=== PATIENT | female | born 1950 | race Caucasian/White ===

== ENCOUNTER → 2016-09-25 | Outpatient (CLI) | payer BC ==
--- NOTE | 2016-09-26 10:18 | MM ---
Reason for exam: screening (asymptomatic). Last mammogram was performed 1 year and 1 month ago. History: Patient is postmenopausal, has history of other cancer at age 36, and had first child at age 36. Benign MG stereo VAD BX LT of the left breast, October 11, 2013. Benign MG stereo VAD BX RT of the right breast, October 11, 2013. Cancelled Left Mammotome of the left breast, May 12, 2013. Benign left mammotome panel of the left breast, October 02, 2012. Physical Findings: A clinical breast exam by your physician is recommended on an annual basis and results should be correlated with mammographic findings. MG 3D Screening Mammo W/Cad Bilateral CC and MLO view(s) were taken. Prior study comparison: August 30, 2015, bilateral MG 3d screening mammo w/cad. July 28, 2014, bilateral MG diagnostic mammo w CAD RIANNA. The breast tissue is extremely dense which could obscure a lesion on mammography. Previous mammotome biopsy within the right breast. There is chronic nodularity bilaterally. There is no dominant lesion. No significant changes when compared with prior studies. ASSESSMENT: Benign, BI-RAD 2 RECOMMENDATION: Routine screening mammogram of both breasts in 1 year.
== END | disposition home or self-care (01) ==
LOC: RADMAMWWP 09:45
PROVIDERS: ATTEND Family Medicine
DX: Z12.31 Encounter for screening mammogram for malignant neoplasm of breast (principal)
CPT/HCPCS: 77063; G0202

== ENCOUNTER 2016-11-30 10:34 | Inpatient (IN) | payer BC, MEDICARE ==
--- NOTE | 2016-11-30 10:46 | ED ---
General Adult HPI - General Chief complaint: Overdose Stated complaint: Altered LOC Time Seen by Provider: 11/30/16 10:40 Source: patient, EMS, RN notes reviewed Mode of arrival: EMS Limitations: altered mental status - History of Present Illness Initial comments: Patient is a 66-year-old female presenting to the emergency department following reported overdose. Patient does admit to being depressed. Patient does admit to taking a handful of Klonopin. Patient is unclear how many. Patient states she is not trying to harm herself however is unclear why she took medication. Patient is drowsy and is a poor historian. EMS did provide Narcan with some improvement of symptoms. - Related Data Home Medications Medication Instructions Recorded Confirmed ALPRAZolam [Xanax] 0.25 mg PO DAILY PRN 02/04/14 12/31/14 Aspirin 81 mg PO DAILY 02/04/14 12/31/14 Cyclobenzaprine [Flexeril] 10 mg PO HS 02/04/14 12/31/14 Folic Acid/Mv,Fe,Min [Centrum 1 cap PO DAILY 02/04/14 12/31/14 Multivitamin Tab Chew] SUMAtriptan SUCCINATE [Imitrex] 100 mg PO DIRECTED 02/04/14 12/31/14 Venlafaxine HCl [Effexor] 1 mg .ROUTE BID 02/04/14 12/31/14 clonazePAM [KlonoPIN] 2 mg PO HS 02/04/14 12/31/14 Citalopram Hydrobromide [CeleXA] 20 mg PO DAILY 12/31/14 12/31/14 Previous Rx's Medication Instructions Recorded Hydrocodone/Acetaminophen [[place] 1 each PO Q6HR PRN #20 tab 12/31/14 5-325] Allergies Allergy/AdvReac Type Severity Reaction Status Date / Time No Known Allergies Allergy Verified 02/04/14 07:47 Review of Systems ROS Statement: Those systems with pertinent positive or pertinent negative responses have been documented in the HPI. ROS Other: All systems not noted in ROS Statement are negative. Constitutional: Denies: fever Eyes: Denies: eye pain ENT: Denies: ear pain Respiratory: Denies: cough Cardiovascular: Denies: chest pain Endocrine: Denies: fatigue Gastrointestinal: Denies: abdominal pain Genitourinary: Denies: dysuria Musculoskeletal: Denies: back pain Skin: Denies: rash Neurological: Denies: headache Psychiatric: Reports: depression Past Medical History Past Medical History: No Reported History History of Any Multi-Drug Resistant Organisms: None Reported Past Surgical History: Heart Catheterization Past Psychological History: Depression Smoking Status: Never smoker Past Alcohol Use History: None Reported Past Drug Use History: None Reported General Exam General appearance: other (Patient is drowsy but easily arousable) Head exam: Present: atraumatic Eye exam: Present: normal appearance, PERRL ENT exam: Present: normal oropharynx Neck exam: Present: normal inspection. Absent: tenderness, meningismus Respiratory exam: Present: normal lung sounds bilaterally Cardiovascular Exam: Present: regular rate, normal rhythm GI/Abdominal exam: Present: soft. Absent: tenderness Extremities exam: Present: normal inspection Neurological exam: Absent: motor sensory deficit Expanded Neurological exam: Present: protecting the airway Patient oriented to: Present: person, place. Absent: time Psychiatric exam: Present: flat affect Skin exam: Present: normal color Course Vital Signs 11/30/16 11/30/16 11/30/16 10:38 11:12 12:21 Temperature 98.2 F Pulse Rate 91 88 86 Respiratory 16 16 16 Rate Blood Pressure 116/60 111/60 109/55 O2 Sat by Pulse 91 L 97 95 Oximetry EKG Findings - EKG Comments: EKG Findings:: Normal sinus rhythm 88. LA 154. QRS 72. QT 338. QTC 408. Normal axis. Normal QRS. No acute ST change. Medical Decision Making - Medical Decision Making Patient reexamined and resting comfortably in bed. Patient unchanged. Family is present. Family updated on results and plan. Dr. Langston has been paged for admission. - Lab Data Result diagrams: 11/30/16 10:46 11/30/16 10:46 Lab Results 11/30/16 11/30/16 11/30/16 Range/Units 10:46 10:46 11:06 WBC 8.1 (3.8-10.6) k/uL RBC 4.08 (3.80-5.40) m/uL Hgb 13.0 (11.4-16.0) gm/dL Hct 37.2 (34.0-46.0) % MCV 91.1 (80.0-100.0) fL MCH 31.8 (25.0-35.0) pg MCHC 34.8 (31.0-37.0) g/dL RDW 13.1 (11.5-15.5) % Plt Count 130 L (150-450) k/uL Neutrophils % 89 % Lymphocytes % 4 % Monocytes % 6 % Eosinophils % 1 % Basophils % 0 % Neutrophils # 7.2 (1.3-7.7) k/uL Lymphocytes # 0.3 L (1.0-4.8) k/uL Monocytes # 0.5 (0-1.0) k/uL Eosinophils # 0.1 (0-0.7) k/uL Basophils # 0.0 (0-0.2) k/uL Sodium 143 (137-145) mmol/L Potassium 3.8 (3.5-5.1) mmol/L Chloride 107 (98-107) mmol/L Carbon Dioxide 29 (22-30) mmol/L Anion Gap 7 mmol/L BUN 22 H (7-17) mg/dL Creatinine 0.66 (0.52-1.04) mg/dL Est GFR (MDRD) Af Amer >60 (>60 ml/min/1.73 sqM) Est GFR (MDRD) Non-Af >60 (>60 ml/min/1.73 sqM) Glucose 123 H (74-99) mg/dL Calcium 8.7 (8.4-10.2) mg/dL Total Bilirubin 0.9 (0.2-1.3) mg/dL AST 39 H (14-36) U/L ALT 37 (9-52) U/L Alkaline Phosphatase 55 (38-126) U/L Total Protein 5.3 L (6.3-8.2) g/dL Albumin 3.5 (3.5-5.0) g/dL Urine Color Yellow Urine Appearance Turbid H (Clear) Urine pH 6.5 (5.0-8.0) Ur Specific [place] 1.011 (1.001-1.035) Urine Protein Trace H (Negative) Urine Glucose (UA) Negative (Negative) Urine Ketones 1+ H (Negative) Urine Blood Trace H (Negative) Urine Nitrite Negative (Negative) Urine Bilirubin Negative (Negative) Urine Urobilinogen <2.0 (<2.0) mg/dL Ur Leukocyte Esterase Negative (Negative) Urine RBC 2 (0-5) /hpf Urine Bacteria Rare H (None) /hpf Urine Mucus Few H (None) /hpf Urine Yeast (Budding) Many H (None) /hpf Salicylates <1.0 mg/dL Urine Opiates Screen Not Detected (NotDetected) Ur Oxycodone Screen Not Detected (NotDetected) Urine Methadone Screen Not Detected (NotDetected) Ur Propoxyphene Screen Not Detected (NotDetected) Acetaminophen <10.0 ug/mL Ur Barbiturates Screen Not Detected (NotDetected) U Tricyclic Antidepress Detected H (NotDetected) Ur Phencyclidine Scrn Not Detected (NotDetected) Ur Amphetamines Screen Not Detected (NotDetected) U Methamphetamines Scrn Not Detected (NotDetected) U Benzodiazepines Scrn Detected H (NotDetected) Urine Cocaine Screen Not Detected (NotDetected) U Marijuana (THC) Screen Not Detected (NotDetected) Serum Alcohol <10 mg/dL - Radiology Data Radiology results: image reviewed (Chest x-ray shows right lower lobe infiltrate ) Disposition Clinical Impression: Benzodiazepine overdose Disposition: ADMITTED IP TO THIS HOSP Referrals: Luiza Langston MD [Primary Care Provider] - 1-2 days Decision Time: 12:33
[2016-11-30 11:07] LABS: Basophils % (A) 0 %; CH 30.7; CHCM 33.8; Eosinophils # (A) 0.1 k/uL (0-0.7); Eosinophils % (A) 1 %; HCT 37.2 % (34.0-46.0); HDW 2.54; Immature Gran Flag Slight; Luc # (Auto) 0.05; Luc % (Auto) 1; Lymphocytes # (A) 0.3 k/uL (1.0-4.8); Lymphocytes % (A) 4 %; MCH 31.8 pg (25.0-35.0); MCHC 34.8 g/dL (31.0-37.0); MCV 91.1 fL (80.0-100.0); Mean Platelet Volume 7.7; Monocytes # (A) 0.5 k/uL (0-1.0); Monocytes % (A) 6 %; Neutrophils # (A) 7.2 k/uL (1.3-7.7); Neutrophils % (A) 89 %; RBC 4.08 m/uL (3.80-5.40); RDW 13.1 % (11.5-15.5); WBC 8.1 k/uL (3.8-10.6)
[2016-11-30 11:11] LABS: ALT 37 U/L (9-52); AST 39 U/L (14-36); Acetaminophen <10.0 ug/mL; Alcohol <10 mg/dL; Alkaline Phosphatase 55 U/L (38-126); Anion Gap 7 mmol/L; Blood Urea Nitrogen 22 mg/dL (7-17); Calcium 8.7 mg/dL (8.4-10.2); Carbon Dioxide 29 mmol/L (22-30); Chloride 107 mmol/L (98-107); Glucose 123 mg/dL (74-99); Non-African American GFR(MDRD) >60 (>60 ml/min/1.73 sqM); Potassium 3.8 mmol/L (3.5-5.1); Salicylate <1.0 mg/dL; Sodium 143 mmol/L (137-145); Total Bilirubin 0.9 mg/dL (0.2-1.3); Total Protein 5.3 g/dL (6.3-8.2)
[2016-11-30 11:17] LABS: Appearance,Urine Turbid (Clear); Bacteria,Urine Rare /hpf; Bilirubin,Urine Negative (Negative); Glucose,Urine (UA) Negative (Negative); Ketones,Urine 1+ (Negative); Leukocyte Esterase,Urine Negative (Negative); Mucus,Urine Few /hpf; Nitrite,Urine Negative (Negative); PH, Urine 6.5 (5.0-8.0); Particle Count 20709; Protein,Urine Trace (Negative); RBC,Urine 2 /hpf (0-5); Specific Gravity,Urine 1.011 (1.001-1.035); UA Billing (MACRO vs. MICRO) MICRO; Urobilinogen,Urine <2.0 mg/dL (<2.0)
--- NOTE | 2016-11-30 12:22 | XR ---
EXAMINATION TYPE: XR chest 2V DATE OF EXAM: 11/30/2016 COMPARISON: Prior chest x-ray 12/31/2014 HISTORY: Overdose TECHNIQUE: Frontal and lateral views of the chest are obtained. FINDINGS: Abnormal increased density present within the right lower lobe, right middle lobe. No pneu mothorax or pleural effusion. Nodular density persists over the right lung apex between the first and second anterior ribs measuring 11 mm. Heart size is stable. IMPRESSION: Right lower lobe, possible right middle lobe pneumonia. Follow-up recommended., Correlat e for aspiration
[2016-11-30] MEDS ORDERED: IPRATROPIUM-ALBUTEROL 3 ML NEB INHALATION PRN (12:33)
[2016-11-30] MEDS ORDERED: LEVOFLOXACIN 750MG-D5W PMX 750 MG in DEXTROSE/WATER 1 150ML.BAG IVPB STA (12:33)
[2016-11-30] MEDS ORDERED: PIPERACILLIN-TAZOBACTAM 3.375 GM in DEXTROSE/WATER 1 50ML.BAG IVPB STA (12:33)
[2016-11-30] MEDS ORDERED: PNEUMONIA PROTOCOL UTILIZED 1 EACH MISC PO PRN (12:33)
--- NOTE | 2016-11-30 13:29 | CT ---
EXAMINATION TYPE: CT brain wo con DATE OF EXAM: 11/30/2016 COMPARISON: Prior head CT 12/31/2014 HISTORY: Klonopin overdose CT DLP: 1086.9 mGycm Automated exposure control for dose reduction was used. FINDINGS: No interval change. There is no hemorrhage or hydrocephalus. Brain shows a stable appearance. Orbits show symmetric appearance. IMPRESSION: STABLE EXAM, NO ACUTE ABNORMALITY.
[2016-11-30] MEDS: SODIUM CHLORIDE 0.9% 1,000 ML IV SCH (13:30)
[2016-11-30 15:59] VITALS: BMI 17.2
[2016-12-01] MEDS: PIPERACILLIN-TAZOBACTAM 3.375 GM in DEXTROSE/WATER 1 50ML.BAG IVPB SCH ×2 (00:05→07:37)
[2016-12-01] MEDS: SODIUM CHLORIDE 0.9% 1,000 ML IV SCH ×2 (07:37→12:36)
--- NOTE | 2016-12-01 08:56 | XR ---
EXAMINATION TYPE: XR chest 1V portable DATE OF EXAM: 12/01/2016 COMPARISON: Prior chest x-ray 11/30/2016 HISTORY: Pneumonia TECHNIQUE: Single frontal view of the chest is obtained. FINDINGS: Bibasilar increased density is present, there is increased density in the right middle lob e as on prior exam. No evident pneumothorax. Patient is rotated. There are overlying cardiac leads. IMPRESSION: Findings compatible with patient's history of pneumonia. There may be basilar atelectasi s. Follow-up to resolution.
[2016-12-01] MEDS ORDERED: LEVOFLOXACIN 750MG-D5W PMX 750 MG in DEXTROSE/WATER 1 150ML.BAG IVPB SCH (13:00)
--- NOTE | 2016-12-01 13:17 | HP ---
CHIEF COMPLAINT: Suicidal attempt and acute depression. HISTORY OF PRESENT ILLNESS: This 66-year-old female with past medical history significant for depression, anxiety who presents to the hospital after taking the rest of her Klonopin pills in the prescription bottle. According to the who is at the beside the patient was taking the medication regularly and noticed that refill time is December 12 which is 12 days from now when she took the rest of her pills, but he is not sure exactly how many pills. The patient said that it is 30. Patients said that it may be less. Patient on Friday kept sleeping in bed, which is normal according to the who came from work and did not bother her and on Friday morning the patient was still in the same position and did not move out of bed. The tried to wake her up but she was difficult to arouse, called EMS who gave her Narcan and the patient responded well. Brought to the Emergency Department where her blood work showed normal findings. Chest x-ray showed right lower lobe infiltrate and was started on IV antibiotics, placed on the medical floor. REVIEW OF SYSTEMS: The patient denying chest pain, shortness of breath, nausea, vomiting, abdominal pain, dizziness, lightheadedness or blurry vision. PAST MEDICAL AND SURGICAL HISTORY: 1. Anxiety. 2. Depression. 3. Migraine headaches. 4. History of cardiac catheterization. HOME MEDICATIONS: 1. Xanax 0.25 daily p.r.n. 2. Aspirin 81 daily. 3. Flexeril 10 mg nightly. 4. Folic acid daily. 5. Sumatriptan 100 mg as direct. 6. Effexor 1 mg b.i.d. 7. Klonopin 2 mg q.h.s. 8. Celexa 20 mg daily. 9. Hydrocodone 5 mg every 6 hours as needed. ALLERGIES: No known drug allergies. SOCIAL HISTORY: Patient denied tobacco, alcohol or drug abuse. Patient is independent and lives with her at home, who reported that the patient has been depressed for a long time and the patient admitted this suicidal attempt where she said that she would like to end her life given the uncontrolled anxiety and uncontrolled depression. PHYSICAL EXAMINATION: VITAL SIGNS: Stable in the emergency and continue to be stable on the floor. GENERAL: In her stated age and no acute distress. HEENT: Atraumatic, normocephalic. PERRLA. LUNGS: Clear to auscultation bilaterally. HEART: Normal S1, S2. ABDOMEN: Soft, no tenderness. Positive bowel sounds in all four quadrants. LOWER EXTREMITIES: No edema. Positive for muscle wasting. SKIN: No rash. NEURO: No focal deficits. PSYCH: Alert and oriented x3 in relaxed mood and affect. Seems to be depressed. IMAGING AND LABS: EKG showed normal sinus rhythm at rate of 88. CBC showed normal findings except for low platelets at 130. Chemistry showed normal findings except for slight elevation of glucose at 123. Liver function test within acceptable range. Urine drug screen showed positive for tricyclic and benzos, negative otherwise. UA was positive for rare bacteria. A few yeast and 1 + ketones. Chest x-ray showed right lower lobe infiltrate. ASSESSMENT AND PLAN: 1. Acute depression with suicidal attempt. The patient admitted attempting to end her life by taking extra pills and said that she is very depressed and anxious. I would like to get psychiatric evaluation. I asked the to petition the patient he believes that she is in imminent danger and he agreed and signed the paper. I filled the certification and waiting on psych evaluation for inpatient psych admission. is agreeable. Patient would like to be treated outpatient, but we will have the final decision once psych evaluates the patient. Will keep her currently on her psych medications. Avoid Klonopin at this point and monitor her vital signs closely. 2. Drug overdose. Management as above. 3. Patient seems to be medically stable for discharge to the psych floor if psych is agreeable. 4. Thrombocytopenia, mild. Patient will follow up outpatient with her primary care physician. 5. Severe protein calorie malnutrition with evidence of muscle wasting. Patient is agreeable for Ensure. We will follow up closely. 6. Migraine headache. We will continue with Imitrex. 7. Fibromyalgia type of pain. We will continue her home regimen. 8. Discharge planning based on psych evaluation. 9. Right lower lobe infiltrate. Could be related to aspiration. I would like to discontinue IV antibiotics and start the patient on Augmentin 875 mg for total of 7 days. MTDD
[2016-12-01 14:14] VITALS: BP 109/59; PULSE 85; RESP 18; TEMP 98.1
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
[2016-12-01] MEDS ORDERED: AMOXIC-POT CLAV 875-125MG 1 EACH TAB PO SCH (21:00)
== END 2016-12-01 19:18 | DRG 917 ==
LOC: EC 10:34 → 6SEL 12:33
PROVIDERS: ADMIT Family Medicine; ATTEND Family Medicine
DX: T42.4X2A Poisoning by benzodiazepines, intentional self-harm, initial encounter (principal); E43 Unspecified severe protein-calorie malnutrition; J69.0 Pneumonitis due to inhalation of food and vomit; D69.6 Thrombocytopenia, unspecified; F32.9 Major depressive disorder, single episode, unspecified; F41.9 Anxiety disorder, unspecified; G43.909 Migraine, unspecified, not intractable, without status migrainosus; M79.7 Fibromyalgia; Z79.82 Long term (current) use of aspirin; Z79.899 Other long term (current) drug therapy; Y92.003 Bedroom of unspecified non-institutional (private) residence as the place of occurrence of the external cause
CPT/HCPCS: 36415; 70450; 71010; 71020; 80053; 80306; 80320; 81001; 83520; 85025; 87040; 93005; 94640; 96365; 99285

== ENCOUNTER 2016-12-01 18:36 | Inpatient (IN) | payer BC, MEDICARE ==
[2016-12-01] MEDS ORDERED: MAGNESIUM HYDROXIDE 2,400 MG/10 ML CUP PO PRN (18:40)
[2016-12-01] MEDS ORDERED: MAG HYDROX/AL HYDROX/SIMETH 30 ML CUP PO PRN (18:40)
[2016-12-01] MEDS ORDERED: LORazepam 0.5 MG TAB PO PRN (18:40)
[2016-12-01] MEDS ORDERED: ACETAMINOPHEN TAB 325 MG TAB PO PRN (18:40)
[2016-12-01] MEDS ORDERED: SUMAtriptan SUCCINATE 50 MG TAB PO PRN (18:41)
[2016-12-01] MEDS ORDERED: OLANZapine ODT 5 MG TAB PO PRN (18:44)
[2016-12-01] MEDS: lamoTRIgine 25 MG TAB PO SCH (20:51)
[2016-12-01] MEDS: AMOXIC-POT CLAV 875-125MG 1 EACH TAB PO SCH (20:51)
[2016-12-01] MEDS: CYCLOBENZAPRINE 5 MG TAB PO SCH (20:51)
[2016-12-02 08:52] LABS: Basophils % (A) 0 %; CH 30.3; CHCM 32.9; Eosinophils # (A) 0.1 k/uL (0-0.7); Eosinophils % (A) 2 %; HCT 33.5 % (34.0-46.0); HGB 11.1 gm/dL (11.4-16.0); Luc # (Auto) 0.06; Luc % (Auto) 1; Lymphocytes # (A) 1.2 k/uL (1.0-4.8); Lymphocytes % (A) 20 %; MCH 30.6 pg (25.0-35.0); MCHC 33.1 g/dL (31.0-37.0); MCV 92.6 fL (80.0-100.0); Mean Platelet Volume 7.9; Monocytes # (A) 0.3 k/uL (0-1.0); Monocytes % (A) 4 %; Neutrophils # (A) 4.2 k/uL (1.3-7.7); Neutrophils % (A) 73 %; RBC 3.62 m/uL (3.80-5.40); WBC 5.8 k/uL (3.8-10.6); WBC (Perox) 5.84
[2016-12-02 08:55] LABS: ALT 40 U/L (9-52); AST 33 U/L (14-36); Alkaline Phosphatase 51 U/L (38-126); Anion Gap 7 mmol/L; Blood Urea Nitrogen 12 mg/dL (7-17); Calcium 8.4 mg/dL (8.4-10.2); Carbon Dioxide 29 mmol/L (22-30); Chloride 106 mmol/L (98-107); Glucose 87 mg/dL (74-99); Non-African American GFR(MDRD) >60 (>60 ml/min/1.73 sqM); Potassium 3.7 mmol/L (3.5-5.1); Sodium 142 mmol/L (137-145); Total Bilirubin 0.7 mg/dL (0.2-1.3)
[2016-12-02] MEDS: lamoTRIgine 25 MG TAB PO SCH (09:17)
[2016-12-02] MEDS: AMOXIC-POT CLAV 875-125MG 1 EACH TAB PO SCH ×2 (09:17→20:21)
[2016-12-02] MEDS: ASPIRIN 81 MG CHEW PO SCH (09:17)
[2016-12-02] MEDS: CYCLOBENZAPRINE 5 MG TAB PO SCH (20:21)
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
[2016-12-03] MEDS: ASPIRIN 81 MG CHEW PO SCH (08:07)
[2016-12-03] MEDS: AMOXIC-POT CLAV 875-125MG 1 EACH TAB PO SCH ×2 (08:07→21:02)
--- NOTE | 2016-12-03 10:29 | P.PN ---
Progress Note - Text Interval history: The patient is found in the [facility] she follows me to an interview room. She reports that she slept last night and that her appetite has improved. She reports eating her whole breakfast. We again discussed the symptoms precipitating this admission. Again she states she made the conscious decision to write a suicide note gather 20 Klonopin pills. She states even after she put them in her mouth and they were beginning to dissolve she paused and then decided to go ahead and swallowed them. At this point she states she felt overwhelmed with the isolation at home and having nothing to do. We spent several minutes discussing work/volunteer opportunities. I suspect there may be some communication barrier with her and her may have also contributed to the despair she felt at the time of the overdose. Mental status exam: The patient is a female she is dressed in hospital gowns. She's thin. She is pleasant and cooperative eye contact is good. She is soft-spoken speech is fluent and spontaneous nonpressured. She endorses a mood that is improved but does agree that at the time of overdose she was hopeless. She is endorsing no suicidal thoughts in the hospital. She is trying to facilitate a discharge as she reports feeling uncomfortable in this environment. We discussed the importance of evaluating her safety risks and treating her depression. She endorses no auditory or visual hallucinations or any specific delusions. Insight and judgment limited. She demonstrates no verbal or physical aggressiveness. She is alert and oriented. Plan: We did get a list of medications from her pharmacy dating back to 2000. She has been on Paxil, Paxil CR, Lexapro, Geodon, Wellbutrin XL, Abilify, Lamictal, Cymbalta, Pristiq, Elavil, Effexor XR, Celexa. She is not able to provide specific information regarding his medications. We decided to try Remeron which we will initiate at 15 mg at bedtime. She is encouraged to use this time to consider what changes she will make at home in order to feel more productive and less stagnant. Vital signs reviewed we will continue to monitor her for safety. We will involve family in treatment and discharge planning as she will allow.
[2016-12-03] MEDS: MIRTAZAPINE 15 MG TAB PO SCH (21:01)
[2016-12-03] MEDS: CYCLOBENZAPRINE 5 MG TAB PO SCH (21:02)
[2016-12-04] MEDS: AMOXIC-POT CLAV 875-125MG 1 EACH TAB PO SCH ×2 (08:43→20:15)
[2016-12-04] MEDS: ASPIRIN 81 MG CHEW PO SCH (08:43)
--- NOTE | 2016-12-04 10:26 | P.PN ---
Progress Note - Text Interval history: The patient is found in the [facility] participating in group she follows me to an interview room. She reports having an interaction with her yesterday he brought her close. We again discussed the overdose and precipitating factors. She discusses the loss of a close friend. She states that she suspects her is jealous that she has retired. It appears that they are trying to acclimate to a new living style now that she is home as they have worked on separate shifts for numerous years. In terms of describing her own personality she states "stupid" she describes a variety of traits that appear to be dependent in nature. She is fearful that her who is younger than her leave her. She reports sleep has improved she states appetite is stable. She has no questions or concerns regarding the Remeron today. Mental status exam: The patient is an alert pleasant female appearing her stated age. She is quite thin. She is dressed in her own clothing today. Eye contact is good speech is fluent spontaneous nonpressured. She demonstrates an appropriate range of affect. She feels safe here in the hospital she is endorsing no acute suicidal ideation intent or plan. There is no evidence of psychosis. She does not appear hypomanic or manic. Insight and judgment limited as she continues to minimize the suicide attempt and feels that she could be discharged already. She demonstrates no verbal or physical aggressiveness. Plan: The patient will continue on the Remeron we have just initiated this medication. We will monitor her for safety and encourage her participation in the milieu. We discussed the seriousness of her overdose and the need for continued assessment/treatment. She has been participating in groups today she is encouraged to continue doing so. Vital signs reviewed. She continues on Augmentin for treatment of pneumonia.
[2016-12-04] MEDS: MIRTAZAPINE 15 MG TAB PO SCH (20:15)
[2016-12-04] MEDS: CYCLOBENZAPRINE 5 MG TAB PO SCH (20:15)
[2016-12-05] MEDS: ASPIRIN 81 MG CHEW PO SCH (09:10)
[2016-12-05] MEDS: AMOXIC-POT CLAV 875-125MG 1 EACH TAB PO SCH ×2 (09:10→20:00)
--- NOTE | 2016-12-05 09:41 | P.PN ---
Progress Note - Text Interval history: The patient is found in the hallway she follows me to an interview room. She reports that her mood is improving she is becoming more comfortable in engaging with the therapeutic milieu. She finds the group supportive. It is documented she slept 6 hours last evening she states her appetite has been stable. She continues to comply with the Remeron she has no questions regarding the medication today. She reports a pleasant visit from her and daughter last evening. Vital signs reviewed. Mental status exam: The patient is a thin female appearing her stated age. Hygiene grooming adequate she is dressed in her own clothing. She is pleasant and cooperative. She reports feeling safe here in the hospital she is endorsing no acute suicidal ideation here in the hospital. Affect is appropriately expressive. She endorses no thoughts of harming others she endorses no auditory or visual hallucinations is no evidence of specific delusions. She demonstrates no verbal or physical aggressiveness. In terms of cognitive status she is oriented to person place and date. She is able to name our current location in terms of city and county. When asked to name 5 major cities in the [facility] she name 5 cities in [place] with [place] being the largest. She was able to name the months of the year backwards although with some delay. When asked to abstract proverbs she struggled with the grass is always greener on the other side of the fence but could offer an acceptable interpretation of 2 other proverbs that were more obvious. With similarity questions she struggled. She provided concrete answers to one question and was unable to provide abstractions for the others. She was able to register 3 words successfully she was able to recall all 3 spontaneously after 5 minutes. With intersecting pentagons the overlapping figure was a triangle rather than a quadrilateral. This was done without her glasses however. With clock drawing she was able to successfully number the clock using a strategy and was able to correctly place the hands indicating the requested time. She was able to name 3 objects she was able to follow a two-step command and was able to repeat a statement. Plan: The patient will continue on the Remeron is written. We will continue to monitor her for safety. Vital signs reviewed. She is engaging in the therapeutic milieu she is beginning to stabilize. I anticipate she will likely be appropriate for discharge Friday.
[2016-12-05] MEDS: CYCLOBENZAPRINE 5 MG TAB PO SCH (20:00)
[2016-12-05] MEDS: MIRTAZAPINE 15 MG TAB PO SCH (20:00)
[2016-12-06] MEDS: AMOXIC-POT CLAV 875-125MG 1 EACH TAB PO SCH ×2 (08:46→20:05)
[2016-12-06] MEDS: ASPIRIN 81 MG CHEW PO SCH (08:47)
[2016-12-06 09:17] VITALS: BMI 16.5
[2016-12-06 13:36] LABS: Vitamin B12 >1000 pg/mL (239-931)
--- NOTE | 2016-12-06 13:49 | P.PN ---
Progress Note - Text Interval History: Patient is being seen in coverage for Dr. Tom, patient was admitted after taking an overdose of Klonopin. Patient has been placed on Remeron and reports that she is doing well, she stated that she was actually feeling happy. She states that she's been attending groups and activities and that it is going well. She reports that she is eating and sleeping well. When questioned about her overdose attempt she stated that she "can't believe I did it". 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 She states that she was bored at home. Patient had no other complaints at this time and no complaints of side effects from the medication. Mental Status: Appearance/Attitude: Patient is thin, neatly groomed and dressed , made good eye contact and was cooperative. Behavior: Patient displayed no psychomotor agitation or retardation. Speech/Language: Patient's speech was spontaneous, normal volume and rhythm and she was coherent. Thought Process: Patient was goal-directed and there is no evidence of circumstantial or tangential thought and no loose associations or flight of ideas. Thought Content: Patient denied any auditory or visual hallucinations, no delusions or paranoid ideation were elicited. Patient reports that she is feeling "happy" and states that she is finding the groups helpful. She reports she is not feeling depressed and states she is sleeping and states she has been eating well as her appetite is improved. She did discuss that after her [place] [facility] in August of this year she felt bored at home and missed the social contact at work. Suicidal/Homicidal Ideation: Patient denied any current suicidal or homicidal ideation. Sensorium/Cognition: Patient was alert and oriented to person, place and time. Patient had difficulty recalling the name of the month that she retired initially stated December and after some thinking stated August, I reviewed her cognitive testing yesterday. Mood/Affect: Patient's mood is bright and pleasant and her affect is appropriate. Insight/Judgement: Patient's insight and judgment are fair. Assessment: Patient appears to be responding to the Remeron she is reporting feeling happy and no longer having any suicidal ideation. She states she is no longer feeling depressed and reports that she was feeling bored and missing social interaction with coworkers since her [place] [facility] at the end of August of this year. She sees her suicide attempt as something she can't believe she did. Patient was discussed in treatment team meeting and there were concerns as her weight had decreased by 3 pounds since her admission, even though the patient is stating she is eating. Plan: I spoke with the patient regarding her weight and she states that her weight has typically been around 100 pounds for her adult life. She denies ever restricting or purging to maintain her weight. She states that she has been eating here and that her appetite has improved. A B12 and folate level were ordered and were within normal limits. Patient reports that she has had mammograms on a yearly basis and has had a colonoscopy. Patient reports that she has not used any alcohol for a number of years and never used it to any excess in the past. 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 Patient will continue on Remeron 15 mg at bedtime and she is having a positive response to this. Patient will continue in the hospital to ensure return to baseline functioning.
[2016-12-06] MEDS: CYCLOBENZAPRINE 5 MG TAB PO SCH (20:05)
[2016-12-06] MEDS: MIRTAZAPINE 15 MG TAB PO SCH (20:06)
[2016-12-07] MEDS: ASPIRIN 81 MG CHEW PO SCH (08:48)
[2016-12-07] MEDS: AMOXIC-POT CLAV 875-125MG 1 EACH TAB PO SCH ×2 (08:48→20:52)
--- NOTE | 2016-12-07 11:14 | P.PN ---
Progress Note - Text Interval History: Patient is a 66-year-old female who was admitted to the psychiatric unit after taking an overdose of Klonopin and is being seen today in coverage for Dr. Tom. Patient reports that she continues to feel well and is continuing to eat well and states her appetite has improved and that she notices she is feeling better from a physical standpoint as her appetite has improved. Patient reports that she slept well last night, watch to [employer] game and went to bed a little later but is feeling rested. She reports her mood remains positive and upbeat and reported no thoughts of suicide. Patient had no reports of complaints of any side effects from medication. Mental Status: Appearance/Attitude: Patient is thin, neatly and appropriately dressed who was cooperative and made good eye contact. Behavior: Patient exhibited no psychomotor agitation or retardation Speech/Language: Patient's speech was spontaneous, normal volume and rhythm and she was coherent. Thought Process: Patient's thought process was goal-directed and there is no evidence of any circumstantial or tangential thought and no flight of ideas or loose associations were elicited. Thought Content: Patient denied any auditory or visual hallucinations and no delusions or paranoid ideation were elicited. Patient states she is more positive in her thinking and states that she notices she is feeling better physically as her appetite is improved and she is eating better. She reports she is sleeping well and feels rested in the morning. Suicidal/Homicidal Ideation: Patient denies any current suicidal or homicidal ideation. Sensorium/Cognition: Patient is alert and oriented to person, place, and time and her memory is grossly intact. Mood/Affect: Patient's mood is upbeat and positive and her affect is appropriate. Insight/Judgement: Patient's insight and judgment are intact. Assessment: Patient continues to show improvement and reports her mood is more positive and upbeat and she is no longer having any suicidal ideation. Patient has been eating better and states that she notices she is feeling better from a physical standpoint. Patient has been attending groups and activities and has been social on the unit and states that this has been beneficial. Patient reported no side effects from her medication. Plan: Patient will continue on Remeron 15 mg at bedtime to target her depression, she was encouraged to continue attending groups and activities and participating in them. Patient continues on her Augmentin in this course will be completed tomorrow. Patient is improving and should be ready for discharge on Friday.
[2016-12-07] MEDS: MIRTAZAPINE 15 MG TAB PO SCH (20:52)
[2016-12-07] MEDS: CYCLOBENZAPRINE 5 MG TAB PO SCH (20:52)
[2016-12-08 06:56] VITALS: TEMP 98.3
[2016-12-08] MEDS: ASPIRIN 81 MG CHEW PO SCH (08:00)
[2016-12-08] MEDS: AMOXIC-POT CLAV 875-125MG 1 EACH TAB PO SCH ×2 (08:00→20:45)
--- NOTE | 2016-12-08 11:24 | P.PN ---
Progress Note - Text Interval History: Patient is a 66-year-old female who is being seen in coverage for Dr. Tom. Patient reports that she has been sleeping well and is not feeling depressed. She discussed that in the past she would stop her medication or decrease the dose because she was either feeling well or she thought the medication wasn't working. Patient states that she is aware now that she needs to continue on the medication and not adjust the doses on her own. Patient states that she is eating and looking forward to returning home to eat her own food. She states that she is to have a family meeting tomorrow. Patient had no other complaints. Mental Status: Appearance/Attitude: Patient is a thin female who is neatly and appropriately dressed and makes good eye contact and is cooperative. Behavior: She displays no psychomotor agitation or retardation. Speech/Language: She is spontaneous and of normal volume and rhythm and she is coherent. Thought Process: Patient is goal-directed there is no evidence of any circumstantial or tangential thought and no loose associations or flight of ideas Thought Content: Patient denies any auditory or visual hallucinations and no paranoid or delusional ideation was elicited. Patient states that she is sleeping and eating well and reports that she is feeling much better. Suicidal/Homicidal Ideation: Patient any suicidal or homicidal ideation currently Sensorium/Cognition: Patient is alert and oriented to person, place, and time and her memory is grossly intact. Mood/Affect: Patient's mood is bright and and her affect is appropriate. Insight/Judgement: Patient's insight and judgment are fair. Assessment: Patient has been attending groups and participating and states that they have been helpful to her. Patient discussed her prior noncompliance with medication and is aware that she needs to be compliant with her medication. Patient reports that she is no longer feeling depressed and is sleeping well at night. She reported no thoughts of self-harm. Patient reports that she is to have a family meeting tomorrow afternoon. Plan: Patient will continue on Remeron 15 mg at bedtime to target her depression. Patient has continued to show improvement and most likely will be discharged at the beginning of the week.
[2016-12-08] MEDS ORDERED: SUMAtriptan SUCCINATE 50 MG TAB PO PRN (14:34)
[2016-12-08] MEDS: MIRTAZAPINE 15 MG TAB PO SCH (20:45)
[2016-12-08] MEDS: CYCLOBENZAPRINE 5 MG TAB PO SCH (20:45)
[2016-12-09 04:01] VITALS: RESP 18
[2016-12-09 05:23] VITALS: BP 143/89; PULSE 141
--- NOTE | 2016-12-09 09:13 | P.DS ---
Providers Date of admission: 12/01/16 18:57 Expected date of discharge: 12/09/16 Attending physician: Randy Tom Consults: 12/01/16 18:40 Consult Physician Routine Consulting Provider: Luiza Langston Consult Reason/Comments: follow up H & P Do you want consulting provider notified?: Yes Primary care physician: Luiza Langston - Discharge Diagnosis(es) (1) Major depressive disorder, recurrent severe without psychotic features Current Visit: Yes Status: Acute Priority: High (2) Anxiety Current Visit: Yes Status: Acute Priority: Medium Hospital Course: Brief summary of admission note: This patient is a 66-year-old female who was admitted to the mental health unit after being medically cleared from the medical floor. She was admitted to the hospital originally after an intentional suicide attempt via Klonopin overdose. The patient reported she took approximately 20 Klonopin tablets. She states that she wrote a suicide note prior. She felt overwhelmed and hopeless at the time. She describes a recent history of excessive sleep decreased appetite weight loss. She felt that the predominant stressor her life was her retiring in August and feeling stagnant subsequently. She described very little activity during the day. For full details please refer to my psychiatric evaluation dated 12/02/2016. Summary of hospital course: The patient was admitted to the mental health unit she signed in voluntarily. We reviewed her medication options in the context of her presenting symptoms. We did have a list from her pharmacy reviewing the various antidepressants she's been on since 2000. These include Paxil, Lexapro , Geodon, Wellbutrin, Abilify, Lamictal, Cymbalta, Pristiq, Elavil, Effexor XR, Celexa, Lamictal. We discussed utilizing Remeron and she was agreeable we started at 15 mg at bedtime. We did not utilize the Klonopin. She did intermittently used Ativan during the hospital course. The patient did attend groups she demonstrated no agitated behavior. She seems initially confused and this was likely due to the sequela of the Klonopin overdose. In a few days she did cognitively clear and was able to more properly participate in the session. We did do some brief cognitive testing please refer to prior notes. She is reporting a resolution of suicidal ideation. The patient was diagnosed with a right-sided pneumonia and was treated with the prescribed course of Augmentin. She will follow-up with her primary care physician Dr. Langston. Mental status exam: The patient is a thin female she is dressed in hospital gowns today eye contact is appropriate hygiene is adequate grooming spare. Eye contact is appropriate speech is fluent spontaneous nonpressured. She reports having some difficulty sleeping last night and feels her memory isn' t as good this morning. She is endorsing no hopelessness thinking she is endorsing no suicidal ideation intent or plan. She has not verbalized any homicidal ideation intent or plan. There is no report or evidence of hallucinations or specific delusions. She demonstrates no verbal or physical aggressiveness. She is able to demonstrate a range of affect. Insight and judgment improving. Impressions 1. Major depressive disorder recurrent severe without psychosis, anxiety and specified 2. Recent's Klonopin overdose, recent diagnosis of right-sided pneumonia 3. Continue struggles adapting to recent fdc. Plan: The patient will be discharged from mental health unit to return home residing with her . She will continue on Remeron 15 mg at bedtime. She is capable participating in her own activities of daily living. She is reporting no suicidal ideation intent or plan. Social work will arrange for outpatient mental health follow-up. The patient is encouraged to comply with medication and her outpatient follow-up. She will follow up with her primary care physician as needed. There is no imminent safety risk she is appropriate for transition to outpatient care. Patient Condition at Discharge: Stable Plan - Discharge Summary New Discharge Prescriptions: New Mirtazapine [Remeron] 15 mg PO HS #30 tab Continue Cyclobenzaprine [Flexeril] 10 mg PO HS SUMAtriptan SUCCINATE [Imitrex] 100 mg PO BID PRN PRN Reason: Migraine Headache Aspirin 81 mg PO DAILY #30 chewable Discontinued clonazePAM [KlonoPIN] 2 mg PO HS Citalopram Hydrobromide [CeleXA] 20 mg PO DAILY lamoTRIgine [LaMICtal] 25 mg PO BID Amoxic-Pot Clav 875-125Mg [Augmentin 875-125] 1 tab PO Q12HR #14 tablet Discharge Medication List Cyclobenzaprine [Flexeril] 10 mg PO HS 02/04/14 [History] SUMAtriptan SUCCINATE [Imitrex] 100 mg PO BID PRN 02/04/14 [History] Aspirin 81 mg PO DAILY #30 chewable 12/01/16 [Rx] Mirtazapine [Remeron] 15 mg PO HS #30 tab 12/09/16 [Rx]
[2016-12-09] MEDS: ASPIRIN 81 MG CHEW PO SCH (09:39)
== END 2016-12-09 14:36 | disposition home or self-care (01) | DRG 885 ==
LOC: 3MHU 18:56 → UNDOADMIN 18:56 → 3MHU 18:57
PROVIDERS: ADMIT Psychiatry & Neurology Psychiatry; ATTEND Psychiatry & Neurology Psychiatry
DX: F33.2 Major depressive disorder, recurrent severe without psychotic features (principal); Z91.14 Patient's other noncompliance with medication regimen; F41.9 Anxiety disorder, unspecified; Z79.899 Other long term (current) drug therapy; Z91.5 Personal history of self-harm; Z87.01 Personal history of pneumonia (recurrent)
CPT/HCPCS: 80053; 82607; 82746; 84443; 85025

== ENCOUNTER 2016-12-11 20:17 | Emergency (ER) | payer BC, MEDICARE ==
--- NOTE | 2016-12-11 22:48 | ED ---
General Adult HPI - General Chief complaint: Anxiety Stated complaint: Anxiety, high blood pressure Time Seen by Provider: 12/11/16 22:13 Source: patient Mode of arrival: ambulatory Limitations: no limitations - History of Present Illness Initial comments: Is a 66-year-old female to history of depression and anxiety with a recent hospital admission for overdose on Klonopin and was discharged 2 days ago presents emergency department for episodes of palpitations, left sided chest discomfort, flushing. She states that the symptoms been going on since she left the hospital. They seem to be having in the afternoon. Nothing seems to bring them on the seem to be random. She has no associated lightheadedness or no nausea or vomiting. She states that the chest pain is sharp in nature and feels a pounding. She was recently taken off of the Klonopin while hospitalized and started on Remeron which she has been compliant with. The was concerned about her symptoms and brought her here. By the time she got back to the emergency department her symptoms had resolved. She took her Remeron at 9 PM. She feels that this does help her symptoms. was concerned that she was not on anything for anxiety and was inquiring about starting back on Klonopin. - Related Data Home Medications Medication Instructions Recorded Confirmed Cyclobenzaprine [Flexeril] 10 mg PO HS 02/04/14 12/11/16 SUMAtriptan SUCCINATE [Imitrex] 100 mg PO BID PRN 02/04/14 12/11/16 Previous Rx's Medication Instructions Recorded Aspirin 81 mg PO DAILY #30 chewable 12/01/16 Mirtazapine [Remeron] 15 mg PO HS #30 tab 12/09/16 Allergies Allergy/AdvReac Type Severity Reaction Status Date / Time No Known Allergies Allergy Verified 12/11/16 22:17 Review of Systems ROS Statement: Those systems with pertinent positive or pertinent negative responses have been documented in the HPI. ROS Other: All systems not noted in ROS Statement are negative. Past Medical History Past Medical History: No Reported History Additional Past Medical History / Comment(s): Occasional migraines, wears contact and readers, heart murmur as child, achilles tendon repair, 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 History of Any Multi-Drug Resistant Organisms: None Reported Past Surgical History: Appendectomy, Hernia Repair Past Psychological History: Anxiety, Depression Smoking Status: Never smoker - Past Family History Father Family Medical History: No Reported History Mother Family Medical History: No Reported History General Exam - General Exam Comments Initial Comments: Constitutional: Awake alert Appears comfortable Head: Normocephalic atraumatic Eyes: no conjunctival injection No scleral icterus EOMI Neck: No JVD Supple Heart: Regular rate rhythm normal S1-S2 no murmurs Lungs: Clear to auscultation bilaterally No wheezing No rales Abdomen: Soft nondistended nontender Extremities: Non edematous DP pulses intact Radial pulses intact Neuro: A&Ox3 No focal neurologic deficits Psych: Appropriate mood and affect Limitations: no limitations Course Vital Signs 12/11/16 12/11/16 12/11/16 20:26 22:33 22:41 Temperature 98.1 F Pulse Rate 93 Respiratory 18 20 20 Rate Blood Pressure 133/62 O2 Sat by Pulse 100 Oximetry 12/11/16 23:05 Temperature 98.9 F Pulse Rate 89 Respiratory 18 Rate Blood Pressure 118/66 O2 Sat by Pulse 100 Oximetry EKG Findings - EKG Comments: EKG Findings:: EKG showing normal sinus rhythm with a rate of 95. No abnormal ST segment changes or T-wave inversions. QTC is 462. Other intervals are normal. No ectopy. Medical Decision Making - Medical Decision Making This is a 66-year-old female presented for episodes of flushing, palpitations, chest pain, shaking. She has no symptoms currently. EKG is unremarkable. I do not recommend restarting and Klonopin because the patient recently tried to overdose on area she is on Remeron which seems to be helping her however I believe that it's wearing off in the afternoon. She may require an increased dose or twice a day dosing. She has an appointment with her therapist tomorrow and I advised them to discuss this with them tomorrow. No emergent pathology at this point patient can be discharged home. Can return if she has any worsening or changing symptoms. All questions were answered. Disposition Clinical Impression: Acute anxiety Disposition: HOME SELF-CARE Condition: Stable Instructions: Generalized Anxiety Disorder (ED) Additional Instructions: follow up with therapist tomorrow. Ask about increasing Remeron. Referrals: Luiza Langston MD [Primary Care Provider] - 1-2 days
[2016-12-11 23:06] VITALS: BP 118/66; PULSE 89; RESP 18; TEMP 98.9
== END 2016-12-11 23:10 | disposition home or self-care (01) ==
LOC: EC 20:17
DX: F41.9 Anxiety disorder, unspecified (principal); Z79.899 Other long term (current) drug therapy
CPT/HCPCS: 93005; 99283

== ENCOUNTER 2016-12-14 05:11 | Inpatient (IN) | payer BC, MEDICARE ==
--- NOTE | 2016-12-14 05:33 | ED ---
Anxiety HPI - General Chief Complaint: Anxiety Stated Complaint: Anxiety Time Seen by Provider: 12/14/16 05:23 Source: EMS Mode of arrival: EMS - History of Present Illness Initial Comments: This patient is a 66-year-old woman brought in to have psychiatric evaluation for extreme anxiety. The patient describes not being able to sleep and not being able to focus her thoughts on anything other than feeling very anxious. She denies any suicidal or homicidal ideation. Patient denies hallucinations. Patient has long history of anxiety. Symptoms worsening over past day. Her psychiatric medications were recently changed and are not controlling her symptoms. MD Complaint: anxiety -: hour(s) Place: home Previous History of Same: Yes Severity: severe Quality: similar to prior episodes Provoking factors: emotional stress Improves With: nothing Worsens With: thinking about event - Related Data Home Medications: Home Medications Medication Instructions Recorded Confirmed Cyclobenzaprine [Flexeril] 10 mg PO HS 02/04/14 12/11/16 SUMAtriptan SUCCINATE [Imitrex] 100 mg PO BID PRN 02/04/14 12/11/16 busPIRone HCl [Buspar] 5 mg PO BID 12/14/16 12/14/16 Previous Rx's Medication Instructions Recorded Aspirin 81 mg PO DAILY #30 chewable 12/01/16 Mirtazapine [Remeron] 15 mg PO HS #30 tab 12/09/16 Allergies/Adverse Reactions: Allergies Allergy/AdvReac Type Severity Reaction Status Date / Time peanut AdvReac Nausea Verified 12/14/16 05:21 Review of Systems ROS Statement: Those systems with pertinent positive or pertinent negative responses have been documented in the HPI. ROS Other: All systems not noted in ROS Statement are negative. Constitutional: Denies: fever Respiratory: Reports: dyspnea. Denies: cough, wheezes Cardiovascular: Denies: chest pain, palpitations, syncope Gastrointestinal: Denies: abdominal pain, vomiting, diarrhea Genitourinary: Denies: dysuria, hematuria Skin: Denies: rash Neurological: Denies: headache, weakness, numbness Psychiatric: Reports: anxiety. Denies: depression, auditory hallucinations, visual hallucinations, homicidal thoughts, suicidal thoughts Past Medical History Past Medical History: No Reported History Additional Past Medical History / Comment(s): Occasional migraines, wears contact and readers, heart murmur as child, achilles tendon repair, 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 History of Any Multi-Drug Resistant Organisms: None Reported Past Surgical History: Appendectomy, Hernia Repair Past Psychological History: Anxiety, Depression Smoking Status: Never smoker Past Alcohol Use History: Rare Past Drug Use History: None Reported - Past Family History Father Family Medical History: No Reported History Mother Family Medical History: No Reported History General Exam Limitations: no limitations General appearance: alert, in no apparent distress, anxious Head exam: Present: atraumatic, normocephalic Eye exam: Present: normal appearance. Absent: scleral icterus, conjunctival injection Neck exam: Present: normal inspection, full ROM Respiratory exam: Present: normal lung sounds bilaterally. Absent: respiratory distress, wheezes, rales, rhonchi, stridor Cardiovascular Exam: Present: regular rate, normal rhythm, normal heart sounds. Absent: systolic murmur, diastolic murmur, rubs, gallop GI/Abdominal exam: Present: soft. Absent: distended, tenderness, guarding, rebound Extremities exam: Present: normal inspection, normal capillary refill. Absent: pedal edema, calf tenderness Back exam: Present: normal inspection. Absent: CVA tenderness (R), CVA tenderness (L) Neurological exam: Present: alert Skin exam: Present: warm, dry, intact, normal color. Absent: rash Course Vital Signs 12/14/16 05:12 Temperature 100.0 F H Pulse Rate 100 Respiratory 20 Rate Blood Pressure 136/63 O2 Sat by Pulse 100 Oximetry Medical Decision Making - Lab Data Lab Results 12/14/16 12/14/16 Range/Units 05:43 06:20 TSH 0.975 (0.465-4.680) mIU/L Urine Opiates Screen Not Detected (NotDetected) Ur Oxycodone Screen Not Detected (NotDetected) Urine Methadone Screen Not Detected (NotDetected) Ur Propoxyphene Screen Not Detected (NotDetected) Ur Barbiturates Screen Not Detected (NotDetected) U Tricyclic Antidepress Not Detected (NotDetected) Ur Phencyclidine Scrn Not Detected (NotDetected) Ur Amphetamines Screen Not Detected (NotDetected) U Methamphetamines Scrn Not Detected (NotDetected) U Benzodiazepines Scrn Not Detected (NotDetected) Urine Cocaine Screen Not Detected (NotDetected) U Marijuana (THC) Screen Not Detected (NotDetected) Serum Alcohol <10 mg/dL Disposition Clinical Impression: Acute anxiety Disposition: ADMITTED IP TO THIS HOSP Condition: Poor Instructions: Generalized Anxiety Disorder (ED) Referrals: Luiza Langston MD [Primary Care Provider] - 1-2 days
[2016-12-14 06:05] LABS: Alcohol <10 mg/dL
[2016-12-14] MEDS ORDERED: diphenhydrAMINE 50 MG CAP PO STA (08:35)
[2016-12-14] MEDS ORDERED: LORazepam 1 MG TAB PO STA (08:35)
[2016-12-14] MEDS ORDERED: MAG HYDROX/AL HYDROX/SIMETH 30 ML CUP PO PRN (10:01)
[2016-12-14] MEDS ORDERED: MAGNESIUM HYDROXIDE 2,400 MG/10 ML CUP PO PRN (10:01)
[2016-12-14] MEDS ORDERED: ACETAMINOPHEN TAB 325 MG TAB PO PRN (10:01)
[2016-12-14] MEDS ORDERED: ZIPRASIDONE 20 MG VIAL IM PRN (10:01)
[2016-12-14] MEDS ORDERED: SUMAtriptan SUCCINATE 50 MG TAB PO PRN (10:04)
[2016-12-14] MEDS ORDERED: LORazepam 2 MG/ML SYRINGE IM PRN ×2 (10:05→10:07)
[2016-12-14] MEDS ORDERED: diphenhydrAMINE 50 MG/ML 1 ML VIAL IM STA (10:39)
[2016-12-14] MEDS ORDERED: LORazepam 2 MG/ML SYRINGE IM STA (10:39)
[2016-12-14] MEDS: ASPIRIN 81 MG CHEW PO SCH (11:28)
--- NOTE | 2016-12-14 17:09 | P.CONS ---
History of Present Illness - Reason for Consult Consult date: 12/14/16 Medical evaluation Requesting physician: Randy Tom - Chief Complaint Anxiety insomnia - History of Present Illness This is a 66-year-old pleasant lady well known to my practice, has underlying history of chronic anxiety and depression, along with chronic insomnia, was recently admitted secondary to what was suspected to be intentional overdose of her Klonopin. She was admitted to the mental health at that time and medications were readjusted upon her discharge to home with discontinuation off her clonazepam and initiation of Remeron. 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 her however she managed to maintain her employment until she retired a few months ago, which she does not voice any concerns regarding tidal ideation, no homicidal tendencies, no hallucinations or psychosis by gushes of was subsequently seen in the emergency room secondary to insomnia and anxiety and was admitted to the mental health for further management Review of Systems Constitutional: Reports as per HPI, Denies anorexia, Denies chills, Denies chronic headaches, Denies chronic pain, Denies daytime sleepiness, Denies fatigue, Denies fever, Denies lethargy, Denies malaise, Denies night sweats, Denies poor appetite, Denies sweats, Denies weakness, Denies weight gain, Denies weight loss Ears, nose, mouth and throat: Reports as per HPI, Denies ant. neck pain, Denies bleeding gums, Denies dental pain, Denies dysphagia, Denies epistaxis, Denies headache, Denies hoarseness, Denies mouth pain, Denies nasal congestion, Denies nasal discharge, Denies neck fullness/pressure, Denies neck lump, Denies nose pain, Denies odynophagia, Denies post-nasal drip, Denies sinus pain, Denies sinus pressure, Denies swelling in mouth, Denies swelling in throat, Denies sore throat, Denies vertigo, Denies voice changes Cardiovascular: Reports as per HPI, Denies chest pain, Denies claudication, Denies decreased exercise tolerance, Denies dyspnea on exertion, Denies edema, Denies high blood pressure, Denies irregular heart beat, Denies leg edema, Denies lightheadedness, Denies orthopnea, Denies palpitations, Denies paroxysmal nocturnal dyspnea, Denies phlebitis, Denies rapid heart beat, Denies shortness of breath, Denies syncope Respiratory: Reports as per HPI, Denies congestion, Denies cough, Denies cough with sputum, Denies dyspnea, Denies excessive sputum, Denies hemoptysis, Denies home oxygen, Denies pain, Denies pain on inspiration, Denies pleurisy, Denies respiratory infections, Denies sleep apnea, Denies snoring, Denies wheezing Gastrointestinal: Reports as per HPI, Denies abdominal pain, Denies belching, Denies bloating, Denies BRBPR, Denies change in bowel habits, Denies coffee ground emesis, Denies constipation, Denies diarrhea, Denies dyspepsia, Denies early satiety, Denies excessive gas, Denies heartburn, Denies hematemesis, Denies hematochezia, Denies indigestion, Denies jaundice, Denies lactose intolerance, Denies loss of appetite, Denies melena, Denies nausea, Denies vomiting Genitourinary: Reports as per HPI, Denies abnormal vaginal bleeding, Denies decreased libido, Denies difficulty conceiving, Denies difficulty voiding, Denies dysmenorrhea, Denies dyspareunia, Denies dysuria, Denies flank pain, Denies genital sores, Denies hematuria, Denies hot flashes, Denies incomplete emptying, Denies kidney stones, Denies menorrhagia, Denies mixed incontinence, Denies nocturia, Denies pelvic pain, Denies post void dribbling, Denies , Denies prolapse symptoms, Denies stress incontinence, Denies urge incontinence , Denies urgency, Denies urinary frequency, Denies vaginal discharge, Denies vaginal dryness, Denies vaginal itching, Denies vaginal odor Menstruation: Reports as per HPI, Denies amenorrhea, Denies amenorrhea on BC, Denies currently menstrual, Denies cycle < 21 days, Denies cycle > 35 days, Denies cycle variable, Denies menses 1-7 days, Denies menses 8 or > days, Denies menses variable, Denies period heavy, Denies period light, Denies period normal, Denies period spotting, Denies post hysterectomy, Denies postmenopausal , Denies premenarcheal Musculoskeletal: Reports as per HPI, Denies arm numbness/tingling, Denies atrophy, Denies fractures, Denies frequent falls, Denies gait dysfunction, Denies hot joints, Denies leg numbness/tingling, Denies limitation of motion, Denies loss of height, Denies low back pain, Denies morning stiffness, Denies muscle cramps, Denies muscle weakness, Denies myalgias, Denies neck pain, Denies neck stiffness, Denies prior amputations, Denies redness of joints, Denies shooting arm pain, Denies shooting leg pain Integumentary: Reports as per HPI Neurological: Reports as per HPI Psychiatric: Reports as per HPI, Reports anxiety, Reports sleep disturbances Endocrine: Reports as per HPI, Denies cold intolerance, Denies deepening of the voice, Denies excessive sweating, Denies excessive thirst, Denies fatigue, Denies flushing, Denies heat intolerance, Denies high blood sugars, Denies increase in ring/shoe/hat size, Denies low blood sugars, Denies nocturia, Denies palpitations, Denies polydipsia, Denies polyphagia, Denies polyuria, Denies proptosis, Denies recent glucocorticoid use, Denies thyroid mass, Denies weight change Hematologic/Lymphatic: Reports as per HPI, Denies easy bleeding, Denies easy bruising, Denies lymphadenopathy, Denies lymphedema, Denies thrombophilia Allergic/Immunologic: Reports as per HPI, Denies allergic rhinitis, Denies anaphylaxis, Denies angioedema, Denies gluten intolerance, Denies persistent infections, Denies seasonal allergies, Denies urticaria, Denies wheezing Past Medical History Past Medical History: No Reported History Additional Past Medical History / Comment(s): Occasional migraines, wears contact and readers, heart murmur as child, achilles tendon repair, 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 History of Any Multi-Drug Resistant Organisms: None Reported Past Surgical History: Appendectomy, Hernia Repair Past Psychological History: Anxiety, Depression Smoking Status: Never smoker Past Alcohol Use History: Rare Past Drug Use History: None Reported - Past Family History Father History Unknown: Yes (Deseased with dementia) Family Medical History: No Reported History Mother History Unknown: Yes (Pass away one month ago old age) Family Medical History: No Reported History Brother(s) Family Medical History: No Reported History Sister(s) History Unknown: Yes (3 sisters 2 brothers) Family Medical History: No Reported History Daughter(s) History Unknown: Yes (One daughter healthy) Medications and Allergies Home Medications Medication Instructions Recorded Confirmed Type Cyclobenzaprine [Flexeril] 10 mg PO HS 02/04/14 12/14/16 History SUMAtriptan SUCCINATE [Imitrex] 100 mg PO BID PRN 02/04/14 12/14/16 History Allergies Allergy/AdvReac Type Severity Reaction Status Date / Time peanut AdvReac Nausea Verified 12/14/16 05:21 Physical Exam Vitals: Vital Signs Temp Pulse Pulse Resp BP BP Pulse Ox 12/14/16 11:03 111 H 18 151/72 100 12/14/16 10:18 98.5 F 100 20 175/72 100 12/14/16 05:12 100.0 F H 100 20 136/63 100 Intake and Output 12/14/16 12/14/16 12/14/16 06:59 14:59 22:59 Other: Weight 45.359 kg - Constitutional General appearance: cooperative, no acute distress, thin - EENT Eyes: anicteric sclerae, edentulous, PERRLA, dentition normal, normal appearance ENT: NA/AT, normal oropharynx - Neck Neck: no lymphadenopathy, normal ROM, no other, no rigidity, no stridor, no thyromegaly - Respiratory Respiratory: bilateral: CTA, negative: diminished, dullness - Cardiovascular Rhythm: regular Heart sounds: normal: S1, S2 Abnormal Heart Sounds: no systolic murmur, no diastolic murmur, no rub, no S3 Gallop, no S4 Gallop, no click, no other - Gastrointestinal General gastrointestinal: normal bowel sounds, soft - Integumentary Integumentary: normal, normal turgor - Neurologic Neurologic: CNII-XII intact - Musculoskeletal Musculoskeletal: gait normal, strength equal bilaterally - Psychiatric Psychiatric: A&O x's 3, appropriate affect, intact judgment & insight Results Labs: Laboratory Results TSH 0.975 mIU/L (0.465-4.680) 12/14/16 05:43 Urine Opiates Screen Not Detected (NotDetected) 12/14/16 06:20 Ur Oxycodone Screen Not Detected (NotDetected) 12/14/16 06:20 Urine Methadone Screen Not Detected (NotDetected) 12/14/16 06:20 Ur Propoxyphene Screen Not Detected (NotDetected) 12/14/16 06:20 Ur Barbiturates Screen Not Detected (NotDetected) 12/14/16 06:20 U Tricyclic Antidepress Not Detected (NotDetected) 12/14/16 06:20 Ur Phencyclidine Scrn Not Detected (NotDetected) 12/14/16 06:20 Ur Amphetamines Screen Not Detected (NotDetected) 12/14/16 06:20 U Methamphetamines Scrn Not Detected (NotDetected) 12/14/16 06:20 U Benzodiazepines Scrn Not Detected (NotDetected) 12/14/16 06:20 Urine Cocaine Screen Not Detected (NotDetected) 12/14/16 06:20 U Marijuana (THC) Screen Not Detected (NotDetected) 12/14/16 06:20 Serum Alcohol <10 mg/dL 12/14/16 05:43 Assessment and Plan Plan: 1. Major depression with anxiety, recent clonazepam overdose, has refractory insomnia, patient currently is followed closely by the mental health team, and no plans off any suicidal ideation or homicidal tendencies at this time, patient 's continue on Remeron 15 mg at bedtime, started on Seroquel 50 mg scheduled at bedtime, 2. Refractory insomnia, patient has been off clonazepam secondary to her recent suicidal overdose, patient is on Seroquel and Remeron for this one, as well as Flexeril 10 mg at bedtime 3. History of migraines, stable on when necessary Imitrex 4. BMI 16, hopefully the Remeron would assist with appetite, we would monitor weight as an outpatient, there is no anorexia identify doing this admission, thyroid function test is normal recently 5. EKG reviewed without any QT prolongation, no contraindication at this time for the psychotropic medications including atypical and they psychotics
[2016-12-14] MEDS: CYCLOBENZAPRINE 10 MG TAB PO SCH (20:44)
[2016-12-14] MEDS: QUEtiapine 50 MG TAB PO SCH (20:44)
[2016-12-14] MEDS: MIRTAZAPINE 15 MG TAB PO SCH (20:44)
[2016-12-15 09:31] LABS: Basophils % (A) 1 %; CH 30.6; CHCM 33.2; Eosinophils # (A) 0.1 k/uL (0-0.7); Eosinophils % (A) 2 %; HCT 39.5 % (34.0-46.0); HDW 2.66; HGB 13.3 gm/dL (11.4-16.0); Luc # (Auto) 0.15; Luc % (Auto) 3; Lymphocytes # (A) 2.2 k/uL (1.0-4.8); Lymphocytes % (A) 37 %; MCH 31.1 pg (25.0-35.0); MCHC 33.5 g/dL (31.0-37.0); MCV 92.8 fL (80.0-100.0); Mean Platelet Volume 7.3; Monocytes # (A) 0.4 k/uL (0-1.0); Monocytes % (A) 7 %; Neutrophils % (A) 51 %; RBC 4.26 m/uL (3.80-5.40); RDW 12.9 % (11.5-15.5); WBC 5.9 k/uL (3.8-10.6); WBC (Perox) 5.62
[2016-12-15 09:59] LABS: ALT 39 U/L (9-52); AST 30 U/L (14-36); Alkaline Phosphatase 93 U/L (38-126); Anion Gap 11 mmol/L; Blood Urea Nitrogen 15 mg/dL (7-17); Calcium 9.9 mg/dL (8.4-10.2); Carbon Dioxide 29 mmol/L (22-30); Chloride 102 mmol/L (98-107); Glucose 127 mg/dL (74-99); Non-African American GFR(MDRD) >60 (>60 ml/min/1.73 sqM); Sodium 142 mmol/L (137-145); Total Bilirubin 0.7 mg/dL (0.2-1.3); Total Protein 6.5 g/dL (6.3-8.2)
[2016-12-15] MEDS: ASPIRIN 81 MG CHEW PO SCH (10:49)
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
--- NOTE | 2016-12-15 12:13 | P.PN ---
Progress Note - Text Interval history: The patient is found in the hallway she follows me to an interview room. She reports that she slept better it's documented she slept 6 hours. She feels that she is doing better tolerating the food this time. She has been trying to attend group. We discussed her medications including the Remeron and Seroquel. Her questions were answered. Mental status exam: The patient is alert, she is a thin female appearing her stated age she is dressed in her own clothing. Affect is bright she attends to the conversation better than yesterday. She reports her moods improved but is distraught that she is back here on the mental health unit. She states "I don't know why I relapsed". She indicates feeling better that she slept better last night. She is reporting no homicidal ideation or suicidal ideation intent or plan. Thought process is more organized however she still endorses some feelings of confusion. She endorses no auditory or visual hallucinations no specific delusions. Insight and judgment limited. He demonstrates no verbal or physical aggressiveness. No abnormal involuntary movements. Plan: The patient's will continue on the Remeron and Seroquel as written. We will monitor her for safety. Vital signs reviewed. She is encouraged to continue participating in the milieu.
[2016-12-15] MEDS: CYCLOBENZAPRINE 10 MG TAB PO SCH (20:04)
[2016-12-15] MEDS: QUEtiapine 50 MG TAB PO SCH (20:04)
[2016-12-15] MEDS: MIRTAZAPINE 15 MG TAB PO SCH (20:04)
[2016-12-16] MEDS: ASPIRIN 81 MG CHEW PO SCH (09:25)
--- NOTE | 2016-12-16 10:54 | P.PN ---
Progress Note - Text Interval history: The patient is found in the hallway she follows me to an interview room. The patient's feels that she is not doing as well this time compared to her last admission. She describes sleeping less than it's reported that she slept 4 hours. She has constant speech and has to be interrupted several times to direct the interview. She jumps from topic to topic. Staff report that the patient has been demonstrating the same behavior today during group and in fact noted that she appeared to be talking to someone that wasn't there indicating hallucinations. The patient asked several questions regarding her medications we discussed the purpose. Mental status exam: The patient is a thin female she is dressed in her own clothing she is alert speech is fluent pressured she demonstrates tangential thinking. Insight and judgment is impaired. She reports no suicidal or homicidal thoughts. Staff report directly observing her experiencing hallucinations. She demonstrated no verbal or physical aggressiveness. Concentration is impaired it took several attempts for her to be able to repeat her medications and dosages. She demonstrates no abnormal involuntary movements. Plan: The patient will continue on her current medication we will titrate the Seroquel to 75 mg at bedtime. It appears we are seen a manic presentation today with psychosis. Vital signs reviewed blood pressure stable heart rate mildly low we will continue to monitor. It appears she consumed 50% of her breakfast we will continue to monitor her food intake.
[2016-12-16 13:14] LABS: Appearance,Urine Clear (Clear); Bilirubin,Urine Negative (Negative); Glucose,Urine (UA) Negative (Negative); Ketones,Urine Negative (Negative); Leukocyte Esterase,Urine Negative (Negative); Nitrite,Urine Negative (Negative); PH, Urine 7.5 (5.0-8.0); Protein,Urine Negative (Negative); Specific Gravity,Urine 1.005 (1.001-1.035); UA Billing (MACRO vs. MICRO) CHEM; Urobilinogen,Urine <2.0 mg/dL (<2.0)
[2016-12-16 14:50] VITALS: BMI 15.0
[2016-12-16] MEDS: LORazepam 1 MG TAB PO PRN (15:17)
[2016-12-16] MEDS: QUEtiapine 25 MG TAB PO SCH (20:59)
[2016-12-16] MEDS: MIRTAZAPINE 15 MG TAB PO SCH (20:59)
[2016-12-17] MEDS: LORazepam 1 MG TAB PO PRN (07:58)
[2016-12-17] MEDS: ASPIRIN 81 MG CHEW PO SCH (08:00)
[2016-12-17] MEDS ORDERED: LORazepam 0.5 MG TAB PO PRN (08:00)
--- NOTE | 2016-12-17 09:23 | P.PN ---
Progress Note - Text Interval history: The patient is found in the hallway she follows me to an interview room. She reports that she slept better last evening it is recorded she slept 6 hours. She states that she is looking forward to being discharged lacking insight into her current symptoms. Conversely later in the conversation she states "I wasn't here long enough last time". She reports having fears of using the shower as there will only be [place] she has not yet showered. She states her appetite is been stable. She has complied with her medications she is able to list her current psychotropic medications. Mental status exam: The patient is a thin female appearing her stated age she is dressed in her own clothing. Eye contact is appropriate speech is fluent spontaneous mildly pressured. She is overly verbose. She is directable during the session but she needs to be interrupted to direct her. She continues to demonstrate tangential thinking circumstantial thinking. Insight and judgment are impaired. She reports no suicidal or homicidal thoughts. She is endorsing no auditory or visual hallucinations although she was demonstrating evidence of hallucinations yesterday. She reports no specific delusions but previously has reported concern that her was doing things to her. He demonstrates no verbal or physical aggressiveness. No abnormal involuntary movements. Plan: The patient will continue on her current medications we will consider titrating the Seroquel further. We will monitor her for safety and encourage her continued participation in the milieu. She is encouraged to shower we'll monitor food intake. Vital signs reviewed
[2016-12-17] MEDS: MIRTAZAPINE 15 MG TAB PO SCH (20:34)
[2016-12-17] MEDS: QUEtiapine 25 MG TAB PO SCH (20:34)
[2016-12-18] MEDS: ASPIRIN 81 MG CHEW PO SCH (09:41)
[2016-12-18] MEDS: MIRTAZAPINE 15 MG TAB PO SCH (20:42)
[2016-12-18] MEDS: QUEtiapine 25 MG TAB PO SCH (20:43)
--- NOTE | 2016-12-19 08:54 | PN ---
DATE OF SERVICE: 12/18/2016. CHIEF COMPLAINT: The patient was admitted due to confusion and agitation. She had made a suicide attempt by overdose. She had panic attacks, racing thoughts and disorientation. INTERVAL HISTORY: The patient has been doing fairly well. She had a quiet evening last night. She says she has been sleeping better the last 2 nights. She has been out and about. She seems to have a reserved manner and does not interact too much with others. She has been attending groups. She tends to be fairly reserved. In group sessions, she says that overall she feels she is doing better. It is noteworthy that she presents in a somewhat bewildered manner. When I asked questions about her situation, progress and what she anticipates as far as discharge issues, she is rather vague. She made some comments about her 's role in things though she is not able to clarify much about that. When talking about discharge planning, she defers to Dr. Tom to make decisions though does not seem to have a clear notion of what she needs to accomplish as part of her hospitalization. She has not had change in her general health. She tolerates her psychotropic medications. MENTAL STATUS: The patient gave fairly good eye contact. She said with a somewhat rigid posture. She answered questions with brief responses. Her thoughts were clear though some of her answers were vague. Her affect was blunted. She did smile a little. Her mood was reserved. She did not appear to be distressed. ASSESSMENT: I will continue the current diagnosis and treatment plan. We will continue to make efforts to engage the patient in individual and group therapeutic activities. I will continue psychotropic medications the same including Remeron 15 mg at bedtime and Seroquel 75 mg at bedtime. We will continue to focus on stabilization and discharge planning. [facility]
[2016-12-19] MEDS: ASPIRIN 81 MG CHEW PO SCH (09:00)
--- NOTE | 2016-12-19 10:03 | P.PN ---
Progress Note - Text Interval history: The patient is found in group she follows me to an interview room. She reports that she slept all night staff recorded 6 hours of sleep. She reports she is eating well. She has been compliant with medication. Her and other family members visited last evening. The patient's states that she would like to go home. She continues to lack insight into her current symptoms of lachelle. She is endorsing no auditory hallucinations but describes being bothered by what other people are saying here on the mental health unit. She is describing no current visual hallucinations although previously she spoke of seeing a light. She had does express a concern that her or other family members could lie about the recent interaction as she feels at times "people will do things to me". Mental status exam: The patient is a thin female she is dressed in her own clothing eye contact is appropriate. Speech is fluent she is verbose she is mildly pressured at times she has to be interrupted in order to speak. She will have a constant flow of speech until interrupted. Thought process is circumstantial today. She seems to harbor some paranoid thoughts even involving her family. She is endorsing no current hallucinations. She does continue to demonstrate symptoms of lachelle. Insight and judgment are impaired. She demonstrates no verbal or physical aggressiveness. She demonstrates no abnormal involuntary movements. Overall she is cooperative she demonstrates some appropriate smiling. Plan: The patient will continue on the Seroquel I will titrate this to 100 mg at bedtime. She will continue on the Remeron. Vital signs reviewed they're within normal limits we will continue to monitor her by mouth intake. The patient is not yet sufficiently stabilized to facilitate a discharge. She will likely regress if discharged at this time.
[2016-12-19] MEDS: MIRTAZAPINE 15 MG TAB PO SCH (20:53)
[2016-12-19] MEDS ORDERED: QUEtiapine 100 MG TAB PO SCH (21:00)
[2016-12-20] MEDS: ASPIRIN 81 MG CHEW PO SCH (09:43)
--- NOTE | 2016-12-20 11:01 | P.PN ---
Progress Note - Text Interval history: The patient is found in the dining room she follows me to an interview room. She reports thoughts of fearfulness. She discusses concerns about talking to me and expresses relief that we are done talking at the end of our session. She continues to have some paranoid thinking. She does describe racing thoughts but feels they are mainly motivated by anxiety. Staff continued to report bizarre behavior during group activity. Social work has been receiving updates from the patient's and he has been informing her that the patient does not appear to be at baseline and he has continued concerns regarding symptoms we are all observing. Mental status exam: The patient is a thin underweight female she is dressed in her own clothing eye contact is appropriate speech remains fluent she is verbose we still need to interrupt her in order to speak. Thought process is circumstantial she can be tangential at times. She demonstrates no verbal or physical aggressiveness. She reports no suicidal or homicidal ideation intent or plan. During the course of the conversation she spontaneously alludes to paranoid thoughts. Insight and judgment impaired. She is oriented to person place and date. Plan: The patient will continue on the Remeron we will titrate the Seroquel to 150 mg at bedtime. We continued to have a goal of having her sleep throughout the night. We are monitoring her food intake. She is not yet appropriate for discharge from the hospital and requires continued inpatient care.
[2016-12-20] MEDS: QUEtiapine 50 MG TAB PO SCH (20:48)
[2016-12-20] MEDS: MIRTAZAPINE 15 MG TAB PO SCH (20:48)
[2016-12-21] MEDS: ASPIRIN 81 MG CHEW PO SCH (08:50)
--- NOTE | 2016-12-21 12:22 | P.PN ---
Progress Note - Text Interval history: Patient seen in cross coverage today for Dr. Tom. She reports that she did not take the 150 mg of Seroquel last night because she thought she was supposed to be on 100 mg. Take the 100 mg, appears to be tolerating that well. She does state that she woke up at 4:30 in the morning. She does state that her mood is doing better. Mental status exam: She is alert and cooperative with the interview. Her speech is fluent, slightly pressured at times. She does have some circumstantial also sees. She denies any thoughts of harm to self or others. She denies any hallucinations. She does not show any agitation. Plan: We'll maintain current psychotropic medications. She is agreeable to take 150 mg of Seroquel tonight as ordered by Dr. Tom. Monitor for any medication side effects and ongoing response. Cover this patient for Dr. Tom through the weekend.
[2016-12-21] MEDS: QUEtiapine 50 MG TAB PO SCH (20:59)
[2016-12-21] MEDS: MIRTAZAPINE 15 MG TAB PO SCH (21:00)
[2016-12-22] MEDS: ASPIRIN 81 MG CHEW PO SCH (08:42)
--- NOTE | 2016-12-22 16:59 | P.PN ---
Progress Note - Text Interval history: Patient seen in cross coverage today for Dr. Tom. She reports that she seemed to sleep well last night. She seemed to tolerate the increased Seroquel well. She that she woke up this morning there is some stress on the unit but she seemed to tolerate it well. She reports that currently she feels like "melted butter", relaxed. She talks of having a family meeting yesterday which seemed to go well and has visiting for tonight. Mental status exam: She is alert and cooperative with the interview. Her affect shows range. Her speech is fluent, not rapid or pressured. She does not voice any thoughts of harm to self or others. She does not verbalize any hallucinations. She does not show any agitation. Plan: Patient will be maintained on current psychotropic medications. She will be monitored regarding her response to the medications and for any medication side effects. Dr. Tom will be resuming her care on Friday.
[2016-12-22] MEDS: MIRTAZAPINE 15 MG TAB PO SCH (20:43)
[2016-12-22] MEDS: QUEtiapine 50 MG TAB PO SCH (20:43)
[2016-12-23] MEDS: ASPIRIN 81 MG CHEW PO SCH (09:16)
--- NOTE | 2016-12-23 09:18 | P.PN ---
Progress Note - Text Interval history: The patient is found in the hallway she follows me to an interview room. She reports having a pleasant family meeting yesterday. Social work notes indicate that the patient was still guarded and suspicious. She states she doesn't know how she slept last night staff report she slept 8 hours. It appears she's been eating most of her meals. She indicates that she is hoping she will gain some weight. The Seroquel was continued at the 150 mg dose over the weekend. We discussed titrating further. She continues to verbalize a hope that she'll be discharged soon. Mental status exam: The patient is a thin female she is dressed in her own clothing eye contact is appropriate speech is fluent and spontaneous she remains verbose she is mildly pressured but is redirectable. She does demonstrate some circumstantial thinking mild tangential thinking at times. She continues to verbalize some suspicious thinking. She states that she wanted the notes that the social welfare research worker took during the family meeting yesterday. Insight and judgment impaired. She demonstrates no verbal or physical aggressiveness she demonstrates no abnormal involuntary movements. Plan: The patient will be continued on her current medications I will titrate the Seroquel to 200 mg at bedtime for further stabilization of mood. We are looking to see if her thinking becomes more objective and less paranoid. She requires continued psychiatric hospitalization. Vital signs reviewed.
[2016-12-23] MEDS: QUEtiapine 200 MG TAB PO SCH (21:22)
[2016-12-23] MEDS: MIRTAZAPINE 15 MG TAB PO SCH (21:22)
[2016-12-24] MEDS: ASPIRIN 81 MG CHEW PO SCH (09:20)
--- NOTE | 2016-12-24 10:13 | P.PN ---
Progress Note - Text Interval history: The patient is found in group she follows me to an interview room. She reports feeling that she was more awake last night with the increase in Seroquel. It appears her blood pressure was lower. We talked about her increasing her water intake and she is agreeable. She has been attending groups. She reports that she has been eating her meals. Again she remains focused on wanting a discharge date. Social work remains in contact with her . We discussed her medications again in detail. Mental status exam: The patient is a thin underweight female she is dressed in her own clothing. Eye contact is appropriate. She is pleasant cooperative and directable. She is reporting no suicidal or homicidal ideation. He spontaneously she describes no paranoid or persecutory thinking. She does continue to have spontaneous speech she can be circumstantial. There is no loose associations or flight of ideas at times she can be tangential. She demonstrates no verbal or physical aggressiveness. She is endorsing no auditory or visual hallucinations but she has underreported symptoms since she has been here. No abnormal involuntary movements. Her gait is observed to be normal and watching her ambulate down the hallway. She expresses a range of affect. Plan: The patient will continue on her current medications we will reduce the Remeron to 7.5 mg at bedtime. She is encouraged to increase water intake. It does appear that she is slowly stabilizing. We will again confer with her to assess her current status compared to baseline function. Vital signs reviewed.
[2016-12-24] MEDS: MIRTAZAPINE 15 MG TAB PO SCH (21:02)
[2016-12-24] MEDS: QUEtiapine 200 MG TAB PO SCH (21:02)
--- NOTE | 2016-12-25 09:00 | P.PN ---
Progress Note - Text Interval history: The patient is found at the belt sewer she follows me to an interview room. She reports that her mood is improving. She feels that she slept well last night and was relaxed. Notes from the family meeting were reviewed which seemed to go well. The patient has been compliant with medications she reports no side effects last evening. She demonstrates future oriented thinking she reports having no hopelessness thinking. She has been appropriately eating and attending groups. Mental status exam: The patient is a thin female appearing her stated age she is dressed in her own clothing. Hygiene grooming are adequate. Speech is fluent spontaneous. Thought process is becoming more linear she can be circumstantial at times but again there is no tangential thinking loose associations or flight of ideas. She reports no suicidal ideation intent or plan no homicidal ideation intent or plan. She endorses no auditory or visual hallucinations or specific delusions. Insight and judgment improving. She is oriented to person place and date. She demonstrates an appropriate range of affect. Plan: The patient will continue on her current medications. If she demonstrates sufficient clinical improvement/stability we will consider a discharge tomorrow. Vital signs reviewed. We'll continue to monitor for safety and encourage her participation in the milieu.
[2016-12-25] MEDS: ASPIRIN 81 MG CHEW PO SCH (09:05)
[2016-12-25] MEDS: MIRTAZAPINE 15 MG TAB PO SCH (20:47)
[2016-12-25] MEDS: QUEtiapine 200 MG TAB PO SCH (20:47)
[2016-12-26 06:33] VITALS: BP 119/66; PULSE 109; RESP 16; TEMP 98.5
[2016-12-26] MEDS: ASPIRIN 81 MG CHEW PO SCH (08:38)
--- NOTE | 2016-12-26 08:59 | P.DS ---
Providers Date of admission: 12/14/16 09:53 Expected date of discharge: 12/26/16 Attending physician: Randy Tom Consults: 12/14/16 10:01 Consult Physician Routine Consulting Provider: Luiza Langston Consult Reason/Comments: Follow up H & P Do you want consulting provider notified?: Yes Primary care physician: Luiza Langston - Discharge Diagnosis(es) (1) Bipolar 1 disorder, manic, moderate Current Visit: Yes Status: Acute Priority: High (2) Anxiety Current Visit: No Status: Acute Priority: Medium Hospital Course: Brief summary of admission note: This patient is a 66-year-old female who was readmitted to the mental health unit through the emergency room. The patient was just recently discharged from the mental health unit on 12/09/2016. She reports with bizarre behavior racing thoughts poor sleep and increased energy and some paranoid thinking. There was clear disorganization of her thoughts. She had pressured speech. For full details please refer to my psychiatric evaluation dated 12/14/2016. Summary of hospital course: The patient was admitted to the mental health unit voluntarily. We reviewed her presenting symptoms and medication options. She seemed to be clearly experiencing symptoms of lachelle with psychosis. We initiated Seroquel at a low dose and titrated it slowly during the course of the admission. Over the course of the hospitalization her thoughts became more organized again she was able to sleep better and her paranoid thoughts subsided. She had been chronically struggling with low appetite but did better with completing her meals during this hospitalization. During the hospitalization she was initially fearful to shower but did ultimately attend to her activities of daily living while here. Her has called social work several times during the admission to provide his opinion regarding her status. A family meeting was held involving the patient's recently and he feels the patient has made significant improvement. She was seen by the welcome center attendant for routine history and physical exam. We continued the Remeron during the course of the hospitalization but did reduce the dose to 7.5 mg at bedtime. Mental status exam: The patient is a thin underweight female appearing her stated age. She has good hygiene grooming eye contact is appropriate she is pleasant and cooperative. Speech is fluent spontaneous she' s no longer pressured. She can be verbose but is easily directable. Thought process is no longer tangential she demonstrates no flight of ideas or loose associations she can demonstrate circumstantial thinking. She remains oriented to person place and date. She reports no suicidal or homicidal ideation intent or plan she endorses no auditory or visual hallucinations or any specific delusions. There is no evidence of psychosis observed. Symptoms of lachelle have greatly improved. Insight and judgment improved. She demonstrates no abnormal involuntary movements and demonstrates no verbal or physical aggressiveness. Affect is appropriately expressive. Impressions 1. Bipolar 1 disorder most recent manic with psychosis, anxiety unspecified 2. Relatively recent halfway with difficulties adjusting to new schedule Plan: The patient will be discharged mental health unit today. She will continue on Seroquel 200 mg at bedtime Remeron 7.5 mg at bedtime. Social work is arrange the patient's outpatient mental health follow-up. She will return home to reside with her . Her symptoms of lachelle are greatly improved she is reporting no suicidal ideation intent or plan. There is no imminent safety risk she is appropriate for transition back to outpatient care. She is instructed to return to the hospital with any acute safety concerns. Patient Condition at Discharge: Stable Plan - Discharge Summary New Discharge Prescriptions: New Mirtazapine [Remeron] 7.5 mg PO HS #15 tab QUEtiapine [SEROquel] 200 mg PO HS #30 tab Continue SUMAtriptan SUCCINATE [Imitrex] 100 mg PO BID PRN PRN Reason: Migraine Headache Aspirin 81 mg PO DAILY #30 chewable Discontinued Cyclobenzaprine [Flexeril] 10 mg PO HS Mirtazapine [Remeron] 15 mg PO HS #30 tab Discharge Medication List SUMAtriptan SUCCINATE [Imitrex] 100 mg PO BID PRN 02/04/14 [History] Aspirin 81 mg PO DAILY #30 chewable 12/01/16 [Rx] Mirtazapine [Remeron] 7.5 mg PO HS #15 tab 12/26/16 [Rx] QUEtiapine [SEROquel] 200 mg PO HS #30 tab 12/26/16 [Rx] Follow up Appointment(s)/Referral(s): [facility] [Outside] - 12/27/16 2:00 pm Luiza Langston MD [Primary Care Provider] - 1-2 days Patient Instructions/Handouts: Generalized Anxiety Disorder (ED)
== END 2016-12-26 14:38 | disposition home or self-care (01) | DRG 885 ==
LOC: EC 05:11 → 3MHU 09:53
PROVIDERS: ADMIT Psychiatry & Neurology Psychiatry; ATTEND Psychiatry & Neurology Psychiatry
DX: F31.2 Bipolar disorder, current episode manic severe with psychotic features (principal); Z68.1 Body mass index [BMI] 19.9 or less, adult; F41.0 Panic disorder [episodic paroxysmal anxiety]; F51.04 Psychophysiologic insomnia; F41.1 Generalized anxiety disorder; G43.909 Migraine, unspecified, not intractable, without status migrainosus; G47.09 Other insomnia; R63.6 Underweight; Z91.5 Personal history of self-harm; Z79.899 Other long term (current) drug therapy; Z62.819 Personal history of unspecified abuse in childhood; Z91.010 Allergy to peanuts; Z71.3 Dietary counseling and surveillance; Z81.1 Family history of alcohol abuse and dependence; Z87.01 Personal history of pneumonia (recurrent); Z81.8 Family history of other mental and behavioral disorders; Z63.79 Other stressful life events affecting family and household; Z90.49 Acquired absence of other specified parts of digestive tract; Z86.79 Personal history of other diseases of the circulatory system; Z86.2 Personal history of diseases of the blood and blood-forming organs and certain disorders involving the immune mechanism; Z79.82 Long term (current) use of aspirin; Z83.2 Family history of diseases of the blood and blood-forming organs and certain disorders involving the immune mechanism; Z60.4 Social exclusion and rejection; Z97.3 Presence of spectacles and contact lenses
CPT/HCPCS: 36415; 80053; 80306; 80320; 81003; 84443; 85025; 93005; 96372; 99285

== ENCOUNTER 2017-01-10 19:38 | Inpatient (IN) | payer BC, MEDICARE ==
[2017-01-10 20:22] LABS: Appearance,Urine Clear (Clear); Bilirubin,Urine Negative (Negative); Glucose,Urine (UA) Negative (Negative); Ketones,Urine Negative (Negative); Leukocyte Esterase,Urine Negative (Negative); Nitrite,Urine Negative (Negative); Protein,Urine Negative (Negative); Specific Gravity,Urine 1.003 (1.001-1.035); UA Billing (MACRO vs. MICRO) CHEM; Urobilinogen,Urine <2.0 mg/dL (<2.0)
--- NOTE | 2017-01-10 20:25 | ED ---
Psych HPI - General Chief Complaint: Psychiatric Symptoms Stated Complaint: mental health Time Seen by Provider: 01/10/17 20:02 Source: EMS Mode of arrival: EMS - History of Present Illness Initial Comments: 66-year-old female patient presented to emergency department today with for evaluation of anxiety and panic attacks. states that patient has been having increase in her anxiety and panic symptoms for the last couple of days. He states that the other day she did take a bike ride and when she came home she was upset with him because she had thought he had ordered police officers and other individuals to follow her home to make her think she was crazy. He states that she has been talking nonstop, states that she has been very upset has had increased anxiety. He states that she does have an extensive mental health history and has been inpatient here before. He states that she has been very paranoid, speaking about things that don't make sense, and seems to be getting worse. She denies any suicidal or homicidal ideation. Patient does have flight of ideas and pressured speech during my evaluation. She denies any physical symptoms or concerns. Patient denies any recent fever, chills, shortness breath, chest pain, abdominal pain, nausea, vomiting, diarrhea , constipation, back pain, numbness, tingling, weakness, hematuria, headache, visual changes, or any other complaints. - Related Data Home Medications Medication Instructions Recorded Confirmed SUMAtriptan SUCCINATE [Imitrex] 100 mg PO BID PRN 02/04/14 01/10/17 Previous Rx's Medication Instructions Recorded Aspirin 81 mg PO DAILY #30 chewable 12/01/16 Mirtazapine [Remeron] 7.5 mg PO HS #15 tab 12/26/16 QUEtiapine [SEROquel] 200 mg PO HS #30 tab 12/26/16 Allergies Allergy/AdvReac Type Severity Reaction Status Date / Time peanut AdvReac Nausea Verified 01/10/17 19:41 Review of Systems ROS Statement: Those systems with pertinent positive or pertinent negative responses have been documented in the HPI. ROS Other: All systems not noted in ROS Statement are negative. Past Medical History Past Medical History: No Reported History Additional Past Medical History / Comment(s): Occasional migraines, wears contact and readers, heart murmur as child, achilles tendon repair, 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 History of Any Multi-Drug Resistant Organisms: None Reported Past Surgical History: Appendectomy, Hernia Repair Past Psychological History: Anxiety, Depression Smoking Status: Never smoker Past Alcohol Use History: Rare Past Drug Use History: None Reported - Past Family History Father History Unknown: Yes (Deseased with dementia) Family Medical History: No Reported History Mother History Unknown: Yes (Pass away one month ago old age) Family Medical History: No Reported History Brother(s) Family Medical History: No Reported History Sister(s) History Unknown: Yes (3 sisters 2 brothers) Family Medical History: No Reported History Daughter(s) History Unknown: Yes (One daughter healthy) General Exam Limitations: no limitations General appearance: alert, anxious Head exam: Present: atraumatic, normocephalic, normal inspection Eye exam: Present: normal appearance, PERRL, EOMI. Absent: scleral icterus, conjunctival injection, periorbital swelling ENT exam: Present: normal exam, normal oropharynx, mucous membranes moist Neck exam: Present: normal inspection. Absent: tenderness, meningismus, lymphadenopathy Respiratory exam: Present: normal lung sounds bilaterally. Absent: respiratory distress, wheezes, rales, rhonchi, stridor Cardiovascular Exam: Present: regular rate, normal rhythm, normal heart sounds. Absent: systolic murmur, diastolic murmur, rubs, gallop, clicks GI/Abdominal exam: Present: soft, normal bowel sounds. Absent: distended, tenderness, guarding, rebound, rigid Extremities exam: Present: normal inspection, full ROM, normal capillary refill. Absent: tenderness, pedal edema, joint swelling, calf tenderness Back exam: Present: normal inspection Neurological exam: Present: alert, oriented X3, CN II-XII intact Psychiatric exam: Present: normal mood, anxious, manic, other (Patient exhibits flight of ideas and pressured speech draining evaluation.). Absent: normal affect Skin exam: Present: warm, dry, intact, normal color. Absent: rash Course Vital Signs 01/10/17 19:41 Temperature 98.0 F Pulse Rate 99 Respiratory 20 Rate Blood Pressure 179/84 O2 Sat by Pulse 99 Oximetry - Reevaluation(s) Reevaluation #1: 01/10/17 21:31 Labs and EKG reviewed. No acute abnormalities identified. The patient has now medically clear for mental health evaluation. Medical Decision Making - Medical Decision Making 66 year-old female patient presented with for evaluation of increased anxiety, panic attacks and paranoia. Lab work was reviewed and EKG performed and showed no acute abnormalities. Patient was medically cleared and evaluated by emergency 6 services. Patient will be admitted to the mental health unit for further evaluation. - Lab Data Result diagrams: 01/10/17 20:23 01/10/17 20:23 Lab Results 01/10/17 01/10/17 01/10/17 Range/Units 19:50 20:23 20:23 WBC 6.9 (3.8-10.6) k/uL RBC 4.31 (3.80-5.40) m/uL Hgb 13.1 (11.4-16.0) gm/dL Hct 39.3 (34.0-46.0) % MCV 91.3 (80.0-100.0) fL MCH 30.5 (25.0-35.0) pg MCHC 33.4 (31.0-37.0) g/dL RDW 13.4 (11.5-15.5) % Plt Count 191 (150-450) k/uL Neutrophils % 70 % Lymphocytes % 22 % Monocytes % 5 % Eosinophils % 1 % Basophils % 1 % Neutrophils # 4.8 (1.3-7.7) k/uL Lymphocytes # 1.5 (1.0-4.8) k/uL Monocytes # 0.4 (0-1.0) k/uL Eosinophils # 0.1 (0-0.7) k/uL Basophils # 0.1 (0-0.2) k/uL Sodium 141 (137-145) mmol/L Potassium 3.9 (3.5-5.1) mmol/L Chloride 104 (98-107) mmol/L Carbon Dioxide 29 (22-30) mmol/L Anion Gap 8 mmol/L BUN 23 H (7-17) mg/dL Creatinine 0.68 (0.52-1.04) mg/dL Est GFR (MDRD) Af Amer >60 (>60 ml/min/1.73 sqM) Est GFR (MDRD) Non-Af >60 (>60 ml/min/1.73 sqM) Glucose 88 (74-99) mg/dL Calcium 9.9 (8.4-10.2) mg/dL Total Bilirubin 0.4 (0.2-1.3) mg/dL AST 33 (14-36) U/L ALT 43 (9-52) U/L Alkaline Phosphatase 92 (38-126) U/L Total Protein 6.9 (6.3-8.2) g/dL Albumin 4.5 (3.5-5.0) g/dL Urine Color Colorless Urine Appearance Clear (Clear) Urine pH 7.0 (5.0-8.0) Ur Specific [place] 1.003 (1.001-1.035) Urine Protein Negative (Negative) Urine Glucose (UA) Negative (Negative) Urine Ketones Negative (Negative) Urine Blood Negative (Negative) Urine Nitrite Negative (Negative) Urine Bilirubin Negative (Negative) Urine Urobilinogen <2.0 (<2.0) mg/dL Ur Leukocyte Esterase Negative (Negative) Urine Opiates Screen Not Detected (NotDetected) Ur Oxycodone Screen Not Detected (NotDetected) Urine Methadone Screen Not Detected (NotDetected) Ur Propoxyphene Screen Not Detected (NotDetected) Ur Barbiturates Screen Not Detected (NotDetected) U Tricyclic Antidepress Not Detected (NotDetected) Ur Phencyclidine Scrn Not Detected (NotDetected) Ur Amphetamines Screen Not Detected (NotDetected) U Methamphetamines Scrn Not Detected (NotDetected) U Benzodiazepines Scrn Not Detected (NotDetected) Urine Cocaine Screen Not Detected (NotDetected) U Marijuana (THC) Screen Not Detected (NotDetected) Disposition Clinical Impression: Ramonita, Anxiety Disposition: TRANSFER TO PSYCH HOSP/UNIT Condition: Stable Decision to Admit Reason: Admit from EC Decision Date: 01/11/17 Decision Time: 00:42
[2017-01-10 20:34] LABS: Basophils # (A) 0.1 k/uL (0-0.2); Basophils % (A) 1 %; CH 31.8; Eosinophils # (A) 0.1 k/uL (0-0.7); Eosinophils % (A) 1 %; HCT 39.3 % (34.0-46.0); HDW 2.48; HGB 13.1 gm/dL (11.4-16.0); Luc # (Auto) 0.13; Luc % (Auto) 2; Lymphocytes # (A) 1.5 k/uL (1.0-4.8); Lymphocytes % (A) 22 %; MCH 30.5 pg (25.0-35.0); MCHC 33.4 g/dL (31.0-37.0); MCV 91.3 fL (80.0-100.0); Monocytes # (A) 0.4 k/uL (0-1.0); Monocytes % (A) 5 %; Neutrophils # (A) 4.8 k/uL (1.3-7.7); Neutrophils % (A) 70 %; RBC 4.31 m/uL (3.80-5.40); RDW 13.4 % (11.5-15.5); WBC 6.9 k/uL (3.8-10.6); WBC (Perox) 6.96
[2017-01-10 20:44] LABS: ALT 43 U/L (9-52); AST 33 U/L (14-36); Alkaline Phosphatase 92 U/L (38-126); Anion Gap 8 mmol/L; Blood Urea Nitrogen 23 mg/dL (7-17); Calcium 9.9 mg/dL (8.4-10.2); Carbon Dioxide 29 mmol/L (22-30); Chloride 104 mmol/L (98-107); Glucose 88 mg/dL (74-99); Non-African American GFR(MDRD) >60 (>60 ml/min/1.73 sqM); Potassium 3.9 mmol/L (3.5-5.1); Sodium 141 mmol/L (137-145); Total Bilirubin 0.4 mg/dL (0.2-1.3); Total Protein 6.9 g/dL (6.3-8.2)
[2017-01-11] MEDS ORDERED: MAGNESIUM HYDROXIDE 2,400 MG/10 ML CUP PO PRN (00:30)
[2017-01-11] MEDS ORDERED: MAG HYDROX/AL HYDROX/SIMETH 30 ML CUP PO PRN (00:30)
[2017-01-11] MEDS ORDERED: SUMAtriptan SUCCINATE 50 MG TAB PO PRN (00:36)
[2017-01-11] MEDS ORDERED: MIRTAZAPINE 15 MG TAB PO SCH (00:45)
[2017-01-11] MEDS: QUEtiapine 200 MG TAB PO SCH ×2 (01:03→20:03)
[2017-01-11] MEDS: ASPIRIN 81 MG PO SCH (07:53)
[2017-01-11 08:00] LABS: Basophils % (A) 1 %; CH 31.6; CHCM 34.3; Eosinophils # (A) 0.1 k/uL (0-0.7); Eosinophils % (A) 1 %; HCT 38.6 % (34.0-46.0); HDW 2.47; HGB 12.9 gm/dL (11.4-16.0); Luc # (Auto) 0.13; Luc % (Auto) 2; Lymphocytes # (A) 1.8 k/uL (1.0-4.8); Lymphocytes % (A) 34 %; MCH 30.9 pg (25.0-35.0); MCHC 33.3 g/dL (31.0-37.0); MCV 92.7 fL (80.0-100.0); Mean Platelet Volume 8.4; Monocytes # (A) 0.4 k/uL (0-1.0); Monocytes % (A) 7 %; Neutrophils # (A) 2.9 k/uL (1.3-7.7); Neutrophils % (A) 55 %; RBC 4.17 m/uL (3.80-5.40); RDW 13.5 % (11.5-15.5); WBC 5.2 k/uL (3.8-10.6); WBC (Perox) 5.36
[2017-01-11 08:31] LABS: ALT 30 U/L (9-52); AST 31 U/L (14-36); Alkaline Phosphatase 83 U/L (38-126); Anion Gap 6 mmol/L; Blood Urea Nitrogen 16 mg/dL (7-17); Calcium 9.5 mg/dL (8.4-10.2); Carbon Dioxide 32 mmol/L (22-30); Chloride 105 mmol/L (98-107); Glucose 94 mg/dL (74-99); Non-African American GFR(MDRD) >60 (>60 ml/min/1.73 sqM); Potassium 4.3 mmol/L (3.5-5.1); Sodium 143 mmol/L (137-145); Total Bilirubin 0.6 mg/dL (0.2-1.3); Total Protein 6.2 g/dL (6.3-8.2)
--- NOTE | 2017-01-11 09:42 | P.HP ---
Psychiatric H&P - . H&P Date: 01/11/17 History & Physical: Allergies Allergy/AdvReac Type Severity Reaction Status Date / Time peanut AdvReac Nausea Verified 01/10/17 19:41 Vital Signs Temp 98.9 F 01/11/17 02:40 Pulse 107 H 01/11/17 09:07 Resp 18 01/11/17 09:07 BP 113/58 01/11/17 09:07 Pulse Ox 100 01/11/17 02:40 Intake & Output 01/10/17 01/11/17 01/11/17 18:59 06:59 18:59 Weight 45.813 kg Laboratory Last Values WBC 5.2 k/uL (3.8-10.6) 01/11/17 07:47 RBC 4.17 m/uL (3.80-5.40) 01/11/17 07:47 Hgb 12.9 gm/dL (11.4-16.0) 01/11/17 07:47 Hct 38.6 % (34.0-46.0) 01/11/17 07:47 MCV 92.7 fL (80.0-100.0) 01/11/17 07:47 MCH 30.9 pg (25.0-35.0) 01/11/17 07:47 MCHC 33.3 g/dL (31.0-37.0) 01/11/17 07:47 RDW 13.5 % (11.5-15.5) 01/11/17 07:47 Plt Count 192 k/uL (150-450) 01/11/17 07:47 Neutrophils % 55 % 01/11/17 07:47 Lymphocytes % 34 % 01/11/17 07:47 Monocytes % 7 % 01/11/17 07:47 Eosinophils % 1 % 01/11/17 07:47 Basophils % 1 % 01/11/17 07:47 Neutrophils # 2.9 k/uL (1.3-7.7) 01/11/17 07:47 Lymphocytes # 1.8 k/uL (1.0-4.8) 01/11/17 07:47 Monocytes # 0.4 k/uL (0-1.0) 01/11/17 07:47 Eosinophils # 0.1 k/uL (0-0.7) 01/11/17 07:47 Basophils # 0.0 k/uL (0-0.2) 01/11/17 07:47 Sodium 143 mmol/L (137-145) 01/11/17 07:47 Potassium 4.3 mmol/L (3.5-5.1) 01/11/17 07:47 Chloride 105 mmol/L (98-107) 01/11/17 07:47 Carbon Dioxide 32 mmol/L (22-30) H 01/11/17 07:47 Anion Gap 6 mmol/L 01/11/17 07:47 BUN 16 mg/dL (7-17) 01/11/17 07:47 Creatinine 0.66 mg/dL (0.52-1.04) 01/11/17 07:47 Est GFR (MDRD) Af Amer >60 (>60 ml/min/1.73 sqM) 01/11/17 07:47 Est GFR (MDRD) Non-Af >60 (>60 ml/min/1.73 sqM) 01/11/17 07:47 Glucose 94 mg/dL (74-99) 01/11/17 07:47 Calcium 9.5 mg/dL (8.4-10.2) 01/11/17 07:47 Total Bilirubin 0.6 mg/dL (0.2-1.3) 01/11/17 07:47 AST 31 U/L (14-36) 01/11/17 07:47 ALT 30 U/L (9-52) 01/11/17 07:47 Alkaline Phosphatase 83 U/L (38-126) 01/11/17 07:47 Total Protein 6.2 g/dL (6.3-8.2) L 01/11/17 07:47 Albumin 4.0 g/dL (3.5-5.0) 01/11/17 07:47 Urine Color Colorless 01/10/17 19:50 Urine Appearance Clear (Clear) 01/10/17 19:50 Urine pH 7.0 (5.0-8.0) 01/10/17 19:50 Ur Specific [place] 1.003 (1.001-1.035) 01/10/17 19:50 Urine Protein Negative (Negative) 01/10/17 19:50 Urine Glucose (UA) Negative (Negative) 01/10/17 19:50 Urine Ketones Negative (Negative) 01/10/17 19:50 Urine Blood Negative (Negative) 01/10/17 19:50 Urine Nitrite Negative (Negative) 01/10/17 19:50 Urine Bilirubin Negative (Negative) 01/10/17 19:50 Urine Urobilinogen <2.0 mg/dL (<2.0) 01/10/17 19:50 Ur Leukocyte Esterase Negative (Negative) 01/10/17 19:50 Urine Opiates Screen Not Detected (NotDetected) 01/10/17 19:50 Ur Oxycodone Screen Not Detected (NotDetected) 01/10/17 19:50 Urine Methadone Screen Not Detected (NotDetected) 01/10/17 19:50 Ur Propoxyphene Screen Not Detected (NotDetected) 01/10/17 19:50 Ur Barbiturates Screen Not Detected (NotDetected) 01/10/17 19:50 U Tricyclic Antidepress Not Detected (NotDetected) 01/10/17 19:50 Ur Phencyclidine Scrn Not Detected (NotDetected) 01/10/17 19:50 Ur Amphetamines Screen Not Detected (NotDetected) 01/10/17 19:50 U Methamphetamines Scrn Not Detected (NotDetected) 01/10/17 19:50 U Benzodiazepines Scrn Not Detected (NotDetected) 01/10/17 19:50 Urine Cocaine Screen Not Detected (NotDetected) 01/10/17 19:50 U Marijuana (THC) Screen Not Detected (NotDetected) 01/10/17 19:50 01/11/17 09:27 Identification: Patient is a 66-year-old female who was brought to the emergency room last evening by EMS due to paranoid ideation, not sleeping and her stating that she was confused at times. History of Present Illness: Patient states that she has not been sleeping and doesn't remember things, she states that she has been writing a lot, with racing thoughts and impulsive spending. Patient states she has not been eating well at home and is really unable to give a clear history of what has occurred at home as she is slightly pressured and tangential. Patient was recently discharged from the hospital in December and had a prior admission in November and the early part of December. Patient was discharged most recently on Seroquel 200 mg at night and Remeron 7-1/2 mg at bedtime. Patient states that she was initially doing well at home but is unable to describe what changed. She reports that she was compliant with her medications but has become increasingly focused on cleaning with increasing energy and decreasing sleep. Patient denies any suicidal or homicidal ideation. Patient states that she was paranoid about people but could not elaborate further stating that it was something bad. Patient states that she was sleeping and that another room in her house and she is changed rooms 3 times because she cannot get comfortable when asked to elaborate on this she reported something about her time at the [employer] and then went on about the shift that she worked and how it affected her sleep. Patient has also reported writing in a journal and writing extensively. Patient also endorses OCD symptoms stating that she has been cleaning and organizing things at home. Past Psychiatric History: Patient has been treated for at least 15 years, this will be her third hospitalization she has had 2 prior ones within the last month and a half. Patient has been on multiple medications in the past, Lamictal, Celexa, Cymbalta, Wellbutrin, Abilify, Effexor, Paxil, Prozac and Klonopin. Past Medical/Surgical History: Patient states that she has no medical problems and is status post hernia repair. Patient states that she does have migraine headaches and uses Imitrex on an as-needed basis. Home Medications Medication Instructions Recorded Confirmed SUMAtriptan SUCCINATE [Imitrex] 100 mg PO BID PRN 02/04/14 01/10/17 Previous Rx's Medication Instructions Recorded Aspirin 81 mg PO DAILY #30 chewable 12/01/16 Mirtazapine [Remeron] 7.5 mg PO HS #15 tab 12/26/16 QUEtiapine [SEROquel] 200 mg PO HS #30 tab 12/26/16 Family History: Patient reports no psychiatric history in her family, although priorly she has stated that her mother and father both were diagnosed with depression and anxiety. Patient states that her brothers use alcohol and drugs. Social History: Patient was born and raised in [place] and both of her parents are . She has been for 34 years and has a 30-year-old daughter. She reports that she has 5 siblings all of whom are alive. 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 She worked at the [employer] for 34 years retiring in August 2016. She currently lives with her and denies any history of abuse. Substance Use History: Patient denies any drug history currently or in the past and states she only uses alcohol on an infrequent basis. Patient has does not use tobacco products. Legal History: Patient denies any legal history. Mental Status:Appearance/Attitude: Patient is a thin female dressed in a hospital gown, makes good eye contact and is cooperative. Behavior: Patient does not display any psychomotor agitation or retardation. Speech/Language: Patient's speech is slightly pressured, normal volume and rhythm and she is coherent. Thought Process: Patient is circumstantial and tangential no evidence of loose associations or flight of ideas Thought Content: Patient denies any auditory or visual hallucinations but does state that she has some thoughts that people are going to do something bad to her but she cannot elaborate further. She reports racing thoughts and states that she has been spending money impulsively. She reports that she has increased energy and has been up at night cleaning as well as writing a lot in her journal. Patient states that she doesn't remember things and was unable to tell me what exactly precipitated her admission, she remembers riding her bike but can't elaborate further. She reports that she has not been sleeping well Suicidal/Homicidal Ideation: . Patient denies any current suicidal or homicidal ideation. Sensorium/Cognition: Patient is alert and oriented to person, place, and time and her memory is grossly intact. Mood/Affect: Patient's mood is labile and her affect is appropriate to her mood. Patient was intermittently crying and then would be smiling Insight/Judgement: Patient's insight and judgment are fair. Intellectual Functioning: Patient's intellectual functioning appears average. Strength/Weaknesses: Patient has a stable living situation, supportive Assessment: Patient returns to the hospital after 2 recent prior admissions with reports of decreased sleep and increased energy being up at night writing and cleaning as well as racing thoughts and impulsive spending. Patient's thoughts are circumstantial and tangential at times and she reports racing thoughts. Patient has been taking her medication as directed but presents currently with symptoms of lachelle. She is also expressing some paranoid ideation regarding people but is unable to elaborate further other than to state something bad may happen to her. She reports being confused about what has gone on prior to her admission and can't remember many things. Admission Diagnoses: Bipolar disorder type I, recent episode manic Plan: Patient was admitted on a voluntary basis, placed on routine precautions and routine laboratory studies were ordered as well as a medical consultation. Patient was ordered group and activity therapy. I reviewed the patient's medications and will discontinue her Remeron and increase her Seroquel. Patient will continue on Seroquel 200 mg at bedtime but will also begin 25 mg at 9 in the morning and 4 in the afternoon. We will evaluate the patient's response to the changes in her medication as well monitoring for any side effects. Patient was encouraged to eat and drink. Patient requires hospitalization to stabilize her mood. 01/11/17 09:28
[2017-01-11] MEDS: QUEtiapine 25 MG TAB PO SCH ×2 (10:21→16:25)
[2017-01-11] MEDS: ACETAMINOPHEN TAB 325 MG TAB PO PRN (13:39)
--- NOTE | 2017-01-11 16:43 | P.CONS ---
History of Present Illness - Reason for Consult Consult date: 01/11/17 Medical evaluation - Chief Complaint Anxiety and paranoia - History of Present Illness This is a 66-year-old pleasant lady well known to my practice, has underlying history of chronic anxiety and depression, along with chronic insomnia, was recently admitted secondary to thoughts of paranoia. She was last admitted from our facility 12/14/2016 and was discharged on Remeron and Seroquel she mentions about remembering all the negative thoughts in her life, other than the positive aspects of celebrating, she is now completely retired however she is having more concerns about anxiety, she was on her routine bikes today when she thinks that someone is there including the police that is following her, she doesn't feel threatened by this. Also on her bike path she saw home with her sister name- alike. Her sister past 10 years ago and with her seeing the name in the been as she thinks that the sister is keeping an INR. She also thinks that the is upset that her regarding her spending money, she wants to donate a large check for stacie reasons she wants to donate her clothes. She doesn't have any excessive expenditures, she still is not sleeping, no other anger issues. She has recurrent headaches. These can be investigated as an outpatient if not done previously with a CAT scan or an MRI of the brain Review of Systems Constitutional: Reports as per HPI, Denies anorexia, Denies chills, Denies chronic headaches, Denies chronic pain, Denies daytime sleepiness, Denies fatigue, Denies fever, Denies lethargy, Denies malaise, Denies night sweats, Denies poor appetite, Denies sweats, Denies weakness, Denies weight gain, Denies weight loss Ears, nose, mouth and throat: Reports as per HPI, Denies ant. neck pain, Denies bleeding gums, Denies dental pain, Denies dysphagia, Denies epistaxis, Denies headache, Denies hoarseness, Denies mouth pain, Denies nasal congestion, Denies nasal discharge, Denies neck fullness/pressure, Denies neck lump, Denies nose pain, Denies odynophagia, Denies post-nasal drip, Denies sinus pain, Denies sinus pressure, Denies swelling in mouth, Denies swelling in throat, Denies sore throat, Denies vertigo, Denies voice changes Cardiovascular: Reports as per HPI, Denies chest pain, Denies claudication, Denies decreased exercise tolerance, Denies dyspnea on exertion, Denies edema, Denies high blood pressure, Denies irregular heart beat, Denies leg edema, Denies lightheadedness, Denies orthopnea, Denies palpitations, Denies paroxysmal nocturnal dyspnea, Denies phlebitis, Denies rapid heart beat, Denies shortness of breath, Denies syncope Respiratory: Reports as per HPI, Denies congestion, Denies cough, Denies cough with sputum, Denies dyspnea, Denies excessive sputum, Denies hemoptysis, Denies home oxygen, Denies pain, Denies pain on inspiration, Denies pleurisy, Denies respiratory infections, Denies sleep apnea, Denies snoring, Denies wheezing Gastrointestinal: Reports as per HPI, Denies abdominal pain, Denies belching, Denies bloating, Denies BRBPR, Denies change in bowel habits, Denies coffee ground emesis, Denies constipation, Denies diarrhea, Denies dyspepsia, Denies early satiety, Denies excessive gas, Denies heartburn, Denies hematemesis, Denies hematochezia, Denies indigestion, Denies jaundice, Denies lactose intolerance, Denies loss of appetite, Denies melena, Denies nausea, Denies vomiting Genitourinary: Reports as per HPI Menstruation: Reports as per HPI, Reports postmenopausal Musculoskeletal: Reports as per HPI Integumentary: Reports as per HPI, Reports unusual bruising (Legs) no bleeding) Neurological: Reports as per HPI, Reports headaches Psychiatric: Reports as per HPI, Reports anxiety attacks, Reports change in sleep habits, Reports insomnia, Reports paranoia, Denies anhedonia, Denies anxiety, Denies change in appetite, Denies change in libido, Denies confusion, Denies depression, Denies difficulty concentrating, Denies disorientation, Denies hallucinations, Denies hopelessness, Denies hypersomnia, Denies irritability, Denies memory loss, Denies mood swings, Denies sadness/tearfulness , Denies sleep disturbances, Denies suicidal ideation Endocrine: Reports as per HPI, Denies cold intolerance, Denies deepening of the voice, Denies excessive sweating, Denies excessive thirst, Denies fatigue, Denies flushing, Denies heat intolerance, Denies high blood sugars, Denies increase in ring/shoe/hat size, Denies low blood sugars, Denies nocturia, Denies palpitations, Denies polydipsia, Denies polyphagia, Denies polyuria, Denies proptosis, Denies recent glucocorticoid use, Denies thyroid mass, Denies weight change Hematologic/Lymphatic: Reports as per HPI, Denies easy bleeding, Denies easy bruising, Denies lymphadenopathy, Denies lymphedema, Denies thrombophilia Allergic/Immunologic: Reports as per HPI, Denies allergic rhinitis, Denies anaphylaxis, Denies angioedema, Denies gluten intolerance, Denies persistent infections, Denies seasonal allergies, Denies urticaria, Denies wheezing Past Medical History Past Medical History: No Reported History, Osteoarthritis (OA) Additional Past Medical History / Comment(s): Occasional migraines, wears contact and readers, heart murmur as child, achilles tendon repair, 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 History of Any Multi-Drug Resistant Organisms: None Reported Past Surgical History: Appendectomy, Hernia Repair Smoking Status: Never smoker - Past Family History Father History Unknown: Yes (Deseased with dementia) Family Medical History: No Reported History Mother History Unknown: Yes (Pass away one month ago old age) Family Medical History: No Reported History Brother(s) Family Medical History: No Reported History Sister(s) History Unknown: Yes (3 sisters 2 brothers) Family Medical History: No Reported History Daughter(s) History Unknown: Yes (One daughter healthy) Medications and Allergies Home Medications Medication Instructions Recorded Confirmed Type SUMAtriptan SUCCINATE [Imitrex] 100 mg PO BID PRN 02/04/14 01/10/17 History Aspirin 81 mg PO DAILY #30 chewable 12/01/16 01/10/17 Rx Mirtazapine [Remeron] 7.5 mg PO HS #15 tab 12/26/16 01/10/17 Rx QUEtiapine [SEROquel] 200 mg PO HS #30 tab 12/26/16 01/10/17 Rx Allergies Allergy/AdvReac Type Severity Reaction Status Date / Time peanut AdvReac Nausea Verified 01/10/17 19:41 Physical Exam Vitals: Vital Signs Temp Pulse Pulse Pulse Resp BP BP 01/11/17 16:27 101 H 01/11/17 09:07 107 H 18 01/11/17 07:50 117 H 20 01/11/17 02:40 98.9 F 100 16 148/77 01/11/17 00:45 99.1 F 96 18 141/67 01/10/17 19:41 98.0 F 99 20 179/84 BP Pulse Ox 01/11/17 16:27 134/64 01/11/17 09:07 113/58 01/11/17 07:50 98/47 01/11/17 02:40 100 01/11/17 00:45 100 01/10/17 19:41 99 Intake and Output 01/11/17 01/11/17 01/11/17 06:59 14:59 22:59 Other: Weight 45.813 kg 45.813 kg Patient Weight 01/12/17 06:59 Weight 45.813 kg - Constitutional General appearance: cooperative, no acute distress - EENT Eyes: anicteric sclerae, EOMI, dentition normal, normal appearance ENT: hearing grossly normal, NA/AT, normal oropharynx - Neck Neck: normal ROM - Respiratory Respiratory: bilateral: CTA, negative: diminished, dullness, rales - Cardiovascular Rhythm: regular Heart sounds: normal: S1, S2 Abnormal Heart Sounds: no systolic murmur, no diastolic murmur, no rub, no S3 Gallop, no S4 Gallop, no click, no other - Gastrointestinal General gastrointestinal: normal bowel sounds, soft - Integumentary Integumentary: normal, normal turgor - Neurologic Neurologic: CNII-XII intact - Musculoskeletal Musculoskeletal: gait normal, strength equal bilaterally - Psychiatric Psychiatric: A&O x's 3, appropriate affect, intact judgment & insight Results CBC & Chem 7: 01/11/17 07:47 01/11/17 07:47 Labs: Abnormal Lab Results - Last 24 Hours (Table) 01/10/17 01/11/17 Range/Units 20:23 07:47 Carbon Dioxide 32 H (22-30) mmol/L BUN 23 H (7-17) mg/dL Total Protein 6.2 L (6.3-8.2) g/dL Laboratory Results WBC 5.2 k/uL (3.8-10.6) 01/11/17 07:47 RBC 4.17 m/uL (3.80-5.40) 01/11/17 07:47 Hgb 12.9 gm/dL (11.4-16.0) 01/11/17 07:47 Hct 38.6 % (34.0-46.0) 01/11/17 07:47 MCV 92.7 fL (80.0-100.0) 01/11/17 07:47 MCH 30.9 pg (25.0-35.0) 01/11/17 07:47 MCHC 33.3 g/dL (31.0-37.0) 01/11/17 07:47 RDW 13.5 % (11.5-15.5) 01/11/17 07:47 Plt Count 192 k/uL (150-450) 01/11/17 07:47 Neutrophils % 55 % 01/11/17 07:47 Lymphocytes % 34 % 01/11/17 07:47 Monocytes % 7 % 01/11/17 07:47 Eosinophils % 1 % 01/11/17 07:47 Basophils % 1 % 01/11/17 07:47 Neutrophils # 2.9 k/uL (1.3-7.7) 01/11/17 07:47 Lymphocytes # 1.8 k/uL (1.0-4.8) 01/11/17 07:47 Monocytes # 0.4 k/uL (0-1.0) 01/11/17 07:47 Eosinophils # 0.1 k/uL (0-0.7) 01/11/17 07:47 Basophils # 0.0 k/uL (0-0.2) 01/11/17 07:47 Sodium 143 mmol/L (137-145) 01/11/17 07:47 Potassium 4.3 mmol/L (3.5-5.1) 01/11/17 07:47 Chloride 105 mmol/L (98-107) 01/11/17 07:47 Carbon Dioxide 32 mmol/L (22-30) H 01/11/17 07:47 Anion Gap 6 mmol/L 01/11/17 07:47 BUN 16 mg/dL (7-17) 01/11/17 07:47 Creatinine 0.66 mg/dL (0.52-1.04) 01/11/17 07:47 Est GFR (MDRD) Af Amer >60 (>60 ml/min/1.73 sqM) 01/11/17 07:47 Est GFR (MDRD) Non-Af >60 (>60 ml/min/1.73 sqM) 01/11/17 07:47 Glucose 94 mg/dL (74-99) 01/11/17 07:47 Calcium 9.5 mg/dL (8.4-10.2) 01/11/17 07:47 Total Bilirubin 0.6 mg/dL (0.2-1.3) 01/11/17 07:47 AST 31 U/L (14-36) 01/11/17 07:47 ALT 30 U/L (9-52) 01/11/17 07:47 Alkaline Phosphatase 83 U/L (38-126) 01/11/17 07:47 Total Protein 6.2 g/dL (6.3-8.2) L 01/11/17 07:47 Albumin 4.0 g/dL (3.5-5.0) 01/11/17 07:47 Urine Color Colorless 01/10/17 19:50 Urine Appearance Clear (Clear) 01/10/17 19:50 Urine pH 7.0 (5.0-8.0) 01/10/17 19:50 Ur Specific [place] 1.003 (1.001-1.035) 01/10/17 19:50 Urine Protein Negative (Negative) 01/10/17 19:50 Urine Glucose (UA) Negative (Negative) 01/10/17 19:50 Urine Ketones Negative (Negative) 01/10/17 19:50 Urine Blood Negative (Negative) 01/10/17 19:50 Urine Nitrite Negative (Negative) 01/10/17 19:50 Urine Bilirubin Negative (Negative) 01/10/17 19:50 Urine Urobilinogen <2.0 mg/dL (<2.0) 01/10/17 19:50 Ur Leukocyte Esterase Negative (Negative) 01/10/17 19:50 Urine Opiates Screen Not Detected (NotDetected) 01/10/17 19:50 Ur Oxycodone Screen Not Detected (NotDetected) 01/10/17 19:50 Urine Methadone Screen Not Detected (NotDetected) 01/10/17 19:50 Ur Propoxyphene Screen Not Detected (NotDetected) 01/10/17 19:50 Ur Barbiturates Screen Not Detected (NotDetected) 01/10/17 19:50 U Tricyclic Antidepress Not Detected (NotDetected) 01/10/17 19:50 Ur Phencyclidine Scrn Not Detected (NotDetected) 01/10/17 19:50 Ur Amphetamines Screen Not Detected (NotDetected) 01/10/17 19:50 U Methamphetamines Scrn Not Detected (NotDetected) 01/10/17 19:50 U Benzodiazepines Scrn Not Detected (NotDetected) 01/10/17 19:50 Urine Cocaine Screen Not Detected (NotDetected) 01/10/17 19:50 U Marijuana (THC) Screen Not Detected (NotDetected) 01/10/17 19:50 Assessment and Plan Plan: 1. bipolar disorder with lachelle, with thoughts of pursuits/paranoia, has refractory insomnia, patient currently is followed closely by the mental health team, and no plans off any suicidal ideation or homicidal tendencies at this time, patient's continue on Remeron 15 mg at bedtime, started on Seroquel 200 mg scheduled at bedtime, 2. Refractory insomnia, patient is on [id number] and Remeron for this one, add Flexeril 10 mg at bedtime 3. History of migraines, stable on when necessary Imitrex add flexeril hs. patient will need imaging studies of the brain as an outpatient 4. BMI 16, hopefully the Remeron would assist with appetite, we would monitor weight as an outpatient, there is no anorexia identify doing this admission, thyroid function test is normal recently 5. EKG reviewed without any QT prolongation, no contraindication at this time for the psychotropic medications including atypical and they psychotics
[2017-01-12] MEDS: QUEtiapine 25 MG TAB PO SCH ×2 (08:19→15:50)
[2017-01-12] MEDS: ASPIRIN 81 MG PO SCH ×2 (08:19→08:20)
--- NOTE | 2017-01-12 10:26 | P.PN ---
Progress Note - Text Interval History: Patient is a 66-year-old female who was admitted yesterday and is being seen in coverage for Dr. Tom. Patient reports that she is feeling more relaxed and in control today and when we discussed the paranoid thoughts that she had as an outpatient she stated that her interpretation of these was wrong. Patient states that her thinking is slower and she is not as anxious as she was. She reports sleeping well last evening and did eat well this morning and is receiving an shore supplementation. Patient denied any current suicidal thoughts. She reported no side effects from the medication. Mental Status: Appearance/Attitude: Patient is appropriately dressed, makes good eye contact and is cooperative. Behavior: Patient does not display any psychomotor agitation or retardation. Speech/Language: Patient's speech is spontaneous and of normal volume and rhythm and she is coherent. Thought Process: Patient is goal-directed, there is no evidence of tangential or circumstantial thought and no flight of ideas or loose associations. Thought Content: Patient denies any auditory or visual hallucinations and no delusions or paranoid ideation are elicited. Patient questioned some of the ideas that she had prior to admission and can see that she misinterpreted some of the situations. She states that her thinking is slower and she is no longer having racing thoughts. She reports feeling more relaxed and more in control. Patient reported sleeping well and her appetite is good. Suicidal/Homicidal Ideation: Patient denied any current suicidal or homicidal ideation Sensorium/Cognition: Patient is alert and oriented to person, place, and time and her memory is grossly intact. Mood/Affect: Patient's mood is more stable today and her affect is appropriate. Insight/Judgement: Patient's insight and judgment are fair. Assessment: Patient reports the addition of Seroquel during the day did help her feel more relaxed and not as anxious. She reports her thinking has slowed somewhat and she feels more in control. Patient reports sleeping well and her appetite has been good. Patient is beginning to question some of the paranoid thoughts that she had on admission. Patient had no reports of side effects from the medication. Plan: Patient will continue on Seroquel 25 mg twice a day and 200 mg at bedtime. Patient continues to require hospitalization to stabilize her mood. Patient is attending some groups and activities and is participating in them.
[2017-01-12] MEDS: QUEtiapine 200 MG TAB PO SCH (20:13)
[2017-01-13] MEDS: QUEtiapine 25 MG TAB PO SCH ×2 (08:38→16:30)
[2017-01-13] MEDS: ASPIRIN 81 MG PO SCH (08:39)
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
[2017-01-13] MEDS: QUEtiapine 200 MG TAB PO SCH (21:00)
[2017-01-14] MEDS: QUEtiapine 25 MG TAB PO SCH ×3 (07:46→20:38)
[2017-01-14] MEDS: ASPIRIN 81 MG PO SCH (07:46)
--- NOTE | 2017-01-14 09:29 | P.PN ---
Progress Note - Text Interval history: The patient is found in the hallway she follows me to an interview room. She offers some reluctance to attend in the session as she states "I forgot my notes". She feels that one of the male patients is following her she briefly alludes to the idea that maybe the staff is moving that person closer to her in terms of room placement. She continues to feel her has her placed here on weekends possibly out of convenience. She spent several minutes arguing calmly why she should be discharged. She states she does not feel comfortable showering here or washing her clothes and has no intention of doing those things here. She states she will turn her shirt inside out and then backwards if necessary so it is still clean. Mental status exam: The patient is a thin female she is dressed in her own clothing eye contact is appropriate she is pleasant and cooperative. She reports her mood is "fine". She continues to have ongoing spontaneous speech and I will continue until she is interrupted. She continues to be circumstantial and tangential. She is reporting no auditory or visual hallucinations she does continue to entertain paranoid thinking. She demonstrates no verbal or physical aggressiveness she demonstrates no abnormal involuntary movements. She is oriented to person place and date she is able to register 3 objects and spontaneously recall all 3 after delay of 4 minutes. She was able to slowly name the months of the year backwards. She was able to successfully name 3 objects. She was able to abstract a simple proverb. When asked to name 5 major cities in the [place] [facility] she names [place] then states [place] then lists [facility] [place]. With a clock drawing task she was very quickly able to draw a clock and put the numbers in the correct position. She used to strategy of placing the 12 3 6 and 9 first and then feeling in the other numbers. She was able to easily indicate the time requested by drawing hands on the clock. Plan: Bipolar 1 disorder manic with psychosis: The patient will continue on the Seroquel we will increase the evening dose to 225 mg at bedtime she will continue on the 25 mg twice a day schedule as well. We will monitor her for safety and encourage her participation in the milieu. We're looking for her thought process to become more linear in for there to be a decrease in paranoid thinking. Vital signs reviewed no new labs.
[2017-01-14] MEDS: QUEtiapine 200 MG TAB PO SCH (20:38)
[2017-01-15] MEDS: ASPIRIN 81 MG PO SCH (08:00)
[2017-01-15] MEDS: QUEtiapine 25 MG TAB PO SCH ×3 (08:00→21:38)
--- NOTE | 2017-01-15 10:22 | P.PN ---
Progress Note - Text Interval history: The patient is found in group she follows me to an interview room. She reports that she slept well last night staff documented 5 hours. She has been attending groups she states she has been participating in meals. She is looking forward to her visiting this evening. Social work has been in contact with her . She brings in several pages of written notes that appear to be a journal since she has been here. I did read through that material with her permission. She continues to feel that she is stable and is ready to go home. She is reporting no concerns regarding the Seroquel. Mental status exam: The patient is alert she is a thin female appearing her stated age she is dressed in her own clothing. Eye contact is appropriate she has ongoing spontaneous speech she is not pressured today. Her thought process is circumstantial and can be tangential. She endorses no auditory or visual hallucinations. She seems less preoccupied with paranoid thinking today, insight limited. In terms of judgment she has been eating meals attending groups and following direction. She has been compliant with her medication. Cognitively she remains oriented to person place and date. She demonstrates no verbal or physical aggressiveness she demonstrates no abnormal involuntary movements. Affect demonstrates a limited range she does demonstrate appropriate smiling. Plan: We will continue the Seroquel as written. It seems her symptoms of lachelle are slowly improving. She does have some paranoid thinking but today it seems less acute. There is some question as to whether not she is experiencing neurocognitive symptoms. With brief screening yesterday there was no significant impairment however she may benefit from further outpatient assessment. It appears her has raised the question of having neurology consult. There appears to be no acute focal deficits or complaints. It seems that the neurology evaluation would most appropriately be done on an outpatient setting. We will continue to monitor her for safety. We will look for input from her regarding their visit this evening. Vital signs reviewed.
[2017-01-15] MEDS: QUEtiapine 200 MG TAB PO SCH (21:38)
[2017-01-16] MEDS: ASPIRIN 81 MG PO SCH (08:00)
[2017-01-16] MEDS: QUEtiapine 25 MG TAB PO SCH ×3 (08:00→20:22)
--- NOTE | 2017-01-16 10:13 | P.PN ---
Progress Note - Text Interval history: The patient is found in group she follows me to an interview room. Prior to meeting with the patient nursing informs me that the patient's had called informing us that he did not feel the patient was ready for discharge as her thoughts were disorganized she seemed inappropriately dressed and he continued to have the same concerns regarding her behavior. The patient again presents with several sheets of written material. She struggles with staying on topic and clearly demonstrates tangential thinking. She does continue to spontaneously describe suspicious thoughts regarding her and being on the mental health unit. She does lack insight into her thought disorganization. She reports that she is eating. Sleep is recorded as 5 hours. Mental status exam: The patient is a thin female she is dressed in her own clothing. Eye contact is intermittent speech is spontaneous and ongoing. She continues to speak and tall interrupted. She is easily distracted. Thought process demonstrates tangential thinking loose associations at times. She is soft-spoken she is pleasant she is able to be briefly redirected. She continues to have some suspicious thinking. She reports no thoughts of harming herself or others. She is endorsing no auditory or visual hallucinations. She demonstrates no abnormal involuntary movements. She demonstrates no verbal or physical aggressiveness. Insight continues to be significantly impaired. Judgment on the mental health unit is appropriate in terms of taking medicine attending groups and meals. She does however state that one of her plans is to go off medications in the near future. Plan: The patient will continue on her current medications we will titrate the Seroquel further to 250 mg at bedtime and maintain the 25 mg twice daily dosing. Social work will discuss the visit with the patient's . We will continue to monitor for safety and encourage her participation in the milieu. This is her third admission to this mental health unit since November. Due to these ongoing symptoms she has been unable to maintain appropriate function at home.
[2017-01-16] MEDS: LORazepam 1 MG TAB PO PRN (16:06)
[2017-01-16] MEDS: QUEtiapine 200 MG TAB PO SCH (20:22)
[2017-01-17] MEDS: ASPIRIN 81 MG PO SCH (09:21)
[2017-01-17] MEDS: QUEtiapine 25 MG TAB PO SCH ×2 (09:21→16:42)
--- NOTE | 2017-01-17 09:25 | P.PN ---
Progress Note - Text Interval history: The patient is found in the dining room she follows me to an interview room. Upon finding her in the dining room she is perseverating on what she ate for breakfast and she is troubled she is not able to save her fruit for another meal. She describes finding the overhead lullaby offensive. She expresses her concerns that we are not recycling Styrofoam cups. She shows me a recipient rights form that she has written on that demonstrates a disorganized thought process. The form demonstrates no complaints and just is a list of random appearing thoughts. She has no questions or concerns regarding medication today. She continues to express an interest in being discharged. She states her can pick her up but she lacks insight into the fact that he does not feel that she is ready for discharge. Mental status exam: The patient is a tall thin female appearing her stated age. She is dressed in her same clothing she continues to not shower or wash her clothes there is no follow odor however. Eye contact is intermittent. Today she demonstrates more lability of affect tearful at least twice during our session she is more easily troubled by environmental concerns political events and moral decisions. She continues to demonstrate paranoid thinking. Thought process continues to be disorganized. She demonstrated spontaneous fluent ongoing speech until interrupted. She lacks insight into her disorganized thought process. She demonstrates no verbal or physical aggressiveness. She identifies no suicidal or homicidal thoughts. No abnormal involuntary movements. She is oriented to person place and date. Plan: Bipolar disorder with lachelle and psychosis, rule out neurocognitive symptoms, the patient will continue on Seroquel 25 mg twice daily 250 mg at bedtime. We will consider titrating the Seroquel further as well as possibly augmenting with another mood stabilizing medication. Vital signs reviewed. We will draw routine labs. We'll continue monitoring by mouth intake. She is ambulating without ataxia . We will continue to monitor for safety and encourage her participation in the milieu. The patient requires continued psychiatric hospitalization as she would be expected to further decompensate if discharged home at this time.
[2017-01-17] MEDS: ACETAMINOPHEN TAB 325 MG TAB PO PRN (12:31)
[2017-01-17] MEDS: QUEtiapine 200 MG TAB PO SCH (20:59)
[2017-01-17] MEDS: QUEtiapine 50 MG TAB PO SCH (20:59)
[2017-01-18] MEDS: LORazepam 1 MG TAB PO PRN (00:58)
[2017-01-18 08:33] LABS: ALT 43 U/L (9-52); AST 31 U/L (14-36); Alkaline Phosphatase 71 U/L (38-126); Anion Gap 5 mmol/L; Blood Urea Nitrogen 18 mg/dL (7-17); Calcium 9.2 mg/dL (8.4-10.2); Carbon Dioxide 31 mmol/L (22-30); Chloride 103 mmol/L (98-107); Glucose 84 mg/dL (74-99); Non-African American GFR(MDRD) >60 (>60 ml/min/1.73 sqM); Potassium 4.3 mmol/L (3.5-5.1); Sodium 139 mmol/L (137-145); Total Bilirubin 0.5 mg/dL (0.2-1.3); Total Protein 5.8 g/dL (6.3-8.2)
[2017-01-18] MEDS: QUEtiapine 25 MG TAB PO SCH ×2 (09:15→16:24)
[2017-01-18] MEDS: ASPIRIN 81 MG PO SCH (09:15)
--- NOTE | 2017-01-18 12:24 | P.PN ---
Progress Note - Text Interval history: The patient is found in the hallway she follows me to an interview room. She reports having some difficulty sleeping. She finds herself increasingly frustrated that she still in the hospital and would like to go home. In conversation she still remains disorganized she demonstrates tangential thinking and loose associations. She is tearful during the session but is able to reconstitute. She states that she will not wash her clothes here and will not shower here but washes up in her room. Her did bring in clean clothes. She does continue to consume the ensure with meals. Mental status exam: The patient is a thin female she is dressed in her own clothing which is different from yesterday. Eye contact is appropriate. She has spontaneous ongoing speech until interrupted. She endorses a mood is frustrated and sad she is tearful during the session. She continues to harbor some suspicious thinking. Thought process is not well organized. She remains oriented to person place and date. Insight and judgment limited. She demonstrates no involuntary abnormal movements no verbal or physical aggressiveness. Plan: Symptoms of lachelle with psychosis rule out neurocognitive symptoms: We will continue the Seroquel as written we will add Lamictal starting with 25 mg daily for further stabilization of mood and to organize thought process. We will continue to monitor her for safety she is encouraged participate in the milieu. Eitel signs reviewed labs reviewed.
[2017-01-18] MEDS: lamoTRIgine 25 MG TAB PO SCH (12:36)
[2017-01-18] MEDS: QUEtiapine 200 MG TAB PO SCH (20:31)
[2017-01-18] MEDS: QUEtiapine 50 MG TAB PO SCH (20:31)
[2017-01-19] MEDS: QUEtiapine 25 MG TAB PO SCH ×2 (08:38→16:29)
[2017-01-19] MEDS: lamoTRIgine 25 MG TAB PO SCH ×2 (08:38→21:04)
[2017-01-19] MEDS: ASPIRIN 81 MG PO SCH (08:38)
--- NOTE | 2017-01-19 16:18 | P.PN ---
Progress Note - Text Interval history: The patient is found in the hallway she follows me to an interview room. She reports that her day so far has been okay. She states that she saw her 's truck in the parking lot through the window and hopes that she's leaving today. It's documented she slept approximate 6 hours. She has been going down for meals. She gives me another packet of information she has written. She has questions regarding her medication and those were addressed. We discussed titrating Lamictal further and she is agreeable. She has been compliant with the Lamictal and Seroquel. Mental status exam: The patient is a thin female she is dressed in her own clothing eye contact is appropriate speech is fluent and spontaneous she remains overly verbose. She continues to speak unless interrupted. She will make statements that are not relevant to questions asked. There is some disorganization of thought. Insight and judgment remain limited. She is less focused on paranoid thinking today affect is more consistent throughout the session this morning. She remains oriented to person place and date. She demonstrates no verbal or physical aggressiveness. She demonstrates no abnormal involuntary movements. Plan: Bipolar 1 disorder manic with psychosis, rule out neurocognitive symptoms , the patient will continue on the Seroquel as written Lamictal be titrated to 25 mg twice daily. We will continue to monitor her for safety and encourage her participation in the milieu. Vital signs reviewed they are within normal limits. We will monitor her by mouth intake.
[2017-01-19] MEDS: QUEtiapine 200 MG TAB PO SCH (21:04)
[2017-01-19] MEDS: QUEtiapine 50 MG TAB PO SCH (21:04)
[2017-01-20] MEDS: QUEtiapine 25 MG TAB PO SCH ×2 (08:51→15:13)
[2017-01-20] MEDS: ASPIRIN 81 MG PO SCH (08:51)
[2017-01-20] MEDS: lamoTRIgine 25 MG TAB PO SCH ×2 (08:51→20:09)
--- NOTE | 2017-01-20 10:14 | P.PN ---
Progress Note - Text Interval history: The patient is found in group she follows me to an interview room. She has more written information to share with me today. She is focused on her daughter Zahida and is concerned that her boyfriend hasn't proposed to her daughter yet. She is considering asking her daughter to move home until there is a "proper proposal". The patient reviews her current medications she has no questions regarding those. She states that she did not sleep well however staff recorded 7 hours of sleep last evening. It appears that she has been doing well with eating and she is consuming most of her meals. Mental status exam: The patient is a tall thin female appearing her stated age. Hygiene grooming adequate. Eye contact is appropriate speech is fluent and spontaneous. Thought process continues to be circumstantial and tangential. She verbalizes no paranoid thinking. There continues to be some affect lability she again becomes tearful and then reconstitutes. She is oriented to person place and date. She demonstrates no verbal or physical aggressiveness she demonstrates no abnormal involuntary movements. She continues to lack insight into her thought process disorganization. Plan: Symptoms of lachelle with psychosis rule out neurocognitive symptoms. The patient will continue on the Seroquel and Lamictal as written. We will continue to monitor her for safety and encourage her participation in the milieu. I will attempt to contact her via phone today to discuss her ongoing care and current status. Vital signs reviewed. She is encouraged to continue participating in the milieu.
[2017-01-20] MEDS: QUEtiapine 200 MG TAB PO SCH (20:09)
[2017-01-20] MEDS: QUEtiapine 50 MG TAB PO SCH (20:09)
[2017-01-21] MEDS: lamoTRIgine 25 MG TAB PO SCH ×2 (09:10→20:53)
[2017-01-21] MEDS: QUEtiapine 25 MG TAB PO SCH ×2 (09:10→16:03)
[2017-01-21] MEDS: ASPIRIN 81 MG PO SCH (09:10)
--- NOTE | 2017-01-21 09:48 | P.PN ---
Progress Note - Text Interval history: The patient is found in her room she follows me to an interview room. It's documented that she slept approximate 6 hours last evening she states she did sleep. Appetite is reportedly normal. Staff continue to document the percentage consumption of meals. She spontaneously speaks of her desire to go home as some of the noises and people on the mental health unit are disturbing. She states she is trying to maintain a positive outlook. We reviewed her medication she has no questions or concerns regarding those today. Mental status exam: The patient is a thin female appearing her stated age. She is dressed in her own clothing. Eye contact is appropriate speech is fluent spontaneous nonpressured. She reports her mood is better today she is trying to be more positive. She is reporting no suicidal or homicidal ideation. She spontaneously reports no symptoms of psychosis. Thought process today is mostly circumstantial tangential at times. She demonstrates no verbal or physical aggressiveness. No observed abnormal involuntary movements. Plan: Symptoms of lachelle with psychosis, rule out neurocognitive symptoms, the patient appears more stable during our brief interaction this morning. I will confer with the treatment team later today to discuss the last 24 hours. We continue to look for increased organization of thought, instability of mood and affect. Vital signs reviewed. I was able to speak with the patient's Jimmy for several minutes yesterday to discuss the patient's status and what our treatment goals are.
[2017-01-21] MEDS: QUEtiapine 50 MG TAB PO SCH (20:53)
[2017-01-21] MEDS: QUEtiapine 200 MG TAB PO SCH (20:53)
[2017-01-22] MEDS: ASPIRIN 81 MG PO SCH (08:36)
[2017-01-22] MEDS: lamoTRIgine 25 MG TAB PO SCH ×2 (08:36→20:09)
[2017-01-22] MEDS: QUEtiapine 25 MG TAB PO SCH ×2 (08:36→16:25)
--- NOTE | 2017-01-22 10:02 | P.PN ---
Progress Note - Text interval history: the patient is found in her room she follows me to an interview room. She reports that she continues to try to be optimistic. She continues to state she would like to be discharged home as she would like to enjoy the nice weather. She anticipates her will visit this evening. It's documented she slept 5 hours last night she has no complaints regarding sleep last evening. We continue to monitor the percentage of meals consumed and she seems to be doing well. She is tolerating medication she has no questions or concerns regarding them today. Mental status exam: the patient is alert she is dressed in her own clothing hygiene grooming adequate eye contact is appropriate. she is less pressured in terms of speech. she is verbally redirectable. she has a brighter affect she does not demonstrate any lability of affect during our session. she is reporting no suicidal or homicidal ideation. she verbalizes no delusional thinking. She reports feeling safe but indicates she would like to go home to be more comfortable. She does still have some circumstantial and tangential thinking. No flight of ideas. She demonstrates no abnormal involuntary movements. She is oriented to person place and date. Plan: symptoms of lachelle and psychosis improving. we anticipate her will visit this evening we will look for input after that visit. If she demonstrates continued stability and clinical improvement we may consider a discharge this week. Vital signs reviewed. We will continue to monitor for safety and encourage full participation in the milieu.
[2017-01-22] MEDS: QUEtiapine 200 MG TAB PO SCH (20:09)
[2017-01-22] MEDS: QUEtiapine 50 MG TAB PO SCH (20:09)
[2017-01-22] MEDS: LORazepam 1 MG TAB PO PRN (23:20)
[2017-01-23] MEDS: lamoTRIgine 25 MG TAB PO SCH (08:10)
[2017-01-23] MEDS: QUEtiapine 25 MG TAB PO SCH ×2 (08:10→16:23)
[2017-01-23] MEDS: ASPIRIN 81 MG PO SCH (08:10)
[2017-01-23] MEDS ORDERED: lamoTRIgine 25 MG TAB PO ONE (09:46)
--- NOTE | 2017-01-23 09:53 | P.PN ---
Progress Note - Text Interval history: The patient is found in her room she follows me to an interview room. She reports her mood is stable she is hoping to be discharged soon. The patient's did visit last evening social work notes were reviewed. The patient's indicates that the patient has not at her baseline and he fears she is not stable for discharge. The patient was noted to be more tangential more agitated. Yesterday during treatment team staff report that the patient has been more tangential and agitated in the afternoons. The patient continues to state she is not sleeping staff reported she slept 6 hours last evening. Mental status exam: The patient is a thin female appearing her stated age. She is dressed in her own clothing eye contacts appropriate speech is fluent and spontaneous. She does quickly get off topic again she is redirected and then will become tangential again. She is reporting no suicidal or homicidal thoughts. She does not have insight into her thought process disorder. Today she does verbalize some suspicious thinking during the course of our conversation. She demonstrates no verbal or physical aggressiveness towards me she does appear frustrated today. No abnormal involuntary movements. Affect demonstrates limited range she is not tearful during the session. Plan: Manic symptoms of psychosis rule out neurocognitive symptoms, the patient continues to be symptomatic. We have had close contact with her and he indicates she has not at her baseline. She continues to display some disorganization of thought there appears to be some irritability and agitation in the later hours of the day. Insight into her current symptoms impaired. At this point she is not appropriate for discharge as it is feared she would decompensate further if at home. Vital signs reviewed.
[2017-01-23] MEDS: QUEtiapine 50 MG TAB PO SCH (20:14)
[2017-01-23] MEDS: QUEtiapine 200 MG TAB PO SCH (20:14)
[2017-01-24 06:29] VITALS: RESP 16
[2017-01-24] MEDS: ASPIRIN 81 MG PO SCH (08:28)
[2017-01-24] MEDS: QUEtiapine 25 MG TAB PO SCH (08:28)
[2017-01-24] MEDS: lamoTRIgine 100 MG TAB PO SCH (08:28)
--- NOTE | 2017-01-24 10:05 | P.PN ---
Progress Note - Text Interval history: The patient is found in the [facility]. She reports today that she does not want to continue taking Seroquel. She expresses that her plan would be to try to stop that medication once discharged. She states that she doesn't like how she feels and at times feels drunk or dizzy. We have tried to titrate this to a therapeutic dose and she has been on this for an extended period of time during the hospitalization with insufficient results. We discussed alternatives to the Seroquel. We discussed using Abilify. She reports she had been on that in the past with no recalled adverse effect. She continues to feel that she is inadequately sleeping. Appetite is stable. She has been attending groups. She continues to speak of her desire to return home. Again we discussed symptoms that need to improve before she is appropriate for discharge. Mental status exam: The patient is a thin female appearing her stated age. She reports her mood is "caught off guard today". She continues to quickly become tangential and demonstrate some loose associations. She is redirected back to the topic of conversation and then a sidetracked again. She lacks insight into this inability to remain focused on the topic of conversation. She is reporting no auditory or visual hallucinations. She does not spontaneously report any paranoid thinking today although those thoughts may persist. She may have some ideas of reference as she tries to draw specific meaning from general stimuli. She demonstrates no verbal or physical aggressiveness there are no abnormal involuntary movements observed. She reports having no suicidal or homicidal thoughts. She remains oriented to person day the week place and month and year. Plan: Symptoms of lachelle with psychosis rule out neurocognitive symptoms, we will continue the Lamictal which has recently been titrated to 100 mg daily, I plan to titrate that further. I will begin cross tapering her off of Seroquel and onto Abilify. She did receive her 25 mg dose of Seroquel this morning I will reduce the bedtime dose to 150 mg. We will initiate Abilify 5 mg daily starting tomorrow. We will plan to taper off of Seroquel over the next few days. The patient has not made sufficient progress to warrant a discharge home. There is still observed lability of affect during the course of the day, disorganization of thought, and likely some at least residual psychosis. Vital signs reviewed. We will continue to monitor her for safety.
[2017-01-24] MEDS: QUEtiapine 50 MG TAB PO SCH (20:26)
[2017-01-25] MEDS: ARIPiprazole 5 MG TAB PO SCH (09:23)
[2017-01-25] MEDS: lamoTRIgine 100 MG TAB PO SCH (09:23)
[2017-01-25] MEDS: ASPIRIN 81 MG PO SCH (09:23)
[2017-01-25] MEDS: QUEtiapine 50 MG TAB PO SCH (20:43)
--- NOTE | 2017-01-26 01:45 | P.PN ---
Progress Note - Text Patient interviewed privately, Patient reports she is sleeping just fine but she has some issues to talk about regarding her eating today. Patient gave a detailed description of how each of her orders from the dining chaudhry have been botched this last week: she got bread instead of a roll she ordered with her lasagna, Oreo cookies instead of 8 chocolate chip cookie for dessert, and later no dessert all when she ordered an apple crisp. Patient reports she had a migraine earlier in this week that she attributes food she eats much healthier at home to prevent such from happening. 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 Despite patient manages to tell all of this in a rather amusing fashion. She then goes on to state that she has trouble dealing with people sometimes and wishes she could be more fun and funny. Patient was encouraged to give herself more credit she caused a great deal of laughter in group today and during this interview she is noted to be indeed to be funny. Plan: -continue current regimen with plan to titrate patient off of Seroquel -patient encouraged to keep expressing herself in group therapies
[2017-01-26] MEDS: lamoTRIgine 100 MG TAB PO SCH (09:37)
[2017-01-26] MEDS: ASPIRIN 81 MG PO SCH (09:37)
[2017-01-26] MEDS: ARIPiprazole 5 MG TAB PO SCH (09:37)
[2017-01-26] MEDS: QUEtiapine 50 MG TAB PO SCH (20:45)
[2017-01-27] MEDS: ASPIRIN 81 MG PO SCH (08:48)
[2017-01-27] MEDS: ARIPiprazole 5 MG TAB PO SCH (08:48)
[2017-01-27] MEDS: lamoTRIgine 100 MG TAB PO SCH (08:48)
[2017-01-27] MEDS ORDERED: ARIPiprazole 5 MG TAB PO ONE (09:33)
--- NOTE | 2017-01-27 11:00 | P.PN ---
Progress Note - Text Interval history: The patient is found in her room she follows me to an interview room. She again asked to be discharged today. Staff report that today she's been demonstrating more consistency with her affect. Her did visit over the weekend we will seek input from him regarding her appearance over the weekend. We are in the process of cross tapering off of Seroquel onto Abilify. Her questions regarding the medication were answered. She reports that she slept well last night appetite is stable. Mental status exam: The patient is a thin female appearing her stated age. She is dressed in her own clothing. Eye contact is appropriate. Speech is spontaneous and fluent. She is verbose but not pressured today. Thought process is circumstantial and tangential. She again wall lack insight into the fact that she is speaking off-topic as it pertains to the conversation. She is reporting no suicidal or homicidal ideation. She is reporting no auditory or visual hallucinations. Insight and judgment are slowly improving. Plan: Bipolar disorder symptoms of lachelle and psychosis, rule out neurocognitive symptoms, the patient will continue on Abilify we will increase the dose to 10 mg daily Seroquel will be reduced to 50 mg at bedtime continue Lamictal as written. We plan to titrate Lamictal further as well as Abilify if needed. Prior to discharge the patient's will need to demonstrate a more consistent thought process and consistency of affect. Vital signs reviewed. We will continue to monitor her for safety and encourage participation in the milieu. Social work will contact the patient's today to obtain input regarding visits from the weekend.
[2017-01-27] MEDS: QUEtiapine 50 MG TAB PO SCH (21:13)
[2017-01-28] MEDS: ASPIRIN 81 MG PO SCH (08:06)
[2017-01-28] MEDS: lamoTRIgine 100 MG TAB PO SCH (08:06)
[2017-01-28] MEDS: ARIPiprazole 10 MG TAB PO SCH (08:06)
[2017-01-28 09:09] VITALS: BMI 17.4
--- NOTE | 2017-01-28 09:54 | P.PN ---
Progress Note - Text Interval history: The patient is found in group she follows me to an interview room. It's document she slept 6 hours. Yesterday during team meeting staff felt that the patient was demonstrating some improvement. She states today that she is making a conscious effort to control her thought process and amount of speech. She did recall that that was something we discussed yesterday. She has questions regarding her medications those were addressed. She continues to hope to be discharged soon. Mental status exam: The patient is alert she is dressed in her own clothing eye contact is appropriate speech is fluent spontaneous. She does a better job today of controlling her speech he is able to sit quietly as I am talking. She did better with staying on topic although she was circumstantial at times. She reports no suicidal or homicidal ideation she endorses no hallucinations or specific delusions. She demonstrates future oriented thinking. Insight and judgment appear to be improving. She remains oriented to person place and date. She demonstrates no verbal or physical aggressiveness. She demonstrates no abnormal involuntary movements. Plan: Bipolar lachelle or psychosis, her symptoms appear to be improving. She will continue on her current psychotropic medications our plan is to discontinue the Seroquel after tonight. We will plan on increasing the Lamictal 250 mg tomorrow. We will confer with her . If she demonstrates continued stability and improvement she may be appropriate for discharge this week. Vital signs reviewed.
[2017-01-28] MEDS: QUEtiapine 50 MG TAB PO SCH (20:14)
[2017-01-29 06:26] VITALS: BP 121/56; PULSE 87; TEMP 98.3
[2017-01-29] MEDS ORDERED: ARIPiprazole 15 MG TAB PO SCH (09:15)
[2017-01-29] MEDS ORDERED: lamoTRIgine 100 MG TAB PO SCH (09:15)
--- NOTE | 2017-01-29 09:22 | P.DS ---
Providers Date of admission: 01/11/17 00:26 Expected date of discharge: 01/29/17 Attending physician: Randy Tom Consults: 01/11/17 00:30 Consult Physician Routine Consulting Provider: Luiza Langston Consult Reason/Comments: H&P and medical management Do you want consulting provider notified?: Yes, Notify in am Primary care physician: Luiza Langston - Discharge Diagnosis(es) (1) Severe manic bipolar 1 disorder with psychotic behavior Current Visit: Yes Status: Acute Priority: High Hospital Course: Brief summary of admission note: This patient is a 66-year-old female who was admitted back to the mental health unit through the emergency room for confusion and paranoid ideation. The patient reports she hadn't been sleeping she isn't remembering things and she's been writing excessively. There is documentation that she was having racing thoughts and impulsive spending. This is her third presentation to the mental health unit. For full details please refer to the psychiatric evaluation dated 01/21/2017. Summary of hospital course: The patient was admitted back to the mental health unit she signed in voluntarily. She was initially evaluated by Dr. Marvin. She was kept on Seroquel and the dosage was titrated. We continued titrating the Seroquel in hopes it would stabilize mood. Lamictal was also added during the course of the hospitalization and that dose was titrated as well. As the hospitalization progressed the patient reported side effects she perceived from Seroquel and she did not wish to continue on that medication. Seroquel was tapered off and she was started on Abilify. Over the course of this last week the patient has demonstrated noticeable improvement. She has been able to maintain a more stable affect and her symptoms of psychosis seemed to have resolve. She has been able to be more attentive in groups and has not been intrusive. Insight and judgment have improved. She has demonstrated no verbal or physical aggressiveness. She was seen by the [facility] for routine history and physical exam. She has met with social work several times. I have been in contact with her via phone and social work has been in contact with him numerous times. Mental status exam: The patient is a thin female appearing her stated age. She is dressed in her own clothing hygiene grooming adequate. She is pleasant and cooperative. Speech is fluent and spontaneous nonpressured. She is circumstantial at times but demonstrates no tangential thinking loose associations or flight of ideas. She is easily directed in the session. She reports her mood is good she denies having any suicidal or homicidal ideation intent or plan. She is endorsing no auditory or visual hallucinations she endorses no specific delusions. There has been no evidence of psychosis over the course of this last week. She demonstrates no verbal or physical aggressiveness. She is oriented to person place and date. She demonstrates no abnormal involuntary movements. Affect is congruent to reported mood and appears euthymic. Impressions 1. Bipolar 1 disorder most recent manic with psychosis 2. Continued adjustment after retiring from employment Plan: The patient will be discharged from the mental health unit today to return home with her . She will follow with her outpatient psychiatrist and social worker health services will confirm the follow-up appointment date. The patient's will continue on Abilify 15 mg daily Lamictal 150 mg daily. She will follow-up with her primary care physician as needed. She typically does not participate in any use of alcohol or illicit drugs she is encouraged to continue abstaining from them. There is no imminent safety risk she is appropriate for transition back to outpatient care. She is instructed to return to the hospital with any acute safety concerns. Patient Condition at Discharge: Stable Plan - Discharge Summary New Discharge Prescriptions: New ARIPiprazole [Abilify] 15 mg PO DAILY #30 tab lamoTRIgine [LaMICtal] 150 mg PO DAILY #30 tab Continue SUMAtriptan SUCCINATE [Imitrex] 100 mg PO BID PRN PRN Reason: Migraine Headache Aspirin 81 mg PO DAILY #30 chewable Discontinued Mirtazapine [Remeron] 7.5 mg PO HS #15 tab QUEtiapine [SEROquel] 200 mg PO HS #30 tab Discharge Medication List SUMAtriptan SUCCINATE [Imitrex] 100 mg PO BID PRN 02/04/14 [History] Aspirin 81 mg PO DAILY #30 chewable 12/01/16 [Rx] ARIPiprazole [Abilify] 15 mg PO DAILY #30 tab 01/29/17 [Rx] lamoTRIgine [LaMICtal] 150 mg PO DAILY #30 tab 01/29/17 [Rx] Follow up Appointment(s)/Referral(s): [facility] [Outside] - 01/30/17 12:00 pm (w/ Raina Restrepo) Luiza Langston MD [Primary Care Provider] - 1-2 days Patient Instructions/Handouts: Bipolar Disorder (DC), Anxiety (GEN) Activity/Diet/Wound Care/Special Instructions: Activity and diet as tolerated. Avoid the use of street drugs and alcohol. Take all medications as prescribed. When you are in need of refills on your medications please contact your medical provider and/or outpatient psychiatrist to have this done. Please go to scheduled outpatient appointment for aftercare treatment. If symptoms return or become worse contact the crisis line at [phone] and/or go to the nearest emergency room for an evaluation.
[2017-01-29] MEDS: ASPIRIN 81 MG PO SCH (09:38)
[2017-01-29] MEDS: lamoTRIgine 100 MG TAB PO SCH (09:43)
[2017-01-29] MEDS: ARIPiprazole 10 MG TAB PO SCH (09:43)
== END 2017-01-29 15:13 | disposition home or self-care (01) | DRG 885 ==
LOC: EC 19:38 → 3MHU 01-11 00:26
PROVIDERS: ADMIT Psychiatry & Neurology Psychiatry; ATTEND Psychiatry & Neurology Psychiatry
DX: F31.2 Bipolar disorder, current episode manic severe with psychotic features (principal); F41.9 Anxiety disorder, unspecified; F42.9 Obsessive-compulsive disorder, unspecified; G43.909 Migraine, unspecified, not intractable, without status migrainosus; F51.04 Psychophysiologic insomnia; M19.90 Unspecified osteoarthritis, unspecified site; F41.0 Panic disorder [episodic paroxysmal anxiety]; Z79.82 Long term (current) use of aspirin; Z79.899 Other long term (current) drug therapy
CPT/HCPCS: 36415; 80053; 80306; 81003; 82075; 85025; 93005; 99285

== ENCOUNTER → 2017-06-28 | Outpatient (CLI) | payer BC, MEDICARE ==
--- NOTE | 2017-06-29 17:52 | MR ---
EXAMINATION TYPE: MR brain wo/w con DATE OF EXAM: 06/28/2017 COMPARISON: NONE HISTORY: CT brain dated 11/30/2016. TECHNIQUE: Multiplanar, multisequence images of the brain and brainstem is performed without and with IV contras t, utilizing 5 mL intravenous Gadavist . FINDINGS: Diffusion weighted images demonstrate no evidence of a recent infarct or other diffusion ab normality. There is no significant white matter signal abnormality. An extra-axial, intradural T2 h yperattenuated and FLAIR hypoattenuated 2.1 cm fluid collection along the right frontal lobe likely r epresents an arachnoid cyst. There is very mild linear peripheral thin enhancement. The ventricular s ystem and cisternal spaces are normal mildly prominent but symmetric compatible with age-related volu me loss. Midline structures demonstrate normal morphology. The craniocervical junction appears within normal limits. The dural venous sinuses appear patent. The globes are intact. Scant mucosal thickening is se en within the anterior ethmoid sinuses. Remaining paranasal sinuses and mastoid air cells are well ae rated. Substantia nigra is grossly unremarkable although T2 star sequences not performed. IMPRESSION: 1. Peripherally minimally enhancing extra-axial, intradural 2.1 cm great frontal cystic lesion favore d to represent a benign arachnoid cyst. Surveillance could be performed as other etiologies are possi ble. 2. No significant signal alteration of the substantia nigra although T2 star sequences were not perfo rmed. 3. Mild symmetric volume loss, most compatible with mild cerebral age-related atrophy.
== END | disposition home or self-care (01) ==
LOC: RADMRIMAIN 14:01
PROVIDERS: ATTEND Family Medicine
DX: G93.89 Other specified disorders of brain (principal); G31.9 Degenerative disease of nervous system, unspecified; G20 Parkinson's disease
CPT/HCPCS: 70553; A9581

== ENCOUNTER → 2017-08-07 | Outpatient (CLI) | payer BC, MEDICARE ==
[~2017-08-07] MED LIST: DENOSUMAB 60 MG/ML 1 ML SYRINGE SQ ONE
[2017-08-07 09:16] VITALS: BP 121/55; PULSE 97; RESP 16; TEMP 98.9
== END | disposition home or self-care (01) ==
LOC: PROCWHC3 08:59
PROVIDERS: ATTEND Family Medicine
DX: M81.0 Age-related osteoporosis without current pathological fracture (principal)
CPT/HCPCS: 96372; J0897

== ENCOUNTER → 2017-08-19 | Outpatient (CLI) | payer BC, MEDICARE ==
--- NOTE | 2017-08-20 11:13 | ECHOF ---
Referral Reason:R55 Syncope and collapse MEASUREMENTS -------- HEIGHT: 170.2 cm WEIGHT: 52.2 kg BP: RVIDd: 2.2 cm (< 3.3) IVSd: 0.7 cm (0.6 - 1.1) LVIDd: 3.3 cm (3.9 - 5.3) LVPWd: 1.0 cm (0.6 - 1.1) IVSs: 0.9 cm LVIDs: 2.9 cm LVPWs: 0.9 cm LA Diam: 2.2 cm (2.7 - 3.8) LAESV Index (A-L): 17.86 ml/m Ao Diam: 2.5 cm (2.0 - 3.7) AV Cusp: 1.4 cm (1.5 - 2.6) LA Diam: 2.0 cm (2.7 - 3.8) MV EXCURSION: 17.896 mm (> 18.000) MV EF SLOPE: 72 mm/s (70 - 150) EPSS: 0.6 cm MV E Gregor: 0.44 m/s MV DecT: 253 ms MV A Gregor: 0.67 m/s MV E/A Ratio: 0.65 RAP: 5.00 mmHg RVSP: 23.19 mmHg FINDINGS -------- Sinus rhythm. This was a technically good study. LV size, wall thickness and systolic function are normal, with an EF greater than 55%. The left leora tricular size is normal. The right ventricle is normal in size. The left atrial size is normal. The right atrial size is normal. There is mild aortic valve sclerosis. There is no evidence of aortic regurgitation. Mild mitral annular calcification present. Mild mitral regurgitation is present. Mild tricuspid regurgitation present. There is no evidence of pulmonary hypertension. The right v entricular systolic pressure, as measured by Doppler, is 23.19mmHg. The aortic root size is normal. There is no pericardial effusion. CONCLUSIONS -------- 1. LV size, wall thickness and systolic function are normal, with an EF greater than 55%. 2. The left ventricular size is normal. 3. There is mild aortic valve sclerosis. 4. Mild mitral annular calcification present. 5. Mild mitral regurgitation is present. 6. Mild tricuspid regurgitation present. 7. There is no evidence of pulmonary hypertension. 8. The right ventricular systolic pressure, as measured by Doppler, is 23.19mmHg. 9. The aortic root size is normal. 10. There is no pericardial effusion. SENIOR COBOL DEVELOPER: Juliana Galvan RDCS
== END | disposition home or self-care (01) ==
LOC: RADECHMAIN 14:44
PROVIDERS: ATTEND Family Medicine
DX: I08.3 Combined rheumatic disorders of mitral, aortic and tricuspid valves (principal); R55 Syncope and collapse
CPT/HCPCS: 93306

== ENCOUNTER → 2017-11-07 | Outpatient (CLI) | payer BC, MEDICARE ==
--- NOTE | 2017-11-07 14:58 | BD ---
EXAMINATION TYPE: Axial Bone Density DATE OF EXAM: 11/07/2017 COMPARISON: NONE CLINICAL HISTORY: Osteoporosis, postmenopausal female Nuclear Medicine Study in the last 2 weeks: Barium Study in the last week: : Height: Weight: FRAX RISK QUESTIONS: Alcohol (3 or more units per day): no Family History (Parent hip fracture): yes mother Glucocorticoids (More than 3mos): no (Ex: prednisone, prednisolone, methylprednisolone, dexamethasone, and hydrocortisone). History of Fracture in Adulthood: yes Secondary Osteoporosis: 1. Type 1 Diabetes: no 2. Hyperthyroidism: no 3. Menopause before 45: no 4. Malnutrition: no 5. Chronic liver disease: no Rheumatoid Arthritis: no Current Tobacco Use: no RISK FACTORS HISTORY OF: History of Wrist Fracture: When: Family History of Osteoporosis: yes Active: sometimes Diet low in dairy products/other sources of calcium: low but takes calcium Postmenopausal woman: age 59 If Lost more than 2 inches in height since high school: no Frequent falls: no Adrenal Insufficiency: no MEDICATIONS: anti-anxiety meds, anti-depression meds Additional History: EXAM MEASUREMENTS: Bone mineral densitometry was performed using the [employer] System. Bone mineral density as measured about the Lumbar spine is: ----- L1-L4(G/cm2): 0.962 T Score Values are as follows: ----- L2: -1.5 ----- L3: -1.2 ----- L4: -2.0 ----- L1-L4: -1.8 Bone mineral density has: decreased -2.8 % since study of: 08.30.2015 Bone mineral density about the R hip (g/cm2): 0.724 Bone mineral density about the L hip (g/cm2): 0.682 T Score values are as follows: -----R Neck: -2.3 -----L Neck: -2.6 -----R Total: -1.7 -----L Total: -1.9 Bone mineral density has: increased 0.3 % since study of: 08.30.2015 IMPRESSION: Osteoporosis NOTE: T-SCORE=SD OF THE YOUNG ADULT MEAN.
--- NOTE | 2017-11-11 08:00 | MM ---
Reason for exam: screening (asymptomatic). Last mammogram was performed 1 year and 1 month ago. History: Patient is postmenopausal, has history of other cancer at age 36, and had first child at age 36. Benign MG stereo VAD BX LT of the left breast, October 11, 2013. Benign MG stereo VAD BX RT of the right breast, October 11, 2013. Cancelled Left Mammotome of the left breast, May 12, 2013. Benign left mammotome panel of the left breast, October 02, 2012. Physical Findings: A clinical breast exam by your physician is recommended on an annual basis and results should be correlated with mammographic findings. MG 3D Screening Mammo W/Cad Bilateral CC and MLO view(s) were taken. Prior study comparison: September 25, 2016, bilateral MG 3d screening mammo w/cad. August 30, 2015, bilateral MG 3d screening mammo w/cad. July 28, 2014, bilateral MG diagnostic mammo w CAD RIANNA. The breast tissue is extremely dense which could obscure a lesion on mammography. Previous mammotome biopsy in the right breast x 1 and in the left breast x 2. No significant changes when compared with prior studies. ASSESSMENT: Negative, BI-RAD 1 RECOMMENDATION: Routine screening mammogram of both breasts in 1 year. Patient should continue monthly self breast exams. A negative mammogram should not preclude additional follow up of suspicious palpable abnormalities.
== END | disposition home or self-care (01) ==
LOC: RADMAMWWP 09:37
PROVIDERS: ATTEND Family Medicine
DX: Z12.31 Encounter for screening mammogram for malignant neoplasm of breast (principal); M81.0 Age-related osteoporosis without current pathological fracture
CPT/HCPCS: 77063; 77067; 77080

== ENCOUNTER → 2018-02-17 | Outpatient (CLI) | payer BC, MEDICARE ==
[2018-02-17 14:12] VITALS: BP 116/57; PULSE 86; RESP 16; TEMP 98.2
== END | disposition home or self-care (01) ==
LOC: PROCWHC3 13:18
PROVIDERS: ATTEND Family Medicine
DX: M81.0 Age-related osteoporosis without current pathological fracture (principal)
CPT/HCPCS: 96372; J0897

== ENCOUNTER → 2018-08-19 | Outpatient (CLI) | payer BC, MEDICARE ==
[2018-08-19 09:05] VITALS: BP 121/58; PULSE 89; RESP 16; TEMP 98.3
== END ==
LOC: PROCWHC3 08:42
PROVIDERS: ATTEND Family Medicine
DX: M81.0 Age-related osteoporosis without current pathological fracture (principal)
CPT/HCPCS: 96372; J0897

== ENCOUNTER 2018-08-26 14:52 | Inpatient (IN) | payer BC, MEDICARE ==
[2018-08-26] MEDS ORDERED: SODIUM CHLORIDE 0.9% 1,000 ML IV STA (15:00)
[2018-08-26 15:08] LABS: Glucose,Whole Blood 147 mg/dL (75-99)
[2018-08-26] MEDS ORDERED: SUCCINYLCHOLINE CHLORIDE VIAL 200 MG/10 ML VIAL IV STA (15:15)
[2018-08-26 15:18] LABS: ALT 35 U/L (9-52); AST 27 U/L (14-36); Acetaminophen <10.0 ug/mL; Albumin 3.7 g/dL (3.5-5.0); Alcohol <10 mg/dL; Alkaline Phosphatase 59 U/L (38-126); Anion Gap 4 mmol/L; Blood Urea Nitrogen 19 mg/dL (7-17); Calcium 8.4 mg/dL (8.4-10.2); Carbon Dioxide 30 mmol/L (22-30); Chloride 104 mmol/L (98-107); Glucose 147 mg/dL (74-99); Potassium 4.5 mmol/L (3.5-5.1); Salicylate <1.0 mg/dL; Sodium 138 mmol/L (137-145); Total Bilirubin 0.4 mg/dL (0.2-1.3); Total Protein 5.5 g/dL (6.3-8.2)
--- NOTE | 2018-08-26 15:39 | ED ---
General Adult HPI - General Chief complaint: Overdose Stated complaint: Unresponsive Time Seen by Provider: 08/26/18 14:59 Source: EMS, RN notes reviewed Mode of arrival: EMS Limitations: no limitations - History of Present Illness Initial comments: This is a 68-year-old female who is brought in by EMS after having intentionally overdosed. EMS was called because the patient was unresponsive and the told them that the patient look like she took all of weeks worth of her medications but there was no exact amount of how many pills she took. Patient is on Lamictal Xanax and doxepin Cymbalta, cyproheptadine, trihexyphenidyl. Patient is unable to give any history. - Related Data Home Medications Medication Instructions Recorded Confirmed DULoxetine HCL [Cymbalta] 60 mg PO DAILY 02/17/18 08/26/18 ALPRAZolam [Xanax XR] 1 mg PO BID 08/26/18 08/26/18 ALPRAZolam [Xanax] 0.25 mg PO TID 08/26/18 08/26/18 Cyproheptadine [Cyproheptadine HCl] 8 mg PO DAILY 08/26/18 08/26/18 Doxepin [SINEquan] 10 mg PO DAILY 08/26/18 08/26/18 Trihexyphenidyl [Artane] 2 mg PO BID 08/26/18 08/26/18 lamoTRIgine [LaMICtal] 75 mg PO DAILY 08/26/18 08/26/18 Allergies Allergy/AdvReac Type Severity Reaction Status Date / Time peanut AdvReac Nausea Verified 08/19/18 09:01 Review of Systems ROS Statement: Those systems with pertinent positive or pertinent negative responses have been documented in the HPI. ROS Other: All systems not noted in ROS Statement are negative. 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 History of Any Multi-Drug Resistant Organisms: None Reported Past Surgical History: Appendectomy, Hernia Repair Additional Past Surgical History / Comment(s): Left Achilles Tendon surgery Past Anesthesia/Blood Transfusion Reactions: No Reported Reaction Past Psychological History: Anxiety, Depression Smoking Status: Never smoker - Past Family History Father History Unknown: Yes Family Medical History: No Reported History Mother History Unknown: Yes Family Medical History: No Reported History Brother(s) Family Medical History: No Reported History Sister(s) History Unknown: Yes Family Medical History: No Reported History Daughter(s) History Unknown: Yes General Exam - General Exam Comments Initial Comments: GENERAL: Patient is well-developed and well-nourished. Patient is nontoxic and well- hydrated and patient is completely unresponsive ENT: Neck is soft and supple. No significant lymphadenopathy is noted. Oropharynx is clear. Moist mucous membranes. Neck has full range of motion without el iciting any pain. EYES: The sclera were anicteric and conjunctiva were pink and moist. Extraocular movements were intact and pupils were equal round and reactive to light. Eyelids were unremarkable. PULMONARY: Unlabored respirations. Good breath sounds bilaterally. No audible rales rhonchi or wheezing was noted. CARDIOVASCULAR: There is a regular rate and rhythm without any murmurs gallops or rubs. ABDOMEN: Soft and nontender with normal bowel sounds. SKIN: Skin is clear with no lesions or rashes and otherwise unremarkable. NEUROLOGIC: Patient is unresponsive has no gag reflex. MUSCULOSKELETAL: Normal extremities with adequate strength and full range of motion. LYMPHATICS: No significant lymphadenopathy is noted PSYCHIATRIC: Unable to evaluate Limitations: no limitations Course Vital Signs 08/26/18 08/26/18 08/26/18 14:59 15:39 15:40 Temperature 97.4 F L Pulse Rate 106 H 91 91 Respiratory 12 12 12 Rate Blood Pressure 117/55 105/53 105/53 O2 Sat by Pulse 92 L 100 100 Oximetry 08/26/18 08/26/18 15:50 16:30 Temperature Pulse Rate 94 90 Respiratory 13 14 Rate Blood Pressure 103/48 120/57 O2 Sat by Pulse 100 100 Oximetry Procedures - Intubation Paralytic: Succinylcholine Laryngoscope: Talavera Size: 3 ET Tube Size: 8 ET Tube Uncuffed: Yes Tube Secured Location: teeth Tube Placement Confirmation: visualized tube passing through cords, equal breath sounds bilaterally, no breath sounds over epigastrium, confirmation by capnom etry Patient Tolerated Procedure: well Intubation Complications: none Medical Decision Making - Medical Decision Making EKG shows a sinus tachycardia at 104 bpm CA interval is 204 QRS is 114 QT in terval 352 QTC is 462. Patient's EKG shows no ST segment elevation or depression or T wave abnormalities are noted. Chest x-ray shows good placement of ET tube and the OG tube needs to be pushed in about 4 cm father which I already told the nurse to do. I checked the nurse that has already been done. CT of the brain shows no acute abnormality. was contacted the patient overdose. I spoke with Dr. Carlisle he agreed to admit the patient admitted patient I wrote admitting orders. - Lab Data Result diagrams: 08/26/18 15:00 08/26/18 15:00 Lab Results 08/26/18 08/26/18 08/26/18 Range/Units 14:56 15:00 15:00 WBC 13.6 H (3.8-10.6) k/uL RBC 4.06 (3.80-5.40) m/uL Hgb 12.2 (11.4-16.0) gm/dL Hct 37.2 (34.0-46.0) % MCV 91.8 (80.0-100.0) fL MCH 30.2 (25.0-35.0) pg MCHC 32.9 (31.0-37.0) g/dL RDW 13.0 (11.5-15.5) % Plt Count 161 (150-450) k/uL Neutrophils % 90 % Lymphocytes % 5 % Monocytes % 4 % Eosinophils % 0 % Basophils % 0 % Neutrophils # 12.3 H (1.3-7.7) k/uL Lymphocytes # 0.7 L (1.0-4.8) k/uL Monocytes # 0.6 (0-1.0) k/uL Eosinophils # 0.0 (0-0.7) k/uL Basophils # 0.0 (0-0.2) k/uL Sample Site ABG pH (7.35-7.45) ABG pCO2 (35-45) mmHg ABG pO2 (83-108) mmHg ABG HCO3 (21-25) mmol/L ABG Total CO2 (19-24) mmol/L ABG O2 Saturation (94-97) % ABG Base Excess mmol/L Chris Test FiO2 % Sodium 138 (137-145) mmol/L Potassium 4.5 (3.5-5.1) mmol/L Chloride 104 (98-107) mmol/L Carbon Dioxide 30 (22-30) mmol/L Anion Gap 4 mmol/L BUN 19 H (7-17) mg/dL Creatinine 0.60 (0.52-1.04) mg/dL Est GFR (CKD-EPI)AfAm >90 (>60 ml/min/1.73 sqM) Est GFR (CKD-EPI)NonAf >90 (>60 ml/min/1.73 sqM) Glucose 147 H (74-99) mg/dL POC Glucose (mg/dL) 147 H (75-99) mg/dL POC Glu [employer] ID Bradley Ross Calcium 8.4 (8.4-10.2) mg/dL Total Bilirubin 0.4 (0.2-1.3) mg/dL AST 27 (14-36) U/L ALT 35 (9-52) U/L Alkaline Phosphatase 59 (38-126) U/L Total Protein 5.5 L (6.3-8.2) g/dL Albumin 3.7 (3.5-5.0) g/dL Urine HCG, Qual (Not Detectd) Salicylates <1.0 mg/dL Urine Opiates Screen (NotDetected) Ur Oxycodone Screen (NotDetected) Urine Methadone Screen (NotDetected) Ur Propoxyphene Screen (NotDetected) Acetaminophen <10.0 ug/mL Ur Barbiturates Screen (NotDetected) U Tricyclic Antidepress (NotDetected) Ur Phencyclidine Scrn (NotDetected) Ur Amphetamines Screen (NotDetected) U Methamphetamines Scrn (NotDetected) U Benzodiazepines Scrn (NotDetected) Urine Cocaine Screen (NotDetected) U Marijuana (THC) Screen (NotDetected) Serum Alcohol <10 mg/dL 08/26/18 08/26/18 08/26/18 Range/Units 15:44 15:55 15:55 WBC (3.8-10.6) k/uL RBC (3.80-5.40) m/uL Hgb (11.4-16.0) gm/dL Hct (34.0-46.0) % MCV (80.0-100.0) fL MCH (25.0-35.0) pg MCHC (31.0-37.0) g/dL RDW (11.5-15.5) % Plt Count (150-450) k/uL Neutrophils % % Lymphocytes % % Monocytes % % Eosinophils % % Basophils % % Neutrophils # (1.3-7.7) k/uL Lymphocytes # (1.0-4.8) k/uL Monocytes # (0-1.0) k/uL Eosinophils # (0-0.7) k/uL Basophils # (0-0.2) k/uL Sample Site rrad ABG pH 7.28 L (7.35-7.45) ABG pCO2 59 H (35-45) mmHg ABG pO2 >400 H (83-108) mmHg ABG HCO3 28 H (21-25) mmol/L ABG Total CO2 30 H (19-24) mmol/L ABG O2 Saturation 100.0 H (94-97) % ABG Base Excess 1.4 mmol/L Chris Test Yes FiO2 100 % Sodium (137-145) mmol/L Potassium (3.5-5.1) mmol/L Chloride (98-107) mmol/L Carbon Dioxide (22-30) mmol/L Anion Gap mmol/L BUN (7-17) mg/dL Creatinine (0.52-1.04) mg/dL Est GFR (CKD-EPI)AfAm (>60 ml/min/1.73 sqM) Est GFR (CKD-EPI)NonAf (>60 ml/min/1.73 sqM) Glucose (74-99) mg/dL POC Glucose (mg/dL) (75-99) mg/dL POC Glu Grocery Caddy ID Calcium (8.4-10.2) mg/dL Total Bilirubin (0.2-1.3) mg/dL AST (14-36) U/L ALT (9-52) U/L Alkaline Phosphatase (38-126) U/L Total Protein (6.3-8.2) g/dL Albumin (3.5-5.0) g/dL Urine HCG, Qual Not Detected (Not Detectd) Salicylates mg/dL Urine Opiates Screen Not Detected (NotDetected) Ur Oxycodone Screen Not Detected (NotDetected) Urine Methadone Screen Not Detected (NotDetected) Ur Propoxyphene Screen Not Detected (NotDetected) Acetaminophen ug/mL Ur Barbiturates Screen Not Detected (NotDetected) U Tricyclic Antidepress Not Detected (NotDetected) Ur Phencyclidine Scrn Not Detected (NotDetected) Ur Amphetamines Screen Not Detected (NotDetected) U Methamphetamines Scrn Not Detected (NotDetected) U Benzodiazepines Scrn Detected H (NotDetected) Urine Cocaine Screen Not Detected (NotDetected) U Marijuana (THC) Screen Not Detected (NotDetected) Serum Alcohol mg/dL Disposition Clinical Impression: Drug overdose, Suicide attempt Disposition: ADMITTED IP TO THIS HOSP Referrals: Luiza Langston MD [Primary Care Provider] - 1-2 days Time of Disposition: 16:49
[2018-08-26 15:42] LABS: Basophils % (A) 0 %; Eosinophils % (A) 0 %; HCT 37.2 % (34.0-46.0); HGB 12.2 gm/dL (11.4-16.0); Lymphocytes # (A) 0.7 k/uL (1.0-4.8); Lymphocytes % (A) 5 %; MCH 30.2 pg (25.0-35.0); MCHC 32.9 g/dL (31.0-37.0); MCV 91.8 fL (80.0-100.0); Mean Platelet Volume 7.7; Monocytes # (A) 0.6 k/uL (0-1.0); Monocytes % (A) 4 %; Neutrophils # (A) 12.3 k/uL (1.3-7.7); Neutrophils % (A) 90 %; Platelet Count 161 k/uL (150-450); RBC 4.06 m/uL (3.80-5.40); WBC 13.6 k/uL (3.8-10.6)
--- NOTE | 2018-08-26 15:48 | XR ---
EXAMINATION TYPE: XR chest 1V confirm line [facility] DATE OF EXAM: 08/26/2018 COMPARISON: 12/01/2016 HISTORY: Enteric and nasogastric tube placement TECHNIQUE: Single frontal view of the chest is obtained. FINDINGS: Enteric tube is slightly cephalad in position and should be advanced at least 4 cm for opt imal placement. Endotracheal tube is satisfactory terminating at the level of the aortic arch approxi mately 3.3 cm from the theresa. Multifocal linear opacities and increased interstitial lung markings a re present. Diffuse osseous demineralization is seen. Cardia mediastinal silhouette is within normal limits. IMPRESSION: 1. Appropriately placed endotracheal tube. Advancement of the enteric tube approximately 4 cm is rec ommended. 2. Diffuse increased interstitial lung markings are present that may represent fluid overload or atyp ical pneumonia.
[2018-08-26 15:51] LABS: ABG Base Excess 1.4 mmol/L; ABG HCO3 28 mmol/L (21-25); ABG PCO2 59 mmHg (35-45); ABG PH 7.28 (7.35-7.45); ABG PO2 >400 mmHg (83-108); ABG TCO2 30 mmol/L (19-24)
[2018-08-26 16:13] LABS: Amphetamine Screen,Urine Not Detected (NotDetected); Barbiturate Screen,Urine Not Detected (NotDetected); Benzodiazepines Screen,Urine Detected (NotDetected); Cocaine Screen,Urine Not Detected (NotDetected); Methadone Screen, Urine Not Detected (NotDetected); Opiate Screen,Urine Not Detected (NotDetected); Oxycodone Screen, Urine Not Detected (NotDetected); Phencyclidine Screen,Urine Not Detected (NotDetected); Tricyclic Antidepressant,Urine Not Detected (NotDetected); Urn Cannabinoid Scrn Not Detected (NotDetected)
--- NOTE | 2018-08-26 16:30 | CT ---
EXAMINATION TYPE: CT brain wo con DATE OF EXAM: 08/26/2018 COMPARISON: 11/30/2016 INDICATION: Unresponsive DLP: 1105.4 mGycm, Automated exposure control for dose reduction was used. CONTRAST: None CT of the brain is performed utilizing 3 mm thick sections through the posterior fossa and 3 mm thick sections through the remaining calvarium. Study is performed within 24 hours of arrival to the hosp ital. No abnormal hyperdensity is present to suggest an acute intracranial hemorrhage. No mass lesion is evident. No acute infarcts are evident. Ventricles and sulci are appropriate for the patient age. There is some focal prominence of the extr a-axial space in the right frontal parietal region, this is stable. Paranasal sinuses and mastoid air cells within the [id number] are clear. IMPRESSIONS: 1. Normal CT Brain 2. Examination is stable from comparison.
[2018-08-26] MEDS ORDERED: NALOXONE 0.4 MG/ML 1 ML VIAL IV PRN (16:50)
[2018-08-26 19:51] LABS: Glucose,Whole Blood 160 mg/dL (75-99)
[2018-08-26 20:01] LABS: ABG HCO3 28 mmol/L (21-25); ABG Oxygen Saturation 98.9 % (94-97); ABG PCO2 48 mmHg (35-45); ABG PH 7.38 (7.35-7.45); ABG PO2 119 mmHg (83-108); ABG TCO2 30 mmol/L (19-24)
[2018-08-26] MEDS: SODIUM CHLORIDE 0.9% 1,000 ML IV SCH (20:15)
[2018-08-26 20:28] LABS: HCT 38.1 % (34.0-46.0); HGB 12.4 gm/dL (11.4-16.0); MCH 30.3 pg (25.0-35.0); MCHC 32.5 g/dL (31.0-37.0); MCV 93.2 fL (80.0-100.0); Mean Platelet Volume 7.5; Platelet Count 136 k/uL (150-450); RBC 4.08 m/uL (3.80-5.40); RDW 12.8 % (11.5-15.5); WBC 11.2 k/uL (3.8-10.6)
[2018-08-26 20:49] LABS: ALT 41 U/L (9-52); AST 37 U/L (14-36); Albumin 3.9 g/dL (3.5-5.0); Alkaline Phosphatase 66 U/L (38-126); Anion Gap 7 mmol/L; Blood Urea Nitrogen 20 mg/dL (7-17); Calcium 8.5 mg/dL (8.4-10.2); Carbon Dioxide 27 mmol/L (22-30); Chloride 104 mmol/L (98-107); Glucose 152 mg/dL (74-99); Magnesium 1.9 mg/dL (1.6-2.3); Phosphorus 2.4 mg/dL (2.5-4.5); Potassium 4.6 mmol/L (3.5-5.1); Sodium 138 mmol/L (137-145); Total Bilirubin 0.5 mg/dL (0.2-1.3); Total Protein 5.8 g/dL (6.3-8.2)
[2018-08-26] MEDS ORDERED: Phosphorus Replacement Protoco 1 EACH MISC MISCELLANE PRN (21:36)
[2018-08-26] MEDS ORDERED: Magnesium Replacement Protocol 1 EACH MISC MISCELLANE PRN (21:36)
[2018-08-26] MEDS: CHLORHEXIDINE GLUCONATE 15 ML CUP MUCOUS MEM SCH (21:55)
[2018-08-26] MEDS ORDERED: SODIUM PHOSPHATE 10 MMOL in SODIUM CHLORIDE 0.9% 250 ML IVPB ONE (22:00)
[2018-08-26] MEDS: MAGNESIUM SULFATE-D5W PMX 1 GM in DEXTROSE/WATER 1 100ML.BAG IVPB SCH ×2 (22:00→22:46)
[2018-08-26 22:39] LABS: Appearance,Urine Clear (Clear); Bilirubin,Urine Negative (Negative); Blood,Urine Negative (Negative); Color,Urine Yellow; Glucose,Urine (UA) Trace (Negative); Ketones,Urine Negative (Negative); Leukocyte Esterase,Urine Negative (Negative); Nitrite,Urine Negative (Negative); Protein,Urine Trace (Negative); Specific Gravity,Urine 1.018 (1.001-1.035); Urobilinogen,Urine <2.0 mg/dL (<2.0)
[2018-08-26 22:46] VITALS: BMI 18.5
[2018-08-26] MEDS: INSULIN ASPART (NovoLOG) 100 UNIT/ML VIAL SQ SCH ×2 (22:59→23:00)
[2018-08-26] MEDS: PROPOFOL 1,000 MG in EMPTY BAG 1 BAG IV SCH (23:04)
--- NOTE | 2018-08-26 23:21 | P.HPIM ---
History of Present Illness H&P Date: 08/26/18 Chief Complaint: drug overdose, most likely suicide attempt, respiratory failure on mechan 68-year-old female one of 's patient with multiple suicidal attempt with past with overdose on medication mostly benzodiazepine last time was in 2017. Patient brought to the emergency department Denisa today 08/26/2018 after family made a phone call that patient is unresponsive apparently she had early intentional overdose found her to be less responsive than the normal more confused and more sedated and found all her pills from this week were taking including Lamictal, Xanax, doxepin, Cymbalta, Miguelangel. Shortly after she arrived to the emergency room her respiration and oxygen level decline patient ended up been intubated and start supportive care on mechanical ventilation. Her benzodiazepine came back positive patient had received 1 dose of Narcan on Route was stabilized on mechanical ventilation and admitted to the ICU lucerne farmer were consulted as well. Review of Systems CONSTITUTIONAL: Well-developed not responding much on EYES: No icterus sclerae, no conjunctivitis. EARS, NOSE, MOUTH, THROAT, and FACE: No sore throat, lymphadenopathy, carotid bruits or deformity.she has ET tube in RESPIRATORY: .on mechanical ventilation with no wheezes CARDIOVASCULAR: No CP, PND, Orthopnea, or angina.positive palpitation GASTROINTESTINAL: No Abd pain, Nausea or vomiting, no Diarrhea or constipation, No GI Bleed, no distention or masses. GENITOURINARY: Negative for Hematuria or UTI, no kidney stones. INTEGUMENT/BREAST: Negative for any muscular injury with mild osteoarthritis.. HEMATOLOGIC/LYMPHATIC: Negative for bleed or purpura. MUSCULOSKELTAL: Negative for Myalgia or arthralgia. NEURLOGICAL: Confuse sedated on mechanical ventilation not responding much currently. BEHAVIORAL/PSYCH: Negative. ENDOCRINE: Negative. 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 History of Any Multi-Drug Resistant Organisms: None Reported Past Surgical History: Appendectomy, Hernia Repair Additional Past Surgical History / Comment(s): Left Achilles Tendon surgery Past Anesthesia/Blood Transfusion Reactions: No Reported Reaction Past Psychological History: Anxiety, Depression Smoking Status: Never smoker Past Alcohol Use History: Rare Past Drug Use History: None Reported - Past Family History Father History Unknown: Yes Family Medical History: No Reported History Mother History Unknown: Yes Family Medical History: No Reported History Brother(s) Family Medical History: No Reported History Sister(s) History Unknown: Yes Family Medical History: No Reported History Daughter(s) History Unknown: Yes Medications and Allergies Home Medications Medication Instructions Recorded Confirmed Type DULoxetine HCL [Cymbalta] 60 mg PO DAILY 02/17/18 08/26/18 History ALPRAZolam [Xanax XR] 1 mg PO BID 08/26/18 08/26/18 History ALPRAZolam [Xanax] 0.25 mg PO TID 08/26/18 08/26/18 History Cyproheptadine [Cyproheptadine HCl] 8 mg PO DAILY 08/26/18 08/26/18 History Doxepin [SINEquan] 10 mg PO DAILY 08/26/18 08/26/18 History Trihexyphenidyl [Artane] 2 mg PO BID 08/26/18 08/26/18 History lamoTRIgine [LaMICtal] 75 mg PO DAILY 08/26/18 08/26/18 History Allergies Allergy/AdvReac Type Severity Reaction Status Date / Time peanut AdvReac Nausea Verified 08/19/18 09:01 Physical Exam Vitals: Vital Signs Temp Pulse Resp BP Pulse Ox 08/26/18 22:30 77 14 97/44 99 08/26/18 22:00 80 14 100/43 100 08/26/18 21:30 80 14 107/48 100 08/26/18 21:00 78 14 96/41 100 08/26/18 20:30 96.7 F L 80 14 103/49 100 08/26/18 19:33 96.7 F L 100 08/26/18 19:31 97.7 F 08/26/18 19:00 82 16 94/45 100 08/26/18 18:30 97.9 F 84 14 97/44 100 08/26/18 18:00 85 14 90/44 100 08/26/18 17:30 85 14 91/43 98 08/26/18 17:00 86 14 94/48 100 08/26/18 16:30 90 14 120/57 100 08/26/18 15:50 94 13 103/48 100 08/26/18 15:40 91 12 105/53 100 08/26/18 15:39 91 12 105/53 100 08/26/18 14:59 97.4 F L 106 H 12 117/55 92 L Intake and Output 08/26/18 08/26/18 08/27/18 14:59 22:59 06:59 Intake Total 850 Output Total 405 Balance 445 Intake: IV 850 Magnesium Sulfate-D5w Pmx 200 1 gm In Dextrose/Water 1 100ml.bag @ 100 mls/hr IVPB Q1H [facility] Rx#: [id number] Sodium Chloride 0.9% 1, 400 000 ml @ 100 mls/hr IV . Q10H [facility] Rx#:[id number] Sodium Phosphate 10 mmol 250 In Sodium Chloride 0.9% 250 ml @ 125 mls/hr IVPB ONCE ONE Rx#:[id number] Output: Urine 405 Uretheral (Ruiz) 250 Other: Voiding Method Indwelling Catheter Weight 54.431 kg General Appearance: Alert, cooperative, no distress, appears stated age. Neck HEENT: Supple, no lymphadenopathy, no thyroid enlargement, no carotid bruits.has an ET tube in Lungs: Clear to auscultation without crackles or wheezes no rhonchi, no deformity. Chest Wall: Chest wall normal expansion with deep inspiration no tenderness and no deformity was found on exam, no costochondral pain or discomfort. Heart: Regular rate and rhythm, S1, S2 normal, no murmur, rub or gallop.mild tachycardia Back: Symmetric, no curvature, ROM normal, no CVA tenderness. Abdomen: Soft, non-tender, bowel sounds active all four quadrants, no masses, no organomegaly. Extremities: Extremities normal, atraumatic, no cyanosis or edema. Pulses: 2+ and symmetric. Skin: Skin color, texture, tugor normal, no rashes or lesions. Neurologic: sedated not responding much on mechanical ventilation still withdrawing her extremities to pain stimuli Results CBC & Chem 7: 08/26/18 20:15 08/26/18 20:15 Labs: Abnormal Lab Results - Last 24 Hours (Table) 08/26/18 08/26/18 08/26/18 Range/Units 14:56 15:00 15:00 WBC 13.6 H (3.8-10.6) k/uL Plt Count (150-450) k/uL Neutrophils # 12.3 H (1.3-7.7) k/uL Lymphocytes # 0.7 L (1.0-4.8) k/uL ABG pH (7.35-7.45) ABG pCO2 (35-45) mmHg ABG pO2 (83-108) mmHg ABG HCO3 (21-25) mmol/L ABG Total CO2 (19-24) mmol/L ABG O2 Saturation (94-97) % BUN 19 H (7-17) mg/dL Glucose 147 H (74-99) mg/dL POC Glucose (mg/dL) 147 H (75-99) mg/dL Phosphorus (2.5-4.5) mg/dL AST (14-36) U/L Total Protein 5.5 L (6.3-8.2) g/dL Urine Protein (Negative) Urine Glucose (UA) (Negative) U Benzodiazepines Scrn (NotDetected) 08/26/18 08/26/18 08/26/18 Range/Units 15:44 15:55 19:47 WBC (3.8-10.6) k/uL Plt Count (150-450) k/uL Neutrophils # (1.3-7.7) k/uL Lymphocytes # (1.0-4.8) k/uL ABG pH 7.28 L (7.35-7.45) ABG pCO2 59 H (35-45) mmHg ABG pO2 >400 H (83-108) mmHg ABG HCO3 28 H (21-25) mmol/L ABG Total CO2 30 H (19-24) mmol/L ABG O2 Saturation 100.0 H (94-97) % BUN (7-17) mg/dL Glucose (74-99) mg/dL POC Glucose (mg/dL) 160 H (75-99) mg/dL Phosphorus (2.5-4.5) mg/dL AST (14-36) U/L Total Protein (6.3-8.2) g/dL Urine Protein (Negative) Urine Glucose (UA) (Negative) U Benzodiazepines Scrn Detected H (NotDetected) 08/26/18 08/26/18 08/26/18 Range/Units 19:56 20:15 20:15 WBC 11.2 H (3.8-10.6) k/uL Plt Count 136 L (150-450) k/uL Neutrophils # (1.3-7.7) k/uL Lymphocytes # (1.0-4.8) k/uL ABG pH (7.35-7.45) ABG pCO2 48 H (35-45) mmHg ABG pO2 119 H (83-108) mmHg ABG HCO3 28 H (21-25) mmol/L ABG Total CO2 30 H (19-24) mmol/L ABG O2 Saturation 98.9 H (94-97) % BUN 20 H (7-17) mg/dL Glucose 152 H (74-99) mg/dL POC Glucose (mg/dL) (75-99) mg/dL Phosphorus 2.4 L (2.5-4.5) mg/dL AST 37 H (14-36) U/L Total Protein 5.8 L (6.3-8.2) g/dL Urine Protein (Negative) Urine Glucose (UA) (Negative) U Benzodiazepines Scrn (NotDetected) 08/26/18 Range/Units 21:41 WBC (3.8-10.6) k/uL Plt Count (150-450) k/uL Neutrophils # (1.3-7.7) k/uL Lymphocytes # (1.0-4.8) k/uL ABG pH (7.35-7.45) ABG pCO2 (35-45) mmHg ABG pO2 (83-108) mmHg ABG HCO3 (21-25) mmol/L ABG Total CO2 (19-24) mmol/L ABG O2 Saturation (94-97) % BUN (7-17) mg/dL Glucose (74-99) mg/dL POC Glucose (mg/dL) (75-99) mg/dL Phosphorus (2.5-4.5) mg/dL AST (14-36) U/L Total Protein (6.3-8.2) g/dL Urine Protein Trace H (Negative) Urine Glucose (UA) Trace H (Negative) U Benzodiazepines Scrn (NotDetected) Microbiology - Last 24 Hours (Table) 08/26/18 15:11 Sputum Culture - Preliminary Sputum Thrombosis Risk Factor Assmnt - Choose All That Apply Each Risk Factor Represents 2 Points: Age 61-74 years Thrombosis Risk Factor Assessment Total Risk Factor Score: 2 Thrombosis Risk Factor Assessment Level: Low Risk Assessment and Plan Plan: 1 drug overdose: Most likely benzodiazepine almost likely attention suicide, patient will be hospitalized after was placed on mechanical ventilation we'll consult pulmonary critical care also consult psychiatry. 2 suicidal attempt: Will be treated for now patient need to see psych shortly. 3 chronic depression: Has been on doxepin Cymbalta and Xanax. 4 chronic headache she is on Imitrex as needed. 5 acute respiratory failure: Secondary to drug overdose with but the Bolick acidosis and respiratory acidosis patient will continue mechanical ventilation correct underlying disease hopefully will be off the ventilator in 24 hours. 6 hyper glycemia: Continue to watch her Accu-Chek with sliding scales coverage. 7 GI prophylaxis: Patient will be on pantoprazole. 8 DVT prophylaxis: Patient will be on heparin 5000 units subcutaneous twice a day. CODE STATUS: Full code. Admit patient to inpatient status for more than 2 nights.
[2018-08-27] MEDS: INSULIN ASPART (NovoLOG) 100 UNIT/ML VIAL SQ SCH ×4 (00:09→19:42)
[2018-08-27 00:21] LABS: Glucose,Whole Blood 175 mg/dL (75-99)
[2018-08-27 05:02] LABS: Basophils % (A) 0 %; Eosinophils % (A) 0 %; HCT 37.4 % (34.0-46.0); HGB 12.3 gm/dL (11.4-16.0); Lymphocytes # (A) 0.6 k/uL (1.0-4.8); Lymphocytes % (A) 7 %; MCH 30.9 pg (25.0-35.0); MCHC 32.8 g/dL (31.0-37.0); MCV 94.2 fL (80.0-100.0); Mean Platelet Volume 7.6; Monocytes # (A) 0.5 k/uL (0-1.0); Monocytes % (A) 6 %; Neutrophils # (A) 7.9 k/uL (1.3-7.7); Neutrophils % (A) 86 %; Platelet Count 135 k/uL (150-450); RBC 3.97 m/uL (3.80-5.40); RDW 12.8 % (11.5-15.5); WBC 9.2 k/uL (3.8-10.6)
[2018-08-27 05:16] LABS: ALT 33 U/L (9-52); AST 41 U/L (14-36); Albumin 3.5 g/dL (3.5-5.0); Alkaline Phosphatase 64 U/L (38-126); Anion Gap 5 mmol/L; Blood Urea Nitrogen 18 mg/dL (7-17); Calcium 7.9 mg/dL (8.4-10.2); Carbon Dioxide 28 mmol/L (22-30); Chloride 105 mmol/L (98-107); Glucose 114 mg/dL (74-99); Magnesium 2.8 mg/dL (1.6-2.3); Phosphorus 2.7 mg/dL (2.5-4.5); Potassium 4.3 mmol/L (3.5-5.1); Sodium 138 mmol/L (137-145); Total Bilirubin 0.4 mg/dL (0.2-1.3); Total Protein 5.4 g/dL (6.3-8.2)
[2018-08-27 05:43] LABS: ABG Base Excess 2.2 mmol/L; ABG HCO3 27 mmol/L (21-25); ABG Oxygen Saturation 99.9 % (94-97); ABG PCO2 47 mmHg (35-45); ABG PH 7.37 (7.35-7.45); ABG PO2 198 mmHg (83-108); ABG TCO2 29 mmol/L (19-24)
[2018-08-27] MEDS: SODIUM CHLORIDE 0.9% 1,000 ML IV SCH ×2 (05:50→15:47)
[2018-08-27 06:13] LABS: Glucose,Whole Blood 106 mg/dL (75-99)
--- NOTE | 2018-08-27 07:22 | XR ---
EXAMINATION TYPE: XR chest 1V portable DATE OF EXAM: 08/27/2018 COMPARISON: Prior chest x-ray 08/26/2018 HISTORY: Intubated TECHNIQUE: Single frontal view of the chest is obtained. FINDINGS: Endotracheal and NG tube remain in place and are overlying appropriate positions. No pneum othorax. Patchy bibasilar density is noted. Heart size is stable. There may be some improvement in th e interstitium. The aorta is dense. IMPRESSION: Probable basilar atelectasis. Suspect improvement in the patient's volume status, aerati on.
[2018-08-27] MEDS ORDERED: lamoTRIgine 25 MG TAB PO SCH (09:00)
[2018-08-27] MEDS ORDERED: TRIHEXYPHENIDYL 2 MG TAB PO SCH (09:00)
[2018-08-27] MEDS: PANTOPRAZOLE 40 MG/10 ML VIAL IV SCH (09:08)
[2018-08-27] MEDS: CHLORHEXIDINE GLUCONATE 15 ML CUP MUCOUS MEM SCH ×2 (09:08→20:10)
[2018-08-27] MEDS: HEPARIN SODIUM,PORCINE 5,000 UNIT/ML 1 ML VIAL SQ SCH ×2 (09:08→15:46)
--- NOTE | 2018-08-27 09:32 | CONS ---
CONSULTATION DATE OF CONSULTATION: August 27, 2018 This is a 68-year-old female who was brought in by EMS to the emergency room with an intentional overdose. The patient was unresponsive and apparently took a number of pills that she was prescribed at home. The exact number of pills was not known. It appears that she overdosed on Xanax, Cymbalta, Artane, Lamictal, and cyproheptadine. Anyway, her drug screen was noted. The patient was intubated for airway protection in the emergency room and transferred up to the ICU. I did speak to the ER physician. The patient does have a past medical history positive for migraine cephalgia, anxiety, depression, and the MTHFR mutation. The patient remains on the mechanical ventilator on the volume assist-control mode rate of 14, tidal volume 400, FiO2 50% that could be dropped down to 35% and PEEP of 5. Blood gases this morning on 50% show pO2 of 198, pCO2 of 47, pH 7.37. She is getting Diprivan at 15 mcg/kg per minute and a saline IV at 100 mL an hour. Not much additional history is known. The drug screen was positive for Lamictal at 38.9, which was elevated and benzodiazepines. The patient was on Xanax at home. The rest of the drug screen including Tylenol, salicylates and alcohol were all negative. CURRENT HOME MEDICATIONS: Current home medications include Cymbalta, Xanax XR and regular Xanax, cyproheptadine, doxepin, which is Sinequan, Artane, and Lamictal. ALLERGIES: Allergies are PEANUT. MEDICAL HISTORY: Medical history includes migraine cephalgia, heart murmur, Achilles tendon repair, MTHFR mutation. SURGICAL HISTORY: Surgical history includes appendectomy, hernia repair, left Achilles tendon surgery. SOCIAL HISTORY: Social history is negative for tobacco use. I do not know anything about alcohol or illicit drug use. FAMILY HISTORY: Family history is not noted. REVIEW OF SYSTEMS: Review of systems cannot be obtained on the patient because she is currently on the ventilator and no review of systems was obtained by the ER physician because of her mental status on admission. PHYSICAL EXAMINATION: Current vital signs are reviewed. Temperature 98.3, heart rate 76, respiratory rate 14, blood pressure 116/57, mean 76, saturations are 100%. Appears in no acute distress. HEENT examination is grossly unremarkable. Mucous membranes are moist. Oral endotracheal tube and NG tube noted. NECK: Supple. Full range of motion. No adenopathy. CARDIOVASCULAR: Examination reveals regular rhythm and rate. LUNGS: Reveal relatively clear breath sounds. A few scattered mild rhonchi. No wheezes or crackles. ABDOMEN: Soft. Bowel sounds are heard. EXTREMITIES: Are intact. No cyanosis, clubbing, or edema. SKIN: Without rash. NEUROLOGIC: Examination is brief but nonfocal. Chest x-ray is reviewed. It shows some mild atelectasis. There is some improvement of the chest x-ray. Brain CT was negative. Medications are reviewed. She is on Peridex, heparin for DVT prophylaxis, NovoLog sliding scale, magnesium replacement, Narcan, Protonix for GI prophylaxis, phosphorus protocol and Artane. That will be discontinued. ASSESSMENT: 1. Status post suicide attempt by overdose. The patient apparently took Xanax, Cymbalta, Artane, Lamictal and cyproheptadine. 2. Status post intubation, mechanical ventilation because of poor mental status and patient's inability to protect her airway. 3. History of migraine cephalgia. 4. History of anxiety. 5. History of depression. 6. History of MTHFR mutation. PLAN: The patient's propofol will be discontinued. Will wake the patient up. We will place the patient on PSV 5, CPAP of 5. We will do a spontaneous breathing trial after daily interruption of sedation. We will get a set of weaning parameters and a cuff leak test. The patient should be able to be extubated pretty quickly. Artane and Lamictal were both discontinued. Additional recommendations and suggestions are forthcoming. The patient will have a psychiatric consultation once extubated. No additional recommendations are made. The patient is currently on GI and DVT prophylaxis. MMODL / IJN: [id number] /
[2018-08-27 12:45] LABS: Glucose,Whole Blood 102 mg/dL (75-99)
--- NOTE | 2018-08-27 12:46 | P.PN ---
Subjective Progress Note Date: 08/27/18 68-year-old female one of 's patient with multiple suicidal attempt with past with overdose on medication mostly benzodiazepine last time was in 2017. Patient brought to the emergency department Denisa today 08/26/2018 after family made a phone call that patient is unresponsive apparently she had early intentional overdose found her to be less responsive than the normal more confused and more sedated and found all her pills from this week were taking including Lamictal, Xanax, doxepin, Cymbalta, Miguelangel. Shortly after she arrived to the emergency room her respiration and oxygen level decline patient ended up been intubated and start supportive care on mechanical ventilation. Her benzodiazepine came back positive patient had received 1 dose of Narcan on Route was stabilized on mechanical ventilation and admitted to the ICU tobacco hanger were consulted as well. 08/27: Patient remains intubated and on mechanical ventilation. She is having an EEG at this time. She has had minimal movement of her hands but otherwise unresponsive. Her was here earlier and has gone home. We will add in a consult for psychiatry to evaluate the patient when she is extubated. The patient is followed by Dr. Husain for vent management. Propofol to be discontinued and he anticipates extubation. Review of Systems intubated on mechanical ventilation CONSTITUTIONAL: Well-developed not responding much on EYES: No icterus sclerae, no conjunctivitis. EARS, NOSE, MOUTH, THROAT, and FACE: No sore throat, lymphadenopathy, carotid bruits or deformity.she has ET tube in RESPIRATORY: .on mechanical ventilation with no wheezes CARDIOVASCULAR: No CP, PND, Orthopnea, or angina.positive palpitation GASTROINTESTINAL: No Abd pain, Nausea or vomiting, no Diarrhea or constipation, No GI Bleed, no distention or masses. GENITOURINARY: Negative for Hematuria or UTI, no kidney stones. INTEGUMENT/BREAST: Negative for any muscular injury with mild osteoarthritis.. HEMATOLOGIC/LYMPHATIC: Negative for bleed or purpura. MUSCULOSKELTAL: Negative for Myalgia or arthralgia. NEURLOGICAL: Confuse sedated on mechanical ventilation not responding much currently. BEHAVIORAL/PSYCH: Negative. ENDOCRINE: Negative. Objective - Vital Signs Vital signs: Vital Signs Temp 98.3 F 08/27/18 08:00 Pulse 75 08/27/18 09:00 Resp 14 08/27/18 09:00 BP 120/55 08/27/18 09:00 Pulse Ox 98 08/27/18 09:00 Intake & Output 08/26/18 08/27/18 08/27/18 18:59 06:59 18:59 Intake Total 1564.977 310.484 Output Total 250 450 100 Balance -250 1114.977 210.484 Weight 54.431 kg 50.5 kg Intake: IV 1550 300 Magnesium Sulfate-D5w Pmx 200 1 gm In Dextrose/Water 1 100ml.bag @ 100 mls/hr IVPB Q1H REMY Rx#: [id number] Sodium Chloride 0.9% 1, 1100 300 000 ml @ 100 mls/hr IV . Q10H REMY Rx#:[id number] Sodium Phosphate 10 mmol 250 In Sodium Chloride 0.9% 250 ml @ 125 mls/hr IVPB ONCE ONE Rx#:[id number] Intake, IV Titration 14.977 10.484 Amount Propofol 1,000 mg In 14.977 10.484 Empty Bag 1 bag @ Titrate IV .Q0M REMY Rx#: [id number] Output: Urine 250 450 100 Uretheral (Ruiz) 250 Other: Voiding Method Indwelling Catheter - Exam General Appearance: no distress, appears stated age. Neck HEENT: Supple, no lymphadenopathy, no thyroid enlargement, no carotid bruits.has an ET tube in Lungs: Clear to auscultation without crackles or wheezes no rhonchi, no deformity. Chest Wall: Chest wall normal expansion with deep inspiration no tenderness and no deformity was found on exam, no costochondral pain or discomfort. Heart: Regular rate and rhythm, S1, S2 normal, no murmur, rub or gallop.mild tachycardia Back: Symmetric, no curvature, ROM normal, no CVA tenderness. Abdomen: Soft, non-tender, bowel sounds active all four quadrants, no masses, no organomegaly. Extremities: Extremities normal, atraumatic, no cyanosis or edema. Pulses: 2+ and symmetric. Skin: Skin color, texture, tugor normal, no rashes or lesions. Neurologic: sedated not responding much on mechanical ventilation still withdrawing her extremities to pain stimuli - Labs CBC & Chem 7: 08/27/18 04:35 08/27/18 04:48 Labs: Abnormal Lab Results - Last 24 Hours (Table) 08/26/18 08/26/18 08/26/18 Range/Units 14:56 15:00 15:00 WBC 13.6 H (3.8-10.6) k/uL Plt Count (150-450) k/uL Neutrophils # 12.3 H (1.3-7.7) k/uL Lymphocytes # 0.7 L (1.0-4.8) k/uL ABG pH (7.35-7.45) ABG pCO2 (35-45) mmHg ABG pO2 (83-108) mmHg ABG HCO3 (21-25) mmol/L ABG Total CO2 (19-24) mmol/L ABG O2 Saturation (94-97) % BUN 19 H (7-17) mg/dL Glucose 147 H (74-99) mg/dL POC Glucose (mg/dL) 147 H (75-99) mg/dL Calcium (8.4-10.2) mg/dL Phosphorus (2.5-4.5) mg/dL Magnesium (1.6-2.3) mg/dL AST (14-36) U/L Total Protein 5.5 L (6.3-8.2) g/dL Urine Protein (Negative) Urine Glucose (UA) (Negative) Lamotrigine (2.0-15.0) ug/mL U Benzodiazepines Scrn (NotDetected) 08/26/18 08/26/18 08/26/18 Range/Units 15:00 15:44 15:55 WBC (3.8-10.6) k/uL Plt Count (150-450) k/uL Neutrophils # (1.3-7.7) k/uL Lymphocytes # (1.0-4.8) k/uL ABG pH 7.28 L (7.35-7.45) ABG pCO2 59 H (35-45) mmHg ABG pO2 >400 H (83-108) mmHg ABG HCO3 28 H (21-25) mmol/L ABG Total CO2 30 H (19-24) mmol/L ABG O2 Saturation 100.0 H (94-97) % BUN (7-17) mg/dL Glucose (74-99) mg/dL POC Glucose (mg/dL) (75-99) mg/dL Calcium (8.4-10.2) mg/dL Phosphorus (2.5-4.5) mg/dL Magnesium (1.6-2.3) mg/dL AST (14-36) U/L Total Protein (6.3-8.2) g/dL Urine Protein (Negative) Urine Glucose (UA) (Negative) Lamotrigine 38.9 H* (2.0-15.0) ug/mL U Benzodiazepines Scrn Detected H (NotDetected) 08/26/18 08/26/18 08/26/18 Range/Units 19:47 19:56 20:15 WBC 11.2 H (3.8-10.6) k/uL Plt Count 136 L (150-450) k/uL Neutrophils # (1.3-7.7) k/uL Lymphocytes # (1.0-4.8) k/uL ABG pH (7.35-7.45) ABG pCO2 48 H (35-45) mmHg ABG pO2 119 H (83-108) mmHg ABG HCO3 28 H (21-25) mmol/L ABG Total CO2 30 H (19-24) mmol/L ABG O2 Saturation 98.9 H (94-97) % BUN (7-17) mg/dL Glucose (74-99) mg/dL POC Glucose (mg/dL) 160 H (75-99) mg/dL Calcium (8.4-10.2) mg/dL Phosphorus (2.5-4.5) mg/dL Magnesium (1.6-2.3) mg/dL AST (14-36) U/L Total Protein (6.3-8.2) g/dL Urine Protein (Negative) Urine Glucose (UA) (Negative) Lamotrigine (2.0-15.0) ug/mL U Benzodiazepines Scrn (NotDetected) 08/26/18 08/26/18 08/27/18 Range/Units 20:15 21:41 00:06 WBC (3.8-10.6) k/uL Plt Count (150-450) k/uL Neutrophils # (1.3-7.7) k/uL Lymphocytes # (1.0-4.8) k/uL ABG pH (7.35-7.45) ABG pCO2 (35-45) mmHg ABG pO2 (83-108) mmHg ABG HCO3 (21-25) mmol/L ABG Total CO2 (19-24) mmol/L ABG O2 Saturation (94-97) % BUN 20 H (7-17) mg/dL Glucose 152 H (74-99) mg/dL POC Glucose (mg/dL) 175 H (75-99) mg/dL Calcium (8.4-10.2) mg/dL Phosphorus 2.4 L (2.5-4.5) mg/dL Magnesium (1.6-2.3) mg/dL AST 37 H (14-36) U/L Total Protein 5.8 L (6.3-8.2) g/dL Urine Protein Trace H (Negative) Urine Glucose (UA) Trace H (Negative) Lamotrigine (2.0-15.0) ug/mL U Benzodiazepines Scrn (NotDetected) 08/27/18 08/27/18 08/27/18 Range/Units 04:35 04:48 05:35 WBC (3.8-10.6) k/uL Plt Count 135 L (150-450) k/uL Neutrophils # 7.9 H (1.3-7.7) k/uL Lymphocytes # 0.6 L (1.0-4.8) k/uL ABG pH (7.35-7.45) ABG pCO2 47 H (35-45) mmHg ABG pO2 198 H (83-108) mmHg ABG HCO3 27 H (21-25) mmol/L ABG Total CO2 29 H (19-24) mmol/L ABG O2 Saturation 99.9 H (94-97) % BUN 18 H (7-17) mg/dL Glucose 114 H (74-99) mg/dL POC Glucose (mg/dL) (75-99) mg/dL Calcium 7.9 L (8.4-10.2) mg/dL Phosphorus (2.5-4.5) mg/dL Magnesium 2.8 H (1.6-2.3) mg/dL AST 41 H (14-36) U/L Total Protein 5.4 L (6.3-8.2) g/dL Urine Protein (Negative) Urine Glucose (UA) (Negative) Lamotrigine (2.0-15.0) ug/mL U Benzodiazepines Scrn (NotDetected) 08/27/18 Range/Units 05:48 WBC (3.8-10.6) k/uL Plt Count (150-450) k/uL Neutrophils # (1.3-7.7) k/uL Lymphocytes # (1.0-4.8) k/uL ABG pH (7.35-7.45) ABG pCO2 (35-45) mmHg ABG pO2 (83-108) mmHg ABG HCO3 (21-25) mmol/L ABG Total CO2 (19-24) mmol/L ABG O2 Saturation (94-97) % BUN (7-17) mg/dL Glucose (74-99) mg/dL POC Glucose (mg/dL) 106 H (75-99) mg/dL Calcium (8.4-10.2) mg/dL Phosphorus (2.5-4.5) mg/dL Magnesium (1.6-2.3) mg/dL AST (14-36) U/L Total Protein (6.3-8.2) g/dL Urine Protein (Negative) Urine Glucose (UA) (Negative) Lamotrigine (2.0-15.0) ug/mL U Benzodiazepines Scrn (NotDetected) Microbiology - Last 24 Hours (Table) 08/26/18 15:11 Gram Stain - Preliminary Sputum Sputum Culture - Preliminary Assessment and Plan Plan: 1 drug overdose: Most likely benzodiazepine almost likely attention suicide, patient will be hospitalized after was placed on mechanical ventilation for airway protection. Consult with Dr. Rodrigue wright. Consult psychiatry to evaluate patient when she is extubated. 2 suicidal attempt: Will be treated for now patient need to see psych shortly. 3 chronic recurrent depression: Has been on doxepin Cymbalta and Xanax. 4 chronic headache she is on Imitrex as needed. 5 acute respiratory failure: Secondary to drug overdose. 6 hyper glycemia: Continue to watch her Accu-Chek with sliding scales coverage. 7 GI prophylaxis: Patient will be on pantoprazole. 8 DVT prophylaxis: Patient will be on heparin 5000 units subcutaneous twice a day. 9 history of MTHFR mutation. 10 generalized anxiety disorder. CODE STATUS: Full code. Impression and plan of care have been directed as dictated by the signing physician. Myrna Caceres nurse practitioner acting as scribe for signing physi jose.
[2018-08-27 17:01] LABS: ABG Base Excess 0.4 mmol/L; ABG HCO3 26 mmol/L (21-25); ABG Oxygen Saturation 98.4 % (94-97); ABG PCO2 48 mmHg (35-45); ABG PH 7.35 (7.35-7.45); ABG PO2 107 mmHg (83-108); ABG TCO2 28 mmol/L (19-24)
[2018-08-27 18:21] LABS: Glucose,Whole Blood 109 mg/dL (75-99)
[2018-08-28 01:01] LABS: Glucose,Whole Blood 135 mg/dL (75-99)
[2018-08-28] MEDS: HEPARIN SODIUM,PORCINE 5,000 UNIT/ML 1 ML VIAL SQ SCH ×4 (01:03→23:42)
[2018-08-28] MEDS: INSULIN ASPART (NovoLOG) 100 UNIT/ML VIAL SQ SCH ×4 (01:03→21:41)
[2018-08-28] MEDS: PROPOFOL 1,000 MG in EMPTY BAG 1 BAG IV SCH (02:51)
[2018-08-28] MEDS: SODIUM CHLORIDE 0.9% 1,000 ML IV SCH ×2 (02:52→21:41)
[2018-08-28 04:14] LABS: ABG Base Excess 0.5 mmol/L; ABG HCO3 24 mmol/L (21-25); ABG Oxygen Saturation 96.9 % (94-97); ABG PCO2 34 mmHg (35-45); ABG PH 7.46 (7.35-7.45); ABG PO2 77 mmHg (83-108); ABG TCO2 25 mmol/L (19-24)
[2018-08-28 05:36] LABS: Anion Gap 6 mmol/L; Blood Urea Nitrogen 10 mg/dL (7-17); Calcium 7.4 mg/dL (8.4-10.2); Carbon Dioxide 21 mmol/L (22-30); Chloride 111 mmol/L (98-107); Glucose 118 mg/dL (74-99); Magnesium 2.6 mg/dL (1.6-2.3); Potassium 3.8 mmol/L (3.5-5.1); Sodium 138 mmol/L (137-145)
[2018-08-28 05:41] LABS: Basophils % (A) 0 %; Eosinophils % (A) 1 %; HCT 37.9 % (34.0-46.0); HGB 12.5 gm/dL (11.4-16.0); Lymphocytes # (A) 0.6 k/uL (1.0-4.8); Lymphocytes % (A) 8 %; MCH 30.4 pg (25.0-35.0); MCHC 32.8 g/dL (31.0-37.0); MCV 92.6 fL (80.0-100.0); Mean Platelet Volume 8.4; Monocytes # (A) 0.3 k/uL (0-1.0); Monocytes % (A) 5 %; Neutrophils # (A) 5.9 k/uL (1.3-7.7); Neutrophils % (A) 85 %; Platelet Count 137 k/uL (150-450); RBC 4.09 m/uL (3.80-5.40); RDW 13.4 % (11.5-15.5); WBC 6.9 k/uL (3.8-10.6)
[2018-08-28 05:45] LABS: Phosphorus 0.9 mg/dL (2.5-4.5)
[2018-08-28] MEDS ORDERED: Phosphorus Replacement Protoco 1 EACH MISC MISCELLANE PRN (05:49)
[2018-08-28 06:18] LABS: Glucose,Whole Blood 118 mg/dL (75-99)
[2018-08-28 06:47] LABS: Appearance,Urine Clear (Clear); Bilirubin,Urine Negative (Negative); Blood,Urine Small (Negative); Color,Urine Light Yellow; Glucose,Urine (UA) Negative (Negative); Ketones,Urine 1+ (Negative); Leukocyte Esterase,Urine Negative (Negative); Mucus,Urine Rare /hpf; Nitrite,Urine Negative (Negative); Protein,Urine Negative (Negative); RBC,Urine 4 /hpf (0-5); Specific Gravity,Urine 1.009 (1.001-1.035); Urobilinogen,Urine <2.0 mg/dL (<2.0); WBC,Urine 2 /hpf (0-5)
[2018-08-28] MEDS: POTASSIUM PHOSPHATE 10 MMOL in SODIUM CHLORIDE 0.9% 250 ML IV SCH ×3 (07:22→12:30)
[2018-08-28 07:51] LABS: ALT 37 U/L (9-52); AST 46 U/L (14-36)
--- NOTE | 2018-08-28 08:17 | XR ---
EXAMINATION TYPE: XR chest 1V portable DATE OF EXAM: 08/28/2018 COMPARISON: Prior chest x-ray 08/27/2018 HISTORY: Prior chest x-ray 08/27/2018 TECHNIQUE: Single frontal view of the chest is obtained. FINDINGS: Endotracheal tube and NG tube are overlying appropriate positions. There is no evident pne umothorax. There is retrocardiac density with obscured left hemidiaphragm. Heart size is stable. Inte rstitium appears increased. There are cardiac leads and the patient is rotated. Basilar increased den sity also suspected on the right. The aorta is dense. IMPRESSION: Correlate for basilar pneumonia versus atelectasis or edema. There may be associated eff usion.
[2018-08-28] MEDS: PANTOPRAZOLE 40 MG/10 ML VIAL IV SCH (09:32)
--- NOTE | 2018-08-28 09:59 | PN ---
PROGRESS NOTE DATE OF SERVICE: August 28, 2018. This is a 68-year-old female who was brought in by EMS to the emergency room with intentional overdose/suicide attempt. The patient was unresponsive and apparently took a number of different pills that were prescribed at home. The exact number of pills are not known. She apparently overdosed on Xanax, Cymbalta, Artane, Lamictal and cyproheptadine. Although, we do not know if she took all of those pills and we do not know how many of those pills she took. A drug screen was done. The patient was intubated primarily because of poor mental status and airway protection. She was transferred to the ICU. She is ready for extubation today. For a long period of time, she was very, very sleepy and lethargic. We stopped the propofol and she really did not wake up. Yesterday, we did put her on PSV CPAP and we did some weaning parameters on her and the only thing that prevented extubation was poor mental status. She has a history of migraine cephalgia, anxiety/depression and MTHFR mutation. Currently, the patient remains on the mechanical ventilator. She is on the volume assist-control mode rate of 14, tidal volume 400, FiO2 35%, PEEP of 5. Blood gases show pO2 of 77, pCO2 of 34, pH 7.45. She is getting a saline IV at 100 mL an hour. She is placed on PSV 5 CPAP of 5. We will ask for psych consult. Weaning parameters were excellent. She did have a cuff leak. The patient should be extubated this morning. Current vital signs are good. Temperature a 101.4, heart rate 120, respiratory rate 22, blood pressure 134/62, mean 86, saturations are 92% on an FiO2 35%, PEEP of 5. Appears in no acute distress. Much more awake today. HEENT examination is grossly unremarkable. There is an orally placed endotracheal tube and NG tube. NECK: Supple. Full range of motion. No adenopathy. CARDIOVASCULAR: Examination reveals regular rhythm and rate. Heart rate about 110 beats per minute. S1, S2 normal. There is no S3, S4, or murmur. LUNGS: Reveal a few scattered rhonchi. No wheezes or crackles. Breath sounds are diminished. ABDOMEN: Soft. Bowel sounds are heard. EXTREMITIES: Are intact. No cyanosis, clubbing, or edema. SKIN: Without rash. NEUROLOGIC: Examination is difficult, but she does move all 4 extremities. She does open her eyes. She seems much more awake and responsive today. A chest x-ray was done. It shows some basilar atelectasis. Labs are reviewed. White count 6.9, hemoglobin 12.5, hematocrit 37.9, platelet count 137,000. Sodium and potassium were normal. Chloride 111, CO2 of 21. Anion gap is 6. BUN 10, creatinine 0.47. Calcium 7.4, phosphorus 0.9, and magnesium 2.6. Urine is evaluated. Medications are reviewed. They all seem appropriate. She is on GI and DVT prophylaxis. ASSESSMENT: 1. Status post suicide attempt by overdose, the patient apparently took Xanax, Cymbalta, Artane, Lamictal and cyproheptadine, although we do not know if the patient took all of those medications and how many tablets of each she took. 2. Status post intubation with mechanical ventilation because of poor mental status and patient inability to protect her airway. 3. History of migraine cephalgia. 4. History of anxiety. 5. History of depression. 6. History of MTHFR mutation. PLAN: The patient was placed on PSV 5, CPAP of 5. The patient had excellent weaning parameters. We will go ahead and extubate the patient today. The NG tube will be discontinued. Sedation will be discontinued. The patient does have a fever. We will treat that with Tylenol. She has been cultured. So far, culture data is negative. Additional recommendations and suggestions are forthcoming. She definitely will need a psychiatric consultation. Medications, problem list, IVs, x-rays are all reviewed. CRITICAL CARE TIME: 36 minutes. MMODL / IJN: [id number] /
--- NOTE | 2018-08-28 14:51 | P.PN ---
Subjective Progress Note Date: 08/28/18 Principal diagnosis: Drug overdose, suicidal attempt, severe depression, recurrent headache, acute suspected failure, hyperglycemia, history of MTSH as far mutation. 68-year-old female one of 's patient with multiple suicidal attempt with past with overdose on medication mostly benzodiazepine last time was in 2017. Patient brought to the emergency department Denisa today 08/26/2018 after family made a phone call that patient is unresponsive apparently she had early intentional overdose found her to be less responsive than the normal more confused and more sedated and found all her pills from this week were taking including Lamictal, Xanax, doxepin, Cymbalta, Miguelangel. Shortly after she arrived to the emergency room her respiration and oxygen level decline patient ended up been intubated and start supportive care on mechanical ventilation. Her benzodiazepine came back positive patient had received 1 dose of Narcan on Route was stabilized on mechanical ventilation and admitted to the ICU director of content marketing were consulted as well. 08/27: Patient remains intubated and on mechanical ventilation. She is having an EEG at this time. She has had minimal movement of her hands but otherwise unresponsive. Her was here earlier and has gone home. We will add in a consult for psychiatry to evaluate the patient when she is extubated. The patient is followed by Dr. Husain for vent management. Propofol to be discontinued and he anticipates extubation. 08/28: Patient was extubated successfully today doing well still not eating or drinking anything we will do swallow eval patient pass it was start feeding. Objective - Vital Signs Vital signs: Vital Signs Temp 99.9 F H 08/28/18 12:00 Pulse 110 H 08/28/18 14:00 Resp 23 08/28/18 14:00 BP 131/66 08/28/18 14:00 Pulse Ox 91 L 08/28/18 14:00 Intake & Output 08/27/18 08/28/18 08/28/18 18:59 06:59 18:59 Intake Total 5264.966 9019.651 1467.498 Output Total 585 945 795 Balance 627.181 257.651 672.498 Weight 50.5 kg 57.4 kg Intake: IV 1200 1200 1450 Potassium Phosphate 10 750 mmol In Sodium Chloride 0 .9% 250 ml @ 125 mls/hr IV Q2H [facility] Rx#:[id number] Sodium Chloride 0.9% 1, 1200 1200 700 000 ml @ 100 mls/hr IV . Q10H [facility] Rx#:[id number] Intake, IV Titration 12.181 2.651 17.498 Amount Propofol 1,000 mg In .181 2.651 17.498 Empty Bag 1 bag @ Titrate IV .Q0M [facility] Rx#: [id number] Output: Urine 585 945 795 Other: Voiding Method Indwelling Catheter Indwelling Catheter Indwelling Catheter - Exam Review of system: CONSTITUTIONAL: Well-developed not responding much on EYES: No icterus sclerae, no conjunctivitis. EARS, NOSE, MOUTH, THROAT, and FACE: No sore throat, lymphadenopathy, carotid bruits or deformity.she has ET tube in RESPIRATORY: .on mechanical ventilation with no wheezes CARDIOVASCULAR: No CP, PND, Orthopnea, or angina.positive palpitation GASTROINTESTINAL: No Abd pain, Nausea or vomiting, no Diarrhea or constipation, No GI Bleed, no distention or masses. GENITOURINARY: Negative for Hematuria or UTI, no kidney stones. INTEGUMENT/BREAST: Negative for any muscular injury with mild osteoarthritis.. HEMATOLOGIC/LYMPHATIC: Negative for bleed or purpura. MUSCULOSKELTAL: Negative for Myalgia or arthralgia. NEURLOGICAL: Confuse sedated on mechanical ventilation not responding much currently. BEHAVIORAL/PSYCH: Negative. ENDOCRINE: Negative. Physical examination: General Appearance: no distress, appears stated age. Neck HEENT: Supple, no lymphadenopathy, no thyroid enlargement, no carotid bruits.has an ET tube in Lungs: Clear to auscultation without crackles or wheezes no rhonchi, no deformity. Chest Wall: Chest wall normal expansion with deep inspiration no tenderness and no deformity was found on exam, no costochondral pain or discomfort. Heart: Regular rate and rhythm, S1, S2 normal, no murmur, rub or gallop.mild tachycardia Back: Symmetric, no curvature, ROM normal, no CVA tenderness. Abdomen: Soft, non-tender, bowel sounds active all four quadrants, no masses, no organomegaly. Extremities: Extremities normal, atraumatic, no cyanosis or edema. Pulses: 2+ and symmetric. Skin: Skin color, texture, tugor normal, no rashes or lesions. Neurologic: Alert and answering some questions still little bit confused and sleepy but moving all her 470s. - Labs CBC & Chem 7: 08/28/18 05:04 08/28/18 05:04 Labs: Abnormal Lab Results - Last 24 Hours (Table) 08/27/18 08/27/18 08/28/18 Range/Units 16:30 18:08 00:58 Plt Count (150-450) k/uL Lymphocytes # (1.0-4.8) k/uL ABG pH (7.35-7.45) ABG pCO2 48 H (35-45) mmHg ABG pO2 (83-108) mmHg ABG HCO3 26 H (21-25) mmol/L ABG Total CO2 28 H (19-24) mmol/L ABG O2 Saturation 98.4 H (94-97) % Chloride (98-107) mmol/L Carbon Dioxide (22-30) mmol/L Creatinine (0.52-1.04) mg/dL Glucose (74-99) mg/dL POC Glucose (mg/dL) 109 H 135 H (75-99) mg/dL Calcium (8.4-10.2) mg/dL Phosphorus (2.5-4.5) mg/dL Magnesium (1.6-2.3) mg/dL AST (14-36) U/L Urine Ketones (Negative) Urine Blood (Negative) Urine Mucus (None) /hpf 08/28/18 08/28/18 08/28/18 Range/Units 04:12 05:04 05:04 Plt Count 137 L (150-450) k/uL Lymphocytes # 0.6 L (1.0-4.8) k/uL ABG pH 7.46 H (7.35-7.45) ABG pCO2 34 L (35-45) mmHg ABG pO2 77 L (83-108) mmHg ABG HCO3 (21-25) mmol/L ABG Total CO2 25 H (19-24) mmol/L ABG O2 Saturation (94-97) % Chloride 111 H (98-107) mmol/L Carbon Dioxide 21 L (22-30) mmol/L Creatinine 0.47 L (0.52-1.04) mg/dL Glucose 118 H (74-99) mg/dL POC Glucose (mg/dL) (75-99) mg/dL Calcium 7.4 L (8.4-10.2) mg/dL Phosphorus 0.9 L* (2.5-4.5) mg/dL Magnesium 2.6 H (1.6-2.3) mg/dL AST (14-36) U/L Urine Ketones (Negative) Urine Blood (Negative) Urine Mucus (None) /hpf 08/28/18 08/28/18 08/28/18 Range/Units 06:03 06:29 07:17 Plt Count (150-450) k/uL Lymphocytes # (1.0-4.8) k/uL ABG pH (7.35-7.45) ABG pCO2 (35-45) mmHg ABG pO2 (83-108) mmHg ABG HCO3 (21-25) mmol/L ABG Total CO2 (19-24) mmol/L ABG O2 Saturation (94-97) % Chloride (98-107) mmol/L Carbon Dioxide (22-30) mmol/L Creatinine (0.52-1.04) mg/dL Glucose (74-99) mg/dL POC Glucose (mg/dL) 118 H (75-99) mg/dL Calcium (8.4-10.2) mg/dL Phosphorus (2.5-4.5) mg/dL Magnesium (1.6-2.3) mg/dL AST 46 H (14-36) U/L Urine Ketones 1+ H (Negative) Urine Blood Small H (Negative) Urine Mucus Rare H (None) /hpf Microbiology - Last 24 Hours (Table) 08/28/18 07:50 Gram Stain - Preliminary Sputum Sputum Culture - Preliminary 08/28/18 06:29 Urine Culture - Preliminary Urine,Catheterized Assessment and Plan Plan: 1 drug overdose: Most likely benzodiazepine almost likely attention suicide, patient will be hospitalized after was placed on mechanical ventilation we'll consult pulmonary critical care also consult psychiatry. 2 suicidal attempt: Patient declined any memory of suicidal attempt or any overdose at this point. 3 chronic depression: Has been on doxepin Cymbalta and Xanax. Psych consult patient be transferred to psych soon as she is clear hopefully by tomorrow. 4 chronic headache she is on Imitrex as needed. 5 acute respiratory failure: She is off mechanical ventilation and doing better continue O2 only. 6 hyper glycemia: Continue to watch her Accu-Chek with sliding scales coverage. 7 history of MTHFR mutation. 8 generalized anxiety disorder. 9 dysphagia: Patient was extubated we will do speech therapy or swallow evaluat ion the bedside and advance diet beside.
[2018-08-28] MEDS ORDERED: ACETAMINOPHEN SUPPOSITORY 650 MG SUPP RECTAL PRN (14:57)
[2018-08-28 19:49] LABS: Glucose,Whole Blood 116 mg/dL (75-99)
[2018-08-28] MEDS: PIPERACILLIN-TAZOBACTAM 3.375 GM in SODIUM CHLORIDE 0.9% 100 ML IVPB SCH (23:43)
[2018-08-29 00:01] LABS: Glucose,Whole Blood 108 mg/dL (75-99)
[2018-08-29] MEDS: INSULIN ASPART (NovoLOG) 100 UNIT/ML VIAL SQ SCH ×5 (00:32→21:33)
[2018-08-29] MEDS: SODIUM CHLORIDE 0.9% 1,000 ML IV SCH ×3 (02:40→21:34)
[2018-08-29 05:28] LABS: Basophils % (A) 0 %; Eosinophils % (A) 0 %; HCT 34.6 % (34.0-46.0); HGB 11.5 gm/dL (11.4-16.0); Lymphocytes # (A) 0.5 k/uL (1.0-4.8); Lymphocytes % (A) 8 %; MCH 30.6 pg (25.0-35.0); MCHC 33.3 g/dL (31.0-37.0); MCV 91.8 fL (80.0-100.0); Mean Platelet Volume 8.4; Monocytes # (A) 0.3 k/uL (0-1.0); Monocytes % (A) 4 %; Neutrophils # (A) 5.6 k/uL (1.3-7.7); Neutrophils % (A) 87 %; Platelet Count 116 k/uL (150-450); RBC 3.77 m/uL (3.80-5.40); RDW 13.1 % (11.5-15.5); WBC 6.5 k/uL (3.8-10.6)
[2018-08-29 05:39] LABS: Glucose,Whole Blood 89 mg/dL (75-99)
[2018-08-29 05:43] LABS: ALT 45 U/L (9-52); AST 52 U/L (14-36); Albumin 3.1 g/dL (3.5-5.0); Alkaline Phosphatase 75 U/L (38-126); Anion Gap 9 mmol/L; Blood Urea Nitrogen 9 mg/dL (7-17); Calcium 7.6 mg/dL (8.4-10.2); Carbon Dioxide 21 mmol/L (22-30); Chloride 112 mmol/L (98-107); Glucose 93 mg/dL (74-99); Phosphorus 1.2 mg/dL (2.5-4.5); Potassium 3.3 mmol/L (3.5-5.1); Sodium 142 mmol/L (137-145); Total Bilirubin 0.7 mg/dL (0.2-1.3); Total Protein 5.2 g/dL (6.3-8.2)
[2018-08-29] MEDS ORDERED: Potassium Replacement Protocol 1 EACH MISC MISCELLANE PRN (06:03)
--- NOTE | 2018-08-29 06:23 | XR ---
EXAMINATION TYPE: XR chest 1V portable DATE OF EXAM: 08/29/2018 HISTORY: Tube placement. REFERENCE: Previous study dated 08/28/2018. FINDINGS: The patient is ET tube and NG tube have been removed. The heart is mildly enlarged. There is bilateral airspace disease. There are small, bilateral effusio ns. The overall appearance is worsened slightly from previous. IMPRESSION: 1. MILD CARDIOMEGALY. 2. BIBASILAR AIRSPACE DISEASE. 3. SMALL, BILATERAL EFFUSIONS.
[2018-08-29] MEDS: POTASSIUM CHLORIDE 10 MEQ in WATER FOR INJECTION 1 100ML.BAG IVPB SCH ×4 (06:29→11:36)
[2018-08-29] MEDS: PIPERACILLIN-TAZOBACTAM 3.375 GM in SODIUM CHLORIDE 0.9% 100 ML IVPB SCH ×3 (08:05→23:31)
[2018-08-29] MEDS: HEPARIN SODIUM,PORCINE 5,000 UNIT/ML 1 ML VIAL SQ SCH ×3 (08:06→23:31)
[2018-08-29] MEDS: PANTOPRAZOLE 40 MG/10 ML VIAL IV SCH (08:06)
--- NOTE | 2018-08-29 09:37 | P.PN ---
Subjective Progress Note Date: 08/29/18 Principal diagnosis: Drug overdose, suicidal attempt, severe depression, recurrent headache, acute suspected failure, hyperglycemia, history of MTSH as far mutation. 68-year-old female one of 's patient with multiple suicidal attempt with past with overdose on medication mostly benzodiazepine last time was in 2017. Patient brought to the emergency department Denisa today 08/26/2018 after family made a phone call that patient is unresponsive apparently she had early intentional overdose found her to be less responsive than the normal more confused and more sedated and found all her pills from this week were taking including Lamictal, Xanax, doxepin, Cymbalta, Miguelangel. Shortly after she arrived to the emergency room her respiration and oxygen level decline patient ended up been intubated and start supportive care on mechanical ventilation. Her benzodiazepine came back positive patient had received 1 dose of Narcan on Route was stabilized on mechanical ventilation and admitted to the ICU die engraving supervisor were consulted as well. 08/27: Patient remains intubated and on mechanical ventilation. She is having an EEG at this time. She has had minimal movement of her hands but otherwise unresponsive. Her was here earlier and has gone home. We will add in a consult for psychiatry to evaluate the patient when she is extubated. The patient is followed by Dr. Husain for vent management. Propofol to be discontinued and he anticipates extubation. 08/28: Patient was extubated successfully today doing well still not eating or drinking anything we will do swallow eval patient pass it was start feeding. 08/29: Patient is doing very well she did not pass her swallow evaluation she still nothing by mouth currently, was start ice chips and water speech is seen patient again today and hopefully we will advance diet. Patient will advance physical therapy today and will be seen psych if she is ready to be moved to the psych unit will try to do it early tomorrow. Objective - Vital Signs Vital signs: Vital Signs Temp 99.7 F H 08/29/18 08:00 Pulse 104 H 08/29/18 08:00 Resp 12 08/29/18 08:00 BP 141/77 08/29/18 08:00 Pulse Ox 93 L 08/29/18 08:00 Intake & Output 08/28/18 08/29/18 08/29/18 18:59 06:59 18:59 Intake Total 1967.498 500 700 Output Total 915 1160 1000 Balance 1052.498 -660 -300 Weight 57.4 kg Intake: IV 1950 500 700 Piperacillin-Tazobactam 3 100 100 .375 gm In Sodium Chloride 0.9% 100 ml @ 25 mls/hr IVPB Q8HR [facility] Rx# :[id number] Potassium Chloride 10 meq 200 In Water For Injection 1 100ml.bag @ 100 mls/hr IVPB Q1HR [facility] Rx#: [id number] Potassium Phosphate 10 750 mmol In Sodium Chloride 0 .9% 250 ml @ 125 mls/hr IV Q2H [facility] Rx#:[id number] Sodium Chloride 0.9% 1, 1200 400 400 000 ml @ 100 mls/hr IV . Q10H [facility] Rx#:[id number] Intake, IV Titration 17.498 Amount Propofol 1,000 mg In 17.498 Empty Bag 1 bag @ Titrate IV .Q0M [facility] Rx#: [id number] Output: Urine 915 1160 1000 Other: Voiding Method Indwelling Catheter Indwelling Catheter - Exam Review of system: CONSTITUTIONAL: Well-developed not responding much on EYES: No icterus sclerae, no conjunctivitis. EARS, NOSE, MOUTH, THROAT, and FACE: No sore throat, lymphadenopathy, carotid bruits or deformity.she has ET tube in RESPIRATORY: .on mechanical ventilation with no wheezes CARDIOVASCULAR: No CP, PND, Orthopnea, or angina.positive palpitation GASTROINTESTINAL: No Abd pain, Nausea or vomiting, no Diarrhea or constipation, No GI Bleed, no distention or masses. GENITOURINARY: Negative for Hematuria or UTI, no kidney stones. INTEGUMENT/BREAST: Negative for any muscular injury with mild osteoarthritis.. HEMATOLOGIC/LYMPHATIC: Negative for bleed or purpura. MUSCULOSKELTAL: Negative for Myalgia or arthralgia. NEURLOGICAL: Confuse sedated on mechanical ventilation not responding much currently. BEHAVIORAL/PSYCH: Negative. ENDOCRINE: Negative. Physical examination: General Appearance: no distress, appears stated age. Neck HEENT: Supple, no lymphadenopathy, no thyroid enlargement, no carotid bruits.has an ET tube in Lungs: Clear to auscultation without crackles or wheezes no rhonchi, no deformity. Chest Wall: Chest wall normal expansion with deep inspiration no tenderness and no deformity was found on exam, no costochondral pain or discomfort. Heart: Regular rate and rhythm, S1, S2 normal, no murmur, rub or gallop.mild tachycardia Back: Symmetric, no curvature, ROM normal, no CVA tenderness. Abdomen: Soft, non-tender, bowel sounds active all four quadrants, no masses, no organomegaly. Extremities: Extremities normal, atraumatic, no cyanosis or edema. Pulses: 2+ and symmetric. Skin: Skin color, texture, tugor normal, no rashes or lesions. Neurologic: Alert and answering some questions still little bit confused and sleepy but moving all her 470s. - Labs CBC & Chem 7: 08/29/18 04:56 08/29/18 04:56 Labs: Abnormal Lab Results - Last 24 Hours (Table) 08/28/18 08/28/18 08/29/18 Range/Units 19:47 23:36 04:56 RBC (3.80-5.40) m/uL Plt Count (150-450) k/uL Lymphocytes # (1.0-4.8) k/uL Potassium 3.3 L (3.5-5.1) mmol/L Chloride 112 H (98-107) mmol/L Carbon Dioxide 21 L (22-30) mmol/L Creatinine 0.50 L (0.52-1.04) mg/dL POC Glucose (mg/dL) 116 H 108 H (75-99) mg/dL Calcium 7.6 L (8.4-10.2) mg/dL Phosphorus 1.2 L (2.5-4.5) mg/dL AST 52 H (14-36) U/L Total Protein 5.2 L (6.3-8.2) g/dL Albumin 3.1 L (3.5-5.0) g/dL 08/29/18 Range/Units 04:56 RBC 3.77 L (3.80-5.40) m/uL Plt Count 116 L (150-450) k/uL Lymphocytes # 0.5 L (1.0-4.8) k/uL Potassium (3.5-5.1) mmol/L Chloride (98-107) mmol/L Carbon Dioxide (22-30) mmol/L Creatinine (0.52-1.04) mg/dL POC Glucose (mg/dL) (75-99) mg/dL Calcium (8.4-10.2) mg/dL Phosphorus (2.5-4.5) mg/dL AST (14-36) U/L Total Protein (6.3-8.2) g/dL Albumin (3.5-5.0) g/dL Microbiology - Last 24 Hours (Table) 08/26/18 15:11 Gram Stain - Final Sputum Sputum Culture - Final 08/28/18 07:17 Blood Culture Gram Stain - Preliminary Blood 08/28/18 07:17 Blood Culture - Final Blood 08/28/18 07:50 Gram Stain - Preliminary Sputum Sputum Culture - Preliminary 08/28/18 06:29 Urine Culture - Preliminary Urine,Catheterized Assessment and Plan Plan: 1 drug overdose: Much better she is off the vent awaiting for psych service hopefully patient be moved to the psych unit tomorrow. 2 suicidal attempt: Patient declined any memory of suicidal attempt or any overdose at this point. 3 chronic depression: She will need further medication adjustment. 4 dysphagia: Post suicidal attempt, patient is seen speech swallow evaluation can be done and hopefully advance her diet before the end of the day today. 5 acute respiratory failure: She is off mechanical ventilation and doing better continue O2 only. 6 hyper glycemia: Continue to watch her Accu-Chek with sliding scales coverage. 7 history of MTHFR mutation. 8 generalized anxiety disorder. Discharge planning: Advance physical therapy diet Patient is ready will transfer to the psych unit.
--- NOTE | 2018-08-29 11:10 | PN ---
PROGRESS NOTE DATE OF SERVICE: 08/29/2018 A 68-year-old female who was brought in by EMS for a polysubstance overdose/suicide attempt. She apparently took a number of different medications including regular Xanax, Xanax XR, Cymbalta, Artane, Lamictal and cyproheptadine. Initially, she was very sleepy and lethargic. She finally improved neurologically and she was able to be extubated. Currently, doing reasonably well. She did fail her swallow evaluation. For an attempt that again today. The patient is currently in the ICU, resting comfortably. Family at bedside. The patient is on O2 at 2 L by nasal cannula and getting an IV fluid of 0.9 at 100 mL an hour. Her primary doctor is Dr. Langston. The patient seems to be doing reasonably well. She does have a history of migraine cephalgia, anxiety/depression and MTHFR mutation. She was extubated yesterday morning. Current vital signs are reviewed, temperature 99.7, heart rate 104, respiratory rate 12, blood pressure 141/77, mean 98, 2 L saturation at 93%. Appears in no acute distress. HEENT: Examination is grossly unremarkable. Mucous membranes are moist. No oral lesions. NECK: Supple. Full range of motion. No adenopathy or thyromegaly. Neck veins are flat. CARDIOVASCULAR: Examination reveals regular rhythm and rate. S1, S2 normal. No S3, S4, or murmur. LUNGS: Reveal a few scattered rhonchi. No wheezes or crackles. Breath sounds are equal bilaterally. ABDOMEN: Soft. Bowel sounds are heard. EXTREMITIES: Intact. No cyanosis, clubbing, or edema. SKIN: Without rash. NEUROLOGIC: Examination appears to be normal. LABS: Reviewed. White count 6.5, hemoglobin 11.5, hematocrit 34.6, platelet count 116,000. Sodium 142, potassium 3.3, chloride 112, CO2 is 29, anion gap is 9. BUN 9, creatinine 0.5. Calcium 7.6, phosphorus 1.2. AST. AST 52. Albumin 3.1. Microbiologic studies are all negative. Chest x-ray shows some mild cardiomegaly and some mild bibasilar airspace disease. MEDICATIONS: Reviewed. The patient is on Tylenol, heparin subcu, magnesium replacement, Narcan, Protonix, phosphorus replacement, Zosyn, potassium replacement and a basic IV. ASSESSMENT: 1. Status post suicide attempt by overdose, the patient apparently took unknown quantities of Xanax. 2. Xanax XR, Cymbalta, Artane, the MAC: Cyproheptadine. 3. Status post intubation with mechanical ventilation because of poor mental status and patient's inability to protect her airway, with successful extubation on August 28. 4. History of migraine cephalgia. 5. History of anxiety/depression. 6. History of MTHFR mutation. PLAN: The patient was successfully extubated yesterday. Will advance her diet. Additional recommendations and suggestions are forthcoming. She seems to be doing a lot better. Psychiatric consultation pending. Once that is performed, she can be either transitioned to a general medical floor or go down the psychiatry unit. No additional recommendations are made. MMODL / IJN: [id number] /
[2018-08-29 12:20] LABS: Glucose,Whole Blood 98 mg/dL (75-99)
--- NOTE | 2018-08-29 13:22 | P.CN ---
Psychiatric Consult - . Consult date: 08/29/18 Consult:: 08/28/18 14:39 Suicide Assessment and Plan Assessment: This is a 68-year-old female who is brought in by EMS after having intentionally overdosed. EMS was called because the patient was unresponsive and the told them that the patient look like she took all of weeks worth of her medications but there was no exact amount of how many pills she took. Patient is on Lamictal Xanax and doxepin Cymbalta, cyproheptadine, trihexyphenidyl. - Related Data Home Medications Medication Instructions Recorded Confirmed DULoxetine HCL [Cymbalta] 60 mg PO DAILY 02/17/18 08/26/18 ALPRAZolam [Xanax XR] 1 mg PO BID 08/26/18 08/26/18 ALPRAZolam [Xanax] 0.25 mg PO TID 08/26/18 08/26/18 Cyproheptadine [Cyproheptadine HCl] 8 mg PO DAILY 08/26/18 08/26/18 Doxepin [SINEquan] 10 mg PO DAILY 08/26/18 08/26/18 Trihexyphenidyl [Artane] 2 mg PO BID 08/26/18 08/26/18 lamoTRIgine [LaMICtal] 75 mg PO DAILY 08/26/18 08/26/18 Allergies Allergy/AdvReac Type Severity Reaction Status Date / Time peanut AdvReac Nausea Verified 08/19/18 09:01 Past Medical History Past Medical History: Osteoarthritis (OA) Additional Past Medical History / Comment(s): Occasional migraines, wears contact and readers, heart murmur as child, achilles tendon repair, tested post itive for MTHFR clotting disorder after sister had history of blood clots. History of Any Multi-Drug Resistant Organisms: None Reported Past Surgical History: Appendectomy, Hernia Repair Additional Past Surgical History / Comment(s): Left Achilles Tendon surgery Past Anesthesia/Blood Transfusion Reactions: No Reported Reaction Past Psychological History: Anxiety, Depression Smoking Status: Never smoker - Past Family History Father History Unknown: Yes Family Medical History: No Reported History Mother History Unknown: Yes Family Medical History: No Reported History Brother(s) Family Medical History: No Reported History Sister(s) History Unknown: Yes Family Medical History: No Reported History Daughter(s) History Unknown: Yes Past Psychiatric History: Patient has been treated for at least 15 years. She has not been in psychiatric hospital over the last 2 years. Past Medical/Surgical History: Patient states that she has no medical problems and is status post hernia repair. Patient states that she does have migraine headaches and uses Imitrex on an as-needed basis. Family History: Patient reports no psychiatric history in her family, although priorly she has stated that her mother and father both were diagnosed with depression and anxiety. Patient states that her brothers use alcohol and drugs. Social History: Patient was born and raised in [place] and both of her parents are . She has been for 34 years and has a 30-year-old daughter. She reports that she has 5 siblings all of whom are alive. 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 She worked at the [employer] for 34 years retiring in August 2016. She currently lives with her and denies any history of abuse. Substance Use History: Patient denies any drug history currently or in the past and states she only uses alcohol on an infrequent basis. Patient has does not use tobacco products. Legal History: Patient denies any legal history. Mental Status Examination - this is a 68-year-old female who looks older than his stated age and impulsively took medications that were hidden in the tool box so that she would not take too many. Her stated that he'll probably keep the medicines in a safe from now on because she is not to be trusted with medications on her own. She takes her medications on a 7 day period from With that dispenser box. She is unable to explain why she took the medications since she is not suicidal or homicidal nature but was hunting for medications and impulsively took them. This may be the fact of wanting more Xanax. She is not a reliable historian. Much of the information was gathered from her who is by her bedside. General Appearance: [ disheveled, bizarre, appears older than stated age Speech/Language: [ slow, rapid, slurred, mumbling,halting, monotone soft Attitude/Behavior: [cooperative withdrawn Mood: [ depressed, anxious, fearful] Affect: [ flat, incongruent, blunted constricted Orientation: [time, person, place situation] Thought Content: [wnl, denies delusions, obsessions, phobias, other] Risk Factors: [Denies suicidal (ideations, plan), and/or Homicidal (ideations, plan), other] Perception: [wnl, denies hallucinations (auditory, visual, tactile), other] Thought Processes: [ concrete, circumstantial, tangential] Concentration/Attention Span: [impaired] [Per observation and interview with the patient] Recent Memory: [ impaired] [0 out of 3 in 3 minutes] Remote Memory: [wnl,] [past events, as related history] Intelligence: [ average] [based on history, based on vocabulary, syntax, grammar, and content] Judgement: [Fair] [per patient's behavior/history of present illness] Insight: [Fair] [understanding severity of illness/history of present illness] Psychiatric impression: Schizoaffective disorder with bipolar type with probable underlying neurocognitive disorder. Psychiatric recommendation: If there is an underlying neurocognitive disorder which I think there may be but it needs to be proven by outpatient neuropsychological testing and MRI would facilitate whether this woman needs supervised living with monitor on her medications. She probably do well in the partial hospitalization program but due to her mental status today as not being exactly coherent will further evaluate either Friday or Friday for whether she needs inpatient versus outpatient treatment. Additionally might be torres to restart her Lamictal which would help her with any withdrawal from benzodiazepine or withdrawal from mood stabilizers used for originally for epilepsy may cause rebound withdrawal. I did review the CT of the brain which shows right temporoparietal atrophy and frontal lobe atrophy as well. The ventricles are somewhat enlarged to the loss of cortical matter which would further indicate neurocognitive disorder that is mentioned above she needs neuropsych testing outpatient basis this is not an inpatient needed this time. This type of impulsive behaviors seen in neurocognitive disorder mild to moderate degree where they forget or impulsively do acts such as witnessed here Thank you for this consult Ward Taylor DO PhD (1) Major depressive disorder, recurrent severe without psychotic features Current Visit: No Status: Acute Priority: High Code(s): F33.2 - MAJOR DEPRESSV DISORDER, RECURRENT SEVERE W/O PSYCH FEATURES SNOMED Code(s): 00272020 Time with Patient: Greater than 30
[2018-08-29] MEDS: POTASSIUM BICARBONATE/CIT AC 20 MEQ TABLET.EFF NG-TUBE SCH ×2 (15:36→16:21)
[2018-08-29 17:13] LABS: Glucose,Whole Blood 95 mg/dL (75-99)
[2018-08-29 20:58] LABS: Glucose,Whole Blood 115 mg/dL (75-99)
[2018-08-30] MEDS: SODIUM CHLORIDE 0.9% 1,000 ML IV SCH (04:56)
[2018-08-30 05:40] LABS: Basophils % (A) 0 %; Eosinophils % (A) 0 %; HCT 35.9 % (34.0-46.0); HGB 11.6 gm/dL (11.4-16.0); Lymphocytes # (A) 0.6 k/uL (1.0-4.8); Lymphocytes % (A) 8 %; MCH 29.8 pg (25.0-35.0); MCHC 32.2 g/dL (31.0-37.0); MCV 92.7 fL (80.0-100.0); Mean Platelet Volume 7.6; Monocytes # (A) 0.2 k/uL (0-1.0); Monocytes % (A) 2 %; Neutrophils # (A) 6.2 k/uL (1.3-7.7); Neutrophils % (A) 89 %; Platelet Count 132 k/uL (150-450); RBC 3.87 m/uL (3.80-5.40); RDW 12.8 % (11.5-15.5)
[2018-08-30 05:59] LABS: Anion Gap 4 mmol/L; Blood Urea Nitrogen 7 mg/dL (7-17); Calcium 7.9 mg/dL (8.4-10.2); Carbon Dioxide 25 mmol/L (22-30); Chloride 110 mmol/L (98-107); Glucose 102 mg/dL (74-99); Potassium 3.3 mmol/L (3.5-5.1); Sodium 139 mmol/L (137-145)
[2018-08-30] MEDS ORDERED: Potassium Replacement Protocol 1 EACH MISC MISCELLANE PRN (06:43)
[2018-08-30 07:17] LABS: Glucose,Whole Blood 134 mg/dL (75-99)
[2018-08-30] MEDS: INSULIN ASPART (NovoLOG) 100 UNIT/ML VIAL SQ SCH ×2 (08:37→12:25)
[2018-08-30] MEDS: PANTOPRAZOLE 40 MG/10 ML VIAL IV SCH (08:40)
[2018-08-30] MEDS: HEPARIN SODIUM,PORCINE 5,000 UNIT/ML 1 ML VIAL SQ SCH (08:40)
[2018-08-30] MEDS: POTASSIUM CHLORIDE ER 20 MEQ TAB.ER PO SCH ×2 (08:40→10:11)
[2018-08-30] MEDS: PIPERACILLIN-TAZOBACTAM 3.375 GM in SODIUM CHLORIDE 0.9% 100 ML IVPB SCH (08:40)
--- NOTE | 2018-08-30 10:19 | PN ---
PROGRESS NOTE DATE OF SERVICE: 08/30/2018. HISTORY: This is a 68-year-old female who was brought in by EMS for polysubstance overdose/suicide attempt. She apparently took a number of different medications with amounts unknown including Xanax, Xanax XR, Cymbalta, Artane, Lamictal and cyproheptadine. The patient was initially very sleepy and lethargic. She eventually improved. We were able to extubate her 2 days ago. The patient is doing much better today. She is only on O2 at 2 L. She is getting an IV of saline at 100 mL an hour, which could be pivil. She is a patient who could go to the general medical floor without telemetry. She has been seen by Psychiatry. Her blood cultures were positive for alpha hemolytic streptococci. She is currently on Zosyn. She has no particular complaints. She does not really say very much. Very flat affect. She does have a history of migraine cephalgia, anxiety, depression, and MTHFR mutation. She was extubated on August 28. PHYSICAL EXAMINATION: Current vital signs are reviewed, they include a temperature 99.1, heart rate 101, respiratory rate 14, blood pressure 142/76, mean 98 and 2 L saturation 96%. Appears in no acute distress. HEENT examination is grossly unremarkable. Mucous membranes are moist. No oral lesions. Neck is supple. Full range of motion. No adenopathy. Cardiovascular examination reveals regular rhythm rate. S1, S2 normal. No S3, S4, or murmur. Lungs clear. Breath sounds equal. No wheezes, rhonchi, or crackles. Abdomen is soft. Bowel sounds are heard. No masses or tenderness. Extremities are intact. No cyanosis, clubbing, or edema. Skin without rash. Neurologically she is intact. Microbiologic studies show blood cultures from the positive for alpha hemolytic streptococci. No 7th sensitivities have been done as yet. LABS: Labs are reviewed. CBC is completely normal. Platelet count a little low at 132,000. Sodium 139, potassium 3.3, chloride 110, CO2 of 25, anion gap is 4, BUN 7, creatinine 0.44. No x-ray to report. ASSESSMENT: 1. Status post suicide attempt by overdose, the patient apparently took unknown quantities of Xanax, Xanax XR, Cymbalta, Artane, Lamictal, and cyproheptadine. 2. Status post intubation with mechanical ventilation because of poor mental status and patient's inability to protect her airway, with successful extubation on August 28, 2018. 3. History of migraine cephalgia. 4. History of anxiety. 5. History of depression. 6. History of MTHFR mutation. PLAN: The patient apparently has been seen by Psychiatry. Saline IV will be turned onto KVO or stopped altogether. She is only on O2 at 2 L. Her medications will be reviewed. She will be transferred to the general medical floor. No additional recommendations are made. She is currently on antibiotics for the alpha hemolytic streptococci in her blood cultures. MMODL / IJN: [id number] /
[2018-08-30] MEDS ORDERED: DULoxetine HCL 60 MG CAPSULE.DR PO SCH (10:45)
[2018-08-30] MEDS ORDERED: LEVOFLOXACIN 500 MG TAB PO SCH (11:00)
--- NOTE | 2018-08-30 11:01 | P.DS ---
Providers Date of admission: 08/26/18 16:50 Attending physician: Pino Carlisle Consults: 08/26/18 16:50 Consult Physician Urgent Consulting Provider: Jimmy Husain Consult Reason/Comments: Critical care management Do you want consulting provider notified?: Yes 08/28/18 13:12 Consult Physician Routine Consulting Provider: Ward Taylor Consult Reason/Comments: suicide Do you want consulting provider notified?: Yes Primary care physician: [facility] Course: Drug overdose, suicidal attempt, severe depression, recurrent headache, acute suspected failure, hyperglycemia, history of MTSH as far mutation. 68-year-old female one of 's patient with multiple suicidal attempt with past with overdose on medication mostly benzodiazepine last time was in 2017. Patient brought to the emergency department [facility] today 08/26/2018 after family made a phone call that patient is unresponsive apparently she had early intentional overdose found her to be less responsive than the normal more confused and more sedated and found all her pills from this week were taking including Lamictal, Xanax, doxepin, Cymbalta, Miguelangel. Shortly after she arrived to the emergency room her respiration and oxygen level decline patient ended up been intubated and start supportive care on mechanical ventilation. 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 08/27: Patient remains intubated and on mechanical ventilation. She is having an EEG at this time. She has had minimal movement of her hands but otherwise unresponsive. Her was here earlier and has gone home. We will add in a consult for psychiatry to evaluate the patient when she is extubated. The patient is followed by Dr. Husain for vent management. Propofol to be discontinued and he anticipates extubation. 08/28: Patient was extubated successfully today doing well still not eating or drinking anything we will do swallow eval patient pass it was start feeding. 08/29: Patient is doing very well she did not pass her swallow evaluation she still nothing by mouth currently, was start ice chips and water speech is seen patient again today and hopefully we will advance diet. Patient will advance physical therapy today and will be seen psych if she is ready to be moved to the psych unit will try to do it early tomorrow. 08/30: Patient is doing very well couldn't sleep last night, she passed her swallow eval and she had been eating. Her IV medication specially Zosyn as an antibiotic will be stopped patient be on Levaquin for aspiration pneumonia for few more days. Potassium replacement protocol has been done patient is very stable medically to be transferred to psych today. - Exam Review of system: CONSTITUTIONAL: Well-developed not responding much on EYES: No icterus sclerae, no conjunctivitis. EARS, NOSE, MOUTH, THROAT, and FACE: No sore throat, lymphadenopathy, carotid bruits or deformity.she has ET tube in RESPIRATORY: .on mechanical ventilation with no wheezes CARDIOVASCULAR: No CP, PND, Orthopnea, or angina.positive palpitation GASTROINTESTINAL: No Abd pain, Nausea or vomiting, no Diarrhea or constipation, No GI Bleed, no distention or masses. GENITOURINARY: Negative for Hematuria or UTI, no kidney stones. INTEGUMENT/BREAST: Negative for any muscular injury with mild osteoarthritis.. HEMATOLOGIC/LYMPHATIC: Negative for bleed or purpura. MUSCULOSKELTAL: Negative for Myalgia or arthralgia. NEURLOGICAL: Confuse sedated on mechanical ventilation not responding much currently. BEHAVIORAL/PSYCH: Negative. ENDOCRINE: Negative. Physical examination: General Appearance: no distress, appears stated age. Neck HEENT: Supple, no lymphadenopathy, no thyroid enlargement, no carotid bruits.has an ET tube in Lungs: Clear to auscultation without crackles or wheezes no rhonchi, no deformity. Chest Wall: Chest wall normal expansion with deep inspiration no tenderness and no deformity was found on exam, no costochondral pain or discomfort. Heart: Regular rate and rhythm, S1, S2 normal, no murmur, rub or gallop.mild tachycardia Back: Symmetric, no curvature, ROM normal, no CVA tenderness. Abdomen: Soft, non-tender, bowel sounds active all four quadrants, no masses, no organomegaly. Extremities: Extremities normal, atraumatic, no cyanosis or edema. Pulses: 2+ and symmetric. Skin: Skin color, texture, tugor normal, no rashes or lesions. Neurologic: Alert and answering some questions still little bit confused and sleepy but moving all her 4 extremity with no deficit. Assessment and Plan Plan: 1 drug overdose: Much better she is off the vent awaiting for psych service hopefully patient be moved to the psych unit tomorrow. 2 suicidal attempt: Patient declined any memory of suicidal attempt or any overdose at this point. 3 chronic depression: She will need further medication adjustment. 4 dysphagia: Post suicidal attempt, patient is seen speech swallow evaluation can be done and hopefully advance her diet before the end of the day today. 5 acute respiratory failure: She is off mechanical ventilation and doing better continue O2 only. 6 hyper glycemia: Continue to watch her Accu-Chek with sliding scales coverage. 7 history of MTHFR mutation. 8 generalized anxiety disorder. Patient is stable, aspiration pneumonias treated, patient was seen psych and she'll be transferred to psych unit today. Patient Condition at Discharge: Serious Plan - Discharge Summary Discharge Rx Participant: No New Discharge Prescriptions: No Action DULoxetine HCL [Cymbalta] 60 mg PO DAILY Trihexyphenidyl [Artane] 2 mg PO BID Doxepin [SINEquan] 10 mg PO DAILY ALPRAZolam [Xanax XR] 1 mg PO BID lamoTRIgine [LaMICtal] 75 mg PO DAILY Cyproheptadine [Cyproheptadine HCl] 8 mg PO DAILY ALPRAZolam [Xanax] 0.25 mg PO TID Discharge Medication List DULoxetine HCL [Cymbalta] 60 mg PO DAILY 02/17/18 [History] ALPRAZolam [Xanax XR] 1 mg PO BID 08/26/18 [History] ALPRAZolam [Xanax] 0.25 mg PO TID 08/26/18 [History] Cyproheptadine [Cyproheptadine HCl] 8 mg PO DAILY 08/26/18 [History] Doxepin [SINEquan] 10 mg PO DAILY 08/26/18 [History] Trihexyphenidyl [Artane] 2 mg PO BID 08/26/18 [History] lamoTRIgine [LaMICtal] 75 mg PO DAILY 08/26/18 [History] Follow up Appointment(s)/Referral(s): Luiza Langston MD [Primary Care Provider] - 1-2 days Discharge Disposition: TRANSFER TO PSYCH HOSP/UNIT
[2018-08-30 12:26] LABS: Glucose,Whole Blood 120 mg/dL (75-99)
[2018-08-30 15:49] VITALS: PULSE 72; RESP 15; TEMP 98.8
[2018-08-30 15:50] VITALS: BP 136/77
[2018-08-31] MEDS ORDERED: PANTOPRAZOLE 40 MG TABLET PO SCH (07:30)
--- NOTE | 2018-08-31 08:56 | EEG ---
ELECTROENCEPHALOGRAM REPORT PROCEDURE DATE: 08/27/2018 ELECTROENCEPHALOGRAM (EEG) REPORT: TECHNIQUE: A routine 18 channel EEG was performed with video using the 10/20 international placement system. HISTORY: The patient brought to the ER via EMS, patient found unresponsive. Suspected overdose. Patient has numerous suicide attempts in the past. The patient was intubated and put on propofol. CURRENT MEDICATIONS: Propofol, Protonix, Narcan, phosphorus, insulin, magnesium. STUDY DURATION: 23 minutes. FINDINGS: Please note that quality of this recording was limited by the presence of muscle artifact. In addition, an excess of beta frequency activity was noted. This is not epileptiform in nature and may in part be due to medication effect. BACKGROUND: The background activity consisted of unsustained 6.5 to 7.5 hertz rhythmic waveforms symmetrically distributed to both posterior quadrants. ACTIVATION: Hyperventilation: Not performed. Photic stimulation: No driving seen. Sleep: Drowsy. ABNORMALITIES: Diffuse synchronous and asynchronous 4 to 6 hertz polymorphic theta range slowing was seen. IMPRESSION: Limited study, abnormal EEG. The diffuse synchronous and asynchronous theta range slowing mentioned above is not epileptiform in nature. In combination with the slow background, these findings indicate moderate diffuse cerebral dysfunction as may be seen in a toxometabolic encephalopathy. These findings may also be in part due to medication effect. No seizures were recorded. No epileptiform activity was present. MMODL / IJN: [id number] /
[2018-08-31] MEDS ORDERED: DOXEPIN 10 MG CAP PO SCH (09:00)
== END 2018-08-30 16:46 | DRG 917 ==
LOC: EC 14:52 → 2SICU 16:50
PROVIDERS: ADMIT Internal Medicine Geriatric Medicine; ATTEND Internal Medicine Geriatric Medicine
PROC: 5A1945Z Respiratory Ventilation, 24-96 Consecutive Hours (ICD-10-PCS; principal; 2018-08-26)
PROC: 0BH17EZ Insertion of Endotracheal Airway into Trachea, Via Natural or Artificial Opening (ICD-10-PCS; 2018-08-26)
DX: T42.4X2A Poisoning by benzodiazepines, intentional self-harm, initial encounter (principal); J69.0 Pneumonitis due to inhalation of food and vomit; J96.00 Acute respiratory failure, unspecified whether with hypoxia or hypercapnia; E87.4 Mixed disorder of acid-base balance; E72.12 Methylenetetrahydrofolate reductase deficiency; F13.239 Sedative, hypnotic or anxiolytic dependence with withdrawal, unspecified; F33.2 Major depressive disorder, recurrent severe without psychotic features; F41.1 Generalized anxiety disorder; R13.10 Dysphagia, unspecified; Z79.899 Other long term (current) drug therapy; Z91.5 Personal history of self-harm; Z90.49 Acquired absence of other specified parts of digestive tract; Z91.010 Allergy to peanuts; R73.9 Hyperglycemia, unspecified; M19.90 Unspecified osteoarthritis, unspecified site; Z83.2 Family history of diseases of the blood and blood-forming organs and certain disorders involving the immune mechanism; R51 Headache
CPT/HCPCS: 31500; 36415; 36600; 70450; 71045; 80048; 80053; 80175; 80306; 80320; 80329; 81001; 81003; 81025; 82805; 83520; 83605; 83735; 84100; 84132; 84450; 84460; 85025; 85027; 87040; 87070; 87077; 87086; 87186; 87205; 93005; 94002; 94003; 95816; 96360; 99285

== ENCOUNTER 2018-08-30 16:29 | Inpatient (IN) | payer BC, MEDICARE ==
[2018-08-30] MEDS ORDERED: LORazepam 1 MG TAB PO PRN (17:19)
[2018-08-30] MEDS ORDERED: ACETAMINOPHEN TAB 325 MG TAB PO PRN (17:19)
[2018-08-30] MEDS ORDERED: MAG HYDROX/AL HYDROX/SIMETH 30 ML CUP PO PRN (17:19)
[2018-08-30] MEDS ORDERED: MAGNESIUM HYDROXIDE 2,400 MG/10 ML CUP PO PRN (17:19)
[2018-08-30] MEDS: TRIHEXYPHENIDYL 2 MG TAB PO SCH (22:14)
[2018-08-31] MEDS: lamoTRIgine 25 MG TAB PO SCH (08:35)
[2018-08-31] MEDS: PANTOPRAZOLE 40 MG TABLET PO SCH (08:35)
[2018-08-31] MEDS: DULoxetine HCL 60 MG CAPSULE.DR PO SCH (08:35)
[2018-08-31] MEDS: TRIHEXYPHENIDYL 2 MG TAB PO SCH ×2 (08:35→21:43)
[2018-08-31] MEDS: LEVOFLOXACIN 500 MG TAB PO SCH (08:35)
[2018-08-31] MEDS: CYPROHEPTADINE 4 MG TABLET PO SCH ×2 (08:35→21:55)
[2018-08-31] MEDS ORDERED: CYPROHEPTADINE 4 MG TABLET PO SCH (09:00)
--- NOTE | 2018-08-31 09:19 | P.HP ---
Psychiatric H&P - . H&P Date: 08/31/18 History & Physical: Allergies Allergy/AdvReac Type Severity Reaction Status Date / Time peanut AdvReac Nausea Verified 08/30/18 19:16 Vital Signs Temp 98.7 F 08/31/18 07:05 Pulse 93 08/31/18 07:05 Resp 16 08/31/18 07:05 BP 159/74 08/31/18 07:05 Pulse Ox 92 L 08/31/18 07:05 Intake & Output 08/30/18 08/31/18 08/31/18 18:59 06:59 18:59 Weight 54.6 kg Assessment and Plan (1) Neurocognitive disorder Narrative/Plan: This is a 68-year-old female who is brought in by EMS after having impulsively overdosed. EMS was called because the patient was unresponsive and the told them that the patient look like she took all of weeks worth of her medications but there was no exact amount of how many pills she took. Patient is on Lamictal Xanax and doxepin Cymbalta, cyproheptadine, trihexyphenidyl. She cannot explain why she took the medications but found him in the tool box for the to hide them. - Related Data Home Medications Medication Instructions Recorded Confirmed DULoxetine HCL [Cymbalta] 60 mg PO DAILY 02/17/18 08/26/18 ALPRAZolam [Xanax XR] 1 mg PO BID 08/26/18 08/26/18 ALPRAZolam [Xanax] 0.25 mg PO TID 08/26/18 08/26/18 Cyproheptadine [Cyproheptadine HCl] 8 mg PO DAILY 08/26/18 08/26/18 Doxepin [SINEquan] 10 mg PO DAILY 08/26/18 08/26/18 Trihexyphenidyl [Artane] 2 mg PO BID 08/26/18 08/26/18 lamoTRIgine [LaMICtal] 75 mg PO DAILY 08/26/18 08/26/18 Allergies Allergy/AdvReac Type Severity Reaction Status Date / Time peanut AdvReac Nausea Verified 08/19/18 09:01 Past Medical History Past Medical History: Osteoarthritis (OA) Additional Past Medical History / Comment(s): Occasional migraines, wears contact and readers, heart murmur as child, achilles tendon repair, 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 History of Any Multi-Drug Resistant Organisms: None Reported Past Surgical History: Appendectomy, Hernia Repair Additional Past Surgical History / Comment(s): Left Achilles Tendon surgery Past Anesthesia/Blood Transfusion Reactions: No Reported Reaction Past Psychological History: Anxiety, Depression Smoking Status: Never smoker - Past Family History Father History Unknown: Yes Family Medical History: No Reported History Mother History Unknown: Yes Family Medical History: No Reported History Brother(s) Family Medical History: No Reported History Sister(s) History Unknown: Yes Family Medical History: No Reported History Daughter(s) History Unknown: Yes Past Psychiatric History: Patient has been treated for at least 15 years. She has not been in psychiatric hospital over the last 2 years. Past Medical/Surgical History: Patient states that she has no medical problems and is status post hernia repair. Patient states that she does have migraine headaches and uses Imitrex on an as-needed basis. Family History: Patient reports no psychiatric history in her family, although priorly she has stated that her mother and father both were diagnosed with depression and anxiety. Patient states that her brothers use alcohol and drugs. Social History: Patient was born and raised in [place] and both of her parents are . She has been for 34 years and has a 30-year-old daughter. She reports that she has 5 siblings all of whom are alive. 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 She worked at the [employer] for 34 years retiring in August 2016. She currently lives with her and denies any history of abuse. Substance Use History: Patient denies any drug history currently or in the past and states she only uses alcohol on an infrequent basis. Patient has does not use tobacco products. Legal History: Patient denies any legal history. Mental Status Examination - this is a 68-year-old female who l ooks older than his stated age and impulsively took medications that were hidden in the tool box so that she would not take too many. Her stated that he'll probably keep the medicines in a safe from now on because she is not to be trusted with medications on her own. She takes her medications on a 7 day period from With that dispenser box. She is unable to explain why she took the medications since she is not suicidal or homicidal nature but was hunting for medications and impulsively took them. This may be the fact of wanting more Xanax. She is not a reliable historian. Much of the information was gathered from her who is by her bedside. General Appearance: [ disheveled, bizarre, appears older than stated age Speech/Language: [ slow, rapid, slurred, mumbling,halting, monotone soft Attitude/Behavior: [cooperative withdrawn Mood: [ depressed, anxious, fearful] Affect: [ flat, incongruent, blunted constricted Orientation: [time, person, place situation] Thought Content: [wnl, denies delusions, obsessions, phobias, other] Risk Factors: [Denies suicidal (ideations, plan), and/or Homicidal (ideations, plan), other] Perception: [wnl, denies hallucinations (auditory, visual, tactile), other] Thought Processes: [ concrete, circumstantial, tangential] Concentration/Attention Span: [impaired] [Per observation and interview with the patient] Recent Memory: [ impaired] [0 out of 3 in 3 minutes] Remote Memory: [wnl,] [past events, as related history] Intelligence: [ average] [based on history, based on vocabulary, syntax, grammar, and content] Judgement: [Fair] [per patient's behavior/history of present illness] Insight: [Fair] [understanding severity of illness/history of present illness] Psychiatric impression: Schizoaffective disorder with bipolar type with probable underlying neurocognitive disorder. Psychiatric recommendation: If there is an underlying neurocognitive disorder which I think there may be but it needs to be proven by outpatient n europsychological testing and MRI would facilitate whether this woman needs supervised living with monitor on her medications. She probably do well in the partial hospitalization program but due to her mental status today as not being exactly coherent will further evaluate either Friday or Friday for whether she needs inpatient versus outpatient treatment. Additionally might be torres to restart her Lamictal which would help her with any withdrawal from benzodiazepine or withdrawal from mood stabilizers used for originally for epilepsy may cause rebound withdrawal. I did review the CT of the brain which shows right temporoparietal atrophy and frontal lobe atrophy as well. The ventricles are somewhat enlarged to the loss of cortical matter which would further indicate neurocognitive disorder that is mentioned above she needs neuropsych testing outpatient basis this is not an inpatient needed this time. This type of impulsive behaviors seen in neurocognitive disorder mild to moderate degree where they forget or impulsively do acts such as witnessed here Patient Strengths - Steady employment/financial stability: [x] Housing stability: [x] Patient Limitations: [medication, non-compliance intellectual impairment, complicated medical illness Initial Plan of Care: [Plan is to admit on a voluntary basis for stabilization medications at [address] [facility]. She will be continued be evaluated by medicine, psychiatry, nursing staff, social services aide and occupational therapy. A thorough by bio psychosocial history has been completed. She she'll be restarted on her medications and be expected to go to groups and be involved in a positive manner and the [facility] therapeutic environment.] Estimated Length of Stay: [3 days] Initial Discharge Plan: [home referred to therapist, consider partial hospitalization and guardian and/or environment where she is monitored on her medication more closely which may include AF group Prognosis: [ guarded] Justification for Inpatient Hospitalization - [Hallucinations, delusions, agitation, anxiety, depression resulting in significant loss of functioning.] [Dangerous to self, others, or property with need for controlled environment.] [Emotional or behavioral conditions and complications requiring 24 hour medical and nursing care.] [Need for special drug therapy, or other therapeutic program requiring continuous hospitalization.] [Failure of social or occupational functioning.] [Inability to meet basic life and health needs.] Current Visit: Yes Status: Acute Priority: Medium Code(s): R41.9 - UNSP SYMPTOMS AND SIGNS W COGNITIVE FUNCTIONS AND AWARENESS SNOMED Code(s): 254181040 (2) Major depressive disorder, recurrent severe without psychotic features Current Visit: No Status: Acute Priority: Medium Code(s): F33.2 - MAJOR DEPRESSV DISORDER, RECURRENT SEVERE W/O PSYCH FEATURES SNOMED Code(s): 364 45839 Time with Patient: Less than 30
--- NOTE | 2018-08-31 13:01 | P.MDCNMH ---
History of Present Illness H&P Date: 08/31/18 Chief Complaint: Depression This is a 68-year-old female patient of Dr. Langston with past medical history of osteoarthritis, migraines, recurrent depression, generalized anxiety disorder. Patient was hospitalized on August 26 after being found unresponsive from an intentional overdose. Patient was found by her and she was thought to have taken Lamictal, Xanax, doxepin, Cymbalta and Artane. Patient initially required intubation and mechanical ventilation for airway management but was stabilized medically and transferred to the mental health unit. Patient states that she was very stressed and that's why she took the overdose of medication. She denies any medical concerns at this time. Patient is seen on the mental health unit. Review of Systems All systems: negative Constitutional: Denies chills, Denies fatigue, Denies fever Eyes: denies blurred vision, denies pain Ears, nose, mouth and throat: Denies dental pain, Denies dysphagia, Denies headache, Denies nasal congestion, Denies nasal discharge, Denies sore throat, Denies vertigo Cardiovascular: Denies chest pain, Denies decreased exercise tolerance, Denies dyspnea on exertion, Denies edema, Denies leg edema, Denies lightheadedness, Denies orthopnea, Denies shortness of breath, Denies syncope Respiratory: Denies cough, Denies cough with sputum, Denies dyspnea, Denies excessive sputum, Denies hemoptysis, Denies home oxygen, Denies wheezing Gastrointestinal: Denies abdominal pain, Denies diarrhea, Denies melena, Denies nausea, Denies vomiting Genitourinary: Denies dysuria, Denies hematuria, Denies urgency, Denies urinary frequency Musculoskeletal: Reports gait dysfunction, Reports muscle weakness, Denies myalgias Integumentary: Denies pruritus, Denies rash, Denies wounds Neurological: Reports gait dysfunction, Denies aphasia, Denies change in mentation, Denies change in speech, Denies numbness, Denies seizures, Denies weakness Psychiatric: Reports anxiety, Reports anxiety attacks, Reports depression Endocrine: Denies fatigue, Denies weight change Past Medical History Past Medical History: Osteoarthritis (OA) Additional Past Medical History / Comment(s): Occasional migraines, wears contact and readers, heart murmur as child, achilles tendon repair, 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 History of Any Multi-Drug Resistant Organisms: None Reported Past Surgical History: Appendectomy, Hernia Repair Additional Past Surgical History / Comment(s): Left Achilles Tendon surgery Past Anesthesia/Blood Transfusion Reactions: No Reported Reaction Smoking Status: Never smoker Additional Past Alcohol Use History / Comment(s): Patient lives at home with her Leif. - Past Family History Father History Unknown: Yes Family Medical History: No Reported History Additional Family Medical History / Comment(s): Father in his late 70s the patient does not know cause of nor any medical problems. Mother History Unknown: Yes Family Medical History: No Reported History Additional Family Medical History / Comment(s): Mother in her 80s and suffered from anxiety. Brother(s) Family Medical History: No Reported History Additional Family Medical History / Comment(s): Patient has 2 brothers and 4 sisters with no major medical problems that she is aware of. Patient has one daughter with no major medical problems. Sister(s) History Unknown: Yes Family Medical History: No Reported History Daughter(s) History Unknown: Yes Medications and Allergies Home Medications Medication Instructions Recorded Confirmed Type DULoxetine HCL [Cymbalta] 60 mg PO DAILY 02/17/18 08/30/18 History ALPRAZolam [Xanax XR] 1 mg PO BID 08/26/18 08/30/18 History ALPRAZolam [Xanax] 0.25 mg PO TID 08/26/18 08/30/18 History Cyproheptadine [Cyproheptadine HCl] 8 mg PO DAILY 08/26/18 08/30/18 History Doxepin [SINEquan] 10 mg PO DAILY 08/26/18 08/30/18 History Trihexyphenidyl [Artane] 2 mg PO BID 08/26/18 08/30/18 History lamoTRIgine [LaMICtal] 75 mg PO DAILY 08/26/18 08/30/18 History Allergies Allergy/AdvReac Type Severity Reaction Status Date / Time peanut AdvReac Nausea Verified 08/30/18 19:16 Physical Exam Vitals: Vital Signs Temp Pulse Resp BP Pulse Ox 08/31/18 07:05 98.7 F 93 16 159/74 92 L 08/30/18 18:36 97.8 F 94 16 151/80 94 L Intake and Output 08/30/18 08/31/18 08/31/18 22:59 06:59 14:59 Other: Weight 54.6 kg Gen: This is a thin 68-year-old female. Patient is known to be walking hanging onto a wheelchair for balance. HEENT: Head is atraumatic, normocephalic. Pupils equal, round. Sclerae is anicteric. NECK: Supple. No JVD. No lymphadenopathy. No thyromegaly. LUNGS: Clear to auscultation. No wheezes or rhonchi. No intercostal retractions. HEART: Regular rate and rhythm. No murmur. ABDOMEN: Soft. Bowel sounds are present. No masses. No tenderness. EXTREMITIES: No pedal edema. No calf tenderness. NEUROLOGICAL: Patient is awake, alert and oriented x3. Cranial nerves 2 through 12 are grossly intact. Generalized weakness noted. Cranial Nerve Examination - Cranial Nerves Cranial Nerve II- Optic: Intact Cranial Nerve III- Oculomotor: Intact Cranial Nerve IV- Trochlear: Intact Cranial Nerve V- Trigeminal: Intact Cranial Nerve - Abducens: Intact Cranial Nerve VII- Facial: Intact Cranial Nerve VIII- Auditory: Intact Cranial Nerve IX- Glossopharyngeal: Intact Cranial Nerve X- Vagus: Intact Cranial Nerve XI- Accessory: Intact Cranial Nerve XII- Hypoglossal: Intact Assessment and Plan Plan: 1. Recurrent depression and generalized anxiety disorder. Patient admitted to the mental health unit. Continue current plan per psychiatry. 2. Recent drug overdose was suspected suicide attempt. Continue as in #1. 3. Status post intubation and mechanical ventilation due to mental status changes and inability to protect airway. Stable. 4. History of migraine headaches. 5. History of MTHFR mutation. Discharge plan: Patient to follow-up with Dr. Langston following discharge from the mental health unit Impression and plan of care have been directed as dictated by the signing physician. Myrna Caceres nurse practitioner acting as scribe for signing physician.
[2018-08-31] MEDS ORDERED: HALOPERIDOL LACTATE 5 MG/ML 1 ML VIAL IM STA (18:55)
[2018-08-31] MEDS: risperiDONE 0.25 MG TAB PO SCH (21:43)
[2018-09-01] MEDS: PANTOPRAZOLE 40 MG TABLET PO SCH (08:59)
[2018-09-01] MEDS: CYPROHEPTADINE 4 MG TABLET PO SCH ×2 (08:59→20:14)
[2018-09-01] MEDS: risperiDONE 0.25 MG TAB PO SCH (09:00)
[2018-09-01] MEDS: DULoxetine HCL 60 MG CAPSULE.DR PO SCH (09:00)
[2018-09-01] MEDS: TRIHEXYPHENIDYL 2 MG TAB PO SCH ×2 (09:00→20:15)
[2018-09-01] MEDS: LEVOFLOXACIN 500 MG TAB PO SCH (09:00)
[2018-09-01] MEDS: lamoTRIgine 25 MG TAB PO SCH (09:01)
--- NOTE | 2018-09-01 11:26 | P.PN ---
Subjective Progress Note Date: 09/01/18 Principal diagnosis: Schizoaffective disorder with bipolar type with probable underlying neurocognitive disorder. 09/01/2018: Chart reviewed, discussed with nursing staff last night behavior and needing haloperidol and discussed in team today regarding obtaining legal guardianship and possible evaluation at [facility] for neurocognitive disorder and recommendations. Patient interviewed and she stated last night was bad because she felt people were breaking into the unit and she started screaming and very delusional. Today she is up walking well without a wheelchair and states that she sees cockroaches once well. Her mental status examination still reveals that she is not oriented to place or time and has no comprehension of why she would overdose. Objective - Vital Signs Vital signs: Vital Signs Temp 98.7 F 08/31/18 07:05 Pulse 93 08/31/18 07:05 Resp 16 08/31/18 07:05 BP 159/74 08/31/18 07:05 Pulse Ox 92 L 08/31/18 07:05 Intake & Output 08/31/18 09/01/18 09/01/18 18:59 06:59 18:59 Weight 54.6 kg Assessment and Plan (1) Neurocognitive disorder Narrative/Plan: This is a 68-year-old female who is brought in by EMS after having impulsively overdosed. EMS was called because the patient was unresponsive and the told them that the patient look like she took all of weeks worth of her medications but there was no exact amount of how many pills she took. Patient is on Lamictal Xanax and doxepin Cymbalta, cyproheptadine, trihexyphenidyl. She cannot explain why she took the medications but found him in the tool box for the to hide them. - Mental Status Examination - this is a 68-year-old female who looks older than his stated age and impulsively took medications that were hidden in the tool box so that she would not take too many. Her stated that he'll probably keep the medicines in a safe from now on because she is not to be trusted with medications on her own. She takes her medications on a 7 day period from With that dispenser box. She is unable to explain why she took the medications since she is not suicidal or homicidal nature but was hunting for medications and impulsively took them. This may be the fact of wanting more Xanax. She is not a reliable historian. Much of the information was gathered from her who is by her bedside. General Appearance: [ disheveled, bizarre, appears older than stated age Speech/Language: [ slow, rapid, slurred, mumbling,halting, monotone soft Attitude/Behavior: [cooperative withdrawn Mood: [ depressed, anxious, fearful] Affect: [ flat, incongruent, blunted constricted Orientation: [time, person, place situation] Thought Content: [wnl, denies delusions, obsessions, phobias, other] Risk Factors: [Denies suicidal (ideations, plan), and/or Homicidal (ideations, plan), other] Perception: [wnl, denies hallucinations (auditory, visual, tactile), other] Thought Processes: [ concrete, circumstantial, tangential] Concentration/Attention Span: [impaired] [Per observation and interview with the patient] Recent Memory: [ impaired] [0 out of 3 in 3 minutes] Remote Memory: [wnl,] [past events, as related history] Intelligence: [ average] [based on history, based on vocabulary, syntax, grammar, and content] Judgement: [Fair] [per patient's behavior/history of present illness] Insight: [Fair] [understanding severity of illness/history of present illness] Psychiatric impression: Schizoaffective disorder with bipolar type with probable underlying neurocognitive disorder. Psychiatric recommendation: If there is an underlying neurocognitive disorder which I think there may be but it needs to be proven by outpatient neuropsychological testing and MRI would facilitate whether this woman needs supervised living with monitor on her medications. She probably do well in the partial hospitalization program but due to her mental status today as not being exactly coherent will further evaluate either Friday or Friday for whether she needs inpatient versus outpatient treatment. Additionally might be torres to r estart her Lamictal which would help her with any withdrawal from benzodiazepine or withdrawal from mood stabilizers used for originally for epilepsy may cause rebound withdrawal. I did review the CT of the brain which shows right temporoparietal atrophy and frontal lobe atrophy as well. The ventricles are somewhat enlarged to the loss of cortical matter which would further indicate neurocognitive disorder that is mentioned above she needs neuropsych testing outpatient basis this is not an inpatient needed this time. This type of impulsive behaviors seen in neurocognitive disorder mild to moderate degree where they forget or impulsively do acts such as witnessed here Patient Limitations: [medication, non-compliance intellectual impairment, complicated medical illness Initial Plan of Care: [Plan is to admit on a voluntary basis for stabilization medications at [address] [facility]. She will be continued be evaluated by medicine, psychiatry, nursing staff, community mental health social worker and occupational therapy. A thorough by bio psychosocial history has been completed. She she'll be restarted on her medications and be expected to go to groups and be involved in a positive manner and the [facility] therapeutic environment. 09/01/2018: After interviewing patient discussing her psychotic behavior last night decided to increase her Risperdal 1 mg by mouth twice a day. Increase her Lamictal 100 mg twice a day and had Namenda 5 mg by mouth twice a day for agitation and neurocognitive disorder. is applying for guardianship. Patient needs to be seen at the [facility] outpatient clinic for a neuropsych evaluation for neurocognitive disorder and recommendations on outpatient treatment.] Current Visit: Yes Status: Acute Priority: Medium Code(s): R41.9 - UNSP SYMPTOMS AND SIGNS W COGNITIVE FUNCTIONS AND AWARENESS SNOMED Code(s): 371188564 (2) Major depressive disorder, recurrent severe without psychotic features Current Visit: No Status: Acute Priority: Medium Code(s): F33.2 - MAJOR DEPRESSV DISORDER, RECURRENT SEVERE W/O PSYCH FEATURES SNOMED Code(s): 71517115
[2018-09-01] MEDS: lamoTRIgine 100 MG TAB PO SCH (20:14)
[2018-09-01] MEDS: risperiDONE 1 MG TAB PO SCH (20:15)
[2018-09-01] MEDS: MEMANTINE 5 MG TAB PO SCH (20:17)
[2018-09-02] MEDS: LEVOFLOXACIN 500 MG TAB PO SCH (08:38)
[2018-09-02] MEDS: lamoTRIgine 100 MG TAB PO SCH ×2 (08:38→21:20)
[2018-09-02] MEDS: risperiDONE 1 MG TAB PO SCH (08:38)
[2018-09-02] MEDS: DULoxetine HCL 60 MG CAPSULE.DR PO SCH (08:38)
[2018-09-02] MEDS: MEMANTINE 5 MG TAB PO SCH ×2 (08:38→21:21)
[2018-09-02] MEDS: PANTOPRAZOLE 40 MG TABLET PO SCH (08:39)
[2018-09-02] MEDS: TRIHEXYPHENIDYL 2 MG TAB PO SCH ×2 (08:39→21:21)
[2018-09-02] MEDS: CYPROHEPTADINE 4 MG TABLET PO SCH ×2 (08:39→21:21)
--- NOTE | 2018-09-02 12:06 | P.PN ---
Subjective Progress Note Date: 09/02/18 Principal diagnosis: Schizoaffective disorder with bipolar type with probable underlying neurocognitive disorder. 09/01/2018: Chart reviewed, discussed with nursing staff last night behavior and needing haloperidol and discussed in team today regarding obtaining legal guardianship and possible evaluation at [facility] for neurocognitive disorder and recommendations. Patient interviewed and she stated last night was bad because she felt people were breaking into the unit and she started screaming and very delusional. Today she is up walking well without a wheelchair and states that she sees cockroaches once well. Her mental status examination still reveals that she is not oriented to place or time and has no comprehension of why she would overdose. 09/02/2018: Chart reviewed and discussed with nursing staff and she did not have any psychotic behavior last night. Discussion today in team regarding her having her obtaining legal guardianship. Discussed in team regarding that the patient needs an outpatient appointment at the [facility] emphasizes comprehensive neuropsychological and psychological assessment for outpatients and inpatients across a wide age range. Common referrals include: academic concerns related to potential learning disabilities or ADHD, cognitive disorders related to neurological illness or general medical conditions, dementia evaluations, and cognitive manifestations of psychiatric disorders. For more information, refer to the clinic website: [email or web address] Next available routine appointment. Evaluations range from 2-8 hours in length depending on the referral question and patient history. 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 Clinic Contact Information Clinic Location Sites Neuropsychology Clinic at [facility] Objective - Vital Signs Vital signs: Vital Signs Temp 100.1 F H 09/02/18 06:38 Pulse 105 H 09/02/18 06:38 Resp 12 09/02/18 06:38 BP 118/54 09/02/18 06:38 Pulse Ox 92 L 08/31/18 07:05 Assessment and Plan (1) Neurocognitive disorder Narrative/Plan: This is a 68-year-old female who is brought in by EMS after having impulsively overdosed. EMS was called because the patient was unresponsive and the told them that the patient look like she took all of weeks worth of her medications but there was no exact amount of how many pills she took. Patient is on Lamictal Xanax and doxepin Cymbalta, cyproheptadine, trihexyphenidyl. She cannot explain why she took the medications but found him in the tool box for the to hide them. - Mental Status Examination - this is a 68-year-old female who looks older than his stated age and impulsively took medications that were hidden in the tool box so that she would not take too many. Her stated that he'll probably keep the medicines in a safe from now on because she is not to be trusted with medications on her own. She takes her medications on a 7 day period from With that dispenser box. She is unable to explain why she took the medications since she is not suicidal or homicidal nature but was hunting for medications and impulsively took them. This may be the fact of wanting more Xanax. She is not a reliable historian. Much of the information was gathered from her who is by her bedside. General Appearance: [ disheveled, bizarre, appears older than stated age Speech/Language: [ slow, rapid, slurred, mumbling,halting, monotone soft Attitude/Behavior: [cooperative withdrawn Mood: [ depressed, anxious, fearful] Affect: [ flat, incongruent, blunted constricted Orientation: [time, person, place situation] Thought Content: [wnl, denies delusions, obsessions, phobias, other] Risk Factors: [Denies suicidal (ideations, plan), and/or Homicidal (ideations, plan), other] Perception: [wnl, denies hallucinations (auditory, visual, tactile), other] Thought Processes: [ concrete, circumstantial, tangential] Concentration/Attention Span: [impaired] [Per observation and interview with the patient] Recent Memory: [ impaired] [0 out of 3 in 3 minutes] Remote Memory: [wnl,] [past events, as related history] Intelligence: [ average] [based on history, based on vocabulary, syntax, grammar, and content] Judgement: [Fair] [per patient's behavior/history of present illness] Insight: [Fair] [understanding severity of illness/history of present illness] Psychiatric impression: Schizoaffective disorder with bipolar type with probable underlying neurocognitive disorder. Psychiatric recommendation: If there is an underlying neurocognitive disorder which I think there may be but it needs to be proven by outpatient neuropsychological testing and MRI would facilitate whether this woman needs supervised living with monitor on her medications. She probably do well in the partial hospitalization program but due to her mental status today as not being exactly coherent will further evaluate either Friday or Friday for whether she needs inpatient versus outpatient treatment. Additionally might be torres to restart her Lamictal which would help her with any withdrawal from benzodiazepine or withdrawal from mood stabilizers used for originally for epilepsy may cause rebound withdrawal. I did review the CT of the brain which shows right temporoparietal atrophy and frontal lobe atrophy as well. The ventricles are somewhat enlarged to the loss of cortical matter which would further indicate neurocognitive disorder that is mentioned above she needs neuropsych testing outpatient basis this is not an inpatient needed this time. This type of impulsive behaviors seen in neurocognitive disorder mild to moderate degree where they forget or impulsively do acts such as witnessed here Patient Limitations: [medication, non-compliance intellectual impairment, complicated medical illness Initial Plan of Care: [Plan is to admit on a voluntary basis for stabilization medications at 3 . [facility]. She will be continued be evaluated by medicine, psychiatry, nursing staff, social work msw and occupational therapy. A thorough by bio psychosocial history has been completed. She she'll be restarted on her medications and be expected to go to groups and be involved in a positive manner and the [facility] therapeutic environment. 09/01/2018: After interviewing patient discussing her psychotic behavior last night decided to increase her Risperdal 1 mg by mouth twice a day. Increase her Lamictal 100 mg twice a day and had Namenda 5 mg by mouth twice a day for agitation and neurocognitive disorder. is applying for guardianship. Patient needs to be seen at the [facility] outpatient clinic for a neuropsych evaluation for neurocognitive disorder and recommendations on outpatient treatment. 09/02/2018: After interviewing patient discussing her psychotic behavior last night which has resolved she still has delusions that there is a group that existed at 1 AM and she enjoyed being part of the group. Of course all this is delusional psychotic. I've included in the subjective heard the referral mechanism for neuropsychological clinic at [facility]. Will increase her Risperdal 2 mg twice a day. Namenda 5 mg twice a day for neurocognitive disorder remains. Family meeting today at 2:30] Current Visit: Yes Status: Acute Priority: Medium Code(s): R41.9 - UNSP SYMPTOMS AND SIGNS W COGNITIVE FUNCTIONS AND AWARENESS SNOMED Code(s): 694183155 (2) Major depressive disorder, recurrent severe without psychotic features Current Visit: No Status: Acute Priority: Medium Code(s): F33.2 - MAJOR DEPRESSV DISORDER, RECURRENT SEVERE W/O PSYCH FEATURES SNOMED Code(s): 37229736 Time with Patient: Less than 30
[2018-09-02] MEDS: risperiDONE 2 MG TAB PO SCH (21:20)
[2018-09-03 06:45] VITALS: BP 132/63; PULSE 109; RESP 14; TEMP 98.5
[2018-09-03] MEDS: CYPROHEPTADINE 4 MG TABLET PO SCH (09:12)
[2018-09-03] MEDS: MEMANTINE 5 MG TAB PO SCH (09:12)
[2018-09-03] MEDS: risperiDONE 2 MG TAB PO SCH (09:12)
[2018-09-03] MEDS: DULoxetine HCL 60 MG CAPSULE.DR PO SCH (09:12)
[2018-09-03] MEDS: LEVOFLOXACIN 500 MG TAB PO SCH (09:12)
[2018-09-03] MEDS: lamoTRIgine 100 MG TAB PO SCH (09:12)
[2018-09-03] MEDS: PANTOPRAZOLE 40 MG TABLET PO SCH (09:12)
[2018-09-03] MEDS: TRIHEXYPHENIDYL 2 MG TAB PO SCH (09:13)
--- NOTE | 2018-09-03 10:22 | P.DS ---
Providers Date of admission: 08/30/18 17:15 Expected date of discharge: 09/03/18 Attending physician: Ward Taylor DO Consults: 08/30/18 17:19 Consult Physician Routine Consulting Provider: Pino Carilsle Reason/Comments: H&P, with medical follow up Do you want consulting provider notified?: Yes, Notify in am Primary care physician: Luiza Kian - Discharge Diagnosis(es) (1) Neurocognitive disorder Allergies Allergy/AdvReac Type Severity Reaction Status Date / Time peanut AdvReac Nausea Verified 08/30/18 19:16 Vital Signs Temp 98.7 F 08/31/18 07:05 Pulse 93 08/31/18 07:05 Resp 16 08/31/18 07:05 BP 159/74 08/31/18 07:05 Pulse Ox 92 L 08/31/18 07:05 Intake & Output 08/30/18 08/31/18 08/31/18 18:59 06:59 18:59 Weight 54.6 kg Assessment and Plan (1) Neurocognitive disorder Narrative/Plan: This is a 68-year-old female who is brought in by EMS after having impulsively overdosed. EMS was called because the patient was unresponsive and the told them that the patient look like she took all of weeks worth of her medications but there was no exact amount of how many pills she took. Patient is on Lamictal Xanax and doxepin Cymbalta, cyproheptadine, trihexyphenidyl. She cannot explain why she took the medications but found him in the tool box for the to hide them. - Related Data Home Medications Medication Instructions Recorded Confirmed DULoxetine HCL [Cymbalta] 60 mg PO DAILY 02/17/18 08/26/18 ALPRAZolam [Xanax XR] 1 mg PO BID 08/26/18 08/26/18 ALPRAZolam [Xanax] 0.25 mg PO TID 08/26/18 08/26/18 Cyproheptadine [Cyproheptadine HCl] 8 mg PO DAILY 08/26/18 08/26/18 Doxepin [SINEquan] 10 mg PO DAILY 08/26/18 08/26/18 Trihexyphenidyl [Artane] 2 mg PO BID 08/26/18 08/26/18 lamoTRIgine [LaMICtal] 75 mg PO DAILY 08/26/18 08/26/18 Allergies Allergy/AdvReac Type Severity Reaction Status Date / Time peanut AdvReac Nausea Verified 08/19/18 09:01 Past Medical History Past Medical History: Osteoarthritis (OA) Additional Past Medical History / Comment(s): Occasional migraines, wears contact and readers, heart murmur as child, achilles tendon repair, 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 History of Any Multi-Drug Resistant Organisms: None Reported Past Surgical History: Appendectomy, Hernia Repair Additional Past Surgical History / Comment(s): Left Achilles Tendon surgery Past Anesthesia/Blood Transfusion Reactions: No Reported Reaction Past Psychological History: Anxiety, Depression Smoking Status: Never smoker - Past Family History Father History Unknown: Yes Family Medical History: No Reported History Mother History Unknown: Yes Family Medical History: No Reported History Brother(s) Family Medical History: No Reported History Sister(s) History Unknown: Yes Family Medical History: No Reported History Daughter(s) History Unknown: Yes Past Psychiatric History: Patient has been treated for at least 15 years. She has not been in psychiatric hospital over the last 2 years. Past Medical/Surgical History: Patient states that she has no medical problems and is status post hernia repair. Patient states that she does have migraine headaches and uses Imitrex on an as-needed basis. Family History: Patient reports no psychiatric history in her family, although priorly she has stated that her mother and father both were diagnosed with depression and anxiety. Patient states that her brothers use alcohol and drugs. Social History: Patient was born and raised in [place] and both of her parents are . She has been for 34 years and has a 30-year-old daughter. She reports that she has 5 siblings all of whom are alive. 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 She worked at the [employer] for 34 years retiring in August 2016. She currently lives with her and denies any history of abuse. Substance Use History: Patient denies any drug history currently or in the past and states she only uses alcohol on an infrequent basis. Patient has does not use tobacco products. Legal History: Patient denies any legal history. Mental Status Examination - this is a 68-year-old female who looks older than his stated age and impulsively took medications that were hidden in the tool box so that she would not take too many. Her stated that he'll probably keep the medicines in a safe from now on because she is not to be trusted with medications on her own. She takes her medications on a 7 day period from With that dispenser box. She is unable to explain why she took the medications since she is not suicidal or homicidal nature but was hunting for medications and impulsively took them. This may be the fact of wanting more Xanax. She is not a reliable historian. Much of the information was gathered from her who is by her bedside. General Appearance: [ disheveled, bizarre, appears older than stated age Speech/Language: [ slow, rapid, slurred, mumbling,halting, monotone soft Attitude/Behavior: [cooperative withdrawn Mood: [ depressed, anxious, fearful] Affect: [ flat, incongruent, blunted constricted Orientation: [time, person, place situation] Thought Content: [wnl, denies delusions, obsessions, phobias, other] Risk Factors: [Denies suicidal (ideations, plan), and/or Homicidal (ideations, plan), other] Perception: [wnl, denies hallucinations (auditory, visual, tactile), other] Thought Processes: [ concrete, circumstantial, tangential] Concentration/Attention Span: [impaired] [Per observation and interview with the patient] Recent Memory: [ impaired] [0 out of 3 in 3 minutes] Remote Memory: [wnl,] [past events, as related history] Intelligence: [ average] [based on history, based on vocabulary, syntax, grammar, and content] Judgement: [Fair] [per patient's behavior/history of present illness] Insight: [Fair] [understanding severity of illness/history of present illness] Psychiatric impression: Schizoaffective disorder with bipolar type with probable underlying neurocognitive disorder. Current Visit: Yes Status: Acute Priority: Low (2) Major depressive disorder, recurrent severe without psychotic features Current Visit: No Status: Acute Priority: Low Hospital Course: Plan of Care: [Plan is to admit on a voluntary basis for stabilization medications at [address] [facility]. She will be continued be evaluated by medicine, psychiatry, nursing staff, web content & social media manager and occupational therapy. A thorough by bio psychosocial history has been completed. She she'll be restarted on her medications and be expected to go to groups and be involved in a positive manner and the [facility] therapeutic en vironment. 09/01/2018: After interviewing patient discussing her psychotic behavior last night decided to increase her Risperdal 1 mg by mouth twice a day. Increase her Lamictal 100 mg twice a day and had Namenda 5 mg by mouth twice a day for agitation and neurocognitive disorder. is applying for guardianship. Patient needs to be seen at the [facility] outpatient clinic for a neuropsych evaluation for neurocognitive disorder and recommendations on outpatient treatment. 09/02/2018: After interviewing patient discussing her psychotic behavior last night which has resolved she still has delusions that there is a group that existed at 1 AM and she enjoyed being part of the group. Of course all this is delusional psychotic. I've included in the subjective heard the referral mechanism for neuropsychological clinic at [facility]. Will increase her Risperdal 2 mg twice a day. Namenda 5 mg twice a day for neurocognitive disorder remains. Family meeting today at 2:30] Discussed in team regarding that the patient needs an outpatient appointment at the [facility] emphasizes comprehensive neuropsychological and psychological assessment for outpatients and inpatients across a wide age range. Common referrals include: academic concerns related to potential learning disabilities or ADHD, cognitive disorders related to neurological illness or general medical conditions, dementia evaluations, and cognitive manifestations of psychiatric disorders. For more information, refer to the clinic website: [email or web address] Next available routine appointment. Evaluations range from 2-8 hours in length depending on the referral question and patient history. Information needed to determine appointment type: Specific reason(s) for referral Significant medical and psychiatric diagnoses Any testing limitations (hearing, vision, motor, speech/language, magnetometer operator needed) Also include results of previous neuropsychological or school testing and relevant medical records How to Get Results to Harp Repairer [facility] Patients: Make sure all needed information is posted or scanned in to [facility] External Patients: Fax referral request form and supporting patient records. Clinic Contact Information Clinic Location Sites Neuropsychology Clinic at the [facility] Family meeting held w/ pt and from approximately 2:30-2:50 pm. Meeting went well, presented as very supportive of pt. Discussed triggers for this admission which included delusions, and overdose. Pt plans to cope by attending counseling and taking medications as directed. Discussed attending psychiatrist's recommendation of neuro psych evaluation at [facility], and passed along the information to pt's . Pt states she is ready to go home, and has no concerns r/t discharge. denies the presence of firearms in the home and states he has locked up all medications. will pick pt up tomorrow around 3 pm once he gets off work. Pt has insurance to pay for medications and aftercare, and will resume services w/ Dr. Iglesias and Annalisa Chapa. Pt denies s/h/i. Mental status examination time of discharge 09/03/2018 10:18 AM: The patient presents alert, pleasant, and cooperative. There calmly seated without any agitated behavior. [She] reports that [her] mood is good. Affect is congruent and euthymic. [She] deny having any suicidal or homicidal ideation intent or plan. [She] denies any auditory or visual hallucinations. There is no evidence of any delusional thought content. [Her] thought process is linear and goal-directed. [Her] speech is fluent and nonpressured. [Her] memory and concentration is grossly intact for the purposes of this session. Not having said all this on the mental status examination she still has neurocognitive areas this slow to respond to needs further evaluation on a comprehensive neuropsychological exam that would be. Performed a [facility]. The following medication list or indicative of the medications that are stopped including doxepin and Xanax should not be used in this woman at all. Her Lamictal has been increased 100 mg twice a day which decreased her anxiety and allowed her get a better quality of sleep. She did not need anything for sleep while she was in the hospital. Her average sleep time was 6 hours. Due to the underlying psychomotor agitation in this patient and hallucinations she was experiencing Namenda was added at 5 mg twice a day and risperidone 2 mg by mouth twice a day has really calmed this patient down from July where she is able to be interviewed and go to group. Lamictal blood level should be done an outpatient basis as well as Cymbalta. New lamoTRIgine [LaMICtal] 100 mg PO BID 30 Days #60 tab Levofloxacin [Levaquin] 500 mg PO DAILY 8 Days #8 tab Memantine [Namenda] 5 mg PO BID 30 Days #60 tab risperiDONE [RisperDAL] 2 mg PO BID 30 Days #60 tab Continue DULoxetine HCL [Cymbalta] 60 mg PO DAILY Trihexyphenidyl [Artane] 2 mg PO BID Cyproheptadine [Cyproheptadine HCl] 8 mg PO DAILY Discontinued Doxepin [SINEquan] 10 mg PO DAILY ALPRAZolam [Xanax XR] 1 mg PO BID lamoTRIgine [LaMICtal] 75 mg PO DAILY ALPRAZolam [Xanax] 0.25 mg PO TID Patient Condition at Discharge: Stable Plan - Discharge Summary Discharge Rx Participant: Yes New Discharge Prescriptions: New lamoTRIgine [LaMICtal] 100 mg PO BID 30 Days #60 tab Levofloxacin [Levaquin] 500 mg PO DAILY 8 Days #8 tab Memantine [Namenda] 5 mg PO BID 30 Days #60 tab risperiDONE [RisperDAL] 2 mg PO BID 30 Days #60 tab Continue DULoxetine HCL [Cymbalta] 60 mg PO DAILY Trihexyphenidyl [Artane] 2 mg PO BID Cyproheptadine [Cyproheptadine HCl] 8 mg PO DAILY Discontinued Doxepin [SINEquan] 10 mg PO DAILY ALPRAZolam [Xanax XR] 1 mg PO BID lamoTRIgine [LaMICtal] 75 mg PO DAILY ALPRAZolam [Xanax] 0.25 mg PO TID Discharge Medication List DULoxetine HCL [Cymbalta] 60 mg PO DAILY 02/17/18 [History] Cyproheptadine [Cyproheptadine HCl] 8 mg PO DAILY 08/26/18 [History] Trihexyphenidyl [Artane] 2 mg PO BID 08/26/18 [History] Levofloxacin [Levaquin] 500 mg PO DAILY 8 Days #8 tab 09/03/18 [Rx] Memantine [Namenda] 5 mg PO BID 30 Days #60 tab 09/03/18 [Rx] lamoTRIgine [LaMICtal] 100 mg PO BID 30 Days #60 tab 09/03/18 [Rx] risperiDONE [RisperDAL] 2 mg PO BID 30 Days #60 tab 09/03/18 [Rx] Follow up Appointment(s)/Referral(s): Luiza Langston MD [Primary Care Provider] - As Needed Patient Instructions/Handouts: Bipolar Disorder (DC), Suicide Prevention (DC) Activity/Diet/Wound Care/Special Instructions: Activity and diet as tolerated. Avoid the use of street drugs and alcohol. Take all medications as prescribed. When you are in need of refills on your medications please contact your medical provider and/or outpatient psychiatrist to have this done. Please go to scheduled outpatient appointment for aftercare treatment. If symptoms return or become worse, call the crisis line at and/or go to the nearest emergency room for an evaluation. Recommendations to follow up at [facility] with neurology. Discharge Disposition: HOME SELF-CARE
== END 2018-09-03 15:10 | disposition home or self-care (01) | DRG 57 ==
LOC: 3MHU 17:15
PROVIDERS: ADMIT Psychiatry & Neurology Psychiatry; ATTEND Psychiatry & Neurology Psychiatry
DX: G31.84 Mild cognitive impairment of uncertain or unknown etiology (principal); F33.2 Major depressive disorder, recurrent severe without psychotic features; F25.0 Schizoaffective disorder, bipolar type; F41.9 Anxiety disorder, unspecified; G40.909 Epilepsy, unspecified, not intractable, without status epilepticus; Z79.899 Other long term (current) drug therapy; Z91.19 Patient's noncompliance with other medical treatment and regimen

== ENCOUNTER → 2019-02-24 | Outpatient (CLI) | payer BC, MEDICARE ==
[~2019-02-24] MED LIST changes: +DENOSUMAB 60 MG/ML 1 ML SYRINGE SQ NR; -DENOSUMAB 60 MG/ML 1 ML SYRINGE SQ ONE
[2019-02-24 11:49] VITALS: BP 97/59; PULSE 71; RESP 16; TEMP 98.2
== END | disposition home or self-care (01) ==
LOC: PROCWHC3 11:23
PROVIDERS: ATTEND Family Medicine
DX: M81.0 Age-related osteoporosis without current pathological fracture (principal)
CPT/HCPCS: 96372; J0897

== ENCOUNTER → 2019-03-16 | Outpatient (CLI) | payer BC, MEDICARE ==
--- NOTE | 2019-03-17 11:26 | MM ---
Reason for exam: screening (asymptomatic). Last mammogram was performed 1 year and 4 months ago. History: Patient is postmenopausal, has history of other cancer at age 36, and had first child at age 36. Benign MG stereo VAD BX LT of the left breast, October 11, 2013. Benign MG stereo VAD BX RT of the right breast, October 11, 2013. Cancelled Left Mammotome of the left breast, May 12, 2013. Benign left mammotome panel of the left breast, October 02, 2012. Physical Findings: A clinical breast exam by your physician is recommended on an annual basis and results should be correlated with mammographic findings. MG 3D Screening Mammo W/Cad Bilateral CC and MLO view(s) were taken. XCCL view(s) were taken of the right breast. Prior study comparison: November 07, 2017, bilateral MG 3d screening mammo w/cad. September 25, 2016, bilateral MG 3d screening mammo w/cad. The breast tissue is heterogeneously dense. This may lower the sensitivity of mammography. No significant changes when compared with prior studies. ASSESSMENT: Benign, BI-RAD 2 RECOMMENDATION: Routine screening mammogram of both breasts in 1 year.
== END | disposition home or self-care (01) ==
LOC: RADMAMWWP 11:46
PROVIDERS: ATTEND Family Medicine
DX: Z12.31 Encounter for screening mammogram for malignant neoplasm of breast (principal)
CPT/HCPCS: 77063; 77067

== ENCOUNTER → 2020-01-25 | Outpatient (CLI) | payer BC, MEDICARE ==
[2020-01-25 12:30] LABS: Basophils % (A) 1 %; Eosinophils % (A) 1 %; HCT 39.6 % (34.0-46.0); HGB 13.2 gm/dL (11.4-16.0); Lymphocytes # (A) 1.6 k/uL (1.0-4.8); Lymphocytes % (A) 31 %; MCHC 33.3 g/dL (31.0-37.0); MCV 93.1 fL (80.0-100.0); Mean Platelet Volume 8.1; Monocytes # (A) 0.3 k/uL (0-1.0); Monocytes % (A) 5 %; Neutrophils # (A) 3.1 k/uL (1.3-7.7); Neutrophils % (A) 61 %; Platelet Count 219 k/uL (150-450); RBC 4.25 m/uL (3.80-5.40); RDW 12.4 % (11.5-15.5)
[2020-01-25 18:06] LABS: Gliadin AB IgA, Deaminated NEGATIVE (NEGATIVE); Gliadin AB IgA, Unit <0.2 U/mL; Gliadin AB IgG, Deaminated NEGATIVE (NEGATIVE)
[2020-01-25 20:05] LABS: African American GFR (CKD) 87.8 (60.0-200.0); Albumin 4.6 g/dL (3.80-4.90); Albumin/Globulin Ratio 3.83 (1.60-3.17); Alpha Fetoprotein, Tumor Mkr 7.8 ng/mL (0.0-7.9); Anion Gap 11.3 mmol/L (4.00-12.00); Calcium 9.9 mg/dL (8.7-10.3); Carbon Dioxide 24.7 mmol/L (21.6-31.8); Globulin 1.2 g/dL (1.6-3.3); Non-African American GFR(CKD) 75.8 (60.0-200.0); Potassium 4.6 mmol/L (3.5-5.5); Total Bilirubin 0.6 mg/dL (0.2-1.2); Total Protein 5.8 g/dL (6.2-8.2)
[2020-01-25 20:16] LABS: Carcinoembryonic Antigen 1.5 ng/mL (0.0-4.9)
[2020-01-25 20:34] LABS: Cancer Antigen 19-9 11.3 U/mL (0.0-34.9)
[2020-01-25 20:43] LABS: Cancer Antigen 125 8.1 U/mL (0.0-30.1)
== END | disposition home or self-care (01) ==
LOC: LABWHC1 11:21
PROVIDERS: ATTEND Family Medicine
DX: R19.02 Left upper quadrant abdominal swelling, mass and lump (principal); R10.9 Unspecified abdominal pain
CPT/HCPCS: 36415; 80053; 82105; 82378; 83013; 83516; 83690; 85025; 86301; 86304

== ENCOUNTER → 2020-02-04 | Outpatient (CLI) | payer BC, MEDICARE ==
--- NOTE | 2020-02-05 12:51 | CT ---
EXAMINATION TYPE: CT abdomen pelvis w con DATE OF EXAM: 02/04/2020 HISTORY: Left upper quadrant swelling, mass, in lump per order. Pain per patient. CT DLP: 326.7mGycm Automated Exposure Control for Dose Reduction was Utilized. CONTRAST: CT scan of the abdomen and pelvis is performed with IV Contrast, patient injected with 100 mL of Isov ue 300. COMPARISON: CT abdomen and pelvis August 02, 2012 FINDINGS: LUNG BASES: Mild left basilar linear scarring and/or atelectasis. LIVER/GB: No significant abnormality is appreciated. PANCREAS: No significant abnormality is seen. SPLEEN: No significant abnormality is seen. ADRENALS: No significant abnormality is seen. KIDNEYS: Symmetric cortical medullary uptake and excretion without hydronephrosis seen bilaterally. BOWEL: The oral contrast reaches level of the mid transverse colon.[id number] diffuse colonic f ecal prominence. Overall no suspicious small or large bowel dilatation. UTERUS/ADNEXA: Slightly anteverted somewhat small size uterus consistent with patient's postmenopausa l age. Posterior to the uterus in the left presacral space there is ovoid 5.7 x 3.3 x 5.6 cm low dens e lesion axial image 66 and sagittal image 52, slightly greater density than simple fluid with Hounsf ield units averaging 8-10. Normal left ovary fell present axial image 60. Cannot identify normal or a bnormal right ovary. LYMPH NODES: No greater than 1cm abdominal or pelvic lymph nodes are appreciated. OSSEOUS STRUCTURES: Convex scoliosis centered at L3 level. Moderate disc space narrowing L2-L3 level. OTHER: Coils from right groin hernia repair surgery are present. IMPRESSION: 1. No significant findings is seen to account for patient's clinical symptoms of pain. No suspicious left upper quadrant mass. 2. There is 5.7 cm low dense lesion presacral space, possible of right ovarian origin. Other etiologi es not excluded. Advise pelvic ultrasound follow-up to further evaluate and characterize and attempt to visualize two normal ovaries.
== END | disposition home or self-care (01) ==
LOC: RADCTMAIN 14:41
PROVIDERS: ATTEND Family Medicine
DX: R19.02 Left upper quadrant abdominal swelling, mass and lump (principal)
CPT/HCPCS: 74177; Q9967

== ENCOUNTER 2020-04-06 11:15 | Inpatient (IN) | payer MEDICARE, BC ==
--- NOTE | 2020-04-06 11:41 | ED ---
General Adult HPI - General Chief complaint: Psychiatric Symptoms Stated complaint: EPS eval Time Seen by Provider: 04/06/20 11:34 Source: patient, family, RN notes reviewed Mode of arrival: ambulatory Limitations: no limitations - History of Present Illness Initial comments: Patient is a pleasant 69-year-old female presenting to the emergency Department with depression and anxiety. Patient saw her psychiatrist and was advised to come to the emergency department. Patient has been sleeping a lot. Patient feels very anxious. No hallucinations. No suicidal or homicidal thoughts. No new physical complaints. Patient is not functioning well at home. - Related Data Home Medications Medication Instructions Recorded Confirmed DULoxetine HCL [Cymbalta] 60 mg PO DAILY 02/17/18 04/06/20 Cyproheptadine [Cyproheptadine HCl] 4 mg PO DAILY 08/26/18 04/06/20 Rosuvastatin Calcium 2.5 mg PO SUWEFR 02/24/19 04/06/20 ALPRAZolam [ALPRAZolam XR] 1 mg PO DAILY 04/06/20 04/06/20 ALPRAZolam [Xanax] 0.25 mg PO BID PRN 04/06/20 04/06/20 Calcium Carbonate [Calcium] 600 mg PO DAILY 04/06/20 04/06/20 Cyanocobalamin [Vitamin B-12] 500 mcg PO DAILY 04/06/20 04/06/20 Fetzima Er 120mg 120 mg PO DAILY 04/06/20 04/06/20 Magnesium 250 mg PO DAILY 04/06/20 04/06/20 Memantine [Namenda] 10 mg PO BID 04/06/20 04/06/20 Midodrine HCl [ProAmatine] 10 mg PO TID 04/06/20 04/06/20 Multivitamin/Iron/Folic Acid 1 tab PO DAILY 04/06/20 04/06/20 [Centrum Adults Tablet] Niacin (Inositol Niacinate) 500 mg PO DAILY 04/06/20 04/06/20 [Niacin 500 mg Capsule] Allergies Allergy/AdvReac Type Severity Reaction Status Date / Time peanut AdvReac Nausea Verified 04/06/20 21:32 Review of Systems ROS Statement: Those systems with pertinent positive or pertinent negative responses have been documented in the HPI. ROS Other: All systems not noted in ROS Statement are negative. Constitutional: Denies: fever Eyes: Denies: eye pain ENT: Denies: ear pain Respiratory: Denies: cough Cardiovascular: Denies: chest pain Endocrine: Denies: fatigue Gastrointestinal: Denies: abdominal pain Genitourinary: Denies: dysuria Musculoskeletal: Denies: back pain Skin: Denies: rash Neurological: Denies: weakness Psychiatric: Reports: anxiety, depression. Denies: auditory hallucinations, visual hallucinations, homicidal thoughts, suicidal thoughts Past Medical History Past Medical History: Osteoarthritis (OA) Additional Past Medical History / Comment(s): Occasional migraines, wears contact and readers, heart murmur as child, achilles tendon repair, 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 History of Any Multi-Drug Resistant Organisms: None Reported Past Surgical History: Appendectomy, Hernia Repair Additional Past Surgical History / Comment(s): Left Achilles Tendon surgery Past Anesthesia/Blood Transfusion Reactions: No Reported Reaction Past Psychological History: Anxiety, Depression Smoking Status: Never smoker Past Alcohol Use History: Rare Past Drug Use History: None Reported - Past Family History Father History Unknown: Yes Family Medical History: No Reported History Additional Family Medical History / Comment(s): Father in his late 70s the patient does not know cause of nor any medical problems. Mother History Unknown: Yes Family Medical History: No Reported History Additional Family Medical History / Comment(s): Mother in her 80s and suffered from anxiety. Brother(s) Family Medical History: No Reported History Additional Family Medical History / Comment(s): Patient has 2 brothers and 4 sisters with no major medical problems that she is aware of. Patient has one daughter with no major medical problems. Sister(s) History Unknown: Yes Family Medical History: No Reported History Daughter(s) History Unknown: Yes General Exam Limitations: no limitations General appearance: alert, in no apparent distress Head exam: Present: normocephalic Eye exam: Present: normal appearance Neck exam: Present: normal inspection Respiratory exam: Present: normal lung sounds bilaterally Cardiovascular Exam: Present: regular rate, normal rhythm GI/Abdominal exam: Present: soft. Absent: tenderness Extremities exam: Present: normal inspection Neurological exam: Present: alert Psychiatric exam: Present: anxious Skin exam: Present: normal color Course Vital Signs 04/06/20 04/06/20 11:24 16:00 Temperature 98.9 F 97.6 F Pulse Rate 113 H 88 Respiratory 18 16 Rate Blood Pressure 117/76 127/66 O2 Sat by Pulse 99 96 Oximetry EKG Findings - EKG Comments: EKG Findings:: Sinus tachycardia 103. [place] 142. QRS 82. QT 3:30. QTC 432. Normal axis. Septal Q waves. No acute ST change. Medical Decision Making - Lab Data Result diagrams: 04/07/20 09:57 04/07/20 09:57 Lab Results 04/06/20 04/06/20 04/06/20 Range/Units 11:47 11:47 11:47 WBC 6.8 (3.8-10.6) k/uL RBC 4.40 (3.80-5.40) m/uL Hgb 13.5 (11.4-16.0) gm/dL Hct 40.5 (34.0-46.0) % MCV 92.0 (80.0-100.0) fL MCH 30.7 (25.0-35.0) pg MCHC 33.4 (31.0-37.0) g/dL RDW 12.7 (11.5-15.5) % Plt Count 228 (150-450) k/uL MPV 7.9 Neutrophils % 67 % Lymphocytes % 26 % Monocytes % 5 % Eosinophils % 1 % Basophils % 0 % Neutrophils # 4.6 (1.3-7.7) k/uL Lymphocytes # 1.7 (1.0-4.8) k/uL Monocytes # 0.3 (0-1.0) k/uL Eosinophils # 0.1 (0-0.7) k/uL Basophils # 0.0 (0-0.2) k/uL Sodium (137-145) mmol/L Potassium (3.5-5.1) mmol/L Chloride (98-107) mmol/L Carbon Dioxide (22-30) mmol/L Anion Gap mmol/L BUN (7-17) mg/dL Creatinine (0.52-1.04) mg/dL Est GFR (CKD-EPI)AfAm (>60 ml/min/1.73 sqM) Est GFR (CKD-EPI)NonAf (>60 ml/min/1.73 sqM) Glucose (74-99) mg/dL Calcium (8.4-10.2) mg/dL Urine Color Light Yellow Urine Appearance Clear (Clear) Urine pH 5.5 (5.0-8.0) Ur Specific [employer] 1.008 (1.001-1.035) Urine Protein Negative (Negative) Urine Glucose (UA) Negative (Negative) Urine Ketones Negative (Negative) Urine Blood Negative (Negative) Urine Nitrite Negative (Negative) Urine Bilirubin Negative (Negative) Urine Urobilinogen <2.0 (<2.0) mg/dL Ur Leukocyte Esterase Negative (Negative) Urine Opiates Screen Not Detected (NotDetected) Ur Oxycodone Screen Not Detected (NotDetected) Urine Methadone Screen Not Detected (NotDetected) Ur Propoxyphene Screen Not Detected (NotDetected) Ur Barbiturates Screen Not Detected (NotDetected) U Tricyclic Antidepress Not Detected (NotDetected) Ur Phencyclidine Scrn Not Detected (NotDetected) Ur Amphetamines Screen Not Detected (NotDetected) U Methamphetamines Scrn Not Detected (NotDetected) U Benzodiazepines Scrn Detected H (NotDetected) Urine Cocaine Screen Not Detected (NotDetected) U Marijuana (THC) Screen Not Detected (NotDetected) Serum Alcohol mg/dL 04/06/20 Range/Units 11:47 WBC (3.8-10.6) k/uL RBC (3.80-5.40) m/uL Hgb (11.4-16.0) gm/dL Hct (34.0-46.0) % MCV (80.0-100.0) fL MCH (25.0-35.0) pg MCHC (31.0-37.0) g/dL RDW (11.5-15.5) % Plt Count (150-450) k/uL MPV Neutrophils % % Lymphocytes % % Monocytes % % Eosinophils % % Basophils % % Neutrophils # (1.3-7.7) k/uL Lymphocytes # (1.0-4.8) k/uL Monocytes # (0-1.0) k/uL Eosinophils # (0-0.7) k/uL Basophils # (0-0.2) k/uL Sodium 138 (137-145) mmol/L Potassium 4.1 (3.5-5.1) mmol/L Chloride 100 (98-107) mmol/L Carbon Dioxide 30 (22-30) mmol/L Anion Gap 8 mmol/L BUN 28 H (7-17) mg/dL Creatinine 0.88 (0.52-1.04) mg/dL Est GFR (CKD-EPI)AfAm 79 (>60 ml/min/1.73 sqM) Est GFR (CKD-EPI)NonAf 68 (>60 ml/min/1.73 sqM) Glucose 141 H (74-99) mg/dL Calcium 9.8 (8.4-10.2) mg/dL Urine Color Urine Appearance (Clear) Urine pH (5.0-8.0) Ur Specific [employer] (1.001-1.035) Urine Protein (Negative) Urine Glucose (UA) (Negative) Urine Ketones (Negative) Urine Blood (Negative) Urine Nitrite (Negative) Urine Bilirubin (Negative) Urine Urobilinogen (<2.0) mg/dL Ur Leukocyte Esterase (Negative) Urine Opiates Screen (NotDetected) Ur Oxycodone Screen (NotDetected) Urine Methadone Screen (NotDetected) Ur Propoxyphene Screen (NotDetected) Ur Barbiturates Screen (NotDetected) U Tricyclic Antidepress (NotDetected) Ur Phencyclidine Scrn (NotDetected) Ur Amphetamines Screen (NotDetected) U Methamphetamines Scrn (NotDetected) U Benzodiazepines Scrn (NotDetected) Urine Cocaine Screen (NotDetected) U Marijuana (THC) Screen (NotDetected) Serum Alcohol <10 mg/dL Disposition Clinical Impression: Depression, Anxiety Disposition: TRANSFER TO PSYCH HOSP/UNIT Is patient prescribed a controlled substance at d/c from ED?: No
[2020-04-06 12:17] LABS: Basophils % (A) 0 %; Eosinophils # (A) 0.1 k/uL (0-0.7); Eosinophils % (A) 1 %; HCT 40.5 % (34.0-46.0); HGB 13.5 gm/dL (11.4-16.0); Lymphocytes # (A) 1.7 k/uL (1.0-4.8); Lymphocytes % (A) 26 %; MCH 30.7 pg (25.0-35.0); MCHC 33.4 g/dL (31.0-37.0); Mean Platelet Volume 7.9; Monocytes # (A) 0.3 k/uL (0-1.0); Monocytes % (A) 5 %; Neutrophils # (A) 4.6 k/uL (1.3-7.7); Neutrophils % (A) 67 %; Platelet Count 228 k/uL (150-450); RDW 12.7 % (11.5-15.5); WBC 6.8 k/uL (3.8-10.6)
[2020-04-06 12:33] LABS: African American GFR (CKD) 79 (>60 ml/min/1.73 sqM); Alcohol <10 mg/dL; Anion Gap 8 mmol/L; Blood Urea Nitrogen 28 mg/dL (7-17); Calcium 9.8 mg/dL (8.4-10.2); Carbon Dioxide 30 mmol/L (22-30); Chloride 100 mmol/L (98-107); Glucose 141 mg/dL (74-99); Non-African American GFR(CKD) 68 (>60 ml/min/1.73 sqM); Potassium 4.1 mmol/L (3.5-5.1); Sodium 138 mmol/L (137-145)
[2020-04-06 12:53] LABS: Appearance,Urine Clear (Clear); Bilirubin,Urine Negative (Negative); Blood,Urine Negative (Negative); Color,Urine Light Yellow; Glucose,Urine (UA) Negative (Negative); Ketones,Urine Negative (Negative); Leukocyte Esterase,Urine Negative (Negative); Nitrite,Urine Negative (Negative); PH, Urine 5.5 (5.0-8.0); Protein,Urine Negative (Negative); Specific Gravity,Urine 1.008 (1.001-1.035); Urobilinogen,Urine <2.0 mg/dL (<2.0)
[2020-04-06 13:12] LABS: Amphetamine Screen,Urine Not Detected (NotDetected); Barbiturate Screen,Urine Not Detected (NotDetected); Benzodiazepines Screen,Urine Detected (NotDetected); Cocaine Screen,Urine Not Detected (NotDetected); Methadone Screen, Urine Not Detected (NotDetected); Opiate Screen,Urine Not Detected (NotDetected); Oxycodone Screen, Urine Not Detected (NotDetected); Phencyclidine Screen,Urine Not Detected (NotDetected); Tricyclic Antidepressant,Urine Not Detected (NotDetected); Urn Cannabinoid Scrn Not Detected (NotDetected)
[2020-04-06] MEDS ORDERED: MAG HYDROX/AL HYDROX/SIMETH 30 ML CUP PO PRN (16:28)
[2020-04-06] MEDS ORDERED: ACETAMINOPHEN TAB 325 MG TAB PO PRN (16:28)
[2020-04-06] MEDS ORDERED: MAGNESIUM HYDROXIDE 2,400 MG/10 ML CUP PO PRN (16:28)
[2020-04-06] MEDS ORDERED: HALOPERIDOL LACTATE 5 MG/ML 1 ML VIAL IM PRN (16:34)
[2020-04-06] MEDS ORDERED: LORazepam 2 MG/ML INJ IM PRN (16:35)
[2020-04-06] MEDS: MIDODRINE 5 MG TAB PO SCH (18:30)
[2020-04-06] MEDS: MEMANTINE 10 MG TAB PO SCH (20:34)
[2020-04-07] MEDS: ATORVASTATIN 10 MG TAB PO SCH (07:47)
[2020-04-07] MEDS: MIDODRINE 5 MG TAB PO SCH ×3 (07:47→17:03)
[2020-04-07] MEDS: NIACIN TR 500 MG CAPLET PO SCH (07:48)
[2020-04-07] MEDS: CALCIUM CARBONATE 500 MG CHEWABLE PO SCH (07:48)
[2020-04-07] MEDS: MEMANTINE 10 MG TAB PO SCH ×2 (07:50→20:37)
[2020-04-07] MEDS: LORazepam 1 MG TAB PO PRN (07:50)
[2020-04-07] MEDS: MAGNESIUM OXIDE 400 MG TAB PO SCH (07:50)
[2020-04-07] MEDS: CYANOCOBALAMIN 500 MCG TAB PO SCH (07:50)
[2020-04-07] MEDS: MULTIVITAMINS, THERA 1 EACH TAB PO SCH (07:50)
[2020-04-07] MEDS: DULoxetine HCL 60 MG CAPSULE.DR PO SCH (07:50)
[2020-04-07] MEDS ORDERED: FETZIMA 120 MG PO SCH (09:00)
[2020-04-07] MEDS: CYPROHEPTADINE 4 MG TABLET PO SCH (10:04)
[2020-04-07 10:22] LABS: Basophils % (A) 0 %; Eosinophils # (A) 0.1 k/uL (0-0.7); Eosinophils % (A) 1 %; HCT 41.5 % (34.0-46.0); HGB 13.9 gm/dL (11.4-16.0); Lymphocytes # (A) 1.3 k/uL (1.0-4.8); Lymphocytes % (A) 17 %; MCH 31.1 pg (25.0-35.0); MCHC 33.6 g/dL (31.0-37.0); MCV 92.7 fL (80.0-100.0); Mean Platelet Volume 7.9; Monocytes # (A) 0.4 k/uL (0-1.0); Monocytes % (A) 5 %; Neutrophils # (A) 5.6 k/uL (1.3-7.7); Neutrophils % (A) 76 %; Platelet Count 217 k/uL (150-450); RBC 4.47 m/uL (3.80-5.40); RDW 12.4 % (11.5-15.5); WBC 7.4 k/uL (3.8-10.6)
[2020-04-07 10:27] LABS: Albumin 4.7 g/dL (3.5-5.0); Calcium 10.4 mg/dL (8.4-10.2); Potassium 4.6 mmol/L (3.5-5.1); Total Bilirubin 0.9 mg/dL (0.2-1.3); Total Protein 7.2 g/dL (6.3-8.2)
--- NOTE | 2020-04-07 11:10 | P.MDCNMH ---
History of Present Illness H&P Date: 04/07/20 HISTORY OF PRESENT ILLNESS This is a 69-year-old female patient of Dr. Langston with past medical history of osteoarthritis, MTHFR mutations, migraines, recurrent depression, generalized anxiety disorder, OCD, ADHD. The patient states that she has been doing well until the last couple weeks has had increasing anxiety and feels that she has had too much time on her hands to think. Her took her to her psychiatrist and it was recommended that she come into the hospital for further evaluation and treatment. She denies any medical concerns at this time. Horace heard is seen on the mental health unit. REVIEW OF SYSTEMS Constitutional: No fever, no chills, no night sweats. No weight change. No weakness, fatigue or lethargy. No daytime sleepiness. EENT: No headache. No blurred vision or double vision, no loss of vision. No loss of Hearing, no ringing in the ears, no dizziness. No nasal drainage or congestion. No epistaxis. No sore throat. Lungs: No shortness of breath, cough, no sputum production. No wheezing. Cardiovascular: No chest pain, no lower extremity edema. No palpitations. No paroxysmal nocturnal dyspnea. No orthopnea. No lightheadedness or dizziness. No syncopal episodes. Abdominal: No abdominal pain. No nausea, vomiting. No diarrhea. No constipation. No bloody or tarry stools.. No loss of appetite. Genitourinary: No dysuria, increased frequency, urgency. No urinary retention. Musculoskeletal: No myalgias. No muscle weakness, no gait dysfunction, no frequent falls. No back pain. No neck pain. Integumentary: No wounds, no lesions. No rash or pruritus. Neurologic: No aphasia. No facial droop. No change in mentation. No head injury. No headache. No paralysis. No paresthesia. Psychiatric: No depression. Reports anxiety. No mood swings. Endocrine: No abnormal blood sugars. No weight change. No excessive sweating or thirst. No cold intolerance. SOCIAL HISTORY Patient has been a lifelong nonsmoker, no illicit drug use, no alcohol use, no marijuana use. Patient is retired from the [employer] for 2 years. She lives at home with her . FAMILY HISTORY Mother is at age 84 and had history of anxiety. Father in his 70s and patient does not know cause of . Patient is a total of 5 siblings with no major medical problems that she is aware of. All are living. Patient has one daughter with no major medical problems.. PHYSICAL EXAMINATION Gen: This is A 69-year-old female. Patient is known to be walking hanging onto a wheelchair for balance. HEENT: Head is atraumatic, normocephalic. Pupils equal, round. Sclerae is anicteric. NECK: Supple. No JVD. No lymphadenopathy. No thyromegaly. LUNGS: Clear to auscultation. No wheezes or rhonchi. No intercostal retractions. HEART: Regular rate and rhythm. No murmur. ABDOMEN: Soft. Bowel sounds are present. No masses. No tenderness. EXTREMITIES: No pedal edema. No calf tenderness. NEUROLOGICAL: Patient is awake, alert and oriented x3. Cranial nerves 2 through 12 are grossly intact. Generalized weakness noted. ASSESSMENT AND PLAN 1. Recurrent depression and generalized anxiety disorder. Patient admitted to the mental health unit. Continue current plan per psychiatry. 2. History of drug overdose in 2019. Stable. 3. Patient has history of OCD and ADHD. 4. History of migraine headaches. 5. History of MTHFR mutation. Discharge plan: Patient to follow-up with Dr. Langston following discharge from the mental health unit Impression and plan of care have been directed as dictated by the signing physician. Myrna Caceres nurse practitioner acting as scribe for signing physician. 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 History of Any Multi-Drug Resistant Organisms: None Reported Past Surgical History: Appendectomy, Hernia Repair Additional Past Surgical History / Comment(s): Left Achilles Tendon surgery Past Anesthesia/Blood Transfusion Reactions: No Reported Reaction Past Psychological History: Anxiety, Depression Smoking Status: Never smoker Past Alcohol Use History: Rare Additional Past Alcohol Use History / Comment(s): Patient lives at home with her Leif. Past Drug Use History: None Reported - Past Family History Father History Unknown: Yes Family Medical History: No Reported History Additional Family Medical History / Comment(s): Father in his late 70s the patient does not know cause of nor any medical problems. Mother History Unknown: Yes Family Medical History: No Reported History Additional Family Medical History / Comment(s): Mother in her 80s and suffered from anxiety. Brother(s) Family Medical History: No Reported History Additional Family Medical History / Comment(s): Patient has 2 brothers and 4 sisters with no major medical problems that she is aware of. Patient has one daughter with no major medical problems. Sister(s) History Unknown: Yes Family Medical History: No Reported History Daughter(s) History Unknown: Yes Medications and Allergies Home Medications Medication Instructions Recorded Confirmed Type DULoxetine HCL [Cymbalta] 60 mg PO DAILY 02/17/18 04/06/20 History Cyproheptadine [Cyproheptadine HCl] 4 mg PO DAILY 08/26/18 04/06/20 History Rosuvastatin Calcium 2.5 mg PO SUWEFR 02/24/19 04/06/20 History ALPRAZolam [ALPRAZolam XR] 1 mg PO DAILY 04/06/20 04/06/20 History ALPRAZolam [Xanax] 0.25 mg PO BID PRN 04/06/20 04/06/20 History Calcium Carbonate [Calcium] 600 mg PO DAILY 04/06/20 04/06/20 History Cyanocobalamin [Vitamin B-12] 500 mcg PO DAILY 04/06/20 04/06/20 History Fetzima Er 120mg 120 mg PO DAILY 04/06/20 04/06/20 History Magnesium 250 mg PO DAILY 04/06/20 04/06/20 History Memantine [Namenda] 10 mg PO BID 04/06/20 04/06/20 History Midodrine HCl [ProAmatine] 10 mg PO TID 04/06/20 04/06/20 History Multivitamin/Iron/Folic Acid 1 tab PO DAILY 04/06/20 04/06/20 History [Centrum Adults Tablet] Niacin (Inositol Niacinate) 500 mg PO DAILY 04/06/20 04/06/20 History [Niacin 500 mg Capsule] Allergies Allergy/AdvReac Type Severity Reaction Status Date / Time peanut AdvReac Nausea Verified 04/06/20 21:32 Physical Exam Vitals: Vital Signs Temp Pulse Pulse Resp BP BP Pulse Ox 04/07/20 07:06 97.9 F 97 17 123/81 96 04/06/20 18:32 110 H 114/62 04/06/20 16:42 97.4 F L 95 18 126/78 100 04/06/20 16:00 97.6 F 88 16 127/66 96 04/06/20 11:24 98.9 F 113 H 18 117/76 99 Intake and Output 04/06/20 04/07/20 04/07/20 22:59 06:59 14:59 Other: Weight 52.163 kg Cranial Nerve Examination - Cranial Nerves Cranial Nerve I- Olfactory: Intact Cranial Nerve II- Optic: Intact Cranial Nerve III- Oculomotor: Intact Cranial Nerve IV- Trochlear: Intact Cranial Nerve V- Trigeminal: Intact Cranial Nerve - Abducens: Intact Cranial Nerve VII- Facial: Intact Cranial Nerve VIII- Auditory: Intact Cranial Nerve IX- Glossopharyngeal: Intact Cranial Nerve X- Vagus: Intact Cranial Nerve XI- Accessory: Intact Cranial Nerve XII- Hypoglossal: Intact Results CBC & Chem 7: 04/07/20 09:57 04/07/20 09:57 Labs: Abnormal Lab Results - Last 24 Hours (Table) 04/06/20 04/06/20 Range/Units 11:47 11:47 BUN 28 H (7-17) mg/dL Glucose 141 H (74-99) mg/dL U Benzodiazepines Scrn Detected H (NotDetected)
[2020-04-07 11:39] VITALS: BMI 18.6
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
[2020-04-07] MEDS: OLANZapine 2.5 MG TAB PO SCH (12:55)
[2020-04-07 17:22] LABS: Hemoglobin A1C 5.3 % (4.0-6.0)
[2020-04-08] MEDS: LORazepam 1 MG TAB PO PRN (06:19)
[2020-04-08] MEDS: MIDODRINE 5 MG TAB PO SCH ×3 (07:56→18:36)
[2020-04-08] MEDS: MULTIVITAMINS, THERA 1 EACH TAB PO SCH (07:56)
[2020-04-08] MEDS: OLANZapine 2.5 MG TAB PO SCH (07:56)
[2020-04-08] MEDS: MAGNESIUM OXIDE 400 MG TAB PO SCH (07:57)
[2020-04-08] MEDS: CALCIUM CARBONATE 500 MG CHEWABLE PO SCH (07:57)
[2020-04-08] MEDS: DULoxetine HCL 60 MG CAPSULE.DR PO SCH (07:57)
[2020-04-08] MEDS: FETZIMA 120 MG PO SCH (07:57)
[2020-04-08] MEDS: NIACIN TR 500 MG CAPLET PO SCH (07:57)
[2020-04-08] MEDS: CYPROHEPTADINE 4 MG TABLET PO SCH (07:57)
[2020-04-08] MEDS: CYANOCOBALAMIN 500 MCG TAB PO SCH (07:57)
[2020-04-08] MEDS: MEMANTINE 10 MG TAB PO SCH ×2 (07:57→20:46)
--- NOTE | 2020-04-08 11:02 | P.PN ---
Progress Note - Text Progress Note Date: 04/08/20 Interval history: Patient was seen laying in her bed reading a book and was directable and agre eable to speak with scientific technical writer. Patient brought along notes with her and began speaking about her anxiety and her mood. She described the events that took place at work prior to her coming into the hospital. She states that she feels the nurses and the staff members in the hospital of them very helpful towards her. She described having a headache yesterday and taking Ativan and Tylenol which really helped. She states that today her mood has been improving along with her anxiety. She states that she was able to sleep only 3 hours last night and had difficulties with sleep and was agreeable to have her Zyprexa increased for tonight. She states that she has been going to groups and participating as best that she can. At this time patient denies any suicidal or homicidal ideations intent or plan. Denies any Auditory or visual hallucinations. Patient denies any side effects from the medications and has been compliant with meds. Mental status exam: General Appearance: Patient appears to be thin, stated age is alert, directable, and cooperative. Behavior: No agitated behavior. Patient is calm and directable Speech: Patient's speech is fluent and nonpressured. Mood/Affect: Mood is improving mildly, affect is congruent and constricted. Suicidality/Homicidality: Patient denies having any suicidal or homicidal ideation intent or plan. Perceptions: Patient denies any auditory or visual hallucinations. Though content/process: There is no evidence of any delusional thought content and thought process is linear and goal-directed. Rambles at times. Memory and concentration: AOX3, grossly intact for the purposes of this session Judgment and insight: improving mildly Assessment/Plan: Continue with current diagnosis. Patient continues to meet criteria for inpatient psychiatric admission for symptom stabilization and safety.Patient will be maintained on current psychotropic medication regimen, with the exception of increasing Zyprexa to 5 mg daily at bedtime. Monitor for medication compliance and for any psychotropic medication side effects. Will continue to monitor ongoing response to treatment. Encouraged participation in milieu.
[2020-04-08] MEDS: OLANZapine 5 MG TAB PO SCH (20:46)
[2020-04-09] MEDS: MULTIVITAMINS, THERA 1 EACH TAB PO SCH (08:12)
[2020-04-09] MEDS: MIDODRINE 5 MG TAB PO SCH ×3 (08:12→17:46)
[2020-04-09] MEDS: CALCIUM CARBONATE 500 MG CHEWABLE PO SCH (08:12)
[2020-04-09] MEDS: MAGNESIUM OXIDE 400 MG TAB PO SCH (08:12)
[2020-04-09] MEDS: CYPROHEPTADINE 4 MG TABLET PO SCH (08:12)
[2020-04-09] MEDS: FETZIMA 120 MG PO SCH (08:12)
[2020-04-09] MEDS: NIACIN TR 500 MG CAPLET PO SCH (08:12)
[2020-04-09] MEDS: MEMANTINE 10 MG TAB PO SCH ×2 (08:12→21:19)
[2020-04-09] MEDS: CYANOCOBALAMIN 500 MCG TAB PO SCH (08:12)
[2020-04-09] MEDS: DULoxetine HCL 60 MG CAPSULE.DR PO SCH (08:13)
[2020-04-09] MEDS: LORazepam 1 MG TAB PO PRN (08:14)
[2020-04-09] MEDS: ATORVASTATIN 10 MG TAB PO SCH (09:04)
--- NOTE | 2020-04-09 13:05 | P.PN ---
Progress Note - Text Progress Note Date: 04/09/20 Interval history: Patient was seen sitting in the lounge watching TV and was directable and agr eeable to speak with magnetic tape typewriter operator. Patient continues to state that her mood is still depressed and was thinking about "hospice" and when asked what she meant by that she states that "some days I just think that there is no point to live anymore". She claims that she hasn't taken other patients on the unit and interacting well however has also been speaking with her over the phone who is been telling her about the family and keeping updated. She claims that she was able to sleep better last night on the increase in zyprexa, approximately 5-6 hours. She states that she has been going to groups and participating as best that she can. At this time patient denies any current suicidal or homicidal ideations intent or plan. Denies any Auditory or visual hallucinations. Patient denies any side effects from the medications and has been compliant with meds. Mental status exam: General Appearance: Patient appears to be thin, stated age is alert, directable, and cooperative. Mildly improving hygiene and grooming. Behavior: No agitated behavior. Patient is calm and directable Speech: Patient's speech is fluent and nonpressured. Mood/Affect: Mood is improving mildly, affect is congruent and constricted. Suicidality/Homicidality: Patient denies having any current suicidal or homicidal ideation intent or plan. Perceptions: Patient denies any auditory or visual hallucinations. Though content/process: There is no evidence of any delusional thought content and thought process is linear and goal-directed. Rambles at times. Memory and concentration: AOX3, grossly intact for the purposes of this session Judgment and insight: improving mildly Assessment/Plan: Continue with current diagnosis. Patient continues to meet criteria for inpatient psychiatric admission for symptom stabilization and safety.Patient will be maintained on current psychotropic medication regimen. Monitor for medication compliance and for any psychotropic medication side effects. Will continue to monitor ongoing response to treatment. Encouraged participation in milieu.
[2020-04-09] MEDS: DULoxetine HCL 30 MG CAPSULE.DR PO SCH (21:19)
[2020-04-09] MEDS: OLANZapine 5 MG TAB PO SCH (21:19)
[2020-04-10] MEDS: DULoxetine HCL 60 MG CAPSULE.DR PO SCH (08:30)
[2020-04-10] MEDS: MULTIVITAMINS, THERA 1 EACH TAB PO SCH (08:30)
[2020-04-10] MEDS: MEMANTINE 10 MG TAB PO SCH ×2 (08:30→20:41)
[2020-04-10] MEDS: NIACIN TR 500 MG CAPLET PO SCH (08:30)
[2020-04-10] MEDS: CYANOCOBALAMIN 500 MCG TAB PO SCH (08:30)
[2020-04-10] MEDS: CYPROHEPTADINE 4 MG TABLET PO SCH (08:30)
[2020-04-10] MEDS: MAGNESIUM OXIDE 400 MG TAB PO SCH (08:30)
[2020-04-10] MEDS: MIDODRINE 5 MG TAB PO SCH ×3 (08:31→17:38)
[2020-04-10] MEDS: CALCIUM CARBONATE 500 MG CHEWABLE PO SCH (08:31)
[2020-04-10] MEDS: FETZIMA 120 MG PO SCH (08:33)
--- NOTE | 2020-04-10 12:23 | P.PN ---
Progress Note - Text Progress Note Date: 04/10/20 Clinical Problems: Bipolar disorder most recent episode depressed without psychotic features, generalized anxiety disorder, rule out agoraphobia without panic attacks, rule out dependent personality disorder Interim history: I reviewed the medical record, interviewed the patient and discussed her treatment and treatment plan during team meeting. She reported an improvement in mood and a "slight" decreased anxiety since admission. She attributes the change in her mental state to the therapeutic groups and activities that she is engaged in the record on the unit. Over the weekend, the on-call psychiatrist increased her dose of olanzapine to 5 mg and duloxetine to 90 mg daily. She spent much the session talking about the difficulty she experience when she was working for the [employer]. She alleged that she was diagnosed with dyslexia and ADHD as a child and continued to have difficulty concentrating at work and made errors when she transposed numbers. She became acutely distress when asked about her daughter and quickly changed the topic to talking about how often she worked overtime. During the interview she demonstrated word finding difficulties and occasionally using an incorrect word. Mental status exam: She presented as a thin, tremulous and anxious elderly woman who was pleasant on approach. She made eye contact and attended to the interview. She had a blunted but bright facial expression. She was alert and oriented to person, place and time. Showed a slight hand tremor and a slow but steady gait. His speech was spontaneous with normal rate and rhythm. Her affect was anxious but stable and appropriate. She denied suicidal ideation and wishes. She denied feeling hopeless, helpless or worthless. She ruminated about topics described above. She denied express ideas reference, paranoid ideation or delusions. Her thinking was concrete but his associations were coherent and logical. She denied hallucinations did not appear to be responding to internal stimuli. Assessment: She appears much less anxious and depressed on admission and is denying suicidal thoughts. She is having no adverse experiences to olanzapine. Plan: Continue inpatient treatment. Safety precautions. Continue current psychotropic medications. Discharge home later than 04/12/2020. Encouraged continued participation in therapeutic groups and activities. Evaluate clinical status response to treatment on a daily basis.
[2020-04-10] MEDS: OLANZapine 5 MG TAB PO SCH (20:41)
[2020-04-10] MEDS: DULoxetine HCL 30 MG CAPSULE.DR PO SCH (20:41)
[2020-04-11] MEDS: MIDODRINE 5 MG TAB PO SCH ×3 (08:03→18:17)
[2020-04-11] MEDS: CALCIUM CARBONATE 500 MG CHEWABLE PO SCH (08:11)
[2020-04-11] MEDS: MULTIVITAMINS, THERA 1 EACH TAB PO SCH (08:12)
[2020-04-11] MEDS: NIACIN TR 500 MG CAPLET PO SCH (08:12)
[2020-04-11] MEDS: MEMANTINE 10 MG TAB PO SCH ×2 (08:12→20:32)
[2020-04-11] MEDS: MAGNESIUM OXIDE 400 MG TAB PO SCH (08:12)
[2020-04-11] MEDS: CYPROHEPTADINE 4 MG TABLET PO SCH (08:12)
[2020-04-11] MEDS: DULoxetine HCL 60 MG CAPSULE.DR PO SCH (08:12)
[2020-04-11] MEDS: CYANOCOBALAMIN 500 MCG TAB PO SCH (08:12)
[2020-04-11] MEDS: FETZIMA 120 MG PO SCH (08:48)
[2020-04-11] MEDS: PREGABALIN 100 MG CAP PO SCH ×3 (09:46→20:32)
--- NOTE | 2020-04-11 11:59 | P.PN ---
Progress Note - Text Progress Note Date: 04/11/20 Clinical Problems: Bipolar disorder most recent episode depressed with anxious distress, history of dyslexia rule out agoraphobia without panic attacks, rule out neurocognitive disorder, rule out dependent personality disorder Interim history: I reviewed the medical record, interviewed the patient and discussed her treatment and treatment plan during team meeting. She was markedly distressed today. She complained of poor sleep and nightmares. She was tremulous, tearful and restless. She was unable to remain seated. She complained of overwhelming feelings of anxiety. She was unable to identify the source of anxiety. She perseverated about past negative experiences and disappointments. We discussed treatment options and agreed to increase olanzapine, begin a trial of Lyrica for the treatment of anxiety, taper it and discontinue duloxetine and discontinue cyproheptadine. She's been attending therapeutic groups and activities. The therapist not that her thought process is concrete and disorganized. She slept 6 hours last night. Mental status exam: She presented as a thin, tremulous, restless and anxious elderly woman who was pleasant on approach. She made eye contact and appeared attended to the interview. She had a distressed facial expression. She was alert and oriented to person, place and time. Showed a moderate hand tremor.. His speech was spontaneous with normal rate and rhythm. Her affect was markedly anxious. She denied suicidal ideation and wishes. She expressed feelings of hopeless and helplessness. She ruminated about topics described above. She denied express ideas reference, paranoid ideation or delusions. Her thinking was concrete and not organized and goal directed. She denied hallucinations did not appear to be responding to internal stimuli. Assessment: She is much more anxious, depressed and disorganized than yesterday. There is no apparent explanation for the marked change in her mental status. Plan: Continue inpatient treatment. Safety precautions. Taper then discontinue duloxetine since that may be contributing to her and anxiety and is in the same therapeutic class as Fetzima. Increase olanzapine to 7.5 mg at bedtime and titrated according to clinical response and tolerance. Begin Lyrica 100 milligrams 3 times a day for treatment of anxiety. Continue Fetzima 120mg daily. Discontinue cyproheptadine 4 mg twice a day this may be contributing to her confusion. Continue Namenda 10 mg twice a day. Encouraged continued participation in therapeutic groups and activities. Evaluate clinical status response to treatment on a daily basis.
[2020-04-11] MEDS ORDERED: OLANZapine 5 MG TAB PO SCH (21:00)
[2020-04-12] MEDS: MIDODRINE 5 MG TAB PO SCH ×2 (08:53→12:18)
[2020-04-12] MEDS: CYANOCOBALAMIN 500 MCG TAB PO SCH (08:55)
[2020-04-12] MEDS: ATORVASTATIN 10 MG TAB PO SCH (08:55)
[2020-04-12] MEDS: CALCIUM CARBONATE 500 MG CHEWABLE PO SCH (08:55)
[2020-04-12] MEDS: FETZIMA 120 MG PO SCH (08:56)
[2020-04-12] MEDS: PREGABALIN 100 MG CAP PO SCH ×2 (08:57→15:50)
[2020-04-12] MEDS: NIACIN TR 500 MG CAPLET PO SCH (08:57)
[2020-04-12] MEDS: MAGNESIUM OXIDE 400 MG TAB PO SCH (08:57)
[2020-04-12] MEDS: MEMANTINE 10 MG TAB PO SCH (08:57)
[2020-04-12] MEDS: MULTIVITAMINS, THERA 1 EACH TAB PO SCH (08:57)
[2020-04-12] MEDS: LORazepam 1 MG TAB PO PRN (08:59)
[2020-04-12] MEDS ORDERED: DULoxetine HCL 30 MG CAPSULE.DR PO SCH (09:00)
--- NOTE | 2020-04-12 11:36 | P.PN ---
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 I also spoke with her outpatient psychiatrist, Dr. Torres to coordinate aftercare services. She was markedly distressed this morning. She was unable explain the reason for her distress. The distress gradually resolved after she received a PRN dose of Ativan, scheduled dose of Lyrica and attended outpatient therapy group. Due to the sudden and disproportionate changes in her affect and her performance [facility] the [facility] (intact memory and impaired verbal fluency and abstraction), we performed bedside testing for frontal lobe deficits. 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 She had intact sensory motor abilities and no apraxia as demonstrated by alternating finger tapping and demonstrating facial movements (bulimia casts, smiling and frowning). She had normal frontal eye powell. She showed impairment with dorsolateral and prefrontal cortex as domonstrated by her impairment on the Word Association test on the [place] cognitive assessment. For orbitofrontal testing we perform go/no go test and the Stroop test. She successfully formed a go/no go test but made multiple errors on the Stroop test. She requested to be discharged because she feels "safer" at home rather on the psychiatric unit. Overall she feels less distressed that admission and is very keen on keeping her appointment with her outpatient psychiatrist. Mental status exam: She presented as a thin, frail and tremulous elderly woman. She made eye contact and attended to the interview. She had psychomotor retardation. She had a fine resting tremor without increase motor tone. She did not display cogwheeling. Gait was slow but fluent. Her speech was spo ntaneous and consistent with her mood. Her affect was markedly anxious, labile and at times intense and inappropriate to the circumstance. She denied suicidal ideation and wishes. She expressed feelings of worthlessness but denied hopelessness or helplessness. She did not express ideas reference, paranoid ideation or delusions. Her thinking was concrete, circumstantial, digressive but goal-directed. She denied hallucinations and did not appear to be responding to internal stimuli. Assessment: I suspect that her presentation is related to an underlying neurocognitive disorder. She has a history of declining in functioning, mood lability, worsening and sometimes intense and inappropriate expressions of affect and anxiety, impairment of verbal fluency, impaired abstraction and signs of impaired frontal lobe dysfunction. Plan: Discharged today. Continue current medications. park worker supervisor to investigate home care services that will be available to the patient.
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
[2020-04-12 15:53] VITALS: BP 121/73; PULSE 101; RESP 18; TEMP 97.8
== END 2020-04-12 15:57 | disposition home health service (06) | DRG 885 ==
LOC: EC 11:15 → 3MHU 16:27
PROVIDERS: ADMIT Psychiatry & Neurology Psychiatry; ATTEND Psychiatry & Neurology Psychiatry
DX: F31.30 Bipolar disorder, current episode depressed, mild or moderate severity, unspecified (principal); E72.12 Methylenetetrahydrofolate reductase deficiency; F90.9 Attention-deficit hyperactivity disorder, unspecified type; F42.9 Obsessive-compulsive disorder, unspecified; F41.1 Generalized anxiety disorder; R41.9 Unspecified symptoms and signs involving cognitive functions and awareness; Z91.5 Personal history of self-harm; Z20.828 Contact with and (suspected) exposure to other viral communicable diseases; R48.0 Dyslexia and alexia; G43.909 Migraine, unspecified, not intractable, without status migrainosus; M19.90 Unspecified osteoarthritis, unspecified site; Z79.899 Other long term (current) drug therapy; Z97.3 Presence of spectacles and contact lenses; Z87.39 Personal history of other diseases of the musculoskeletal system and connective tissue; Z98.890 Other specified postprocedural states; Z90.49 Acquired absence of other specified parts of digestive tract; Z87.19 Personal history of other diseases of the digestive system; Z91.010 Allergy to peanuts; Z81.8 Family history of other mental and behavioral disorders
CPT/HCPCS: 36415; 80048; 80053; 80061; 80306; 80320; 81003; 82075; 83036; 84443; 85025; 87635; 93005; 99285

== ENCOUNTER → 2020-05-18 | Outpatient (CLI) | payer BC, MEDICARE ==
--- NOTE | 2020-05-18 13:36 | MR ---
EXAMINATION TYPE: MR brain wo/w con DATE OF EXAM: 05/18/2020 COMPARISON: Prior MRI brain June 28, 2017 HISTORY: Diplopia TECHNIQUE: Multiplanar, multisequence images of the brain and brainstem is performed without and with IV contras t, utilizing 5.5 mL intravenous Gadavist . FINDINGS: Diffusion weighted images demonstrate no evidence of a recent infarct or other diffusion ab normality. There is no extra-axial fluid collection or new significant white matter signal abnormali ty. The ventricular system and cisternal spaces are normal in size and appearance. The brain volume is age appropriate. Stable 2.3 x 1.4 cm right frontal oval CSF intense lesion consistent with arachn oid cyst axial image 23 with mild thinning of the adjacent calvarium unchanged in appearance from yann or study. Midline structures redemonstrate normal morphology. The craniocervical junction appears within ronald l limits. Post contrast images demonstrate no abnormal enhancement. The dural venous sinuses appear patent. The visualized sinuses are clear and the globes are intact. Suprasellar cistern is maintained . IMPRESSION: Stable 2.3 cm peripheral right frontal lobe arachnoid cyst. No new or acute findings are evident.
== END | disposition home or self-care (01) ==
LOC: RADMRIMAIN 12:02
PROVIDERS: ATTEND Family Medicine
DX: G93.0 Cerebral cysts (principal)
CPT/HCPCS: 70553; A9585

== ENCOUNTER 2020-07-06 17:39 | Inpatient (IN) | payer BC, MEDICARE ==
--- NOTE | 2020-07-06 19:41 | ED ---
Psych HPI - General Source: patient Mode of arrival: ambulatory <Lara Malhotra - Last Filed: 07/06/20 19:35> <Vernon Thompson - Last Filed: 07/07/20 01:34> - General Chief Complaint: Psychiatric Symptoms Stated Complaint: Mental Health Time Seen by Provider: 07/06/20 17:55 - History of Present Illness Initial Comments: 69-year-old female presenting for anhedonia. Patient is brought him by her who states he just left the psychiatrist's office and were told to come here for inpatient treatment. Patient has stroke depression for quite some time initially her medications seem like they're working recently she has developed left interest in any types of activity she is currently sleeping and has a flat affect. Nothing makes her happy and she is sad all the time. Denies suicidal or homicidal ideations. Patient has no physical complaints, she just states she cant snpa out of it. Patient denies any recent fever, chills, shortness of breath, chest pain, back pain, abdominal pain, nausea or vomiting, numbness or tingling, dysuria or hematuria, constipation or diarrhea, headaches or visual changes, or any other complaints. (Lara Malhotra) - Related Data Home Medications Medication Instructions Recorded Confirmed Rosuvastatin Calcium 2.5 mg PO SUWEFR 02/24/19 07/06/20 Fetzima Er 120mg 120 mg PO DAILY 04/06/20 07/06/20 Memantine [Namenda] 10 mg PO BID 04/06/20 07/06/20 Midodrine HCl [ProAmatine] 10 mg PO TID 04/06/20 07/06/20 Aspirin [Deaf Smith Aspirin EC] 81 mg PO DAILY 07/06/20 07/06/20 Calcium Carbonate/Vitamin D3 1 tab PO DAILY 07/06/20 07/06/20 [Caltrate 600 Plus D3 20 Mcg (800 Iu)] Cholecalciferol [Vitamin D3 (25 50 mcg PO DAILY 07/06/20 07/06/20 Mcg = 1000 Iu)] Cyanocobalamin (Vitamin B-12) 5,000 mcg PO DAILY 07/06/20 07/06/20 [Vitamin B-12] Divalproex Sodium [Divalproex 250 mg PO DAILY 07/06/20 07/06/20 Sodium ER] Glucosam/Deangelo-Msm1/C/Venkatesh/Bosw 1 tab PO DAILY 07/06/20 07/06/20 [Glucosamine-Chondroitin Tablet] LORazepam [Ativan] 1 mg PO TID PRN 07/06/20 07/06/20 Magnesium Oxide 400 mg PO DAILY 07/06/20 07/06/20 Multivit-Min/Iron/Folic/Lutein 1 tab PO DAILY 07/06/20 07/06/20 [Centrum Silver Women Tablet] Potassium Gluconate 99 mg PO DAILY 07/06/20 07/06/20 Allergies Allergy/AdvReac Type Severity Reaction Status Date / Time peanut AdvReac Nausea Verified 07/06/20 17:51 Review of Systems ROS Other: All systems not noted in ROS Statement are negative. <Lara Malhotra - Last Filed: 07/06/20 19:35> ROS Other: All systems not noted in ROS Statement are negative. <Vernon Thompson - Last Filed: 07/07/20 01:34> ROS Statement: Those systems with pertinent positive or pertinent negative responses have been documented in the HPI. 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 History of Any Multi-Drug Resistant Organisms: None Reported Past Surgical History: Appendectomy, Hernia Repair Additional Past Surgical History / Comment(s): Left Achilles Tendon surgery Past Anesthesia/Blood Transfusion Reactions: No Reported Reaction Past Psychological History: Anxiety, Depression Smoking Status: Never smoker Past Alcohol Use History: Rare Past Drug Use History: None Reported - Past Family History Father History Unknown: Yes Family Medical History: No Reported History Additional Family Medical History / Comment(s): Father in his late 70s the patient does not know cause of nor any medical problems. Mother History Unknown: Yes Family Medical History: No Reported History Additional Family Medical History / Comment(s): Mother in her 80s and suffered from anxiety. Brother(s) Family Medical History: No Reported History Additional Family Medical History / Comment(s): Patient has 2 brothers and 4 sisters with no major medical problems that she is aware of. Patient has one daughter with no major medical problems. Sister(s) History Unknown: Yes Family Medical History: No Reported History Daughter(s) History Unknown: Yes <Lara Malhotra - Last Filed: 07/06/20 19:35> General Exam Limitations: no limitations <Lara Malhotra - Last Filed: 07/06/20 19:35> - General Exam Comments Initial Comments: General: The patient is awake and alert, in no distress Eye: +3 mm pupils are equal, round and reactive to light, extra-ocular movements are intact. No nystagmus. There is normal conjunctiva bilaterally. No signs of icterus. Ears, nose, mouth and throat: There are moist mucous membranes and no oral lesions. Neck: The neck is supple, there is no tenderness or JVD. Cardiovascular: There is a regular rate and rhythm. No murmur, rub or gallop is appreciated. Respiratory: Lungs are clear to auscultation, respirations are non-labored, breath sounds are equal. No wheezes, stridor, rales, or rhonchi. Gastrointestinal: Soft, non-distended, non-tender abdomen without masses or organomegaly noted. There is no rebound or guarding present. Musculoskeletal: Normal ROM, no tenderness. Strength 5/5. Sensation intact. Radial pulses equal bilaterally 2+. Neurological: A&O x 3. CN II-XII intact grossly, There are no obvious motor or sensory deficits. Coordination appears grossly intact. Speech is normal. Skin: Skin is warm and dry and no rashes or lesions are noted. Psychiatric: Cooperative, appropriate mood & affect, normal judgment. (Lara Malhotra) Course Vital Signs 07/06/20 17:47 Temperature 98.6 F Pulse Rate 103 H Respiratory 16 Rate Blood Pressure 126/76 O2 Sat by Pulse 99 Oximetry Medical Decision Making <Lara Malhotra - Last Filed: 07/06/20 19:35> - Medical Decision Making 69 yo female presenting for cc of lack of interest/depression. patient displays a flat affect. states she is severly depression findings no brady in anything and sleeping all the time. Patient medically cleared. (Lara Malhotra) - Lab Data Lab Results 07/06/20 07/06/20 Range/Units 18:15 22:45 Urine Color Light Yellow Urine Appearance Clear (Clear) Urine pH 7.0 (5.0-8.0) Ur Specific [place] 1.014 (1.001-1.035) Urine Protein Negative (Negative) Urine Glucose (UA) Negative (Negative) Urine Ketones Negative (Negative) Urine Blood Negative (Negative) Urine Nitrite Negative (Negative) Urine Bilirubin Negative (Negative) Urine Urobilinogen <2.0 (<2.0) mg/dL Ur Leukocyte Esterase Negative (Negative) Urine Opiates Screen Not Detected (NotDetected) Ur Oxycodone Screen Not Detected (NotDetected) Urine Methadone Screen Not Detected (NotDetected) Ur Propoxyphene Screen Not Detected (NotDetected) Ur Barbiturates Screen Not Detected (NotDetected) U Tricyclic Antidepress Not Detected (NotDetected) Ur Phencyclidine Scrn Not Detected (NotDetected) Ur Amphetamines Screen Not Detected (NotDetected) U Methamphetamines Scrn Not Detected (NotDetected) U Benzodiazepines Scrn Detected H (NotDetected) Urine Cocaine Screen Not Detected (NotDetected) U Marijuana (THC) Screen Not Detected (NotDetected) Coronavirus (PCR) Not Detected (Not Detectd) Disposition <Lara Malhotra - Last Filed: 07/06/20 19:35> Is patient prescribed a controlled substance at d/c from ED?: No <Vernon Thompson - Last Filed: 07/07/20 01:34> Clinical Impression: Mood disorder Disposition: ADMITTED IP TO THIS HOSP Condition: Fair Referrals: Luiza Langston MD [Primary Care Provider] - 1-2 days
[2020-07-06 23:10] LABS: Appearance,Urine Clear (Clear); Bilirubin,Urine Negative (Negative); Blood,Urine Negative (Negative); Color,Urine Light Yellow; Glucose,Urine (UA) Negative (Negative); Ketones,Urine Negative (Negative); Leukocyte Esterase,Urine Negative (Negative); Nitrite,Urine Negative (Negative); Protein,Urine Negative (Negative); Specific Gravity,Urine 1.014 (1.001-1.035); Urobilinogen,Urine <2.0 mg/dL (<2.0)
[2020-07-06 23:22] LABS: Amphetamine Screen,Urine Not Detected (NotDetected); Barbiturate Screen,Urine Not Detected (NotDetected); Benzodiazepines Screen,Urine Detected (NotDetected); Cocaine Screen,Urine Not Detected (NotDetected); Methadone Screen, Urine Not Detected (NotDetected); Opiate Screen,Urine Not Detected (NotDetected); Oxycodone Screen, Urine Not Detected (NotDetected); Phencyclidine Screen,Urine Not Detected (NotDetected); Tricyclic Antidepressant,Urine Not Detected (NotDetected); Urn Cannabinoid Scrn Not Detected (NotDetected)
[2020-07-07] MEDS ORDERED: LORazepam 1 MG TAB PO STA (01:11)
[2020-07-07] MEDS ORDERED: MAG HYDROX/AL HYDROX/SIMETH 30 ML CUP PO PRN (01:29)
[2020-07-07] MEDS ORDERED: ACETAMINOPHEN TAB 325 MG TAB PO PRN (01:29)
[2020-07-07] MEDS ORDERED: MAGNESIUM HYDROXIDE 2,400 MG/10 ML CUP PO PRN (01:29)
[2020-07-07] MEDS ORDERED: HALOPERIDOL LACTATE 5 MG/ML 1 ML VIAL IM PRN (01:33)
[2020-07-07] MEDS ORDERED: DIVALPROEX ER 250 MG TAB.ER.24H PO SCH (09:00)
[2020-07-07] MEDS ORDERED: NON FORMULARY DRUG (Glucosam/Chon-Msm1/C/Mang/Bosw [Glucosamine-Chondroitin Tablet] 1 EACH PO SCH (09:00)
[2020-07-07] MEDS ORDERED: NON FORMULARY DRUG (Potassium Gluconate [Potassium Gluconate] 99 MG Tablet.Er) PO SCH (09:00)
[2020-07-07] MEDS ORDERED: FETZIMA 120 MG PO SCH (09:00)
[2020-07-07] MEDS: VIT A,C & E-LUTEIN-MINERALS 1 EACH TAB PO SCH (09:04)
[2020-07-07] MEDS: MEMANTINE 10 MG TAB PO SCH ×2 (09:04→22:05)
[2020-07-07] MEDS: MIDODRINE 5 MG TAB PO SCH ×3 (09:04→22:04)
[2020-07-07] MEDS: CYANOCOBALAMIN 500 MCG TAB PO SCH (09:04)
[2020-07-07] MEDS: ATORVASTATIN 10 MG TAB PO SCH (09:04)
[2020-07-07] MEDS: MAGNESIUM OXIDE 400 MG TAB PO SCH (09:05)
[2020-07-07] MEDS: ASPIRIN 81 MG PO SCH (09:05)
[2020-07-07] MEDS: CHOLECALCIFEROL 25 MCG (1000 IU) TABLET PO SCH (09:05)
[2020-07-07] MEDS: CALCIUM CARB-VIT D 500 MG-5 MCG TAB PO SCH (09:05)
--- NOTE | 2020-07-07 10:54 | P.HP ---
Psychiatric H&P - . H&P Date: 07/07/20 History & Physical: Allergies Allergy/AdvReac Type Severity Reaction Status Date / Time peanut AdvReac Nausea Verified 07/06/20 17:51 Vital Signs Temp 97.7 F 07/07/20 03:23 Pulse 123 H 07/07/20 09:01 Resp 18 07/07/20 03:23 BP 91/50 07/07/20 09:01 Pulse Ox 100 07/07/20 03:23 Intake & Output 07/06/20 07/07/20 07/07/20 18:59 06:59 18:59 Weight 52.163 kg Laboratory Last Values Urine Color Light Yellow 07/06/20 22:45 Urine Appearance Clear (Clear) 07/06/20 22:45 Urine pH 7.0 (5.0-8.0) 07/06/20 22:45 Ur Specific Bonaparte 1.014 (1.001-1.035) 07/06/20 22:45 Urine Protein Negative (Negative) 07/06/20 22:45 Urine Glucose (UA) Negative (Negative) 07/06/20 22:45 Urine Ketones Negative (Negative) 07/06/20 22:45 Urine Blood Negative (Negative) 07/06/20 22:45 Urine Nitrite Negative (Negative) 07/06/20 22:45 Urine Bilirubin Negative (Negative) 07/06/20 22:45 Urine Urobilinogen <2.0 mg/dL (<2.0) 07/06/20 22:45 Ur Leukocyte Esterase Negative (Negative) 07/06/20 22:45 Urine Opiates Screen Not Detected (NotDetected) 07/06/20 22:45 Ur Oxycodone Screen Not Detected (NotDetected) 07/06/20 22:45 Urine Methadone Screen Not Detected (NotDetected) 07/06/20 22:45 Ur Propoxyphene Screen Not Detected (NotDetected) 07/06/20 22:45 Ur Barbiturates Screen Not Detected (NotDetected) 07/06/20 22:45 U Tricyclic Antidepress Not Detected (NotDetected) 07/06/20 22:45 Ur Phencyclidine Scrn Not Detected (NotDetected) 07/06/20 22:45 Ur Amphetamines Screen Not Detected (NotDetected) 07/06/20 22:45 U Methamphetamines Scrn Not Detected (NotDetected) 07/06/20 22:45 U Benzodiazepines Scrn Detected (NotDetected) H 07/06/20 22:45 Urine Cocaine Screen Not Detected (NotDetected) 07/06/20 22:45 U Marijuana (THC) Screen Not Detected (NotDetected) 07/06/20 22:45 Coronavirus (PCR) Not Detected (Not Detectd) 07/06/20 18:15 07/07/20 10:17 IDENTIFYING DATA: Patient is a , retired, 69-year-old female who was admitted for increasing depression. HPI: Patient presented to the hospital on 07/06/2020 after her outpatient psychiatrist recommended inpatient psychiatric admission due to marked dep ression increase. The patient reports significant symptoms of depression including emptiness, loneliness, sadness, crying episodes, decreased appetite, increased sleep, low energy, and psychomotor slowing. She denies any current suicidal or homicidal ideation, intention, and/or plan. She does report one prior attempt at suicide 2-3 years ago by overdose. The patient has a long history of depression starting shortly after she completed high school. She has been prescribed multiple medications with limited success and has been open with Dr. Iglesias's office for the last 3 years. Furthermore, the patient has undergone ECT treatment at [facility] and has undergone at least 10 sessions. In regards other mood symptoms, the patient does not endorse any significant history of lachelle at this time. She is currently prescribed Depakote which she states is for bipolar disorder but is not reporting any periods of excessive energy, increased goal directed behavior, or pressured speech. The patient does not endorse any significant history of psychotic symptoms. She is not reporting any auditory or visual hallucinations. She denies any paranoia or delusions. The patient reports that she has been adherent with her prescribed medications but feels like she has not had any significant benefit from them. She reports that she would feel slightly better upon being discharged from the psychiatric unit but would feel worse shortly after. When exploring any acute stressors, the patient expresses that she is feeling increasingly lonely and sad because her only support is her and she feels like she is becoming a burden to him and that he is being annoyed by her. She reports that a lot of her friends have . She denies any hobbies or interests and endorses significant anhedonia. PAST PSYCHIATRIC HISTORY: This is the patient's sixth psychiatric admission to this psychiatric unit. Her last admission to this past April 2020 for depression. Her discharge diagnoses at that time were major depressive disorder, neurocognitive disorder, and anxiety disorder. She has had multiple trials of psychotropic medications including TCAs, Lamictal, Celexa, Cymbalta, Wellbutrin, Abilify, Effexor, Paxil, Prozac, Xanax, Ativan, Klonopin, risperidone, Adderall, Ritalin, Lyrica, and Fetzima. She has attempted overdose in the past. She has also had ECT in 2019. 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 History of Any Multi-Drug Resistant Organisms: None Reported Past Surgical History: Appendectomy, Hernia Repair Additional Past Surgical History / Comment(s): Left Achilles Tendon surgery Past Anesthesia/Blood Transfusion Reactions: No Reported Reaction ALLERGIES: Peanut CHEMICAL DEPENDENCY HISTORY: The patient denies any significant history of knott bstance abuse. FAMILY PSYCHIATRIC/SUBSTANCE USE HISTORY: The patient reports that her siblings are both diagnosed with anxiety and depression. She denies any family history of suicide. SOCIAL HISTORY: Patient was born and raised in [place], [place]. She is 1 of 6 children. Her parents are . She graduated high school and has an associates degree in law enforcement. She retired in August 2016 after working for 34 years for the [employer]. She has been to her for 34 years. She has 1 adult daughter who is 30 years old. MENTAL STATUS EXAM: General Appearance: Patient appears to be stated age is alert, directable, and attempts to cooperate. Patient appears to have fair hygiene and grooming. The patient appears to be thin and frail. Behavior: Patient is seated without any agitated behavior. Eye contact is appropriate. Patient is noted to be blinking often during conversation. Patient is hard of hearing. Speech: Patient's speech is fluent and nonpressured. Monotone, low in volume, and nonspontaneous. Mood/Affect: Patient reports their mood is depressed, affect is congruent and blunted. Appropriately tearful. Suicidality/Homicidality: Patient denies having any homicidal ideation intent or plan. Denies any suicidal ideations intent or plan Perceptions: Patient denies any visual hallucinations and denies any auditory hallucinations Though content/process: There is no evidence of any delusional thought content and thought process is linear and goal-directed. Memory and concentration: AOX3, grossly intact for the purposes of this session. Can spell "WORLD" backwards Judgment and insight: Fair STRENGTHS/WEAKNESSES: Strength is that the patient is in relatively good physical health, has a supportive , stable housing, and stable income. Weakness is that the patient has chronic and persistent mental illness that appears to be treatment resistant. INTELLECT: average IMPRESSIONS: Major depressive disorder, recurrent, severe Generalized anxiety disorder PLAN: -Patient is admitted under voluntary status to [facility]HU for stabilization of psychiatric symptoms and safety. Patient signed adult voluntary form and medication consent and is placed in patient's chart. -Medications : Will start patient on Remeron 7.5 mg by mouth at bedtime for management of depression/low appetite. We will gradually titrate this medication pending patient's response. Methylphenidate 5 mg by mouth twice a day for treatment resistant depression. We will hold for eczema as the patient has had no significant benefit from this medication and has had an adequate trial at the maximum dose. We will explore whether we will try a trial of nortriptyline for increased serotonergic action benefit from this regimen of Remeron and methylphenidate. May consider augmentation of nortriptyline with lithium. -Haldol PRN for agitation/aggression -Ordered B12 and folate. TSH from 04/07/2020 was within normal limits. -Patient was informed of the risks, benefits and side effects of the medication and patient verbally consented to taking the medications. Patient signed med consent form and was placed in chart. -Internal Medicine consult to perform medical evaluation and physical. -SW on board for discharge planning. Encourage patient to participate in groups to work on coping skills. 07/07/20 10:47
--- NOTE | 2020-07-07 11:29 | P.MDCNMH ---
History of Present Illness H&P Date: 07/07/20 HISTORY OF PRESENT ILLNESS This is a 69-year-old female patient of Dr. Langston with past medical history of osteoarthritis, MTHFR mutations, migraines, recurrent depression, generalized anxiety disorder, OCD, ADHD. The patient states that she is having trouble with anxiety and depression. She states she is sleeping too much and nothing makes her happy. She states she is not eating and does not have any appetite. She denies having any abdominal pain. She does not feel that her has been as supportive at home. Symptoms may be worsened by cold blood 19 restrictions. Patient was at her psychiatrist yesterday was instructed to come into the hospital for further evaluation and treatment. Urinalysis negative. Urine drug screen positive for benzodiazepines. Chronic virus PCR not detected. Additional lab work is pending. We have added in a CA 199. Patient denies any medical concerns at this time. Patient is seen on the mental health unit. REVIEW OF SYSTEMS Constitutional: No fever, no chills, no night sweats. Reports weight change. Reports generalized fatigue. Reports daytime sleepiness. EENT: No headache. No blurred vision or double vision, no loss of vision. No loss of Hearing, no ringing in the ears, no dizziness. No nasal drainage or congestion. No epistaxis. No sore throat. Lungs: No shortness of breath, cough, no sputum production. No wheezing. Cardiovascular: No chest pain, no lower extremity edema. No palpitations. No paroxysmal nocturnal dyspnea. No orthopnea. No lightheadedness or dizziness. No syncopal episodes. Abdominal: No abdominal pain. No nausea, vomiting. No diarrhea. No constipation. No bloody or tarry stools.. Reports loss of appetite. Genitourinary: No dysuria, increased frequency, urgency. No urinary retention. Musculoskeletal: No myalgias. No muscle weakness, no gait dysfunction, no frequent falls. No back pain. No neck pain. Integumentary: No wounds, no lesions. No rash or pruritus. Neurologic: No aphasia. No facial droop. No change in mentation. No head injury. No headache. No paralysis. No paresthesia. Psychiatric: Reports depression. Reports anxiety. Reports excessive sleeping. Endocrine: No abnormal blood sugars. No weight change. No excessive sweating or thirst. No cold intolerance. SOCIAL HISTORY Patient has been a lifelong nonsmoker, no illicit drug use, no alcohol use, no marijuana use. Patient is retired from the [employer] for 4 years. She lives at home with her . FAMILY HISTORY Mother is at age 84 and had history of anxiety. Father in his 70s and patient does not know cause of . Patient is a total of 5 siblings with no major medical problems that she is aware of. All are living. Patient has one daughter with no major medical problems. PHYSICAL EXAMINATION Gen: This is a thin cachectic appearing 69-year-old female. HEENT: Head is atraumatic, normocephalic. Pupils equal, round. Sclerae is anicteric. Heart appearing. NECK: Supple. No JVD. No lymphadenopathy. No thyromegaly. LUNGS: Clear to auscultation. No wheezes or rhonchi. No intercostal retractions. HEART: Regular rate and rhythm. No murmur. ABDOMEN: Soft. Bowel sounds are present. No masses. No tenderness. EXTREMITIES: No pedal edema. No calf tenderness. NEUROLOGICAL: Patient is awake, alert and oriented x3. Cranial nerves 2 through 12 are grossly intact. Generalized weakness noted. Flat affect. ASSESSMENT AND PLAN 1. Recurrent depression and generalized anxiety disorder. Patient admitted to the mental health unit. Continue current plan per psychiatry. 2. History of drug overdose in 2019. Stable. 3. Patient has history of OCD and ADHD. 4. History of migraine headaches. 5. History of MTHFR mutation. Discharge plan: Patient to follow-up with Dr. Langston following discharge from the mental health unit Impression and plan of care have been directed as dictated by the signing physician. Myrna Caceres nurse practitioner acting as scribe for signing physician. 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 History of Any Multi-Drug Resistant Organisms: None Reported Past Surgical History: Appendectomy, Hernia Repair Additional Past Surgical History / Comment(s): Left Achilles Tendon surgery Past Anesthesia/Blood Transfusion Reactions: No Reported Reaction Past Psychological History: Anxiety, Depression Smoking Status: Never smoker Past Alcohol Use History: Rare Past Drug Use History: None Reported - Past Family History Father History Unknown: Yes Family Medical History: No Reported History Additional Family Medical History / Comment(s): Father in his late 70s the patient does not know cause of nor any medical problems. Mother History Unknown: Yes Family Medical History: No Reported History Additional Family Medical History / Comment(s): Mother in her 80s and suffered from anxiety. Brother(s) Family Medical History: No Reported History Additional Family Medical History / Comment(s): Patient has 2 brothers and 4 sisters with no major medical problems that she is aware of. Patient has one daughter with no major medical problems. Sister(s) History Unknown: Yes Family Medical History: No Reported History Daughter(s) History Unknown: Yes Medications and Allergies Home Medications Medication Instructions Recorded Confirmed Type Rosuvastatin Calcium 2.5 mg PO SUWEFR 02/24/19 07/06/20 History Fetzima Er 120mg 120 mg PO DAILY 04/06/20 07/06/20 History Memantine [Namenda] 10 mg PO BID 04/06/20 07/06/20 History Midodrine HCl [ProAmatine] 10 mg PO TID 04/06/20 07/06/20 History Aspirin [Chugach Aspirin EC] 81 mg PO DAILY 07/06/20 07/06/20 History Calcium Carbonate/Vitamin D3 1 tab PO DAILY 07/06/20 07/06/20 History [Caltrate 600 Plus D3 20 Mcg (800 Iu)] Cholecalciferol [Vitamin D3 (25 50 mcg PO DAILY 07/06/20 07/06/20 History Mcg = 1000 Iu)] Cyanocobalamin (Vitamin B-12) 5,000 mcg PO DAILY 07/06/20 07/06/20 History [Vitamin B-12] Divalproex Sodium [Divalproex 250 mg PO DAILY 07/06/20 07/06/20 History Sodium ER] Glucosam/Deangelo-Msm1/C/Venkatesh/Bosw 1 tab PO DAILY 07/06/20 07/06/20 History [Glucosamine-Chondroitin Tablet] LORazepam [Ativan] 1 mg PO TID PRN 07/06/20 07/06/20 History Magnesium Oxide 400 mg PO DAILY 07/06/20 07/06/20 History Multivit-Min/Iron/Folic/Lutein 1 tab PO DAILY 07/06/20 07/06/20 History [Centrum Silver Women Tablet] Potassium Gluconate 99 mg PO DAILY 07/06/20 07/06/20 History Allergies Allergy/AdvReac Type Severity Reaction Status Date / Time peanut AdvReac Nausea Verified 07/06/20 17:51 Physical Exam Vitals: Vital Signs Temp Pulse Pulse Pulse Resp BP BP 07/07/20 09:01 123 H 91/50 07/07/20 03:23 97.7 F 107 H 18 138/78 07/06/20 17:47 98.6 F 103 H 16 126/76 Pulse Ox 07/07/20 09:01 07/07/20 03:23 100 07/06/20 17:47 99 Intake and Output 07/06/20 07/07/20 07/07/20 22:59 06:59 14:59 Other: Weight 52.163 kg Cranial Nerve Examination - Cranial Nerves Cranial Nerve II- Optic: Intact Cranial Nerve III- Oculomotor: Intact Cranial Nerve IV- Trochlear: Intact Cranial Nerve V- Trigeminal: Intact Cranial Nerve - Abducens: Intact Cranial Nerve VII- Facial: Intact Cranial Nerve VIII- Auditory: Intact Cranial Nerve IX- Glossopharyngeal: Intact Cranial Nerve X- Vagus: Intact Cranial Nerve XI- Accessory: Intact Cranial Nerve XII- Hypoglossal: Intact Results Labs: Abnormal Lab Results - Last 24 Hours (Table) 07/06/20 Range/Units 22:45 U Benzodiazepines Scrn Detected H (NotDetected)
[2020-07-07] MEDS: METOPROLOL TARTRATE 12.5 MG TAB PO SCH ×2 (11:53→22:05)
[2020-07-07] MEDS: METHYLPHENIDATE HCL 5 MG TAB PO SCH ×2 (12:10→17:04)
[2020-07-07 15:36] VITALS: BMI 18.0
[2020-07-07] MEDS: LORazepam 1 MG TAB PO PRN (17:28)
[2020-07-07] MEDS ORDERED: MIRTAZAPINE 15 MG TAB PO SCH (21:00)
[2020-07-07] MEDS: MIRTAZAPINE 15 MG TAB PO SCH (22:05)
[2020-07-08] MEDS: ATORVASTATIN 10 MG TAB PO SCH (08:29)
[2020-07-08] MEDS: VIT A,C & E-LUTEIN-MINERALS 1 EACH TAB PO SCH (08:29)
[2020-07-08] MEDS: METHYLPHENIDATE HCL 5 MG TAB PO SCH ×2 (08:29→18:03)
[2020-07-08] MEDS: MAGNESIUM OXIDE 400 MG TAB PO SCH (08:29)
[2020-07-08] MEDS: MEMANTINE 10 MG TAB PO SCH ×2 (08:29→20:37)
[2020-07-08] MEDS: MIDODRINE 5 MG TAB PO SCH ×3 (08:29→20:38)
[2020-07-08] MEDS: CYANOCOBALAMIN 500 MCG TAB PO SCH (08:29)
[2020-07-08] MEDS: CHOLECALCIFEROL 25 MCG (1000 IU) TABLET PO SCH (08:29)
[2020-07-08] MEDS: CALCIUM CARB-VIT D 500 MG-5 MCG TAB PO SCH (08:30)
[2020-07-08] MEDS: ASPIRIN 81 MG PO SCH (08:30)
[2020-07-08] MEDS: METOPROLOL TARTRATE 12.5 MG TAB PO SCH ×2 (09:19→20:37)
[2020-07-08 09:59] LABS: Basophils # (A) 0.1 k/uL (0-0.2); Basophils % (A) 1 %; Eosinophils # (A) 0.1 k/uL (0-0.7); Eosinophils % (A) 2 %; HCT 43.5 % (34.0-46.0); HGB 14.3 gm/dL (11.4-16.0); Lymphocytes # (A) 2.7 k/uL (1.0-4.8); Lymphocytes % (A) 41 %; MCH 29.8 pg (25.0-35.0); MCHC 32.9 g/dL (31.0-37.0); MCV 90.4 fL (80.0-100.0); Mean Platelet Volume 8.4; Monocytes # (A) 0.4 k/uL (0-1.0); Monocytes % (A) 6 %; Neutrophils # (A) 3.2 k/uL (1.3-7.7); Neutrophils % (A) 48 %; Platelet Count 257 k/uL (150-450); RBC 4.81 m/uL (3.80-5.40); RDW 12.6 % (11.5-15.5); WBC 6.6 k/uL (3.8-10.6)
[2020-07-08 10:09] LABS: ALT 29 U/L (4-34); AST 33 U/L (14-36); African American GFR (CKD) 79 (>60 ml/min/1.73 sqM); Albumin 4.8 g/dL (3.5-5.0); Alkaline Phosphatase 98 U/L (38-126); Anion Gap 11 mmol/L; Blood Urea Nitrogen 22 mg/dL (7-17); Calcium 10.3 mg/dL (8.4-10.2); Carbon Dioxide 29 mmol/L (22-30); Chloride 100 mmol/L (98-107); Cholesterol 206 mg/dL (<200); Glucose 141 mg/dL (74-99); HDL Cholesterol 65 mg/dL (40-60); LDL Cholesterol,Calculated 111 mg/dL (0-99); Non-African American GFR(CKD) 69 (>60 ml/min/1.73 sqM); Potassium 4.2 mmol/L (3.5-5.1); Sodium 140 mmol/L (137-145); Total Bilirubin 0.6 mg/dL (0.2-1.3); Total Protein 7.2 g/dL (6.3-8.2); Triglycerides 150 mg/dL (<150)
[2020-07-08] MEDS: LORazepam 1 MG TAB PO PRN (14:23)
--- NOTE | 2020-07-08 15:11 | P.PN ---
Progress Note - Text Progress Note Date: 07/08/20 Clinical Problems: Major depressive disorder, recurrent, severe, Generalized anxiety disorder Interim history: I reviewed the medical record and interviewed the patient. She is a 69-year-old female who has a recurrent and severe depressive disorder. Her outpatient psychiatrist, Dr. Torres, referred her for outpatient for increased depression. I was her attending when she was admitted in April 2020 and we appear to have successfully treated depression with combination of Fetzima, Zyprexa and pregabalin. Dr. Torres called about 6 weeks following discharge and reported that the patient had developed or hypomania with the pregabalin. When he discontinued the pregabalin the hypomanic symptoms subsided. She complained of continued feelings of anxiety, helplessness and hopelessness. She feels restless and anxious and appeared tremulous throughout the interview. She complains of feeling tired but is not able to sleep. She denied suicidal ideation, intent or plan. Mental status exam: He presented as a thin, frail and tremulous appearing elderly woman who was pleasant on approach. She made eye contact and attended to the interview. She had a anxious facial expression. She was able to remain seated during interview but had a recurrent tremor. She blinked frequently. Her each was spontaneous with normal rate and rhythm. Her affect was markedly anxious. She denied suicidal ideation and wishes. She expressed feelings of hopelessness and helplessness. She ruminated about her anxiety and her overall disability. She did not express ideas reference, paranoid ideation or delusions. Her thinking was concrete but her associations were coherent, logical and goal directed. She denied hallucinations did not appear to be responding to internal stimuli. Assessment: She appears moderately severely mentally ill and moderately improve from admission. Plan: Continue inpatient treatment. Safety precautions. Continue Namenda 10 mg twice a day, Ritalin 5 mg twice a day, and Remeron 7.5 mg at bedtime. Titrate Remeron according to tolerance and clinical effect. Continue aspirin 81 mg daily, Lipitor 10 mg 3 times per week, Os-Osmin 500+ D daily, cholecalciferol 50 g daily, vitamin B12 5000 units daily Lopressor 12.5 mg twice a day and mul tivitamins daily. Haldol and/or Ativan when necessary for agitation, anxiety or acute psychosis. Encourage participation in therapeutic groups and activities. Evaluate clinical status response to treatment daily basis.
[2020-07-08 18:05] LABS: Folate, Serum >24.0 ng/mL; Vitamin B12 >4000.0 pg/mL (211-911)
[2020-07-08 19:36] LABS: Hemoglobin A1C 5.4 % (4.0-6.0)
[2020-07-08] MEDS: MIRTAZAPINE 15 MG TAB PO SCH (20:37)
[2020-07-09] MEDS: METHYLPHENIDATE HCL 5 MG TAB PO SCH ×2 (09:01→17:24)
[2020-07-09] MEDS: CHOLECALCIFEROL 25 MCG (1000 IU) TABLET PO SCH (09:01)
[2020-07-09] MEDS: ASPIRIN 81 MG PO SCH (09:01)
[2020-07-09] MEDS: VIT A,C & E-LUTEIN-MINERALS 1 EACH TAB PO SCH (09:02)
[2020-07-09] MEDS: MEMANTINE 10 MG TAB PO SCH ×2 (09:02→20:51)
[2020-07-09] MEDS: MAGNESIUM OXIDE 400 MG TAB PO SCH (09:02)
[2020-07-09] MEDS: CALCIUM CARB-VIT D 500 MG-5 MCG TAB PO SCH (09:02)
[2020-07-09] MEDS: MIDODRINE 5 MG TAB PO SCH ×3 (09:02→20:51)
[2020-07-09] MEDS: METOPROLOL TARTRATE 12.5 MG TAB PO SCH ×2 (09:02→20:51)
[2020-07-09] MEDS: CYANOCOBALAMIN 500 MCG TAB PO SCH (09:58)
[2020-07-09] MEDS: LORazepam 1 MG TAB PO PRN (11:20)
--- NOTE | 2020-07-09 15:26 | P.PN ---
Progress Note - Text Progress Note Date: 07/09/20 Clinical Problems: Major depressive disorder, recurrent, severe, Generalized anxiety disorder Interim history: I reviewed the medical record and interviewed the patient. She complained of continued feelings of anxiety, helplessness and hopelessness. She is declining Ritalin because she feels that it makes her feel more anxious. She reports a poor appetite and continued fatigue. She reported that she felt good throughout April and had "a good Jefferson". She noted a change in her mood with increased anxiety in June about the time when Dr. Torres discontinued Lyrica for what he suspected to be a medication- induced hypomania. Mental status exam: He presented as a thin, frail and tremulous appearing elderly woman who was pleasant on approach. She made eye contact and attended to the interview. She had a anxious facial expression. She was able to remain seated during interview but had a recurrent tremor. She blinked frequently. Her each was spontaneous with normal rate and rhythm. Her affect was markedly anxious. She denied suicidal ideation and wishes. She expressed feelings of hopelessness and helplessness. She ruminated about her anxiety and her overall disability. She did not express ideas reference, paranoid ideation or delusions. Her thinking was concrete but her associations were coherent, logical and goal directed. She denied hallucinations did not appear to be responding to internal stimuli. Assessment: She appears severely mentally ill and moderately improve from admission. Plan: Continue inpatient treatment. Safety precautions. Continue Namenda 10 mg twice a day, and Remeron 7.5 mg at bedtime. Titrate Remeron according to lennox orozco and clinical effect. Continue aspirin 81 mg daily, Lipitor 10 mg 3 times per week, Os-Osmin 500+ D daily, cholecalciferol 50 g daily, vitamin B12 5000 units daily Lopressor 12.5 mg twice a day and multivitamins daily. Haldol and/or Ativan when necessary for agitation, anxiety or acute psychosis. Encourage participation in therapeutic groups and activities. Evaluate clinical status response to treatment daily basis.
[2020-07-09] MEDS: MIRTAZAPINE 15 MG TAB PO SCH (20:50)
[2020-07-10] MEDS: METHYLPHENIDATE HCL 5 MG TAB PO SCH (08:14)
[2020-07-10] MEDS: ASPIRIN 81 MG PO SCH (08:18)
[2020-07-10] MEDS: METOPROLOL TARTRATE 12.5 MG TAB PO SCH ×2 (08:19→20:31)
[2020-07-10] MEDS: MAGNESIUM OXIDE 400 MG TAB PO SCH (08:19)
[2020-07-10] MEDS: CHOLECALCIFEROL 25 MCG (1000 IU) TABLET PO SCH (08:19)
[2020-07-10] MEDS: MIDODRINE 5 MG TAB PO SCH ×3 (08:19→20:31)
[2020-07-10] MEDS: MEMANTINE 10 MG TAB PO SCH ×2 (08:19→20:31)
[2020-07-10] MEDS: CALCIUM CARB-VIT D 500 MG-5 MCG TAB PO SCH (08:20)
[2020-07-10] MEDS: LORazepam 1 MG TAB PO PRN ×2 (08:20→14:50)
[2020-07-10] MEDS: VIT A,C & E-LUTEIN-MINERALS 1 EACH TAB PO SCH (08:20)
[2020-07-10] MEDS ORDERED: VORTIOXETINE HYDROBROMIDE 10 MG TABLET PO STA (09:25)
--- NOTE | 2020-07-10 09:56 | P.PN ---
Progress Note - Text Progress Note Date: 07/10/20 Interval History: Patient was seen resting in bed and was directable and agreeable to speak with engineering writer in the office. She reports that her depression is slightly better but reports elevated anxiety. The patient states that she remains primarily ulcerative to herself in her room because of her elevated anxiety. She states it is difficult for her to get out of her room and attend groups or be around others. She is currently not reporting any suicidal or homicidal ideation, intention, and/or plan. She is not reporting any auditory or visualizations. She is not reporting any paranoia or delusions. She has been adherent to medications but reports elevated anxiety as a side effect of Ritalin. The patient is requesting that she be off Ritalin. She is open to trying a trial of Trintellix to treat depression and focus. She does report that sleep tends to be difficult after she is woken up for her vitals to be checked. She reports no issues falling asleep. Mental Status Exam: General Appearance: Patient appears to be stated age is alert, directable, and cooperative. Patient appears to be thin and frail. Behavior: Patient is calmly seated without any agitated behavior. Patient is noted to blinking often drink conversation. She is hard of hearing. Approach is cooperative and polite. Speech: Patient's speech is fluent and nonpressured. Her low in volume, and nonspontaneous. Mood/Affect: Mood is very nervous, affect is congruent and anxious. Suicidality/Homicidality: Patient denies having any suicidal or homicidal ideation intent or plan. Perceptions: Patient denies any visual hallucinations and denies any auditory hallucinations Though content/process: There is no evidence of any delusional thought content and thought process is linear and goal-directed. Memory and concentration: AOX3, grossly intact for the purposes of this session Judgment and insight: Improving mildly Assessment Major depressive disorder, recurrent, severe Generalized anxiety disorder Neurocognitive Disorder, unspecified Plan: -Patient continues to meet criteria for inpatient psychiatric admission for symptom stabilization and safety. Patient has signed adult voluntary form and medication consent and was placed in patient's chart. -Medications: Increase Remeron to 15 mg by mouth at bedtime for depression/low appetite Discontinue methylphenidate as per patient preference. Start trintellix 10 mg daily for depression/focus. Contine namenda 10 mg twice daily for neurocognitive disorder. -SW on board for discharge planning. Encouraged the patient to participate in milieu.
[2020-07-10 19:38] LABS: Appearance,Urine Clear (Clear); Bacteria,Urine Rare /hpf; Bilirubin,Urine Negative (Negative); Blood,Urine Negative (Negative); Color,Urine Colorless; Glucose,Urine (UA) Negative (Negative); Ketones,Urine Negative (Negative); Leukocyte Esterase,Urine Trace (Negative); Nitrite,Urine Negative (Negative); PH, Urine 6.5 (5.0-8.0); Protein,Urine Negative (Negative); RBC,Urine <1 /hpf (0-5); Specific Gravity,Urine 1.003 (1.001-1.035); Urobilinogen,Urine <2.0 mg/dL (<2.0); WBC,Urine 1 /hpf (0-5)
[2020-07-10] MEDS: MIRTAZAPINE 15 MG TAB PO SCH (20:30)
[2020-07-11] MEDS: ASPIRIN 81 MG PO SCH (08:47)
[2020-07-11] MEDS: CALCIUM CARB-VIT D 500 MG-5 MCG TAB PO SCH (08:47)
[2020-07-11] MEDS: MEMANTINE 10 MG TAB PO SCH ×2 (08:48→20:43)
[2020-07-11] MEDS: CHOLECALCIFEROL 25 MCG (1000 IU) TABLET PO SCH (08:48)
[2020-07-11] MEDS: MAGNESIUM OXIDE 400 MG TAB PO SCH (08:50)
[2020-07-11] MEDS: LORazepam 1 MG TAB PO PRN (08:53)
[2020-07-11] MEDS ORDERED: VORTIOXETINE HYDROBROMIDE 10 MG TABLET PO SCH (09:00)
[2020-07-11] MEDS ORDERED: VORTIOXETINE HYDROBROMIDE 10 MG TABLET PO STA (09:28)
[2020-07-11] MEDS: METOPROLOL TARTRATE 12.5 MG TAB PO SCH ×2 (09:32→20:43)
[2020-07-11] MEDS: VIT A,C & E-LUTEIN-MINERALS 1 EACH TAB PO SCH (09:32)
[2020-07-11] MEDS: MIDODRINE 5 MG TAB PO SCH ×3 (09:32→20:43)
--- NOTE | 2020-07-11 11:04 | P.PN ---
Progress Note - Text Progress Note Date: 07/11/20 Interval History: Patient was seen resting in bed and was directable and agreeable to speak with tag writer in the office. The patient reports that she is feeling better today. She is currently not reporting any suicidal or homicidal ideation, intention, and/or plan. She is not reporting any auditory or visual hallucinations. She is denying any paranoia or delusions. She has been adherent to her medications but is not reporting any significant side effects at this time. She does report that her anxiety continues to be elevated but that this is more manageable than before. The patient's outpatient psychiatrist expressed concern about discharge stating that he believes the patient is at very high risk for suicide as she is primarily left alone to her own devices during the day while her is at work. He reports that he has been seeing this patient weekly if not every other week and is concerned for her safety and believes that she may be downplaying her suicidal ideation. The patient does remain primarily isolative to herself in her bedroom reporting that she likes to be alone due to elevated anxiety. The patient's outpatient psychiatrist also expresses concern as the patient was placed on Lyrica during the last hospitalization which caused her to switch into lachelle. The patient is no longer on any mood stabilizing medications. Despite this, the patient states that she is feeling ready to go home and is looking forward to seeing her dog again. Furthermore, the patient does express some future orientation stating that it is her grandsons third birthday this month and she is excited to celebrate with him. The patient states that she would call her or go to the emergency department if she were to feel suicidal. This provider discussed with this patient at length that although anxiety may be elevated, overdosing on medications would not be the solution and that she needs to practice appropriate coping skills. She has been adherent with her medications and is tolerating the switch from Risperdal intention [place]. Mental Status Exam: General Appearance: Patient appears to be stated age is alert, directable, and cooperative. Patient appears to be thin and frail. Behavior: Patient is calmly seated without any agitated behavior. She is hard of hearing. Approach is cooperative and polite. Psychomotor activity appears normal. Speech: Patient's speech is fluent and nonpressured. Speech continues to be low in volume but is much more spontaneous today. Mood/Affect: Mood is "a little anxious," affect is constricted in range but overall increased compared to yesterday. Affect is appropriate and euthymic. Suicidality/Homicidality: Patient denies having any suicidal or homicidal ideation intent or plan. Perceptions: Patient denies any visual hallucinations and denies any auditory hallucinations Though content/process: There is no evidence of any delusional thought content and thought process is linear and goal-directed. Memory and concentration: AOX3, grossly intact for the purposes of this session Judgment and insight: Improving mildly Assessment Major depressive disorder, recurrent, severe Generalized anxiety disorder Neurocognitive Disorder, unspecified Plan: -Patient continues to meet criteria for inpatient psychiatric admission for symptom stabilization and safety. Patient has signed adult voluntary form and medication consent and was placed in patient's chart. Anticipate discharge for tomorrow. -Medications: Continue Remeron 15 mg by mouth at bedtime for depression/low appetite Increase trintellix to 20 mg daily for depression/focus. Contine namenda 10 mg twice daily for neurocognitive disorder. -SW on board for discharge planning. Encouraged the patient to participate in milieu.
[2020-07-11] MEDS: MIRTAZAPINE 15 MG TAB PO SCH (20:43)
[2020-07-12] MEDS: ATORVASTATIN 10 MG TAB PO SCH (08:54)
[2020-07-12] MEDS: ASPIRIN 81 MG PO SCH (08:54)
[2020-07-12] MEDS: MEMANTINE 10 MG TAB PO SCH ×2 (08:54→21:18)
[2020-07-12] MEDS: CHOLECALCIFEROL 25 MCG (1000 IU) TABLET PO SCH (08:55)
[2020-07-12] MEDS: VORTIOXETINE HYDROBROMIDE 20 MG TABLET PO SCH (08:55)
[2020-07-12] MEDS: MIDODRINE 5 MG TAB PO SCH ×3 (08:55→21:18)
[2020-07-12] MEDS: MAGNESIUM OXIDE 400 MG TAB PO SCH (08:55)
[2020-07-12] MEDS: CALCIUM CARB-VIT D 500 MG-5 MCG TAB PO SCH (08:55)
[2020-07-12] MEDS: VIT A,C & E-LUTEIN-MINERALS 1 EACH TAB PO SCH (08:56)
[2020-07-12] MEDS: METOPROLOL TARTRATE 12.5 MG TAB PO SCH ×2 (08:57→21:18)
--- NOTE | 2020-07-12 09:47 | P.PN ---
Progress Note - Text Progress Note Date: 07/12/20 Interval History: Patient was seen wandering the hallways and was directable and agreeable to speak with justowriter operator in the office. Patient reports that she is feeling better in terms of her depression. She is not reporting any suicidal or homicidal ideation, intention, and/or plan. She is not reporting any auditory or visualizations. Denying any paranoia or delusions. The patient has not addressed her hygiene during this hospital stay stating that she is concerned of all the germs that are in the shower because it is shared with multiple peers. She has been adherent with the medications and is not reporting any significant side effects at this time. She continues to endorse elevated anxiety. She is unable to identify any particular stressors other than stating that she is not used to being around so many people. Mental Status Exam: General Appearance: Patient appears to be stated age is alert, directable, and cooperative. Patient appears to be thin and frail. Behavior: Patient is calmly seated without any agitated behavior. She is hard of hearing. Approach is cooperative and polite. Psychomotor activity appears normal. Speech: Patient's speech is fluent and nonpressured. Speech is low in volume. Mood/Affect: Mood is described as "anxious." Affect is congruent, nervous with constricted range. Suicidality/Homicidality: Patient denies having any suicidal or homicidal ideation intent or plan. Perceptions: Patient denies any visual hallucinations and denies any auditory hallucinations Though content/process: There is no evidence of any delusional thought content and thought process is linear and goal-directed. Memory and concentration: AOX3, grossly intact for the purposes of this session Judgment and insight: Improving mildly Assessment Major depressive disorder, recurrent, severe Generalized anxiety disorder Neurocognitive Disorder, unspecified Plan: -Patient continues to meet criteria for inpatient psychiatric admission for symptom stabilization and safety. Patient has signed adult voluntary form and medication consent and was placed in patient's chart. -Medications: Continue Remeron 15 mg by mouth at bedtime for depression/low appetite Continue trintellix to 20 mg daily for depression/focus. Contine namenda 10 mg twice daily for neurocognitive disorder. -SW on board for discharge planning. Encouraged the patient to participate in milieu.
[2020-07-12] MEDS: LORazepam 1 MG TAB PO PRN (12:11)
[2020-07-12 17:54] VITALS: TEMP 97.6
[2020-07-12] MEDS: MIRTAZAPINE 15 MG TAB PO SCH (21:18)
[2020-07-13] MEDS: CHOLECALCIFEROL 25 MCG (1000 IU) TABLET PO SCH (08:00)
[2020-07-13] MEDS: VORTIOXETINE HYDROBROMIDE 20 MG TABLET PO SCH (08:00)
[2020-07-13] MEDS: CALCIUM CARB-VIT D 500 MG-5 MCG TAB PO SCH (08:00)
[2020-07-13] MEDS: MEMANTINE 10 MG TAB PO SCH (08:00)
[2020-07-13] MEDS: MIDODRINE 5 MG TAB PO SCH (08:00)
[2020-07-13] MEDS: ASPIRIN 81 MG PO SCH (08:00)
[2020-07-13] MEDS: VIT A,C & E-LUTEIN-MINERALS 1 EACH TAB PO SCH (08:00)
[2020-07-13] MEDS: MAGNESIUM OXIDE 400 MG TAB PO SCH (08:00)
[2020-07-13] MEDS: METOPROLOL TARTRATE 12.5 MG TAB PO SCH (08:44)
[2020-07-13] MEDS: LORazepam 1 MG TAB PO PRN (08:45)
[2020-07-13 08:54] VITALS: BP 112/73; PULSE 129; RESP 16
--- NOTE | 2020-07-13 11:26 | P.DS ---
Providers Date of admission: 07/07/20 01:27 Expected date of discharge: 07/13/20 Attending physician: Norman Torrez MD Consults: 07/07/20 01:29 Consult Physician Routine Consulting Provider: Luiza Langston Consult Reason/Comments: h and p Do you want consulting provider notified?: Already Contacted Primary care physician: Luiza Langston - Discharge Diagnosis(es) (1) Bipolar disorder with current episode depressed Current Visit: Yes Status: Acute Priority: High (2) Generalized anxiety disorder Current Visit: Yes Status: Acute (3) Neurocognitive disorder Current Visit: Yes Status: Chronic Priority: Medium Hospital Course: Admission HPI: Patient is a , retired, 69-year-old female who was admitted for increasing depression. Patient presented to the hospital on 07/06/2020 after her outpatient psychiatrist recommended inpatient psychiatric admission due to marked depression increase. The patient reports significant symptoms of depression including emptiness, loneliness, sadness, crying episodes, decreased appetite, increased sleep, low energy, and psychomotor slowing. She denies any current suicidal or homicidal ideation, intention, and/or plan. She does report one prior attempt at suicide 2-3 years ago by overdose. The patient has a long history of depression starting shortly after she completed high school. She has been prescribed multiple medications with limited success and has been open with Dr. Iglesias's office for the last 3 years. Furthermore, the patient has undergone ECT treatment at [facility] and has undergone at least 10 sessions. In regards other mood symptoms, the patient does not endorse any significant history of lachelle at this time. She is currently prescribed Depakote which she states is for bipolar disorder but is not reporting any periods of excessive energy, increased goal directed behavior, or pressured speech. The patient does not endorse any significant history of psychotic symptoms. She is not reporting any auditory or visual hallucinations. She denies any paranoia or delusions. The patient reports that she has been adherent with her prescribed medications but feels like she has not had any significant benefit from them. She reports that she would feel slightly better upon being discharged from the psychiatric unit but would feel worse shortly after. When exploring any acute stressors, the patient expresses that she is feeling increasingly lonely and sad because her only support is her and she feels like she is becoming a burden to him and that he is being annoyed by her. She reports that a lot of her friends have . She denies any hobbies or interests and endorses significant anhedonia. Hospital course: Upon admission to the unit patient was initially presenting with significant depression, psychomotor slowing, and dysphoria. Patient was however directable and agreeable to commence treatment. Her depression has been treatment resistant as she has had multiple trials of medications and has also completed a round of ECT treatment. The patient was started on a regimen of Remeron and Ritalin for management of depression/low appetite/focus. Initially, the patient was primarily acid of to herself in her room attributing elevated anxiety as the reason for her isolation. The patient expressed concern that the Ritalin was contributing to her anxiety. This medication was then switched to trintellix. The following day, the patient expressed significant improvement in her mood. She appeared brighter, with increased affect, future orientation, and began participating in group and milieu activities. She reported improved sleep and appetite. She appeared to be tolerating the medication better. After discussion with the patient's outpatient psychiatric provider, there was concern that the patient may be under reporting the severity of her symptoms. Her outpatient providers notes that he has been seeing the patient on a weekly to biweekly basis due to her treatment resistant depression and that he felt that the patient is at high risk for suicide. He also notes that when the patient was placed on Lyrica, she was switched to lachelle. As the medication was just switched to trintellix, we felt it appropriate to hold the patient while we t itrate her medication and observe for tolerance and effectiveness of the medication. On the day of discharge, patient is not reporting any suicidal or homicidal ideation, intention, and/or plan. She is not reporting any auditory or visualizations. She denies any paranoia or delusions. She denies any access to firearms or other weapons. The patient is future oriented. She displays significant improvement in her range of affect, mood, and her participation in group and milieu activities. She presents as euthymic to bright. She smiles and laughs during the psychiatric exit interview. The patient was counseled on her medications and need for regular compliance and encouraged to follow-up with her outpatient appointments for mental health and for primary care. Prior to discharge, family meeting will be arranged by sexual assault social worker to answer any questions and ensure safety. During his hospitalization, the patient was examined by the medical team for history and physical examination. She was cleared medically prior to discharge. Mental status exam: General Appearance: Patient appears to be stated age is alert, pleasant, and cooperative. Patient is in no acute distress and has fair hygiene and grooming . Patient appears to be thin and frail. Behavior: Patient is calmly seated without any agitated behavior. Psychomotor activity appears normal. Patient laughs and smiles appropriately. Speech: Patient's speech is fluent and nonpressured. Much more spontaneous with normal tone and volume. Mood/Affect: Patient reports their mood is "much better", affect is congruent and euthymic to bright. Suicidality/Homicidality: Patient denies having any suicidal or homicidal ideation intent or plan. Perceptions: Patient denies any auditory or visual hallucinations. Though content/process: There is no evidence of any delusional thought content and thought process is linear and goal-directed. The patient is future oriented. Memory and concentration: AOX3, grossly intact for the purposes of this session. Can spell "WORLD" backwards correctly. Judgment and insight: Improved with guarded prognosis Impression: Bipolar disorder, depressed episode Generalized anxiety disorder Neurocognitive disorder, unspecified Plan: -Continue with discharge today as patient has improved and stabilized psychiatrically and is not currently an imminent threat to herself and/or others. Patient will remain at chronically elevated risk for harm to self and/or others due to her treatment resistant depression and history of a prior suicide attempt -Continue medications: Remeron 15 mg daily at bedtime for depression/low appetite Trintellix 20 mg by mouth daily for depression/focus Namenda 10 mg by mouth twice a day for neurocognitive disorder -Patient was counseled on the need for medication compliance and appropriate follow-up at mental health and also primary care for medical issues. Patient verbalized understanding and agreed. -Social work to arrange for and conduct family meeting to ensure safety upon discharge and answer any questions/concerns. Social work also to arrange for patients follow up appointments with Dr Iglesias's office for psychiatric care along with follow up with primary care provider. -Patient counseled on abstaining from recreational drugs and marijuana and alcohol. Was informed/educated on the adverse effects on their physical and mental health. Patient verbally agreed and understood. -Patient was instructed to return to the hospital or seek immediate medical care if their psychiatric or medical symptoms do worsen or reoccur. -Psychoeducation and supportive therapy provided to patient. Risks and benefits of pharmacological treatment versus the risks and benefits of nontreatment weight and discussed. Informed consent discussion held. Common side effects of psychotropics discussed such as, but not limited to headache, GI disturbance, sexual dysfunction, movement disorders, sedation, and orthostatic hypotension. Life threatening and blackbox warnings of prescribed medications also discussed. Potential risks of operating a vehicle or heavy machinery discussed with patient at length. Advised on importance of compliance and a reliable and responsible manner. Patient advised to review FDA consumer labeling of all medications prior to taking. Patient verbalized understanding of potential risks, and agrees with current treatment plan. Patient advised to medically contact physician/emergency personnel if any acute changes in condition occur. Vital Signs Temp 97.6 F 07/12/20 17:53 Pulse 129 H 07/13/20 08:53 Resp 16 07/13/20 08:53 BP 112/73 07/13/20 08:53 Pulse Ox 100 07/07/20 03:23 Laboratory Results WBC 6.6 k/uL (3.8-10.6) 07/08/20 09:28 RBC 4.81 m/uL (3.80-5.40) 07/08/20 09:28 Hgb 14.3 gm/dL (11.4-16.0) 07/08/20 09:28 Hct 43.5 % (34.0-46.0) 07/08/20 09:28 MCV 90.4 fL (80.0-100.0) 07/08/20 09:28 MCH 29.8 pg (25.0-35.0) 07/08/20 09:28 MCHC 32.9 g/dL (31.0-37.0) 07/08/20 09:28 RDW 12.6 % (11.5-15.5) 07/08/20 09:28 Plt Count 257 k/uL (150-450) 07/08/20 09:28 MPV 8.4 07/08/20 09:28 Neutrophils % 48 % 07/08/20 09:28 Lymphocytes % 41 % 07/08/20 09:28 Monocytes % 6 % 07/08/20 09:28 Eosinophils % 2 % 07/08/20 09:28 Basophils % 1 % 07/08/20 09:28 Neutrophils # 3.2 k/uL (1.3-7.7) 07/08/20 09:28 Lymphocytes # 2.7 k/uL (1.0-4.8) 07/08/20 09:28 Monocytes # 0.4 k/uL (0-1.0) 07/08/20 09:28 Eosinophils # 0.1 k/uL (0-0.7) 07/08/20 09:28 Basophils # 0.1 k/uL (0-0.2) 07/08/20 09:28 Sodium 140 mmol/L (137-145) 07/08/20 09:28 Potassium 4.2 mmol/L (3.5-5.1) 07/08/20 09: Chloride 100 mmol/L (98-107) 07/08/20 09: Carbon Dioxide 29 mmol/L (22-30) 07/08/20 09: Anion Gap 11 mmol/L 07/08/20 09:28 BUN 22 mg/dL (7-17) H 07/08/20 09:28 Creatinine 0.87 mg/dL (0.52-1.04) 07/08/20 09:28 Est GFR (CKD-EPI)AfAm 79 (>60 ml/min/1.73 sqM) 07/08/20 09: Est GFR (CKD-EPI)NonAf 69 (>60 ml/min/1.73 sqM) 07/08/20 09:28 Glucose 141 mg/dL (74-99) H 07/08/20 09:[address] Glu mg/dL 108 07/08/20 09:28 Hemoglobin A1c 5.4 % (4.0-6.0) 07/08/20 09:28 Calcium 10.3 mg/dL (8.4-10.2) H 07/08/20 09:28 Total Bilirubin 0.6 mg/dL (0.2-1.3) 07/08/20 09:28 AST 33 U/L (14-36) 07/08/20 09:28 ALT 29 U/L (4-34) 07/08/20 09:28 Alkaline Phosphatase 98 U/L (38-126) 07/08/20 09: Total Protein 7.2 g/dL (6.3-8.2) 07/08/20 09:28 Albumin 4.8 g/dL (3.5-5.0) 07/08/20 09: Triglycerides 150 mg/dL (<150) H 07/08/20: Cholesterol 206 mg/dL (<200) H 07/08/20: LDL Cholesterol, Calc 111 mg/dL (0-99) H 07/08/20: HDL Cholesterol 65 mg/dL (40-60) H 07/08/20: CA 19-9 Antigen 9.6 U/mL (0.0-34.9) 07/08/20: Vitamin B12 >4000.0 pg/mL (211-911) H 07/08/20: Folate >24.0 ng/mL 07/08/20: TSH 0.371 mIU/L (0.465-4.680) L 07/08/20 09: Urine Color Colorless 07/10/20 19:30 Urine Appearance Clear (Clear) 07/10/20 19: Urine pH 6.5 (5.0-8.0) 07/10/20 19:30 Ur Specific [place] 1.003 (1.001-1.035) 07/10/20 19:30 Urine Protein Negative (Negative) 07/10/20 19: Urine Glucose (UA) Negative (Negative) 07/10/20 19:30 Urine Ketones Negative (Negative) 07/10/20 19:30 Urine Blood Negative (Negative) 07/10/20 19:30 Urine Nitrite Negative (Negative) 07/10/20 19: Urine Bilirubin Negative (Negative) 07/10/20 19:30 Urine Urobilinogen <2.0 mg/dL (<2.0) 07/10/20 19:30 Ur Leukocyte Esterase Trace (Negative) H 07/10/20 19:30 Urine RBC <1 /hpf (0-5) 07/10/20 19:30 Urine WBC 1 /hpf (0-5) 07/10/20 19:30 Urine Bacteria Rare /hpf (None) H 07/10/20 19:30 Urine Opiates Screen Not Detected (NotDetected) 07/06/20 22:45 Ur Oxycodone Screen Not Detected (NotDetected) 07/06/20 22:45 Urine Methadone Screen Not Detected (NotDetected) 07/06/20 22:45 Ur Propoxyphene Screen Not Detected (NotDetected) 07/06/20 22:45 Ur Barbiturates Screen Not Detected (NotDetected) 07/06/20 22:45 U Tricyclic Antidepress Not Detected (NotDetected) 07/06/20 22:45 Ur Phencyclidine Scrn Not Detected (NotDetected) 07/06/20 22:45 Ur Amphetamines Screen Not Detected (NotDetected) 07/06/20 22:45 U Methamphetamines Scrn Not Detected (NotDetected) 07/06/20 22:45 U Benzodiazepines Scrn Detected (NotDetected) H 07/06/20 22:45 Urine Cocaine Screen Not Detected (NotDetected) 07/06/20 22:45 U Marijuana (THC) Screen Not Detected (NotDetected) 07/06/20 22:45 Coronavirus (PCR) Not Detected (Not Detectd) 07/06/20 18:15 Allergies Allergy/AdvReac Type Severity Reaction Status Date / Time peanut AdvReac Nausea Verified 07/06/20 17:51 Patient Condition at Discharge: Stable Plan - Discharge Summary Discharge Rx Participant: No New Discharge Prescriptions: New Aspirin 81 mg PO DAILY 30 Days chew Metoprolol Tartrate [Lopressor] 12.5 mg PO BID 30 Days tab Memantine [Namenda] 10 mg PO BID 30 Days tab Calcium Carb-Vit D 500Mg-5Mcg [Oscal 500+D 5 Mcg (200 Iu)] 1 each PO DAILY 30 Days tab Midodrine [ProAmatine] 10 mg PO TID 30 Days tab Mirtazapine [Remeron] 15 mg PO HS 30 Days tab Vortioxetine Hydrobromide [Trintellix] 20 mg PO DAILY 30 Days tablet Continue Rosuvastatin Calcium 2.5 mg PO SUWEFR Magnesium Oxide 400 mg PO DAILY Cyanocobalamin (Vitamin B-12) [Vitamin B-12] 5,000 mcg PO DAILY Cholecalciferol [Vitamin D3 (25 Mcg = 1000 Iu)] 50 mcg PO DAILY Potassium Gluconate 99 mg PO DAILY Multivit-Min/Iron/Folic/Lutein [Centrum Silver Women Tablet] 1 tab PO DAILY Glucosam/Deangelo-Msm1/C/Venkatesh/Bosw [Glucosamine-Chondroitin Tablet] 1 tab PO DAILY Discontinued Memantine [Namenda] 10 mg PO BID Fetzima Er 120mg 120 mg PO DAILY Midodrine HCl [ProAmatine] 10 mg PO TID Calcium Carbonate/Vitamin D3 [Caltrate 600 Plus D3 20 Mcg (800 Iu)] 1 tab PO DAILY Aspirin [Judson Aspirin EC] 81 mg PO DAILY LORazepam [Ativan] 1 mg PO TID PRN PRN Reason: Anxiety Divalproex Sodium [Divalproex Sodium ER] 250 mg PO DAILY Discharge Medication List Rosuvastatin Calcium 2.5 mg PO SUWEFR 02/24/19 [History] Cholecalciferol [Vitamin D3 (25 Mcg = 1000 Iu)] 50 mcg PO DAILY 07/06/20 [History] Cyanocobalamin (Vitamin B-12) [Vitamin B-12] 5,000 mcg PO DAILY 07/06/20 [History] Glucosam/Deangelo-Msm1/C/Venkatesh/Bosw [Glucosamine-Chondroitin Tablet] 1 tab PO DAILY 07/06/20 [History] Magnesium Oxide 400 mg PO DAILY 07/06/20 [History] Multivit-Min/Iron/Folic/Lutein [Centrum Silver Women Tablet] 1 tab PO DAILY 07/06/20 [History] Potassium Gluconate 99 mg PO DAILY 07/06/20 [History] Aspirin 81 mg PO DAILY 30 Days chew 07/11/20 [Rx] Calcium Carb-Vit D 500Mg-5Mcg [Oscal 500+D 5 Mcg (200 Iu)] 1 each PO DAILY 30 Days tab 07/11/20 [Rx] Memantine [Namenda] 10 mg PO BID 30 Days tab 07/11/20 [Rx] Metoprolol Tartrate [Lopressor] 12.5 mg PO BID 30 Days tab 07/11/20 [Rx] Midodrine [ProAmatine] 10 mg PO TID 30 Days tab 07/11/20 [Rx] Mirtazapine [Remeron] 15 mg PO HS 30 Days tab 07/11/20 [Rx] Vortioxetine Hydrobromide [Trintellix] 20 mg PO DAILY 30 Days tablet 07/11/20 [Rx] Follow up Appointment(s)/Referral(s): Luiza Langston MD [Primary Care Provider] - 1-2 days Pino Iglesias MD [REFERRING] - 07/19/20 5:00 pm Activity/Diet/Wound Care/Special Instructions: Activity and diet as tolerated. Avoid the use of street drugs and alcohol. Take all medications as prescribed. When you are in need of refills on your medications please contact your medical provider and/or outpatient psychiatrist to have this done. Please go to scheduled outpatient appointment for aftercare treatment. If symptoms return or become worse, call the crisis line at [phone] and/or go to the nearest emergency room for evaluation. Discharge Disposition: HOME SELF-CARE
== END 2020-07-13 15:01 | disposition home or self-care (01) | DRG 885 ==
LOC: EC 17:39 → 3MHU 07-07 01:27
PROVIDERS: ADMIT Psychiatry & Neurology Psychiatry; ATTEND Psychiatry & Neurology Psychiatry
DX: F31.4 Bipolar disorder, current episode depressed, severe, without psychotic features (principal); E72.12 Methylenetetrahydrofolate reductase deficiency; R45.84 Anhedonia; M19.90 Unspecified osteoarthritis, unspecified site; G43.909 Migraine, unspecified, not intractable, without status migrainosus; Z81.8 Family history of other mental and behavioral disorders; F41.1 Generalized anxiety disorder; Z79.82 Long term (current) use of aspirin; R41.9 Unspecified symptoms and signs involving cognitive functions and awareness; H91.90 Unspecified hearing loss, unspecified ear; Z91.5 Personal history of self-harm; Z86.73 Personal history of transient ischemic attack (TIA), and cerebral infarction without residual deficits; Z20.828 Contact with and (suspected) exposure to other viral communicable diseases
CPT/HCPCS: 80053; 80061; 80306; 81001; 81003; 82075; 82607; 82746; 83036; 84443; 85025; 86301; 87635; 99284

== ENCOUNTER → 2020-08-02 | Outpatient (CLI) | payer BC, MEDICARE ==
[~2020-08-02] MED LIST changes: -DENOSUMAB 60 MG/ML 1 ML SYRINGE SQ NR; +REGADENOSON 0.4 MG/5 ML SYRINGE IV PRN
--- NOTE | 2020-08-02 12:16 | NM ---
EXAMINATION TYPE: NM stress lexiscan cardiolite DATE OF EXAM: 08/02/2020 COMPARISON: NONE HISTORY: Other chest pain, R07.89 TECHNIQUE: After the intravenous administration of 9.43 mCi Tc 99m Sestamibi - Cardiolite resting SP ECT images acquired 45 minutes post injection. The patient received 0.4mg Lexiscan, 25.2 mCi Tc 99m Sestamibi - Stress images obtained [address] injection FINDINGS: Review of stress and rest SPECT images demonstrates mild decreased rate pharmaceutical uptake along t he anterior wall left ventricle towards the base the heart on stress as compared to rest images, ther e is decreased uptake along the septum on stress and rest images. Gated analysis shows normal wall mo tion with an estimated left ventricular ejection fraction of 67 %. 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 Consider echocardiographic correlation for elevated ejection fraction. A Yellow level critical message alert has been initiated for Luiza Langston MD via the [employer] Critical Results System on 08/02/2020 12:13 PM. This message alert has been sent to Luiza Langston MD via the preferences provided by the clinician for the receipt of Radiology Critical Findings. Mess age ID [id number].
--- NOTE | 2020-08-02 12:39 | EST ---
EXERCISE STRESS AGE: 70 SEX: Female HT: 5'6" WT: 115 lbs. PROTOCOL: Lexiscan Cardiolite STAGE: N/A DURATION OF EXERCISE: 5 minutes HEART RATE REST: 71 BLOOD PRESSURE REST: 136/75 MAXIMUM HEART RATE ACHIEVED: 93 MAXIMUM BLOOD PRESSURE: 109/56 85% MPHR: 129 100% MPHR: 152 METS: N/A INDICATIONS: Chest pain CLINICAL INFORMATION: Resting EKG revealed normal sinus rhythm with nonspecific inferior lateral ST abnormality. With Lexiscan administration, the heart rate changed from 71 to 93 beats per minute and the blood pressure changed from 136/75 to 109/56, and came back to baseline. Patient was asymptomatic. EKG remained inconclusive. By EKG criteria, this is an inconclusive Lexiscan stress test because of resting EKG changes. The nuclear scan results which are more pertinent will be reported by the radiologist. MMDWAYNE / SHIRLEY: [id number] /
== END | disposition home or self-care (01) ==
LOC: RADNMMAIN 07:58
PROVIDERS: ATTEND Family Medicine
DX: R07.89 Other chest pain (principal)
CPT/HCPCS: 93017; 78452; A9500; J2785

== ENCOUNTER → 2020-08-04 | Outpatient (CLI) | payer BC, MEDICARE ==
[2020-08-04 13:06] LABS: HCT 36.5 % (34.0-46.0); HGB 12.8 gm/dL (11.4-16.0); MCH 31.3 pg (25.0-35.0); MCV 89.3 fL (80.0-100.0); Platelet Count 217 k/uL (150-450); RBC 4.09 m/uL (3.80-5.40); RDW 13.6 % (11.5-15.5); WBC 5.3 k/uL (3.8-10.6)
[2020-08-04 13:36] LABS: Potassium 4.9 mmol/L (3.5-5.1)
== END | disposition home or self-care (01) ==
LOC: LABPAT 11:48
PROVIDERS: ATTEND Internal Medicine Interventional Cardiology
DX: Z01.818 Encounter for other preprocedural examination (principal); R07.9 Chest pain, unspecified
CPT/HCPCS: 36415; 80051; 82565; 84520; 85027

== ENCOUNTER → 2020-08-04 | Outpatient (CLI) | payer BC, MEDICARE ==
--- NOTE | 2020-08-04 14:46 | US ---
EXAMINATION TYPE: US transvaginal DATE OF EXAM: 08/04/2020 COMPARISON: CT 02/04/2020 CLINICAL HISTORY: 70-year-old female N83.209 ovarian cyst. TECHNIQUE: Transabdominal (TA). Date of LMP: unknown FINDINGS: EXAM MEASUREMENTS: Uterus: 4.3 x 2.2 x 3.5 cm Endometrial Stripe: 0.1 cm Right Ovary: 2.0 x 1.5 x 1.3 cm for a volume of 2.0 mL. Left Ovary: unable to visualize 1. Uterus: Retroverted and otherwise without gross abnormality. 2. Endometrium: Thin and normal for a postmenopausal female. 3. Right Ovary: There is a heterogeneous area within measuring 1.5 x 1.3 x 1.3cm 4. Left Ovary: Obscured by overlying bowel gas 5. Bilateral Adnexa: appears wnl 6. Posterior cul-de-sac: wnl IMPRESSION: 1. Unable to visualize the left ovary. 2. Heterogeneous 1.5 cm area within the small postmenopausal right ovary could represent involutional changes. Follow-up ultrasound in 6-8 weeks to reassess. 3. Normal, thin endometrial stripe.
== END | disposition home or self-care (01) ==
LOC: RADUSWWP 11:52
PROVIDERS: ATTEND Family Medicine
DX: Z78.0 Asymptomatic menopausal state (principal); N83.209 Unspecified ovarian cyst, unspecified side
CPT/HCPCS: 76830

== ENCOUNTER → 2020-08-10 | Day surgery (SDC) | payer BC, MEDICARE ==
[2020-08-07 11:42] VITALS: BMI 18.4
[~2020-08-10] MED LIST changes: +ALPRAZolam 0.25 MG TAB PO PRN; +ALPRAZolam 0.5 MG TAB PO PRN; +ASPIRIN 325 MG TAB PO STA; +ATORVASTATIN 80 MG TAB PO STA; +HEPARIN SODIUM,PORCINE 10,000 UNIT in SODIUM CHLORIDE 0.9% 1,000 ML IRRIGATION PRN; +HEPARIN SODIUM,PORCINE 2,500 UNIT in SODIUM CHLORIDE 0.9% 250 ML IRRIGATION PRN; +IOPAMIDOL-370 125ML BTL INJ ONE; +LIDOCAINE 1% INJ 10MG/ML (20 ML MDV) ONE; +LIDOCAINE 1% INJ 10MG/ML (20 ML MDV) SQ ONE; +NITROGLYCERIN SL TABS 0.4 MG TAB SUBLINGUAL PRN; -REGADENOSON 0.4 MG/5 ML SYRINGE IV PRN; +RX INFO: IV CONTRAST WAS GIVEN 1 EACH MISC MISCELLANE PRN; +SODIUM CHLORIDE 0.9% 1,000 ML IV ONE; +SODIUM CHLORIDE 0.9% 1,000 ML IV SCH; +SODIUM CHLORIDE 0.9% 1,000 ML in EMPTY BAG 1 BAG IV ONE; +VERAPAMIL 2.5 MG/ML 2 ML AMP ONE
[2020-08-10 08:45] VITALS: RESP 16; TEMP 99.3
[2020-08-10] MEDS: MIDAZOLAM 2 MG/2 ML VIAL IV ONE ×2 (09:05→09:10)
[2020-08-10] MEDS: VERAPAMIL SYRINGE (5 MG/10 ML) INTRAARTER ONE ×2 (09:24→09:31)
[2020-08-10 11:52] VITALS: BP 106/55; PULSE 70
--- NOTE | 2020-08-10 14:36 | CC ---
CARDIAC CATHETERIZATION REPORT DATE OF SERVICE: August 10, 2020 PERFORMING PHYSICIAN: Ron Womack MD. PROCEDURE PERFORMED: 1. Selective right and left coronary angiogram. 2. Left heart catheterization. INDICATION: This is a very pleasant 70-year-old female patient who was experiencing recently chest discomfort and underwent stress test and that came into be abnormal and because of that, a heart catheterization was advised. APPROACH: Right radial artery. COMPLICATION: None. LEVEL OF SEDATION: Moderate with sedation length of 10 minutes. PROCEDURE DESCRIPTION: After obtaining an informed consent, the patient was brought to the cardiac label fuser tender. The right radial artery was cannulated using micropuncture technique under ultrasound guidance, the micropuncture wire passed easily then I placed a 6-Uzbek sheath at the right radial artery. Verapamil 2 mg IA was given and 5000 units of heparin given as well. Selective right and left coronary angiogram performed using JR3.5 and JL3.5 catheters. Left heart catheterization was performed using the JR3.5 catheter, which crossed the aortic valve then I did pullback across the valve. The procedure was completed without any complication. SELECTIVE CORONARY ANGIOGRAM: 1. The right coronary artery is a medium caliber vessel and it is a dominant vessel. It is angiographically normal. It bifurcates distally into PDA and PLV branches, both appeared to be angiographically normal. 2. The left main is angiographically normal. It bifurcates into LCX and LAD. 3. The LCX is a large caliber vessel. It is a nondominant vessel and appeared to be angiographically normal. 4. The LAD is a large caliber vessel. It is angiographically normal. In the proximal to midportion it gives rise into a large diagonal branch which seems to be angiographically normal. HEMODYNAMICS: The LVEDP was about 10-12 mmHg without significant gradient across aortic valve. CONCLUSION: 1. Normal coronary angiogram. 2. Normal LVEDP. POSTPROCEDURE MANAGEMENT: 1. Medical treatment. 2. Follow up with the patient. MMODL / IJN: [id number] /
--- NOTE | 2020-08-10 14:36 | LTR ---
August 10, 2020 Re: Maria Isabel uCilan Dear Dr. Langston: Ms. Maria Isabel Tang underwent today a heart catheterization and that revealed normal left and right coronary systems with normal left ventricular end-diastolic pressure. I want to thank you for allowing me to participate in her care and please do not hesitate to call if you have any question or concern. Sincerely, MD KALPESH Wells / SHIRLEY: [id number] /
== END ==
LOC: CATHCVL 07:52
PROVIDERS: ATTEND Internal Medicine Interventional Cardiology
DX: R94.39 Abnormal result of other cardiovascular function study (principal); R06.02 Shortness of breath; R53.83 Other fatigue; I20.0 Unstable angina; I10 Essential (primary) hypertension; E78.00 Pure hypercholesterolemia, unspecified; E78.5 Hyperlipidemia, unspecified; Z82.49 Family history of ischemic heart disease and other diseases of the circulatory system; Z79.82 Long term (current) use of aspirin; Z79.899 Other long term (current) drug therapy
CPT/HCPCS: 93458; C1769; C1894; J2250; J2001; J1644; Q9967

== ENCOUNTER 2021-04-17 17:49 | Inpatient (IN) | payer BC, MEDICARE ==
[2021-04-17 20:41] LABS: Amphetamine Screen,Urine Not Detected (NotDetected); Barbiturate Screen,Urine Not Detected (NotDetected); Benzodiazepines Screen,Urine Detected (NotDetected); Cocaine Screen,Urine Not Detected (NotDetected); Methadone Screen, Urine Not Detected (NotDetected); Opiate Screen,Urine Not Detected (NotDetected); Oxycodone Screen, Urine Not Detected (NotDetected); Phencyclidine Screen,Urine Not Detected (NotDetected); Tricyclic Antidepressant,Urine Not Detected (NotDetected); Urn Cannabinoid Scrn Not Detected (NotDetected)
[2021-04-17] MEDS ORDERED: IBUPROFEN 600 MG TAB PO STA (22:10)
--- NOTE | 2021-04-17 22:17 | ED ---
Psych HPI - General Chief Complaint: Psychiatric Symptoms Stated Complaint: Mental health eval-sent by Dr. Iglesias Time Seen by Provider: 04/17/21 19:56 Source: patient, family Mode of arrival: ambulatory - History of Present Illness Initial Comments: This 70-year-old female presents with with the complaint of depression. This is apparently been lifelong but worse over the past several months. He shouldn't states that she just feels bored at times. She is denying any suicidal or homicidal ideations. She does see a psychiatrist. She saw the psychiatrist today and they sent her to the ER and they felt as though she needed inpatient treatment and medication adjustment. She is denying any hallucinations or delusions. She denies any medical complaints. She states that the depression is fairly severe. No other complaints or modifying factors. - Related Data Home Medications Medication Instructions Recorded Confirmed Rosuvastatin Calcium 2.5 mg PO MOTUWETHFR 02/24/19 04/17/21 Cholecalciferol [Vitamin D3 (25 50 mcg PO DAILY 07/06/20 04/17/21 Mcg = 1000 Iu)] Cyanocobalamin (Vitamin B-12) 5,000 mcg PO DAILY 07/06/20 04/17/21 [Vitamin B-12] Glucosam/Deangelo-Msm1/C/Venkatesh/Bosw 1 tab PO DAILY 07/06/20 04/17/21 [Glucosamine-Chondroitin Tablet] Magnesium Oxide 400 mg PO DAILY 07/06/20 04/17/21 Multivit-Min/Iron/Folic/Lutein 1 tab PO DAILY 07/06/20 04/17/21 [Centrum Silver Women Tablet] Potassium Gluconate [Potassium 99 mg PO DAILY 07/06/20 04/17/21 Gluconate ER] LORazepam [Ativan] 1 mg PO TID PRN 08/07/20 04/17/21 Calcium Carb-Vit D 500Mg-5Mcg 1 tab PO DAILY 04/17/21 04/17/21 [Oscal 500+D 5 Mcg (200 Iu)] Cariprazine HCl [Vraylar] 4.5 mg PO W/SUPPER 04/17/21 04/17/21 Metoprolol Tartrate [Lopressor] 12.5 mg PO BID 04/17/21 04/17/21 Midodrine HCl [ProAmatine] 10 mg PO TID 04/17/21 04/17/21 Mirtazapine 30 mg PO HS 04/17/21 04/17/21 hydrOXYzine HCL [Atarax] 10 mg PO HS 04/17/21 04/17/21 Previous Rx's Medication Instructions Recorded Aspirin 81 mg PO DAILY 30 Days chew 07/11/20 Memantine [Namenda] 10 mg PO BID 30 Days tab 07/11/20 Vortioxetine Hydrobromide 20 mg PO DAILY 30 Days tablet 07/11/20 [Trintellix] Allergies Allergy/AdvReac Type Severity Reaction Status Date / Time peanut AdvReac Nausea, Verified 04/17/21 21:27 headache Review of Systems ROS Statement: Those systems with pertinent positive or pertinent negative responses have been documented in the HPI. ROS Other: All systems not noted in ROS Statement are negative. Past Medical History Past Medical History: Osteoarthritis (OA) Additional Past Medical History / Comment(s): Occasional migraines, wears contact and readers, heart murmur as child, achilles tendon repair, tested p ostitive for MTHFR clotting disorder after sister had history of blood clots. History of Any Multi-Drug Resistant Organisms: None Reported Past Surgical History: Appendectomy, Hernia Repair Additional Past Surgical History / Comment(s): Left Achilles Tendon surgery Past Anesthesia/Blood Transfusion Reactions: No Reported Reaction Past Psychological History: Anxiety, Depression Smoking Status: Never smoker Past Alcohol Use History: None Reported Past Drug Use History: None Reported - Past Family History Father History Unknown: Yes Family Medical History: No Reported History Additional Family Medical History / Comment(s): Father in his late 70s the patient does not know cause of nor any medical problems. Mother History Unknown: Yes Family Medical History: No Reported History Additional Family Medical History / Comment(s): Mother in her 80s and suffered from anxiety. Brother(s) Family Medical History: No Reported History Additional Family Medical History / Comment(s): Patient has 2 brothers and 4 sisters with no major medical problems that she is aware of. Patient has one daughter with no major medical problems. Sister(s) History Unknown: Yes Family Medical History: No Reported History Daughter(s) History Unknown: Yes General Exam - General Exam Comments Initial Comments: GENERAL: The patient is well nourished and well hydrated. VITAL SIGNS: Heart rate, blood pressure, respiratory rate reviewed as recorded in nurse's notes. EYES: Pupils are round and reactive. Extraocular movements are intact. No conjunctival / lid redness or swelling. ENT: No external evidence of injury, swelling, or ecchymosis. Airway is patent. Throat is clear. NECK: Nontender. No swelling or evidence of injury. No subcutaneous emphysema. Trachea is midline. No thyroid mass. HEART: Regular rate and rhythm. Good peripheral pulses. LUNGS/CHEST: Breath sounds clear and equal bilaterally. No rales, rhonchi, or wheezes. No ecchymosis, subcutaneous emphysema, or tenderness. ABDOMEN: Abdomen soft without tenderness. No palpable masses or organomegaly. No peritoneal signs. No abdominal wall swelling or ecchymosis. EXTREMITIES: No extremity tenderness. Normal muscle tone and function. No thoracolumbar tenderness. NEUROLOGIC: Sensation is grossly intact. Cranial nerve exam reveals face is symmetrical, tongue is midline, speech is clear. SKIN: No abrasions or ecchymosis is noted. No induration or masses noted. PSYCHIATRIC: Alert and oriented. Appropriate behavior and judgment. Flat affect noted. Limitations: no limitations Course Vital Signs 04/17/21 04/17/21 19:12 21:00 Temperature 99.2 F Pulse Rate 101 H 92 Respiratory 18 18 Rate Blood Pressure 156/77 138/91 O2 Sat by Pulse 96 97 Oximetry Medical Decision Making - Medical Decision Making The patient was seen and examined. All diagnostics were reviewed. The urine drug screen does show positive for benzodiazepines. The case is discussed with the psychiatric nurse and they recommend inpatient treatment as recommended per her psychiatrist. - Lab Data Lab Results 04/17/21 Range/Units 20:29 Urine Opiates Screen Not Detected (NotDetected) Ur Oxycodone Screen Not Detected (NotDetected) Urine Methadone Screen Not Detected (NotDetected) Ur Propoxyphene Screen Not Detected (NotDetected) Ur Barbiturates Screen Not Detected (NotDetected) U Tricyclic Antidepress Not Detected (NotDetected) Ur Phencyclidine Scrn Not Detected (NotDetected) Ur Amphetamines Screen Not Detected (NotDetected) U Methamphetamines Scrn Not Detected (NotDetected) U Benzodiazepines Scrn Detected H (NotDetected) Urine Cocaine Screen Not Detected (NotDetected) U Marijuana (THC) Screen Not Detected (NotDetected) Disposition Clinical Impression: Major depression Disposition: ADMITTED IP TO THIS [facility] Condition: Fair Is patient prescribed a controlled substance at d/c from ED?: No Referrals: Luiza Langston MD [Primary Care Provider] - 1-2 days Time of Disposition: 22:17 Decision Date: 04/17/21 Decision Time: 22:17
[2021-04-17] MEDS ORDERED: MAG HYDROX/AL HYDROX/SIMETH 30 ML CUP PO PRN (23:44)
[2021-04-17] MEDS ORDERED: ACETAMINOPHEN TAB 325 MG TAB PO PRN (23:44)
[2021-04-17] MEDS ORDERED: MAGNESIUM HYDROXIDE 2,400 MG/10 ML CUP PO PRN (23:44)
[2021-04-17] MEDS ORDERED: OLANZapine 10 MG VIAL IM PRN (23:45)
[2021-04-17] MEDS ORDERED: MIRTAZAPINE 15 MG TAB PO SCH (23:45)
[2021-04-17] MEDS ORDERED: OLANZapine 5 MG TAB PO PRN (23:45)
[2021-04-18] MEDS: hydrOXYzine HCL 10 MG TAB PO SCH ×2 (00:09→21:26)
[2021-04-18] MEDS: METOPROLOL TARTRATE 12.5 MG TAB PO SCH ×3 (00:10→21:26)
[2021-04-18] MEDS: ATORVASTATIN 10 MG TAB PO SCH ×2 (00:15→21:25)
[2021-04-18 01:01] VITALS: TEMP 98.4
[2021-04-18 05:32] LABS: Appearance,Urine Clear (Clear); Bilirubin,Urine Negative (Negative); Blood,Urine Negative (Negative); Color,Urine Light Yellow; Glucose,Urine (UA) Negative (Negative); Ketones,Urine 1+ (Negative); Leukocyte Esterase,Urine Negative (Negative); Nitrite,Urine Negative (Negative); PH, Urine 7.5 (5.0-8.0); Protein,Urine Negative (Negative); Specific Gravity,Urine 1.016 (1.001-1.035); Urobilinogen,Urine <2.0 mg/dL (<2.0)
[2021-04-18 06:48] LABS: Basophils % (A) 1 %; Eosinophils # (A) 0.1 k/uL (0-0.7); Eosinophils % (A) 1 %; HCT 39.9 % (34.0-46.0); HGB 12.7 gm/dL (11.4-16.0); Lymphocytes # (A) 1.9 k/uL (1.0-4.8); Lymphocytes % (A) 27 %; MCH 31.3 pg (25.0-35.0); MCHC 31.9 g/dL (31.0-37.0); MCV 98.1 fL (80.0-100.0); Mean Platelet Volume 7.8; Monocytes # (A) 0.4 k/uL (0-1.0); Monocytes % (A) 6 %; Neutrophils # (A) 4.4 k/uL (1.3-7.7); Neutrophils % (A) 64 %; Platelet Count 205 k/uL (150-450); RBC 4.07 m/uL (3.80-5.40); RDW 12.7 % (11.5-15.5); WBC 6.9 k/uL (3.8-10.6)
[2021-04-18 06:59] LABS: ALT 18 U/L (4-34); AST 24 U/L (14-36); African American GFR (CKD) >90 (>60 ml/min/1.73 sqM); Albumin 4.2 g/dL (3.5-5.0); Alkaline Phosphatase 86 U/L (38-126); Anion Gap 7 mmol/L; Blood Urea Nitrogen 24 mg/dL (7-17); Calcium 9.8 mg/dL (8.4-10.2); Carbon Dioxide 30 mmol/L (22-30); Chloride 103 mmol/L (98-107); Glucose 106 mg/dL (74-99); Non-African American GFR(CKD) 78 (>60 ml/min/1.73 sqM); Sodium 140 mmol/L (137-145); Total Bilirubin 0.6 mg/dL (0.2-1.3); Total Protein 6.7 g/dL (6.3-8.2)
[2021-04-18] MEDS: ASPIRIN 81 MG PO SCH (08:18)
[2021-04-18] MEDS: MEMANTINE 10 MG TAB PO SCH ×2 (08:18→21:25)
[2021-04-18] MEDS: MAGNESIUM OXIDE 400 MG TAB PO SCH (08:18)
[2021-04-18] MEDS: MULTIVITAMINS, THERA 1 EACH TAB PO SCH (08:18)
[2021-04-18] MEDS: CALCIUM CARB-VIT D 500 MG-5 MCG TAB PO SCH (08:18)
[2021-04-18] MEDS: VORTIOXETINE HYDROBROMIDE 20 MG TABLET PO SCH (08:19)
[2021-04-18] MEDS: CYANOCOBALAMIN 500 MCG TAB PO SCH (08:19)
[2021-04-18] MEDS: MIDODRINE 5 MG TAB PO SCH ×3 (08:19→21:25)
[2021-04-18] MEDS: CHOLECALCIFEROL 25 MCG (1000 IU) TABLET PO SCH (08:24)
[2021-04-18] MEDS ORDERED: NON FORMULARY DRUG (Potassium Gluconate [Potassium Gluconate Er] 99 MG Tablet.Er) PO SCH (09:00)
[2021-04-18] MEDS ORDERED: NON FORMULARY DRUG (Glucosam/Chon-Msm1/C/Mang/Bosw [Glucosamine-Chondroitin Tablet] 1 EACH PO SCH (09:00)
--- NOTE | 2021-04-18 11:06 | P.HP ---
Psychiatric H&P - . H&P Date: 04/18/21 History & Physical: Allergies Allergy/AdvReac Type Severity Reaction Status Date / Time peanut AdvReac Nausea, Verified 04/17/21 21:27 headache Vital Signs Temp 98.4 F 04/18/21 01:01 Pulse 126 H 04/18/21 08:22 Resp 14 04/18/21 01:01 BP 120/56 04/18/21 08:22 Pulse Ox 94 L 04/18/21 00:00 Intake & Output 04/17/21 04/18/21 04/18/21 18:59 06:59 18:59 Weight 57.351 kg Laboratory Last Values WBC 6.9 k/uL (3.8-10.6) 04/18/21 06:30 RBC 4.07 m/uL (3.80-5.40) 04/18/21 06:30 Hgb 12.7 gm/dL (11.4-16.0) 04/18/21 06:30 Hct 39.9 % (34.0-46.0) 04/18/21 06:30 MCV 98.1 fL (80.0-100.0) 04/18/21 06:30 MCH 31.3 pg (25.0-35.0) 04/18/21 06:30 MCHC 31.9 g/dL (31.0-37.0) 04/18/21 06:30 RDW 12.7 % (11.5-15.5) 04/18/21 06:30 Plt Count 205 k/uL (150-450) 04/18/21 06:30 MPV 7.8 04/18/21 06:30 Neutrophils % 64 % 04/18/21 06:30 Lymphocytes % 27 % 04/18/21 06:30 Monocytes % 6 % 04/18/21 06:30 Eosinophils % 1 % 04/18/21 06:30 Basophils % 1 % 04/18/21 06:30 Neutrophils # 4.4 k/uL (1.3-7.7) 04/18/21 06:30 Lymphocytes # 1.9 k/uL (1.0-4.8) 04/18/21 06:30 Monocytes # 0.4 k/uL (0-1.0) 04/18/21 06:30 Eosinophils # 0.1 k/uL (0-0.7) 04/18/21 06:30 Basophils # 0.0 k/uL (0-0.2) 04/18/21 06:30 Sodium 140 mmol/L (137-145) 04/18/21 06:30 Potassium 4.0 mmol/L (3.5-5.1) 04/18/21 06:30 Chloride 103 mmol/L (98-107) 04/18/21 06:30 Carbon Dioxide 30 mmol/L (22-30) 04/18/21 06:30 Anion Gap 7 mmol/L 04/18/21 06:30 BUN 24 mg/dL (7-17) H 04/18/21 06:30 Creatinine 0.78 mg/dL (0.52-1.04) 04/18/21 06:30 Est GFR (CKD-EPI)AfAm >90 (>60 ml/min/1.73 sqM) 04/18/21 06:30 Est GFR (CKD-EPI)NonAf 78 (>60 ml/min/1.73 sqM) 04/18/21 06:30 Glucose 106 mg/dL (74-99) H 04/18/21 06:30 Calcium 9.8 mg/dL (8.4-10.2) 04/18/21 06:30 Total Bilirubin 0.6 mg/dL (0.2-1.3) 04/18/21 06:30 AST 24 U/L (14-36) 04/18/21 06:30 ALT 18 U/L (4-34) 04/18/21 06:30 Alkaline Phosphatase 86 U/L (38-126) 04/18/21 06:30 Total Protein 6.7 g/dL (6.3-8.2) 04/18/21 06:30 Albumin 4.2 g/dL (3.5-5.0) 04/18/21 06:30 TSH 0.093 mIU/L (0.465-4.680) L 04/18/21 06:30 Urine Color Light Yellow 04/17/21 20:50 Urine Appearance Clear (Clear) 04/17/21 20:50 Urine pH 7.5 (5.0-8.0) 04/17/21 20:50 Ur Specific [place] 1.016 (1.001-1.035) 04/17/21 20:50 Urine Protein Negative (Negative) 04/17/21 20:50 Urine Glucose (UA) Negative (Negative) 04/17/21 20:50 Urine Ketones 1+ (Negative) H 04/17/21 20:50 Urine Blood Negative (Negative) 04/17/21 20:50 Urine Nitrite Negative (Negative) 04/17/21 20:50 Urine Bilirubin Negative (Negative) 04/17/21 20:50 Urine Urobilinogen <2.0 mg/dL (<2.0) 04/17/21 20:50 Ur Leukocyte Esterase Negative (Negative) 04/17/21 20:50 Urine Opiates Screen Not Detected (NotDetected) 04/17/21 20:29 Ur Oxycodone Screen Not Detected (NotDetected) 04/17/21 20:29 Urine Methadone Screen Not Detected (NotDetected) 04/17/21 20:29 Ur Propoxyphene Screen Not Detected (NotDetected) 04/17/21 20:29 Ur Barbiturates Screen Not Detected (NotDetected) 04/17/21 20:29 U Tricyclic Antidepress Not Detected (NotDetected) 04/17/21 20:29 Ur Phencyclidine Scrn Not Detected (NotDetected) 04/17/21 20:29 Ur Amphetamines Screen Not Detected (NotDetected) 04/17/21 20:29 U Methamphetamines Scrn Not Detected (NotDetected) 04/17/21 20:29 U Benzodiazepines Scrn Detected (NotDetected) H 04/17/21 20:29 Urine Cocaine Screen Not Detected (NotDetected) 04/17/21 20:29 U Marijuana (THC) Screen Not Detected (NotDetected) 04/17/21 20:29 Coronavirus (PCR) Not Detected (Not Detectd) 04/17/21 21:41 04/18/21 11:06 IDENTIFYING DATA: Patient is a , retired, 70-year-old female who was admitted for depression. HPI: Patient presented to the hospital on 04/17/2021, brought in by her for worsening depression. She was sent here by her outpatient psychiatrist Dr. Torres who advised that the patient may be admitted for medication adjustment. Reportedly, the patient has been lacking motivation or enjoyment in life and that there has been concern for the patient's safety at home. Furthermore, the patient was noted to have a decreased appetite. Upon evaluation by this provider, the patient reports that she does feel like her mood has been gradually decreasing over the last 6 months but states that "I thought I was doing better." In regards to depressive symptoms, the patient does endorse a lack of motivation and some anhedonia but states that this stems mainly from boredom. She reports that she has nothing to keep her interest. Despite this, the patient is not endorsing any other significant symptoms of depression as she denies any hopelessness, helplessness, suicidal ideation, changes in hygiene and grooming, or changes in appetite. The patient does express some future orientation stating that "I did not think any really needed to be here because I feel like this would be a waste of time." She states that she feels like she could handle her depression at home. The patient is not endorsing any significant psychotic symptoms. She reports no auditory or visual hallucinations. She denies any lachelle or other delusions. The patient does have a significant history of a prior suicide attempt but states that it has been many years and that she is in no way shape or form suicidal. The patient reports that she spends her days primarily just watching television. She does report that she suffers mainly from boredom. When informed that she should look into using the Internet, the patient states that she has never learned how. She does appear to be future oriented and states that she is looking forward to learning how to using Internet so that she can see what else is out there. She reports that she has the time to do so. PAST PSYCHIATRIC HISTORY: Patient has had 6 prior psychiatric admissions to this unit. Her last admission was this past July. The patient has previous diagnoses of major depressive disorder, anxiety disorder, and a neurocognitive disorder. She has had numerous trials of previous psychotropic medications including TCAs, Lamictal, Celexa, Cymbalta, Wellbutrin, Abilify, Effexor, Paxil, Prozac, Xanax, Ativan, Klonopin, risperidone, Adderall, Ritalin, Lyrica, and Fetzima. She has a history of ECT treatment in 2019. She attempted to overdose in the past. 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 History of Any Multi-Drug Resistant Organisms: None Reported Past Surgical History: Appendectomy, Hernia Repair Additional Past Surgical History / Comment(s): Left Achilles Tendon surgery Past Anesthesia/Blood Transfusion Reactions: No Reported Reaction Past Psychological History: Anxiety, Depression Smoking Status: Never smoker Past Alcohol Use History: None Reported Past Drug Use History: None Reported ALLERGIES: Peanut CHEMICAL DEPENDENCY HISTORY: The patient reports no significant history of substance abuse. FAMILY PSYCHIATRIC/SUBSTANCE USE HISTORY: The patient has siblings diagnosed with depression and anxiety. She reports no family history of suicide. SOCIAL HISTORY: Patient was born and raised in [place], [place]. She is 1 of 6 children. Her parents are . She graduated high school and has an associates degree in law enforcement. She retired in August 2016 after working for 34 years for the [employer]. She has been to her for 35 years. She has 1 adult daughter who is 31 years old. MENTAL STATUS EXAM: General Appearance: Patient appears to be stated age is alert, directable, and attempts to cooperate. Patient appears to have fair hygiene and grooming. Behavior: Patient is seated without any agitated behavior. Eye contact is appropriate. Patient is able to smile and laugh appropriately. Speech: Patient's speech is fluent and nonpressured. Spontaneous with normal rate and volume. Mood/Affect: Patient reports their mood is "a little down," affect is constricted in range but otherwise euthymic. Suicidality/Homicidality: Patient denies having any homicidal ideation intent or plan. Denies any suicidal ideations intent or plan Perceptions: Patient denies any visual hallucinations and denies any auditory hallucinations Though content/process: There is no evidence of any delusional thought content and thought process is linear and goal-directed. Memory and concentration: AOX3, grossly intact for the purposes of this session. Can spell "WORLD" backwards Judgment and insight: Fair STRENGTHS/WEAKNESSES: Strength is that the patient has a supportive family and is engaged in treatment. Weakness is that the patient has chronic and pe rsistent mental illness that is treatment resistant. INTELLECT: average IMPRESSIONS: Major depressive disorder, recurrent, severe Generalized anxiety disorder PLAN: -Patient is admitted under voluntary status to [facility] for stabilization of psychiatric symptoms and safety. Patient signed adult voluntary form and medication consent and is placed in patient's chart. \\ -Medications : We will continue the patient's home medications of Vraylar, Atarax, Trintellix, and remeron. We will increase remeron to 45 mg at bedtime for depression -Zyprexa PRN for agitation/aggression -Patient was informed of the risks, benefits and side effects of the medication and patient verbally consented to taking the medications. Patient signed med consent form and was placed in chart. -Internal Medicine consult to perform medical evaluation and physical. -SW on board for discharge planning. Encourage patient to participate in groups to work on coping skills. 04/18/21 11:06
--- NOTE | 2021-04-18 11:50 | P.MDCNMH ---
History of Present Illness H&P Date: 04/18/21 HISTORY OF PRESENT ILLNESS This is a 70-year-old female patient of Dr. Langston with past medical history of osteoarthritis, MTHFR mutation, migraines, recurrent depression, generalized anxiety disorder, OCD, ADHD, memory loss, vertigo. The patient states that she at her psychiatrist's office yesterday, Dr. Iglesias and was recommended that she come in the hospital have medications adjusted. Patient denies any suicidal ideation. She states she is sleeping well. She is getting along well with her . She does voice that she is scheduled to be in the hospital due to come concerns complaints from the other patients. She was recently seen in the office by Marina CORBETT and no medication changes were made at that time. Patient came into [facility] for evaluation. She was found to be afebrile, heart rate 101, blood pressure 156/77, pulse ox 96% on room air. Urinalysis negative for infection with 1+ ketones. Urine drug screen positive for benzodiazepines. Coronavirus PCR not detected. TSH 0.093. Electrolytes normal. BUN 24 creatinine 0.78. Blood sugar 106. Liver function tests were all normal. CBC unremarkable.. Patient verbalizes that she would like to go home today. REVIEW OF SYSTEMS Constitutional: No fever, no chills, no night sweats. Denies weight change. Denies generalized fatigue. Denies daytime sleepiness. EENT: No headache. No blurred vision or double vision, no loss of vision. No loss of Hearing, no ringing in the ears, no dizziness. No nasal drainage or congestion. No epistaxis. No sore throat. Lungs: No shortness of breath, cough, no sputum production. No wheezing. Cardiovascular: No chest pain, no lower extremity edema. No palpitations. No paroxysmal nocturnal dyspnea. No orthopnea. No lightheadedness or dizziness. No syncopal episodes. Abdominal: No abdominal pain. No nausea, vomiting. No diarrhea. No constipation. No bloody or tarry stools.. Reports loss of appetite. Genitourinary: No dysuria, increased frequency, urgency. No urinary retention. Musculoskeletal: No myalgias. No muscle weakness, no gait dysfunction, no frequent falls. No back pain. No neck pain. Integumentary: No wounds, no lesions. No rash or pruritus. Neurologic: No aphasia. No facial droop. No change in mentation. No head injury. No headache. No paralysis. No paresthesia. Psychiatric: Denies depression. Denies anxiety. Denies excessive sleeping. Endocrine: No abnormal blood sugars. No weight change. No excessive sweating or thirst. No cold intolerance. SOCIAL HISTORY Patient has been a lifelong nonsmoker, no illicit drug use, no alcohol use, no marijuana use. Patient is retired from the [employer] for 4 years. She lives at home with her . FAMILY HISTORY Mother is at age 84 and had history of anxiety. Father in his 70s and patient does not know cause of . Patient is a total of 5 siblings with no major medical problems that she is aware of. All are living. Patient has one daughter with no major medical problems. PHYSICAL EXAMINATION Gen: This is a thin cachectic appearing 70-year-old female. HEENT: Head is atraumatic, normocephalic. Pupils equal, round. Sclerae is anicteric. NECK: Supple. No JVD. No lymphadenopathy. No thyromegaly. LUNGS: Clear to auscultation. No wheezes or rhonchi. No intercostal retractions. HEART: Regular rate and rhythm. No murmur. ABDOMEN: Soft. Bowel sounds are present. No masses. No tenderness. EXTREMITIES: No pedal edema. No calf tenderness. NEUROLOGICAL: Patient is awake, alert and oriented x3. Cranial nerves 2 through 12 are grossly intact. Generalized weakness noted. Flat affect. ASSESSMENT AND PLAN 1. Recurrent depression and generalized anxiety disorder. Patient admitted to the mental health unit. Continue current plan per psychiatry. 2. History of drug overdose in 2019. Stable. 3. Patient has history of OCD and ADHD. 4. History of migraine headaches. 5. History of MTHFR mutation. 6. Memory loss. Continue Namenda 10 mg twice daily Discharge plan: Patient to follow-up with Dr. Langston following discharge from the mental health unit Impression and plan of care have been directed as dictated by the signing physician. Myrna Caceres nurse practitioner acting as scribe for signing physician. 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 History of Any Multi-Drug Resistant Organisms: None Reported Past Surgical History: Appendectomy, Hernia Repair Additional Past Surgical History / Comment(s): Left Achilles Tendon surgery Past Anesthesia/Blood Transfusion Reactions: No Reported Reaction Past Psychological History: Anxiety, Depression Smoking Status: Never smoker Past Alcohol Use History: None Reported Past Drug Use History: None Reported - Past Family History Father History Unknown: Yes Family Medical History: No Reported History Additional Family Medical History / Comment(s): Father in his late 70s the patient does not know cause of nor any medical problems. Mother History Unknown: Yes Family Medical History: No Reported History Additional Family Medical History / Comment(s): Mother in her 80s and suffered from anxiety. Brother(s) Family Medical History: No Reported History Additional Family Medical History / Comment(s): Patient has 2 brothers and 4 sisters with no major medical problems that she is aware of. Patient has one daughter with no major medical problems. Sister(s) History Unknown: Yes Family Medical History: No Reported History Daughter(s) History Unknown: Yes Medications and Allergies Home Medications Medication Instructions Recorded Confirmed Type Rosuvastatin Calcium 2.5 mg PO MOTUWETHFR 02/24/19 04/17/21 History Cholecalciferol [Vitamin D3 (25 50 mcg PO DAILY 07/06/20 04/17/21 History Mcg = 1000 Iu)] Cyanocobalamin (Vitamin B-12) 5,000 mcg PO DAILY 07/06/20 04/17/21 History [Vitamin B-12] Glucosam/Deangelo-Msm1/C/Venkatesh/Bosw 1 tab PO DAILY 07/06/20 04/17/21 History [Glucosamine-Chondroitin Tablet] Magnesium Oxide 400 mg PO DAILY 07/06/20 04/17/21 History Multivit-Min/Iron/Folic/Lutein 1 tab PO DAILY 07/06/20 04/17/21 History [Centrum Silver Women Tablet] Potassium Gluconate [Potassium 99 mg PO DAILY 07/06/20 04/17/21 History Gluconate ER] Aspirin 81 mg PO DAILY 30 Days chew 07/11/20 04/17/21 Rx Memantine [Namenda] 10 mg PO BID 30 Days tab 07/11/20 04/17/21 Rx Vortioxetine Hydrobromide 20 mg PO DAILY 30 Days tablet 07/11/20 04/17/21 Rx [Trintellix] LORazepam [Ativan] 1 mg PO TID PRN 08/07/20 04/17/21 History Calcium Carb-Vit D 500Mg-5Mcg 1 tab PO DAILY 04/17/21 04/17/21 History [Oscal 500+D 5 Mcg (200 Iu)] Cariprazine HCl [Vraylar] 4.5 mg PO W/SUPPER 04/17/21 04/17/21 History Metoprolol Tartrate [Lopressor] 12.5 mg PO BID 04/17/21 04/17/21 History Midodrine HCl [ProAmatine] 10 mg PO TID 04/17/21 04/17/21 History Mirtazapine 30 mg PO HS 04/17/21 04/17/21 History hydrOXYzine HCL [Atarax] 10 mg PO HS 04/17/21 04/17/21 History Allergies Allergy/AdvReac Type Severity Reaction Status Date / Time peanut AdvReac Nausea, Verified 04/17/21 21:27 headache Physical Exam Vitals: Vital Signs Temp Pulse Pulse Resp BP BP Pulse Ox 04/18/21 08:22 126 H 120/56 04/18/21 01:01 98.4 F 99 14 129/61 04/18/21 00:30 129/61 04/18/21 00:00 98.3 F 103 H 24 147/123 94 L 04/17/21 21:00 92 18 138/91 97 04/17/21 19:12 99.2 F 101 H 18 156/77 96 Intake and Output 04/17/21 04/18/21 04/18/21 22:59 06:59 14:59 Other: Weight 58.06 kg 57.351 kg Cranial Nerve Examination - Cranial Nerves Cranial Nerve I- Olfactory: Intact Cranial Nerve II- Optic: Intact Cranial Nerve III- Oculomotor: Intact Cranial Nerve IV- Trochlear: Intact Cranial Nerve V- Trigeminal: Intact Cranial Nerve - Abducens: Intact Cranial Nerve VII- Facial: Intact Cranial Nerve VIII- Auditory: Intact Cranial Nerve IX- Glossopharyngeal: Intact Cranial Nerve X- Vagus: Intact Cranial Nerve XI- Accessory: Intact Cranial Nerve XII- Hypoglossal: Intact Results CBC & Chem 7: 04/18/21 06:30 04/18/21 06:30 Labs: Abnormal Lab Results - Last 24 Hours (Table) 04/17/21 04/17/21 04/18/21 Range/Units 20:29 20:50 06:30 BUN 24 H (7-17) mg/dL Glucose 106 H (74-99) mg/dL TSH 0.093 L (0.465-4.680) mIU/L Urine Ketones 1+ H (Negative) U Benzodiazepines Scrn Detected H (NotDetected)
[2021-04-18 12:38] LABS: Chol/HDL Ratio 4.34 Ratio; LDL Cholesterol,Calculated 124.1 mg/dL (0.0-131.0)
[2021-04-18] MEDS ORDERED: NON FORMULARY DRUG (Cariprazine Hcl [Vraylar] 4.5 MG Capsule) PO SCH (17:30)
[2021-04-18] MEDS ORDERED: MIRTAZAPINE 45 MG TABLET PO SCH (21:00)
[2021-04-18 21:25] VITALS: RESP 16
[2021-04-19] MEDS: MULTIVITAMINS, THERA 1 EACH TAB PO SCH (08:06)
[2021-04-19] MEDS: CALCIUM CARB-VIT D 500 MG-5 MCG TAB PO SCH (08:06)
[2021-04-19] MEDS: MEMANTINE 10 MG TAB PO SCH (08:07)
[2021-04-19] MEDS: CHOLECALCIFEROL 25 MCG (1000 IU) TABLET PO SCH (08:07)
[2021-04-19] MEDS: ASPIRIN 81 MG PO SCH (08:07)
[2021-04-19] MEDS: METOPROLOL TARTRATE 12.5 MG TAB PO SCH (08:08)
[2021-04-19] MEDS: MAGNESIUM OXIDE 400 MG TAB PO SCH (08:08)
[2021-04-19] MEDS: CYANOCOBALAMIN 500 MCG TAB PO SCH (08:09)
[2021-04-19] MEDS: VORTIOXETINE HYDROBROMIDE 20 MG TABLET PO SCH (08:09)
[2021-04-19] MEDS: MIDODRINE 5 MG TAB PO SCH (08:09)
[2021-04-19 08:12] VITALS: BP 121/56; PULSE 120
--- NOTE | 2021-04-19 11:19 | P.DS ---
Providers Date of admission: 04/17/21 23:14 Expected date of discharge: 04/19/21 Attending physician: Norman Torrez MD Consults: 04/17/21 23:44 Consult Physician Routine Consulting Provider: Luiza Langston Consult Reason/Comments: H&P and medical Do you want consulting provider notified?: Yes Primary care physician: Luiza Langston - Discharge Diagnosis(es) (1) Major depressive disorder, recurrent severe without psychotic features Current Visit: Yes Status: Chronic Priority: High (2) Anxiety Current Visit: Yes Status: Chronic Priority: Medium Hospital Course: Admission HPI: Patient is a , retired, 70-year-old female who was admitted for depression. Patient presented to the hospital on 04/17/2021, brought in by her for w orsening depression. She was sent here by her outpatient psychiatrist Dr. Torres who advised that the patient may be admitted for medication adjustment. Reportedly, the patient has been lacking motivation or enjoyment in life and that there has been concern for the patient's safety at home. Furthermore, the patient was noted to have a decreased appetite. Upon evaluation by this provider, the patient reports that she does feel like her mood has been gradually decreasing over the last 6 months but states that "I thought I was doing better." In regards to depressive symptoms, the patient does endorse a lack of motivation and some anhedonia but states that this stems mainly from boredom. She reports that she has nothing to keep her interest. Despite this, the patient is not endorsing any other significant symptoms of depression as she denies any hopelessness, helplessness, suicidal ideation, changes in hygiene and grooming, or changes in appetite. The patient does express some future orientation stating that "I did not think any really needed to be here because I feel like this would be a waste of time." She states that she feels like she could handle her depression at home. The patient is not endorsing any significant psychotic symptoms. She reports no auditory or visual hallucinations. She denies any lachelle or other delusions. The patient does have a significant history of a prior suicide attempt but states that it has been many years and that she is in no way shape or form suicidal. The patient reports that she spends her days primarily just watching television. She does report that she suffers mainly from boredom. When informed that she should look into using the Internet, the patient states that she has never learned how. She does appear to be future oriented and states that she is looking forward to learning how to using Internet so that she can see what else is out there. She reports that she has the time to do so. Patient has had 6 prior psychiatric admissions to this unit. Her last admission was this past July. The patient has previous diagnoses of major depressive disorder, anxiety disorder, and a neurocognitive disorder. She has had numerous trials of previous psychotropic medications including TCAs, Lamictal, Celexa, Cymbalta, Wellbutrin, Abilify, Effexor, Paxil, Prozac, Xanax, Ativan, Klonopin, risperidone, Adderall, Ritalin, Lyrica, and Fetzima. She has a history of ECT treatment in 2019. She attempted to overdose in the past. Hospital course: Upon admission to the unit patient was initially presenting as euthymic and at times bright. There has been concern that the patient has been displaying significant depressive symptoms at home including a flat affect, lack of motivation, and psychomotor slowing. This was confirmed by the patient's . After evaluation by Dr. Torres, the patient was brought to the psychiatric unit. The patient has been off her Vraylar since friday. Her Remeron was increased to address the concern that the patient has been having a decrease in appetite. The patient tolerated the medication change well and significant discussion took place between the patient, her , and this provider regarding whether she should continue Vraylar or not. We discussed that she is on multiple antidepressants and it would be best to maximize what is already prescribed rather than add more to her regimen. They are all in agreement to hold Vraylar. During visiting hours, the patient's was able to see Brenda and reported a significant improvement in her mood and affect. On the day of discharge, the patient is not reporting any suicidal or homicidal ideation, intention, and/or plan. She is not reporting any auditory or visual hallucinations. She is denying any paranoia or delusions. The patient has been adherent to the medication is not endorsing any significant side effects at this time. She denies any issues regarding her sleep or appetite. She denies any firearms or other weapons. The patient was counseled length on importance of medication adherence and appropriate follow-up. Furthermore, the patient was also counseled on abstaining from all substances including alcohol and marijuana. We discussed at length that the patient should look into pursuing hobbies and interests and learning new skills in order to maintain engagement and to combat depression. The patient appears to be future oriented and excited about life at this time. The patient is subsequently discharge. Mental status exam: General Appearance: Patient appears to be stated age is alert, pleasant, and cooperative. Patient is in no acute distress and has fair hygiene and grooming Behavior: Patient is calmly seated without any agitated behavior. Speech: Patient's speech is fluent and nonpressured. Mood/Affect: Patient reports their mood is "feeling good", affect is congruent and euthymic. Suicidality/Homicidality: Patient denies having any suicidal or homicidal ideation intent or plan. Perceptions: Patient denies any auditory or visual hallucinations. Though content/process: There is no evidence of any delusional thought content and thought process is linear and goal-directed. more future oriented Memory and concentration: AOX3, grossly intact for the purposes of this session. Can spell "WORLD" backwards correctly. Judgment and insight: Improved Vital Signs Temp 98.4 F 04/18/21 01:01 Pulse 120 H 04/19/21 08:11 Resp 16 04/18/21 21:24 BP 121/56 04/19/21 08:11 Pulse Ox 97 04/18/21 21:24 Impression: Major depressive disorder, recurrent, severe Generalized anxiety disorder Plan: -Continue with discharge today as patient has improved and stabilized psychiatrically and is not currently an imminent threat to self and/or others. Patient will remain at chronically elevated risk for harm to self and/or others due to her history of prior suicide attempt and treatment resistant depression. -Continue medications: The patient is to continue her previously prescribed regimen of Atarax and Trintellix. Remeron was increased to 45 mg at bedtime to address a decrease in appetite. Vraylar was held during this hospitalization and recommended to hold on this medication after discharge. -Patient was counseled on the need for medication compliance and appropriate follow-up at mental health and also primary care for medical issues. Patient verbalized understanding and agreed. -Social work to arrange for and conduct family meeting to ensure safety upon discharge and answer any questions/concerns. Social work also to arrange for patients follow up appointments with Dr. Torres for psychiatric care along with follow up with primary care provider. -Patient counseled on abstaining from recreational drugs and marijuana and alcohol. Was informed/educated on the adverse effects on their physical and mental health. Patient verbally agreed and understood. -Patient was instructed to return to the hospital or seek immediate medical care if their psychiatric or medical symptoms do worsen or reoccur. -Psychoeducation and supportive therapy provided to patient. Risks and benefits of pharmacological treatment versus the risks and benefits of nontreatment weight and discussed. Informed consent discussion held. Common side effects of psychotropics discussed such as, but not limited to headache, GI disturbance, sexual dysfunction, movement disorders, sedation, and orthostatic hypotension. Life threatening and blackbox warnings of prescribed medications also discussed. Potential risks of operating a vehicle or heavy machinery discussed with patient at length. Advised on importance of compliance and a reliable and responsible manner. Patient advised to review FDA consumer labeling of all medications prior to taking. Patient verbalized understanding of potential risks, and agrees with current treatment plan. Patient advised to medically contact physician/emergency personnel if any acute changes in condition occur. Allergies Allergy/AdvReac Type Severity Reaction Status Date / Time peanut AdvReac Nausea, Verified 04/17/21 21:27 headache Laboratory Results WBC 6.9 k/uL (3.8-10.6) 04/18/21 06:30 RBC 4.07 m/uL (3.80-5.40) 04/18/21 06:30 Hgb 12.7 gm/dL (11.4-16.0) 04/18/21 06:30 Hct 39.9 % (34.0-46.0) 04/18/21 06:30 MCV 98.1 fL (80.0-100.0) 04/18/21 06:30 MCH 31.3 pg (25.0-35.0) 04/18/21 06:30 MCHC 31.9 g/dL (31.0-37.0) 04/18/21 06:30 RDW 12.7 % (11.5-15.5) 04/18/21 06:30 Plt Count 205 k/uL (150-450) 04/18/21 06:30 MPV 7.8 04/18/21 06:30 Neutrophils % 64 % 04/18/21 06:30 Lymphocytes % 27 % 04/18/21 06:30 Monocytes % 6 % 04/18/21 06:30 Eosinophils % 1 % 04/18/21 06:30 Basophils % 1 % 04/18/21 06:30 Neutrophils # 4.4 k/uL (1.3-7.7) 04/18/21 06:30 Lymphocytes # 1.9 k/uL (1.0-4.8) 04/18/21 06:30 Monocytes # 0.4 k/uL (0-1.0) 04/18/21 06:30 Eosinophils # 0.1 k/uL (0-0.7) 04/18/21 06:30 Basophils # 0.0 k/uL (0-0.2) 04/18/21 06:30 Sodium 140 mmol/L (137-145) 04/18/21 06:30 Potassium 4.0 mmol/L (3.5-5.1) 04/18/21 06:30 Chloride 103 mmol/L (98-107) 04/18/21 06:30 Carbon Dioxide 30 mmol/L (22-30) 04/18/21 06:30 Anion Gap 7 mmol/L 04/18/21 06:30 BUN 24 mg/dL (7-17) H 04/18/21 06:30 Creatinine 0.78 mg/dL (0.52-1.04) 04/18/21 06:30 Est GFR (CKD-EPI)AfAm >90 (>60 ml/min/1.73 sqM) 04/18/21 06:30 Est GFR (CKD-EPI)NonAf 78 (>60 ml/min/1.73 sqM) 04/18/21 06:30 Glucose 106 mg/dL (74-99) H 04/18/21 06:[address] Glu mg/dL 100 04/18/21 06:30 Hemoglobin A1c 5.1 % (4.0-6.0) 04/18/21 06:30 Calcium 9.8 mg/dL (8.4-10.2) 04/18/21 06:30 Total Bilirubin 0.6 mg/dL (0.2-1.3) 04/18/21 06:30 AST 24 U/L (14-36) 04/18/21 06:30 ALT 18 U/L (4-34) 04/18/21 06:30 Alkaline Phosphatase 86 U/L (38-126) 04/18/21 06:30 Total Protein 6.7 g/dL (6.3-8.2) 04/18/21 06:30 Albumin 4.2 g/dL (3.5-5.0) 04/18/21 06:30 Triglycerides 176.00 mg/dL (0.00-149.00) H 04/18/21 06:30 Cholesterol 207.00 mg/dL (0.00-200.00) H 04/18/21 06:30 LDL Cholesterol, Calc 124.1 mg/dL (0.0-131.0) 04/18/21 06:30 VLDL Cholesterol, Calc 35.20 mg/dL (5.00-40.00) 04/18/21 06:30 HDL Cholesterol 47.70 mg/dL (40.00-60.00) 04/18/21 06:30 Cholesterol/HDL Ratio 4.34 Ratio 04/18/21 06:30 TSH 0.093 mIU/L (0.465-4.680) L 04/18/21 06:30 Urine Color Light Yellow 04/17/21 20:50 Urine Appearance Clear (Clear) 04/17/21 20:50 Urine pH 7.5 (5.0-8.0) 04/17/21 20:50 Ur Specific [place] 1.016 (1.001-1.035) 04/17/21 20:50 Urine Protein Negative (Negative) 04/17/21 20:50 Urine Glucose (UA) Negative (Negative) 04/17/21 20:50 Urine Ketones 1+ (Negative) H 04/17/21 20:50 Urine Blood Negative (Negative) 04/17/21 20:50 Urine Nitrite Negative (Negative) 04/17/21 20:50 Urine Bilirubin Negative (Negative) 04/17/21 20:50 Urine Urobilinogen <2.0 mg/dL (<2.0) 04/17/21 20:50 Ur Leukocyte Esterase Negative (Negative) 04/17/21 20:50 Urine Opiates Screen Not Detected (NotDetected) 04/17/21 20:29 Ur Oxycodone Screen Not Detected (NotDetected) 04/17/21 20:29 Urine Methadone Screen Not Detected (NotDetected) 04/17/21 20:29 Ur Propoxyphene Screen Not Detected (NotDetected) 04/17/21 20:29 Ur Barbiturates Screen Not Detected (NotDetected) 04/17/21 20:29 U Tricyclic Antidepress Not Detected (NotDetected) 04/17/21 20:29 Ur Phencyclidine Scrn Not Detected (NotDetected) 04/17/21 20:29 Ur Amphetamines Screen Not Detected (NotDetected) 04/17/21 20:29 U Methamphetamines Scrn Not Detected (NotDetected) 04/17/21 20:29 U Benzodiazepines Scrn Detected (NotDetected) H 04/17/21 20:29 Urine Cocaine Screen Not Detected (NotDetected) 04/17/21 20:29 U Marijuana (THC) Screen Not Detected (NotDetected) 04/17/21 20:29 Coronavirus (PCR) Not Detected (Not Detectd) 04/17/21 21:41 Patient Condition at Discharge: Stable Plan - Discharge Summary New Discharge Prescriptions: New Mirtazapine [Remeron] 45 mg PO HS 30 Days tablet Continue Rosuvastatin Calcium 2.5 mg PO MOTUWETHFR Magnesium Oxide 400 mg PO DAILY Cyanocobalamin (Vitamin B-12) [Vitamin B-12] 5,000 mcg PO DAILY Cholecalciferol [Vitamin D3 (25 Mcg = 1000 Iu)] 50 mcg PO DAILY Multivit-Min/Iron/Folic/Lutein [Centrum Silver Women Tablet] 1 tab PO DAILY Glucosam/Deangelo-Msm1/C/Venkatesh/Bosw [Glucosamine-Chondroitin Tablet] 1 tab PO DAILY Aspirin 81 mg PO DAILY 30 Days chew Memantine [Namenda] 10 mg PO BID 30 Days tab Vortioxetine Hydrobromide [Trintellix] 20 mg PO DAILY 30 Days tablet Midodrine HCl [ProAmatine] 10 mg PO TID hydrOXYzine HCL [Atarax] 10 mg PO HS Metoprolol Tartrate [Lopressor] 12.5 mg PO BID Discontinued Potassium Gluconate [Potassium Gluconate ER] 99 mg PO DAILY LORazepam [Ativan] 1 mg PO TID PRN PRN Reason: Anxiety Calcium Carb-Vit D 500Mg-5Mcg [Oscal 500+D 5 Mcg (200 Iu)] 1 tab PO DAILY Cariprazine HCl [Vraylar] 4.5 mg PO W/SUPPER Mirtazapine 30 mg PO HS Discharge Medication List Rosuvastatin Calcium 2.5 mg PO MOTUWETHFR 02/24/19 [History] Cholecalciferol [Vitamin D3 (25 Mcg = 1000 Iu)] 50 mcg PO DAILY 07/06/20 [History] Cyanocobalamin (Vitamin B-12) [Vitamin B-12] 5,000 mcg PO DAILY 07/06/20 [History] Glucosam/Deangelo-Msm1/C/Venkatesh/Bosw [Glucosamine-Chondroitin Tablet] 1 tab PO DAILY 07/06/20 [History] Magnesium Oxide 400 mg PO DAILY 07/06/20 [History] Multivit-Min/Iron/Folic/Lutein [Centrum Silver Women Tablet] 1 tab PO DAILY 07/06/20 [History] Aspirin 81 mg PO DAILY 30 Days chew 07/11/20 [Rx] Memantine [Namenda] 10 mg PO BID 30 Days tab 07/11/20 [Rx] Vortioxetine Hydrobromide [Trintellix] 20 mg PO DAILY 30 Days tablet 07/11/20 [Rx] Metoprolol Tartrate [Lopressor] 12.5 mg PO BID 04/17/21 [History] Midodrine HCl [ProAmatine] 10 mg PO TID 04/17/21 [History] hydrOXYzine HCL [Atarax] 10 mg PO HS 04/17/21 [History] Mirtazapine [Remeron] 45 mg PO HS 30 Days tablet 04/19/21 [Rx] Follow up Appointment(s)/Referral(s): Luiza Langston MD [Primary Care Provider] - 1 Week Pino Iglesias MD [REFERRING] - 04/20/21 5:00 pm ( ) Activity/Diet/Wound Care/Special Instructions: Activity and diet as tolerated. Avoid the use of street drugs and alcohol. Take all medications as prescribed. When you are in need of refills on your medications please contact your medical provider and/or outpatient psychiatrist to have this done. Please go to scheduled outpatient appointment for aftercare treatment. If symptoms return or become worse, call the crisis line at and/or go to the nearest emergency room for evaluation Discharge Disposition: HOME SELF-CARE
== END 2021-04-19 14:41 | disposition home or self-care (01) | DRG 885 ==
LOC: EC 17:49 → 3MHU 23:14
PROVIDERS: ADMIT Psychiatry & Neurology Psychiatry; ATTEND Psychiatry & Neurology Psychiatry
DX: F33.2 Major depressive disorder, recurrent severe without psychotic features (principal); R45.851 Suicidal ideations; E72.12 Methylenetetrahydrofolate reductase deficiency; F41.1 Generalized anxiety disorder; R41.9 Unspecified symptoms and signs involving cognitive functions and awareness; Z20.822 Contact with and (suspected) exposure to COVID-19; R41.3 Other amnesia; G43.909 Migraine, unspecified, not intractable, without status migrainosus; M19.90 Unspecified osteoarthritis, unspecified site; F42.9 Obsessive-compulsive disorder, unspecified; F90.9 Attention-deficit hyperactivity disorder, unspecified type; Z79.82 Long term (current) use of aspirin; Z91.51 Personal history of suicidal behavior; Z87.19 Personal history of other diseases of the digestive system; Z91.010 Allergy to peanuts
CPT/HCPCS: 80053; 80061; 80306; 81003; 82075; 83036; 84439; 84443; 85025; 87635

== ENCOUNTER → 2021-04-23 | Outpatient (CLI) | payer BC, MEDICARE ==
--- NOTE | 2021-04-24 10:33 | BD ---
EXAMINATION TYPE: Axial Bone Density DATE OF EXAM: 04/23/2021 COMPARISON: NONE CLINICAL HISTORY: M[age] AGE RELATED OSTEOPOROSIS Height: 5 FT 5 1/2 IN Weight: 125 FRAX RISK QUESTIONS: Alcohol (3 or more units per day): NO Family History (Parent hip fracture): YES Glucocorticoids (More than 3mos): NO (Ex: prednisone, prednisolone, methylprednisolone, dexamethasone, and hydrocortisone). History of Fracture in Adulthood: NO Secondary Osteoporosis: 1. Type 1 Diabetes: NO 2. Hyperthyroidism: NO 3. Menopause before 45: YES 4. Malnutrition: NO 5. Chronic liver disease: NO Rheumatoid Arthritis: YES Current Tobacco Use: NO RISK FACTORS HISTORY OF: Surgery to Spine/Hip(right/left)/Wrist (right/left): NO Family History of Osteoporosis: YES Active: YES Diet low in dairy products/other sources of calcium: NO Postmenopausal woman: YES Take estrogen and/or progesterone medications: NO Lost more than 2 inches in height since high school: YES Frequent falls: NO Poor Health: GOOD Hyperparathyroidism: NO Adrenal Insufficiency: NO MEDICATIONS: Additional Medications: ANXIETY AND DEPRESSION MEDS, CHOLESTEROL MEDS, BLOOD PRESSURE MEDS Additional History: EXAM MEASUREMENTS: Bone mineral densitometry was performed using the [employer] System. Bone mineral density as measured about the Lumbar spine is: ----- L1-L4(G/cm2): 0.958 T Score Values are as follows: ----- L2: -1.5 ----- L3: -1.4 ----- L4: -2.0 ----- L1-L4: -1.9 Bone mineral density has: DECREASED -0.4 % since study of: 2017 Bone mineral density about the R hip (g/cm2): 0.721 Bone mineral density about the L hip (g/cm2): 0.720 T Score values are as follows: -----R Neck: -2.3 -----L Neck: -2.3 -----R Total: -1.9 -----L Total: -2.0 Bone mineral density has: DECREASED -2.1 % since study of: 2018 IMPRESSION: Osteopenia (T Score between -2.5 and -1). There is slightly increased risk of fracture and the patient may be considered for treatment. Re-Screen 2-5 years. NOTE: T-SCORE=SD OF THE YOUNG ADULT MEAN.
== END | disposition home or self-care (01) ==
LOC: RADBDWWP 14:53
PROVIDERS: ATTEND Family Medicine
DX: M85.89 Other specified disorders of bone density and structure, multiple sites (principal); Z78.0 Asymptomatic menopausal state
CPT/HCPCS: 77080

== ENCOUNTER → 2021-05-10 | Outpatient (CLI) | payer BC, MEDICARE ==
--- NOTE | 2021-05-14 12:58 | MM ---
Reason for exam: screening (asymptomatic). Last mammogram was performed 2 years and 2 months ago. History: Patient is postmenopausal, has history of other cancer at age 36, and had first child at age 36. Benign MG stereo VAD BX LT of the left breast, October 11, 2013. Benign MG stereo VAD BX RT of the right breast, October 11, 2013. Cancelled Left Mammotome of the left breast, May 12, 2013. Benign left mammotome panel of the left breast, October 02, 2012. Physical Findings: A clinical breast exam by your physician is recommended on an annual basis and results should be correlated with mammographic findings. MG 3D Screening Mammo W/Cad Bilateral CC and MLO view(s) were taken. Prior study comparison: March 16, 2019, bilateral MG 3d screening mammo w/cad. November 07, 2017, bilateral MG 3d screening mammo w/cad. The breast tissue is heterogeneously dense. This may lower the sensitivity of mammography. Finding: There are increased fine grouped/clustered calcifications in the posterior position of the right breast on CC view. Previous mammotome biopsy in the right and left breast. New finding since March 16, 2019 and November 07, 2017. ASSESSMENT: Incomplete: need additional imaging evaluation, BI-RAD 0 RECOMMENDATION: Special view mammogram of the right breast. [facility] will attempt to contact patient to return for supplemental views.
== END | disposition home or self-care (01) ==
LOC: RADMAMWWP 14:49
PROVIDERS: ATTEND Internal Medicine Geriatric Medicine
DX: Z12.31 Encounter for screening mammogram for malignant neoplasm of breast (principal); Z78.0 Asymptomatic menopausal state
CPT/HCPCS: 77063; 77067

== ENCOUNTER → 2021-05-12 | Outpatient (CLI) | payer BC, MEDICARE ==
[2021-05-12 18:05] LABS: Vitamin B12 >2000.0 pg/mL (200.0-944.0)
== END | disposition home or self-care (01) ==
LOC: LABWHC1 11:08
PROVIDERS: ATTEND Psychiatry & Neurology Neurology
DX: G20 Parkinson's disease (principal); R41.3 Other amnesia
CPT/HCPCS: 36415; 82306; 82390; 82525; 82607; 84439; 84443

== ENCOUNTER → 2021-05-15 | Outpatient (CLI) | payer BC, MEDICARE ==
--- NOTE | 2021-05-17 12:39 | MM ---
Reason for exam: additional evaluation requested from abnormal screening. Last mammogram was performed less than 1 month ago. History: Patient is postmenopausal, has history of other cancer at age 36, and had first child at age 36. Benign MG stereo VAD BX LT of the left breast, October 11, 2013. Benign MG stereo VAD BX RT of the right breast, October 11, 2013. Cancelled Left Mammotome of the left breast, May 12, 2013. Benign left mammotome panel of the left breast, October 02, 2012. Physical Findings: Nurse did not find any significant physical abnormalities on exam. MG 3D Work Up W/Cad RT CC with magnification, ML with magnification, and ML view(s) were taken of the right breast. Prior study comparison: May 10, 2021, bilateral MG 3d screening mammo w/cad. March 16, 2019, bilateral MG 3d screening mammo w/cad. The breast tissue is heterogeneously dense. This may lower the sensitivity of mammography. Posterior central lower outer quadrant grouped calcifications persist but become faint on magnification CC views. Unable to include on magnification lateral. 6 month follow up recommended. These results were verbally communicated with the patient and result sheet given to the patient on 05/15/21. ASSESSMENT: Probably benign, BI-RAD 3 RECOMMENDATION: Follow-up diagnostic mammogram of the right breast in 6 months.
== END | disposition home or self-care (01) ==
LOC: RADMAMWWP 10:55
PROVIDERS: ATTEND Internal Medicine Geriatric Medicine
DX: R92.8 Other abnormal and inconclusive findings on diagnostic imaging of breast (principal); Z78.0 Asymptomatic menopausal state
CPT/HCPCS: 77061; 77065

== ENCOUNTER → 2021-10-04 | Outpatient (CLI) | payer BC, MEDICARE ==
[2021-10-04 14:47] LABS: ALT 15 U/L (8-44); AST 22 U/L (13-35); Albumin 4.3 g/dL (3.8-4.9); Albumin/Globulin Ratio 2.15 (1.60-3.17); Alkaline Phosphatase 76 U/L (41-126); Bilirubin, Conjugated <0.20 mg/dL (0.20-0.40); Total Protein 6.3 g/dL (6.2-8.2)
== END | disposition home or self-care (01) ==
LOC: LABWHC1 09:33
DX: F31.5 Bipolar disorder, current episode depressed, severe, with psychotic features (principal); Z79.899 Other long term (current) drug therapy
CPT/HCPCS: 36415; 80076; 80164; 84439; 84443; 84481

== ENCOUNTER → 2021-10-22 | Outpatient (CLI) | payer BC, MEDICARE | END | disposition home or self-care (01) | LOC: LABWHC1 14:48 | DX: F31.5 Bipolar disorder, current episode depressed, severe, with psychotic features (principal); Z79.899 Other long term (current) drug therapy | CPT/HCPCS: 36415; 80164 ==

== ENCOUNTER → 2022-04-03 | Outpatient (CLI) | payer BC, MEDICARE ==
--- NOTE | 2022-04-11 08:48 | MM ---
Reason for Exam: Follow-up at short interval from prior study. Last screening mammogram was performed 10 month(s) ago. Patient History: Menarche at age 16. First Full-Term at age 36. Late child-bearing (after 30). Postmenopausal. Other cancer, age 36. 10/11/2013, Benign Core Biopsy on the left side. 10/11/2013, Benign Core Biopsy on the right side. 10/02/2012, Benign Core Biopsy on the left side. 05/12/2013, Cancelled Left Mammotome on the left side. Risk Values: Kacey 5 year model risk: 3.3%. NCI Lifetime model risk: 9.4%. Tissue Density: The breast tissue is heterogeneously dense. This may lower the sensitivity of mammography. Findings: Analyzed By CAD. No suspicious microcalcifications seen. No evidence for mass or distortion. Microclip is seen bilaterally. Overall Assessment: Benign, BI-RAD 2 Management: Screening Mammogram of both breasts in 1 year. A clinical breast exam by your physician is recommended on an annual basis and results should be correlated with mammographic findings. This exam should not preclude additional follow-up of suspicious palpable abnormalities. Results were given to the patient verbally at the time of exam. Electronically signed and approved by: Neri Rucker M.D. Radiologis
== END | disposition home or self-care (01) ==
LOC: RADMAMWWP 10:59
PROVIDERS: ATTEND Family Medicine
DX: R92.8 Other abnormal and inconclusive findings on diagnostic imaging of breast (principal); Z78.0 Asymptomatic menopausal state
CPT/HCPCS: 77062; 77066

== ENCOUNTER → 2023-04-24 | Outpatient (CLI) | payer BC, MEDICARE ==
--- NOTE | 2023-04-24 21:52 | BD ---
EXAMINATION TYPE: Axial Bone Density DATE OF EXAM: 04/24/2023 CLINICAL HISTORY: 72 years old Female. ICD-10 CODE: M89.9 DISORDER OF BONE Height: 64.5in Weight: 113lb FRAX RISK QUESTIONS: Family History (Parent hip fracture): yes Secondary Osteoporosis: 3. Menopause before 45: yes RISK FACTORS HISTORY OF: Active: yes Postmenopausal woman: yes Lost more than 2 inches in height since high school: yes Frequent falls: occasional MEDICATIONS: Osteoporosis Medications: Which medication: yes, but unsure of which one How Long: a few years Additional Medications: calcium with vitamin d Additional History: EXAM MEASUREMENTS: Bone mineral densitometry was performed using the [employer] System. Bone mineral density as measured about the Lumbar spine is: ----- L1-L4(G/cm2): 0.927 T Score Values are as follows: ----- L1: -3.0 ----- L2: -1.8 ----- L3: -1.9 ----- L4: -2.0 ----- L1-L4: -2.1 Z Score Values are as follows: ----- L1: -0.8 ----- L2: 0.3 ----- L3: 0.2 ----- L4: 0.2 ----- L1-L4: 0.0 Bone mineral density has: Decreased -3.2% since study of: 04-23-21 Bone mineral density about the R hip (g/cm2): 0.744 Bone mineral density about the L hip (g/cm2): 0.743 T Score values are as follows: -----R Neck: -2.3 -----L Neck: -2.7 -----R Total: -2.1 -----L Total: -2.1 Z Score values are as follows: -----R Neck: -0.2 -----L Neck: -0.6 -----R Total: -0.2 -----L Total: -0.2 Bone mineral density has: Decreased -2.6% since study of: 04-23-21 FRAX%s: The graph provided illustrates a 35.5% chance for a major osteoporotic fx and a 17.8% chance for the hips probability for fx in 10 years time. IMPRESSION: Osteoporosis (T Score less than -2.5). There is increased fracture risk and therapy is usually indicated based on age. Re-Screen 1-2 years. NOTE: T-SCORE=SD OF THE YOUNG ADULT MEAN.
--- NOTE | 2023-04-30 09:09 | MM ---
Reason for Exam: Screening (asymptomatic). Last mammogram was performed 1 year(s) and 1 month(s) ago. Patient History: Menarche at age 16. First Full-Term at age 36. Late child-bearing (after 30). Postmenopausal. Other cancer, age 36. 10/11/2013, Benign Core Biopsy on the left side. 10/11/2013, Benign Core Biopsy on the right side. 10/02/2012, Benign Core Biopsy on the left side. 05/12/2013, Cancelled Left Mammotome on the left side. Risk Values: Kacey 5 year model risk: 3.3%. NCI Lifetime model risk: 8.9%. Prior Study Comparison: 09/25/2016 Bilateral Screening Mammogram, [facility]. 11/07/2017 Bilateral Screening Mammogram, [facility]. 03/16/2019 Bilateral Screening Mammogram, [facility]. 05/10/2021 Bilateral Screening Mammogram, [facility]. 05/15/2021 Right Diagnostic Mammogram, [facility]. 04/03/2022 Bilateral MG 3D diag mammo w/cad [facility], [facility]. Tissue Density: The breast tissue is heterogeneously dense. This may lower the sensitivity of mammography. Findings: Analyzed By CAD. Left breast biopsy clips. There is no suspicious group of microcalcifications or new suspicious mass. Overall Assessment: Benign, BI-RAD 2 Management: Screening Mammogram of both breasts in [address] [facility] will attempt to contact patient to return for supplemental views and ultrasound if indicated. Patient should continue monthly self-breast exams. A clinical breast exam by your physician is recommended on an annual basis. This exam should not preclude additional follow-up of suspicious palpable abnormalities. Note on Kacey scores and lifetime risk: 1. A Kacey score greater than 3% is considered moderate risk. If this is the case, consider specialist referral to assess eligibility for a risk reducing agent. 2. If overall lifetime risk for the development of breast cancer is 20% or higher, the patient may qualify for future screening with alternating mammogram and breast MRI. Electronically signed and approved by: Jimmy Reid DO
== END | disposition home or self-care (01) ==
LOC: RADMAMWWP 13:54
PROVIDERS: ATTEND Family Medicine
DX: Z12.31 Encounter for screening mammogram for malignant neoplasm of breast (principal); M81.0 Age-related osteoporosis without current pathological fracture; M85.851 Other specified disorders of bone density and structure, right thigh; Z78.0 Asymptomatic menopausal state
CPT/HCPCS: 77063; 77067; 77080

== ENCOUNTER → 2023-10-28 | Outpatient (CLI) | payer BC, MEDICARE ==
--- NOTE | 2023-10-28 21:13 | MR ---
EXAMINATION TYPE: MR brain wo/w con DATE OF EXAM: 10/28/2023 6:41 PM CLINICAL INDICATION:Female, 73 years old with history of G93.0 CEREBRAL CYSTS; PHH, Memory loss, a lo t of falls, checking for arachnoid cyst COMPARISON: 05/18/2020 TECHNIQUE: Multi planar, multi sequence imaging was performed through the brain including: T1, T2, In version recovery, susceptibility weighted imaging and gradient echo imaging and Diffusion weighted im aging. The patient was then given intravenous contrast and multi planar, T1 fat-saturation images wer e obtained. IV Contrast: 5.5 cc Gadavist FINDINGS: Stable right 2.3 x 1.6 x 1.5 cm CSF attenuating extra-axial lesion along the concavity of t he left frontal lobe with mild mass effect upon the cerebrum. No abnormal postcontrast enhancement. The olguin-white junctions, ventricular system, basal cisterns appear unremarkable. Diffusion-weighted imaging shows no evidence of restricted diffusion to suggest acute/subacute infarct. Intracranial ar terial flow voids are maintained. Midline structures show no abnormality. The susceptibility weighted images do not reveal any evidence for micro-hemorrhage. After administration of gadolinium, no abnor mal enhancement is seen. The bone marrow signal is within normal limits. Paranasal sinuses and mastoid air cells: No significant paranasal sinus disease. Visualized orbits: Orbital contents are intact. IMPRESSION: 1. Stable right CSF attenuating lesion most compatible with arachnoid cyst. No new acute finding or abnormal postcontrast enhancement. 2. No evidence of intracranial mass, acute/subacute infarct, or abnormal enhancement.
== END | disposition home or self-care (01) ==
LOC: RADMRIMAIN 17:57
PROVIDERS: ATTEND Family Medicine
DX: G93.0 Cerebral cysts (principal); G93.89 Other specified disorders of brain
CPT/HCPCS: 70553; A9585

== ENCOUNTER → 2024-03-02 | Outpatient (CLI) | payer BC, MEDICARE ==
--- NOTE | 2024-03-03 01:17 | NM ---
EXAMINATION TYPE: NM DatScan Brain SPECT DATE OF EXAM: 03/02/2024 COMPARISON: Prior Red scan June 22, 2021 CLINICAL INDICATION: Female, 73 years old with history of G20.A1 convulsions; TECHNIQUE: 10 drops of Lugol's solution was administered 1 hour prior to injection as a thyroid bloc billy agent. After the administration of 4.9 mCi I-123 Ioflupane DaTscan. Images obtained [address] injection. SPECT images of the brain were acquired with axial and coronal reconstructions. FINDINGS: Persistent asymmetric blunting of the right corpus striatum. The DaTSCAN also demonstrates reduced u ptake of tracer throughout the bilateral striata. This appearance is consistent with the bilateral l oss of the pre-synaptic dopaminergic terminals. IMPRESSION: This abnormal appearance is consistent with a diagnosis of either idiopathic PD or PS. [facility], , 03/03/2024 1:15 AM
== END | disposition home or self-care (01) ==
LOC: RADNMMAIN 07:58
PROVIDERS: ATTEND Psychiatry & Neurology Neurology
CPT/HCPCS: 78803

== ENCOUNTER → 2024-03-11 | Outpatient (CLI) | payer BC, MEDICARE | END | disposition home or self-care (01) | LOC: LABWHC1 10:06 | PROVIDERS: ATTEND Psychiatry & Neurology Neurology | DX: G20.A1 Parkinson's disease without dyskinesia, without mention of fluctuations (principal); Z79.899 Other long term (current) drug therapy | CPT/HCPCS: 36415; 82607; 82746; 83036 ==

== ENCOUNTER → 2024-05-07 | Outpatient (CLI) | payer BC, MEDICARE ==
[2024-05-07 15:35] LABS: Basophils # (A) 0.03 X 10*3/uL (0.00-0.10); Basophils % (A) 0.5 %; Eosinophils % (A) 1.7 %; HCT 41.5 % (37.2-46.3); HGB 13.4 g/dL (12.0-15.0); Lymphocytes # (A) 2.56 X 10*3/uL (0.90-5.00); Lymphocytes % (A) 44.8 %; MCH 31.7 pg (27.0-32.0); MCHC 32.3 g/dL (32.0-37.0); MCV 98.1 FL (80.0-97.0); Mean Platelet Volume 12.6 FL (9.5-12.2); Monocytes # (A) 0.57 X 10*3/uL (0.20-1.00); NRBC Per 100 WBC 0 X 10*3/uL (0.00-0.01); Neutrophils # (A) 2.45 X 10*3/uL (1.80-7.70); Neutrophils % (A) 42.8 %; Platelet Count 152 X 10*3/uL (140-440); RBC 4.23 X 10*6/uL (4.10-5.20); RDW 12.7 % (11.5-14.5); WBC 5.72 X 10*3/uL (4.50-10.00)
[2024-05-07 16:02] LABS: ALT 23 U/L (8-44); AST 28 U/L (13-35); Albumin 4.6 g/dL (3.8-4.9); Albumin/Globulin Ratio 2.42 Ratio (1.60-3.17); Alkaline Phosphatase 73 U/L (41-126); BUN/Creat Ratio 30.56 Ratio (12.00-20.00); Blood Urea Nitrogen 27.5 mg/dL (9.0-27.0); Calcium 10.2 mg/dL (8.7-10.3); Carbon Dioxide 32.8 mmol/L (21.6-31.8); Chloride 99 mmol/L (96-109); Chol/HDL Ratio 3.14 Ratio; Globulin 1.9 g/dL (1.6-3.3); Glucose 82 mg/dL (70-110); LDL Cholesterol,Calculated 99.2 mg/dL (0.0-131.0); Potassium 4.4 mmol/L (3.5-5.5); Sodium 143 mmol/L (135-145); T4, Free (Free Thyroxine) 1.33 ng/dL (0.80-1.80); Total Bilirubin 0.4 mg/dL (0.3-1.2); Total Protein 6.5 g/dL (6.2-8.2)
== END | disposition home or self-care (01) ==
LOC: LABWHC1 09:33
PROVIDERS: ATTEND Family Medicine
DX: E11.65 Type 2 diabetes mellitus with hyperglycemia (principal); G20.C Parkinsonism, unspecified; R60.9 Edema, unspecified
CPT/HCPCS: 36415; 80053; 80061; 83036; 84439; 84443; 84480; 85025

== ENCOUNTER → 2024-05-19 | Outpatient (CLI) | payer BC, MEDICARE ==
--- NOTE | 2024-05-20 09:02 | MM ---
Reason for Exam: Screening (asymptomatic). Last mammogram was performed 1 year(s) and 1 month(s) ago. Patient History: Menarche at age 16. First Full-Term at age 36. Late child-bearing (after 30). Postmenopausal. Other cancer, age 36. 10/11/2013, Benign Core Biopsy on the left side. 10/11/2013, Benign Core Biopsy on the right side. 10/02/2012, Benign Core Biopsy on the left side. 05/12/2013, Cancelled Left Mammotome on the left side. Risk Values: Kacey 5 year model risk: 3.3%. NCI Lifetime model risk: 8.5%. Prior Study Comparison: 05/15/2021 Right Diagnostic Mammogram, [facility]. 04/03/2022 Bilateral MG 3D diag mammo w/cad [facility], [facility]. 04/24/2023 Bilateral MG 3D screening mammo w/cad, [facility]. Tissue Density: The breasts are extremely dense, which lowers the sensitivity of mammography. Findings: Analyzed By CAD. There are 2 biopsy clips in the left breast. Single biopsy clip in the right breast identified. There is no suspicious group of microcalcifications or new suspicious mass in either breast. Overall Assessment: Benign, BI-RAD 2 Management: Screening Mammogram of both breasts in 1 year. Some advise annual bilateral breast ultrasound surveillance in patients with extremely dense tissue. Patient should continue monthly self-breast exams. A clinical breast exam by your physician is recommended on an annual basis. This exam should not preclude additional follow-up of suspicious palpable abnormalities. Note on Kacey scores and lifetime risk: 1. A Kacey score greater than 3% is considered moderate risk. If this is the case, consider specialist referral to assess eligibility for a risk reducing agent. 2. If overall lifetime risk for the development of breast cancer is 20% or higher, the patient may qualify for future screening with alternating mammogram and breast MRI. [facility], , 05/20/2024 8:59 AM. Electronically signed and approved by: Efe Cortes M.D.
== END | disposition home or self-care (01) ==
LOC: RADMAMWWP 14:50
PROVIDERS: ATTEND Family Medicine
DX: Z12.31 Encounter for screening mammogram for malignant neoplasm of breast (principal); Z78.0 Asymptomatic menopausal state; R92.343 Mammographic extreme density, bilateral breasts
CPT/HCPCS: 77063; 77067